=== PATIENT | male | born 1955 | race Caucasian/White ===

== ENCOUNTER → 2020-10-31 13:18 | Outpatient (BNVA) | payer BC, SELFPAY | PROVIDERS: PCP Internal Medicine; Visit Provider Urology ==

== ENCOUNTER → 2021-05-03 09:27 | Outpatient (BNVA) | payer MEDICARE, SELFPAY | PROVIDERS: PCP Internal Medicine; Visit Provider Urology | DX: R97.20 Elevated prostate specific antigen [PSA] (principal); R39.12 Poor urinary stream; N40.1 Benign prostatic hyperplasia with lower urinary tract symptoms; N13.8 Other obstructive and reflux uropathy; R35.1 Nocturia; E78.5 Hyperlipidemia, unspecified; N52.9 Male erectile dysfunction, unspecified; E11.9 Type 2 diabetes mellitus without complications; I10 Essential (primary) hypertension | CPT/HCPCS: Q3014 ==

== ENCOUNTER 2021-09-10 09:34 | Outpatient (REF) | payer MEDICARE, SELFPAY ==
[2021-09-10 11:52] LABS: Estimated Average Glucose 166 mg/dL; Hemoglobin A1c % 7.4 %
[2021-09-10 12:12] LABS: Alanine Aminotransferase 24 U/L (0-40); Albumin Level 4.7 g/dL (3.5-5.0); Alkaline Phosphatase 55 U/L (39-117); Anion Gap 13 (12-20); Aspartate Amino Transferase 21 U/L (5-37); Bilirubin Total 1.2 mg/dL (0.0-1.0); Blood Urea Nitrogen 16 mg/dL (9-16); Calcium 10.3 mg/dL (8.4-10.2); Carbon Dioxide 27 mmol/L (22-29); Chloride 106 mmol/L (96-108); Cholesterol 153 mg/dL; Estimated Glomerular Filt Rate > 60; Glucose Fasting 104 mg/dL (60-99); HDL Cholesterol 57 mg/dL; LDL Cholesterol Calculated 74 mg/dl; Potassium 4.8 mmol/L (3.3-5.1); Sodium 141 mmol/L (135-145); Triglycerides 112 mg/dL
[2021-09-10 12:16] LABS: Creatinine Urine 142.86 mg/dL; Microalbum/Creatinine Ratio Ur 13.2 ug/mg cr
== END 2021-09-10 09:35 | disposition home or self-care (01) ==
LOC: HO.HMGCLDS 09:34
PROVIDERS: PCP Internal Medicine; Visit Provider Internal Medicine
DX: E11.9 Type 2 diabetes mellitus without complications (principal); E78.5 Hyperlipidemia, unspecified; I10 Essential (primary) hypertension
CPT/HCPCS: 36415; 80053; 80061; 82043; 83036

== ENCOUNTER 2021-10-22 11:09 | Outpatient (REF) | payer MEDICARE, SELFPAY ==
[2021-10-22 14:43] LABS: Prostate Specific Antigen 3.16 ng/mL (<0.05-4.0)
== END 2021-10-22 11:10 | disposition home or self-care (01) ==
LOC: HO.HMGCLDS 11:09
PROVIDERS: PCP Internal Medicine; Visit Provider Urology
DX: Z12.5 Encounter for screening for malignant neoplasm of prostate (principal); R97.20 Elevated prostate specific antigen [PSA]
CPT/HCPCS: 36415; 84153

== ENCOUNTER → 2021-11-01 10:11 | Outpatient (BNVA) | payer MEDICARE, SELFPAY | PROVIDERS: PCP Internal Medicine; Visit Provider Urology | DX: R97.20 Elevated prostate specific antigen [PSA] (principal) | CPT/HCPCS: Q3014 ==

== ENCOUNTER 2022-01-06 10:53 | Outpatient (REF) | payer MEDICARE, SELFPAY ==
[2022-01-06 13:49] LABS: Hematocrit 41.1 % (42.0-52.0); Hemoglobin 13.7 g/dl (14.0-18.0); Mean Corpuscular HGB Conc 33.3 g/dl (31.0-36.0); Mean Corpuscular Hemoglobin 31.5 pg (27.0-33.0); Mean Corpuscular Volume 94.5 fL (80.0-98.0); Mean Platelet Volume 9.7 fL (9.4-12.4); Platelet Count 201 X10*3/uL (160-400); Red Blood Count 4.35 X10*6/uL (4.60-5.80); Red Cell Distribution Width 11.9 % (11.0-16.0); White Blood Count 5.6 X10*3/uL (4.8-10.8)
[2022-01-06 13:59] LABS: Alanine Aminotransferase 29 U/L (0-40); Albumin Level 4.4 g/dL (3.5-5.0); Alkaline Phosphatase 58 U/L (39-117); Anion Gap 15 (12-20); Aspartate Amino Transferase 24 U/L (5-37); Bilirubin Total 1.5 mg/dL (0.0-1.0); Blood Urea Nitrogen 12 mg/dL (9-16); Calcium 9.9 mg/dL (8.4-10.2); Carbon Dioxide 25 mmol/L (22-29); Chloride 105 mmol/L (96-108); Cholesterol 142 mg/dL; Estimated Glomerular Filt Rate > 60; Glucose Fasting 81 mg/dL (60-99); HDL Cholesterol 51 mg/dL; LDL Cholesterol Calculated 68 mg/dl; Potassium 4.5 mmol/L (3.3-5.1); Sodium 140 mmol/L (135-145); Total Protein 6.6 g/dL (6.5-8.0); Triglycerides 117 mg/dL
[2022-01-06 14:05] LABS: Estimated Average Glucose 183 mg/dL
== END 2022-01-06 10:54 | disposition home or self-care (01) ==
LOC: HO.HMGCLDS 10:53
PROVIDERS: PCP Internal Medicine; Visit Provider Internal Medicine
DX: E11.9 Type 2 diabetes mellitus without complications (principal); I10 Essential (primary) hypertension; E78.5 Hyperlipidemia, unspecified
CPT/HCPCS: 36415; 80053; 80061; 83036; 85027

== ENCOUNTER 2022-01-16 10:37 | Outpatient (REF) | payer MEDICARE, SELFPAY ==
[2022-01-16 14:32] LABS: Prostate Specific Antigen 3.28 ng/mL (<0.05-4.0)
== END 2022-01-16 10:38 | disposition home or self-care (01) ==
LOC: HO.HMGCLDS 10:37
PROVIDERS: PCP Internal Medicine; Visit Provider Urology
DX: Z12.5 Encounter for screening for malignant neoplasm of prostate (principal); N40.1 Benign prostatic hyperplasia with lower urinary tract symptoms; N13.8 Other obstructive and reflux uropathy
CPT/HCPCS: 36415; 84153

== ENCOUNTER → 2022-01-24 11:50 | Outpatient (BNVA) | payer MEDICARE, SELFPAY | PROVIDERS: PCP Internal Medicine; Visit Provider Urology | DX: N40.1 Benign prostatic hyperplasia with lower urinary tract symptoms (principal); N13.8 Other obstructive and reflux uropathy; R97.20 Elevated prostate specific antigen [PSA]; R39.12 Poor urinary stream | CPT/HCPCS: Q3014 ==

== ENCOUNTER 2022-05-06 11:35 | Outpatient (REF) | payer MEDICARE, SELFPAY ==
[2022-05-06 14:20] LABS: Hematocrit 41.4 % (42.0-52.0); Mean Corpuscular HGB Conc 33.8 g/dl (31.0-36.0); Mean Corpuscular Hemoglobin 31.8 pg (27.0-33.0); Mean Corpuscular Volume 94.1 fL (80.0-98.0); Mean Platelet Volume 9.5 fL (9.4-12.4); Platelet Count 204 X10*3/uL (160-400); White Blood Count 5.2 X10*3/uL (4.8-10.8)
[2022-05-06 14:30] LABS: Estimated Average Glucose 183 mg/dL
[2022-05-06 14:33] LABS: Alanine Aminotransferase 24 U/L (0-40); Albumin Level 4.4 g/dL (3.5-5.0); Alkaline Phosphatase 67 U/L (39-117); Anion Gap 17 (12-20); Aspartate Amino Transferase 23 U/L (5-37); Bilirubin Total 1.1 mg/dL (0.0-1.0); Blood Urea Nitrogen 13 mg/dL (9-16); Calcium 9.7 mg/dL (8.4-10.2); Carbon Dioxide 26 mmol/L (22-29); Chloride 106 mmol/L (96-108); Cholesterol 186 mg/dL; Estimated Glomerular Filt Rate > 60; Glucose Fasting 75 mg/dL (60-99); HDL Cholesterol 57 mg/dL; LDL Cholesterol Calculated 97 mg/dl; Potassium 4.8 mmol/L (3.3-5.1); Sodium 144 mmol/L (135-145); Total Protein 6.6 g/dL (6.5-8.0); Triglycerides 162 mg/dL
[2022-05-06 14:51] LABS: Creatinine Urine 123.27 mg/dL; Microalbum/Creatinine Ratio Ur 5.6 ug/mg cr
== END 2022-05-06 11:36 | disposition home or self-care (01) ==
LOC: HO.HMGCLDS 11:35
PROVIDERS: PCP Internal Medicine; Visit Provider Internal Medicine
DX: I10 Essential (primary) hypertension (principal); E78.5 Hyperlipidemia, unspecified; E11.9 Type 2 diabetes mellitus without complications
CPT/HCPCS: 36415; 80053; 80061; 82043; 83036; 85027

== ENCOUNTER 2022-05-27 10:52 | Outpatient (REF) | payer MEDICARE, SELFPAY ==
[2022-05-27 14:51] LABS: PSA,Total (Free>4and<10) 3.72 ng/mL (0.00-4.00)
== END 2022-05-27 10:53 | disposition home or self-care (01) ==
LOC: HO.HMGCLDS 10:52
PROVIDERS: PCP Internal Medicine; Visit Provider Urology
DX: R97.20 Elevated prostate specific antigen [PSA] (principal); Z12.5 Encounter for screening for malignant neoplasm of prostate
CPT/HCPCS: 36415; 84153

== ENCOUNTER → 2022-06-10 15:16 | Outpatient (BNVA) | payer MEDICARE, SELFPAY | PROVIDERS: PCP Internal Medicine; Visit Provider Urology | DX: R97.20 Elevated prostate specific antigen [PSA] (principal) | CPT/HCPCS: 99212 ==

== ENCOUNTER 2022-07-17 11:28 | Outpatient (REF) | payer MEDICARE, SELFPAY ==
[2022-07-17 11:44] VITALS: BMI 25.6
[2022-07-17 11:45] VITALS: BP 151/74; PULSE 84; RESP 16; TEMP 36.9; O2SAT 96
--- NOTE | 2022-07-17 12:29 | W.PM.OPN ---
Operative Note Operative Note Date of Service: 07/17/22 Narrative: Preoperative diagnosis: Elevated PSA Postoperative diagnosis: Elevated PSA Procedure: 1. transrectal ultrasound measurement of prostate 2. transrectal ultrasound-guided pudendal nerve block 3. transrectal ultrasound-guided prostate biopsy 12 core Surgeon: Dr. Iker Lane Anesthetic: Local Indications for procedure: Elevated PSA Procedure: After informed consent was verified, the patient was brought into the procedure area and lay left-hand side down on the table. Patient identity confirmed. Perioperative antibiotics confirmed. Safety pause time out performed. NOELLE performed to dilate rectal sphincter Iodine 10cc with Gel was placed per rectum Ultrasound probe was placed per rectum The prostate was measured in 3 dimensions Total volume equals 30 gm No cystic structures were noted Bilateral peripheral calcifications were noted at the surgical margin The prostate was otherwise homogeneous in nature An ultrasound-guided pudendal nerve block was performed using 10 cc of 1% lidocaine. 8 cc was placed at the base and 2 cc of the apex. A 12 core biopsy was performed with 6 cores each side. Two cores were taken at the apex, mid and base. Cores were spaced between lateral and medial. He tolerated the procedure well. Was able to ambulate to bathroom after 5 minutes. Printed instructions regarding antibiotic use and common side effects such as low-grade temperature, potential infection and bleeding were given Pathology: 12 core prostate biopsy.
[2022-07-17 12:51] VITALS: BP 157/86; PULSE 84; RESP 16; O2SAT 98
== END 2022-07-17 11:29 | disposition home or self-care (01) ==
LOC: HO.MS 11:28
PROVIDERS: PCP Internal Medicine; Visit Provider Urology
PROC: (CPT 55700; principal; 2022-07-17 12:00)
DX: C61 Malignant neoplasm of prostate (principal); R97.20 Elevated prostate specific antigen [PSA]
CPT/HCPCS: 55700; 76942; 88305; 88344

== ENCOUNTER → 2022-07-25 10:46 | Outpatient (BNVA) | payer MEDICARE, SELFPAY | PROVIDERS: PCP Internal Medicine; Visit Provider Urology | DX: C61 Malignant neoplasm of prostate (principal) | CPT/HCPCS: Q3014 ==

== ENCOUNTER → 2022-08-13 10:44 | Outpatient (REF) | payer MEDICARE, SELFPAY ==
--- NOTE | ~2022-08-13 | NM_ITS ---
EXAMINATION: NM BONE SCAN OF THE WHOLE BODY CLINICAL INFORMATION: Malignant neoplasm of the prostate. COMPARISON: None TECHNIQUE: Multiple gamma scintillation camera images of the whole body were performed 2.75 hours following the intravenous administration of 33 mCi Tc-99m MDP. FINDINGS: The head is only partially imaged here. No abnormality in the imaging submitted. The skull is not imaged from orbits superior. In the thoracic cage and upper extremities, some uptake at the costochondral junction of the 1st rib is likely degenerative and some mild uptake at the sternomanubrial joints is likely degenerative. Some uptake at the right AC joint is likely degenerative. The rib uptake is felt to be unremarkable. Partially visualized upper extremity uptake is otherwise unremarkable. In the spine, some mottled uptake and thoracic spine may well be degenerative in nature. In the lower lumbosacral spine, there is some planar uptake at L2-L3 and some uptake in the region of L5-S1 posterior right and left. This could well be degenerative in nature. Correlate with plain films or CT. Pelvis, unremarkable. In the lower extremities, some uptake in the medial compartment of the left greater than right knee is likely degenerative and some uptake in the patellofemoral regions likely degenerative. In the feet, some uptake at the level of the distal metatarsals, right greater than left foot, and uptake in the region of the proximal phalanx of the 1st digit of the right foot. Findings may be postsurgical or possibly degenerative. Consider plain films to fully evaluate. No other definite bony abnormalities are noted. The urinary bladder and faint visualization of both kidneys are noted. NM/NM bone scan whole body IMPRESSION: I would recommend imaging of the lumbar spine to evaluate for degeneration versus possible early lesions. Also consider plain films of the feet and clinical correlation would be recommended here. Otherwise areas described above are likely degenerative in nature. Consider plain films if clinically indicated
== END ==
LOC: HO.NUCMED 10:44
PROVIDERS: PCP Internal Medicine; Visit Provider Urology
DX: C61 Malignant neoplasm of prostate (principal)
CPT/HCPCS: 78306; A9503

== ENCOUNTER → 2022-08-21 13:08 | Outpatient (BNVA) | payer MEDICARE, SELFPAY | PROVIDERS: PCP Internal Medicine; Visit Provider Urology | DX: C61 Malignant neoplasm of prostate (principal); N40.1 Benign prostatic hyperplasia with lower urinary tract symptoms; N13.8 Other obstructive and reflux uropathy; Z79.899 Other long term (current) drug therapy | CPT/HCPCS: 51798; 99212 ==

== ENCOUNTER → 2022-09-04 13:58 | Outpatient (BNVA) | payer MEDICARE, SELFPAY | PROVIDERS: PCP Internal Medicine; Visit Provider Urology | DX: C61 Malignant neoplasm of prostate (principal) | CPT/HCPCS: 96402; J9217 ==

== ENCOUNTER 2022-10-07 11:34 | Outpatient (REF) | payer MEDICARE, SELFPAY ==
[2022-10-07 14:25] LABS: Alanine Aminotransferase 22 U/L (0-40); Albumin Level 4.2 g/dL (3.5-5.0); Alkaline Phosphatase 63 U/L (39-117); Anion Gap 14 (12-20); Aspartate Amino Transferase 19 U/L (5-37); Bilirubin Total 1.2 mg/dL (0.0-1.0); Blood Urea Nitrogen 14 mg/dL (9-16); Calcium 9.5 mg/dL (8.4-10.2); Carbon Dioxide 29 mmol/L (22-29); Chloride 105 mmol/L (96-108); Cholesterol 197 mg/dL; Estimated Glomerular Filt Rate > 60; Glucose Fasting 141 mg/dL (60-99); HDL Cholesterol 55 mg/dL; LDL Cholesterol Calculated 104 mg/dl; Potassium 4.5 mmol/L (3.3-5.1); Sodium 143 mmol/L (135-145); Total Protein 6.2 g/dL (6.5-8.0); Triglycerides 191 mg/dL
[2022-10-07 14:29] LABS: Estimated Average Glucose 186 mg/dL; Hemoglobin A1c % 8.1 %
== END 2022-10-07 11:35 | disposition home or self-care (01) ==
LOC: HO.HMGCLDS 11:34
PROVIDERS: PCP Internal Medicine; Visit Provider Internal Medicine
DX: I10 Essential (primary) hypertension (principal); E78.5 Hyperlipidemia, unspecified; E11.9 Type 2 diabetes mellitus without complications
CPT/HCPCS: 36415; 80053; 80061; 83036

== ENCOUNTER → 2022-11-13 15:39 | Outpatient (BNVA) | payer MEDICARE, SELFPAY | PROVIDERS: PCP Internal Medicine; Visit Provider Urology | DX: C61 Malignant neoplasm of prostate (principal) | CPT/HCPCS: 99212 ==

== ENCOUNTER 2022-11-17 08:37 | Day surgery (SDC) | payer MEDICARE, SELFPAY ==
[2022-11-13 09:44] VITALS: BMI 25.6
--- NOTE | 2022-11-14 11:06 | HO.ANESPROP2 ---
Documented by User: Ximena Stein NP 11/14/22 11:10 HPI - Anesthesia Eval Consult details Narrative: 67yo M for Space OAR, Visicoil Insertion PMFSH Active Problems Active Problems: All Active Problems (Updated 10/13/22 @ 13:33 by Alisa Pascual MD) Prostate cancer (Acute) Hyperlipidemia (Acute) HTN (hypertension) (Acute) Dysplastic nevi (Acute) Abnormal colonoscopy (Acute) DM type 2 (diabetes mellitus, type 2) (Acute) Elevated PSA (Acute) Weak urinary stream (Acute) Nocturia associated with benign prostatic hyperplasia (Acute) BPH w urinary obs/LUTS (Acute) Past Medical History Medical History Abnormal colonoscopy DM type 2 (diabetes mellitus, type 2) Dysplastic nevi HTN (hypertension) Hyperlipidemia Inguinal hernia Family History Family History Father No problems noted. Mother No problems noted. 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 Alcohol intake: current Alcohol intake frequency: does not drink Patient Tobacco Use Status: Never used Tobacco e-Cigarette/Vaping Use: Never Used Second Hand Smoke Exposure: No Use of substances other than those prescribed or required for medical reasons: No Are you DNR?: No Advance Directives: No Advance Directives Information Provided: Yes service: No Current occupational status: retired Cognitive needs: No Hearing needs: No Vision needs: Yes Meds Allergies Allergy/AdvReac Type Severity Reaction Status Date / Time penicillin G Allergy Unknown rash all Verified 11/13/22 15:43 over body Home Medications Medication Instructions Recorded Confirmed Last Taken Type lancets #100 ea 05/14/21 10/13/22 Unknown History Exam Exam Date and Time: November 14, 2022 1106 Height,Weight and Vital Signs: Height 6 ft 3 in Weight 92.986 kg Pertinent Lab Results Pertinent Lab Results: Laboratory Tests 05/06/22 10/07/22 11:48 11:44 WBC 5.2 Hgb 14.0 Hct 41.4 L Plt Count 204 Sodium 143 Potassium 4.5 Chloride 105 Carbon Dioxide 29 BUN 14 Creatinine 0.84 Assessment and Plan Assessment Anesthesia Assessment: Chart Reviewed Documented by User: Liv Lai MD 11/17/22 09:18 [facility] Past Medical History Medical History Abnormal colonoscopy DM type 2 (diabetes mellitus, type 2) Dysplastic nevi HTN (hypertension) Hyperlipidemia Inguinal hernia Family History Family History Father No problems noted. Mother No problems noted. 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 Alcohol intake: current Alcohol intake frequency: does not drink Patient Tobacco Use Status: Never used Tobacco e-Cigarette/Vaping Use: Never Used Second Hand Smoke Exposure: No Use of substances other than those prescribed or required for medical reasons: No Are you DNR?: No Advance Directives: No Advance Directives Information Provided: Yes service: No Current occupational status: retired Cognitive needs: No Hearing needs: No Vision needs: Yes Meds Allergies Allergy/AdvReac Type Severity Reaction Status Date / Time penicillin G Allergy Unknown rash all Verified 11/13/22 15:43 over body Home Medications Medication Instructions Recorded Confirmed Last Taken Type lancets #100 ea 05/14/21 10/13/22 Unknown History Exam Airway Mallampati Class: I Neck ROM: Full Heart: rr Lungs: cta Assessment and Plan Assessment Anesthesia Assessment: Anesthesia Plan Discussed and Smoking Cess. Discussed Final Anesthetic Review Family History of Problems with Anesthesia: No History of Problems with Anesthesia: Yes (Ponv) NPO: Yes ASA Class: II Final Preanesthetic Review: No Changes in Pt Med Stat, Meds/Allgs Chart Reviewed, Consent Obtained/Reviewed and Anes Risks/Benef Reviewed Patient Risk: Low Procedure Risk: Low Anesthetic Plan Anesthetic Plan: GA Disposition: Standard PACU
[2022-11-17 09:00] VITALS: BP 125/72; PULSE 77; RESP 18; TEMP 36.2; O2SAT 96; BMI 26.1
[2022-11-17 09:12] LABS: Glucose, Whole Blood 214 mg/dL (60-115)
[2022-11-17] MEDS: Scopolamine 1.5 MG PATCH.TD.3 TRANSDERMA (09:34)
--- NOTE | 2022-11-17 11:32 | W.PM.OPN ---
Operative Note Operative Note Date of Service: 11/17/22 Narrative: Preoperative diagnosis: Prostate cancer Postoperative diagnosis: Prostate cancer Procedure: 1. Transrectal ultrasound-guided perineal visicoil fiducial seed placement 2. Treansrectal ultrasound-guided perineal SpaceOAR gel placement Surgeon: Dr. Iker Lane Anesthetic: Sedation Indications for procedure: Prostate Cancer Procedure: After informed consent was verified, the patient was brought into the operating room and anesthesia was performed per protocol. The patient was placed in a modified dorsal lithotomy position. Gel was placed per rectum Ultrasound probe was placed per rectum. The prostate was visualized in sagittal and transverse dimensions. Local anesthetic was infiltrated in the perineal area using 10 cc of lidocaine Visicoil fiducial seed markers were placed in a transperineal fashion using ultrasound guidance 2 gold seed markers placed in total. 1 on the right - 1 on the left. The purpose is for triangulation. The 2nd part of the procedure was placement of SpaceOAR gel to allow consolidation for radiation delivery. The delivery needle was advanced bevel down in the midline under ultrasound guidance to the apex of the prostate. It was advanced in the plane the prostate from the rectum to the midpoint of the prostate. Location was determined using sagittal and transverse imaging. At the midpoint of the prostate 1 cc of saline was placed to confirm needle position. Second cc of saline was placed to confirm spread toward the base of the prostate. With the needle in the confirmed position 10 cc of gel mixture was injected. Good separation was seen of the rectum from the prostate space running in the midline from the base toward the apex of the prostate. Following completion of the procedure the probe was removed from the rectum. He tolerated the procedure well. He was extubated in the operating room and transferred in stable condition to the recovery area. Pathology none Drains none
[2022-11-17 11:37] VITALS: BP 127/76; PULSE 71; RESP 20; TEMP 36.2; O2SAT 96
[2022-11-17 11:42] VITALS: BP 121/80; PULSE 78; RESP 16; O2SAT 97
[2022-11-17] MEDS: oxyCODONE HCl Immed Release 5 MG TABLET PO (11:42)
[2022-11-17 11:47] VITALS: BP 116/77; PULSE 76; RESP 16; O2SAT 97
[2022-11-17 11:52] VITALS: BP 117/76; PULSE 70; RESP 16; O2SAT 97
[2022-11-17 12:07] VITALS: BP 108/78; PULSE 66; RESP 16; TEMP 36.2; O2SAT 98
== END 2022-11-17 12:39 | disposition home or self-care (01) ==
PROVIDERS: PCP Internal Medicine; Visit Provider Urology
PROC: (CPT 55874; principal; 2022-11-17 10:50)
PROC: (CPT 55874; 2022-11-17 10:50)
DX: C61 Malignant neoplasm of prostate (principal); I10 Essential (primary) hypertension; E78.5 Hyperlipidemia, unspecified; D23.9 Other benign neoplasm of skin, unspecified; E11.9 Type 2 diabetes mellitus without complications; Z79.84 Long term (current) use of oral hypoglycemic drugs; Z79.899 Other long term (current) drug therapy; Z88.0 Allergy status to penicillin
CPT/HCPCS: 55874; 55876; 82947; A4648; C1889; J1956; J3010

== ENCOUNTER 2023-02-03 10:33 | Outpatient (REF) | payer MEDICARE, SELFPAY ==
[2023-02-03 13:58] LABS: MANUAL DIFF FLAG NO
[2023-02-03 14:08] LABS: Basophils Percent Auto 0.8 % (0-2); Eosinophils Absolute Auto 0.5 X10*3/uL (0.0-0.4); Eosinophils Percent Auto 13.7 % (0-4); Imm Gran Abs Auto 0.01 X10*3/uL (0.00-0.03); Imm Gran Pct Auto 0.3 % (0.0-0.4); Lymphocytes Absolute Auto 0.4 X10*3/uL (1.2-4.9); Lymphocytes Percent Auto 11.9 % (20-40); Mean Corpuscular HGB Conc 34.2 g/dl (31.0-36.0); Mean Corpuscular Hemoglobin 32.2 pg (27.0-33.0); Mean Corpuscular Volume 94.1 fL (80.0-98.0); Mean Platelet Volume 9.5 fL (9.4-12.4); Monocytes Absolute Auto 0.3 X10*3/uL (0.1-1.2); Monocytes Percent Auto 8.1 % (2-11); Neutrophils Absolute Auto 2.4 x10*3/uL (2.0-8.3); Neutrophils Percent Auto 65.2 % (45-73); Platelet Count 199 X10*3/uL (160-400); Red Blood Count 4.04 X10*6/uL (4.60-5.80); Red Cell Distribution Width 12.3 % (11.0-16.0); White Blood Count 3.7 X10*3/uL (4.8-10.8)
[2023-02-03 14:09] LABS: Estimated Average Glucose 186 mg/dL; Hemoglobin A1c % 8.1 %
[2023-02-03 14:25] LABS: Alanine Aminotransferase 103 U/L (0-40); Alkaline Phosphatase 68 U/L (39-117); Anion Gap 16 (12-20); Aspartate Amino Transferase 54 U/L (5-37); Bilirubin Total 1.6 mg/dL (0.0-1.0); Blood Urea Nitrogen 15 mg/dL (9-16); Calcium 9.7 mg/dL (8.4-10.2); Carbon Dioxide 24 mmol/L (22-29); Chloride 107 mmol/L (96-108); Cholesterol 163 mg/dL; Estimated Glomerular Filt Rate > 60; Glucose Fasting 128 mg/dL (60-99); HDL Cholesterol 51 mg/dL; LDL Cholesterol Calculated 67 mg/dl; Potassium 4.3 mmol/L (3.3-5.1); Sodium 143 mmol/L (135-145); Total Protein 6.2 g/dL (6.5-8.0); Triglycerides 227 mg/dL
== END 2023-02-03 10:34 | disposition home or self-care (01) ==
LOC: HO.HMGCLDS 10:33
PROVIDERS: PCP Internal Medicine; Visit Provider Internal Medicine
DX: E11.9 Type 2 diabetes mellitus without complications (principal); I10 Essential (primary) hypertension; E78.5 Hyperlipidemia, unspecified
CPT/HCPCS: 36415; 80053; 80061; 83036; 85025

== ENCOUNTER 2023-03-13 11:06 | Outpatient (REF) | payer MEDICARE, SELFPAY ==
[2023-03-13 15:22] LABS: Alanine Aminotransferase 20 U/L (0-40); Albumin Level 4.3 g/dL (3.5-5.0); Alkaline Phosphatase 57 U/L (39-117); Anion Gap 17 (12-20); Aspartate Amino Transferase 21 U/L (5-37); Bilirubin Total 1.2 mg/dL (0.0-1.0); Blood Urea Nitrogen 17 mg/dL (9-16); Calcium 10.2 mg/dL (8.4-10.2); Carbon Dioxide 22 mmol/L (22-29); Chloride 107 mmol/L (96-108); Estimated Glomerular Filt Rate > 60; Glucose Random 129 mg/dL (60-115); Potassium 3.7 mmol/L (3.3-5.1); Sodium 142 mmol/L (135-145)
== END 2023-03-13 11:07 | disposition home or self-care (01) ==
LOC: HO.HMGCLDS 11:06
PROVIDERS: Absent Provider Urology; PCP Internal Medicine; Visit Provider Internal Medicine
DX: R79.89 Other specified abnormal findings of blood chemistry (principal)
CPT/HCPCS: 36415; 80053; 84520

== ENCOUNTER 2023-03-18 13:48 | Outpatient (AMB) | payer MEDICARE, SELFPAY ==
--- NOTE | 2023-03-18 14:19 | MHC.OFFVIS ---
Intake Intake Visit Reasons: GnRH/follow up(approved) Intake Note: Patient is present for follow up GnRH/follow up Urology Medications: finasteride Blood Thinner: none Surgical Technician Required: No Accompanied by: Self / Same As Patient Allergies penicillin G Allergy (Unknown, Verified 05/13/23 14:10) rash all over body HPI HPI Comments History of Present Illness Details Austen Carrero is a very pleasant male. They are a patient of Dr Pascual. He is seen for the following urologic conditions - lower urinary tract symptoms - prostate cancer Accompanied by brother GnRH administered today Three month follow-up lab work Prostate Cancer - 06/28 high risk, grade group 4, low volume disease - GnRH 08/28, 03/29 EXBRT with [facility] with hormonal manipulation for 18 months - 37 treatments completed 01/[address] Lane 06/28 PSA at diagnosis 3.7 on finasteride Urine DNA Score 40 Biopsy 06/28 Histologic type: Adenocarcinoma, acinar and intraductal types Histologic grade: ? Ad score: 4+4=8 (left mid lateral) 60%, 4+3=7 (left base lateral) 30%, 3+4=7 (left apex lateral, right apex lateral)30%, 5%, 3+3=6 (right mid medial) 5% Tumor quantitation: ? Number cores positive: 5 Total number of cores: 12 % of tissue involved: 10% of all tissue examined Periprostatic fat inv.: Not identified Seminal vesicle inv.: Not identified Perineural inv.: Not identified LVI: Not identified Prostate cancer staging - Prostate MRI - 08/28 1.4 cm PI-RADS 5 left apical lesion, no evidence of extracapsular extension - Bone Scan - degenerative changes PFSH Medical History Abnormal colonoscopy DM type 2 (diabetes mellitus, type 2) Dysplastic nevi HTN (hypertension) Hyperlipidemia Inguinal hernia Surgical History H/O colonoscopy H/O hernia repair Status post arthroscopic knee surgery Family History Father No problems noted. Mother No problems noted. 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 Alcohol intake: current Alcohol intake frequency: does not drink Patient Tobacco Use Status: Never used Tobacco e-Cigarette/Vaping Use: Never Used Second Hand Smoke Exposure: No service: No Current occupational status: retired Cognitive needs: No Hearing needs: No Vision needs: Yes Review of Systems Const Denies chills and Denies fever(s) Card Reports no additional complaints and Denies syncope Resp Denies cough GI Denies abdominal pain and Denies heartburn Reports as per HPI and Denies change in libido Neuro Denies syncope Psych Denies change in libido Endo Denies change in libido Physical Exam Const General: cooperative, healthy appearing, comfortable and no acute distress Orientation/consciousness: patient oriented x3 HEENT Face and sinus: Yes normal facial exam Mouth: moist mucous membranes Neck Neck: Yes normal visual inspection, Yes full ROM and Yes trachea midline Chest Chest palpation & inspection: normal inspection of the chest Resp Effort & Inspection: normal respiratory effort, able to speak in complete sentences and no respiratory distress GI Inspection: Yes normal to inspection Back/Spine/Pelvis Cervical Spine: normal cervical lordosis Thoracic/Lumbar Spine: thoracic and lumbar spine normal to inspection Skin General skin exam: no rashes or lesions noted Neuro General: patient oriented x3, gait normal, tone normal and moves all extremities Extrem General: Yes normal to inspection and Yes capillary refill normal Office Meds Eligard (6 month) 45 mg (6 month) subcutaneous syringe Performing Provider: Iker Lane MD [facility] Administered by: Kourtney Manzano RN on 03/18/23 14:34 Dose Route Admin Location Dispensed Lot Number Expiration Date [facility] Electronics 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 Assessment & Plan Assessment & Plan (1) Prostate cancer: Comment: 06/28 High Grade, Low Volume, RTx [place], f/u Dr. Lane Code(s): C61 - Malignant neoplasm of prostate Plan Three month follow-up labs Orders: Orders AMB Leuprolide Injection - Practice Supplied 03/18/23 C61 - Malignant neoplasm of prostate Prostate Specific Antigen 3 Months C61 - Malignant neoplasm of prostate Patient Instructions: Imaging studies, laboratory and physical exam results were discussed and reviewed in detail. No major barriers to patient understanding were identified. An opportunity to ask questions regarding the treatment plan was provided. All questions were answered. The patient expressed understanding and agreement with the above treatment plan. The patient is aware they should contact our office by phone for worsening of their current condition or the appearance of new urologic symptoms. Compliance is encouraged with any medications and followup testing that is ordered. It is a privilege to participate in the urologic care of your patient. If you have any questions or concerns regarding treatment for the above conditions, or other urologic issues, please do not hesitate to contact me. The office telephone contact is [phone]. This note is constructed using voice recognition software. While every effort has been made to ensure accuracy migratory game bird biologist errors may have been included. Yours sincerely, Dr Iker Lane MD, J[facility] - Urology Providers of Expert, Compassionate Care for the Genitourinary System Coding Level of Care Code Est Pt Level 3 (23815) Diagnoses Prostate cancer C61
== END 2023-03-18 14:38 | disposition home or self-care (01) ==
LOC: HO.HUSH 13:48
PROVIDERS: PCP Internal Medicine; Visit Provider Urology
DX: C61 Malignant neoplasm of prostate (principal)
CPT/HCPCS: 99213

== ENCOUNTER → 2023-03-18 13:48 | Outpatient (BNVA) | payer MEDICARE, SELFPAY | PROVIDERS: PCP Internal Medicine; Visit Provider Urology | DX: C61 Malignant neoplasm of prostate (principal); N40.1 Benign prostatic hyperplasia with lower urinary tract symptoms; N13.8 Other obstructive and reflux uropathy; Z79.899 Other long term (current) drug therapy | CPT/HCPCS: 96402; 99212; J9217 ==

== ENCOUNTER 2023-05-04 11:25 | Outpatient (REF) | payer MEDICARE, SELFPAY ==
[2023-05-04 12:58] LABS: MANUAL DIFF FLAG NO
[2023-05-04 13:06] LABS: Basophils Percent Auto 0.7 % (0-2); Eosinophils Absolute Auto 0.2 X10*3/uL (0.0-0.4); Eosinophils Percent Auto 4.9 % (0-4); Hematocrit 39.4 % (42.0-52.0); Hemoglobin 13.3 g/dl (14.0-18.0); Imm Gran Abs Auto 0.01 X10*3/uL (0.00-0.03); Imm Gran Pct Auto 0.2 % (0.0-0.4); Lymphocytes Absolute Auto 0.6 X10*3/uL (1.2-4.9); Lymphocytes Percent Auto 13.6 % (20-40); Mean Corpuscular HGB Conc 33.8 g/dl (31.0-36.0); Mean Corpuscular Hemoglobin 32.3 pg (27.0-33.0); Mean Corpuscular Volume 95.6 fL (80.0-98.0); Mean Platelet Volume 9.5 fL (9.4-12.4); Monocytes Absolute Auto 0.4 X10*3/uL (0.1-1.2); Monocytes Percent Auto 8.1 % (2-11); Neutrophils Absolute Auto 3.2 x10*3/uL (2.0-8.3); Neutrophils Percent Auto 72.5 % (45-73); Platelet Count 216 X10*3/uL (160-400); Red Blood Count 4.12 X10*6/uL (4.60-5.80); Red Cell Distribution Width 11.9 % (11.0-16.0); White Blood Count 4.5 X10*3/uL (4.8-10.8)
[2023-05-04 13:17] LABS: Alanine Aminotransferase 16 U/L (0-40); Albumin Level 4.4 g/dL (3.5-5.0); Alkaline Phosphatase 57 U/L (39-117); Anion Gap 14 (12-20); Aspartate Amino Transferase 21 U/L (5-37); Bilirubin Total 0.8 mg/dL (0.0-1.0); Blood Urea Nitrogen 17 mg/dL (9-16); Calcium 10.3 mg/dL (8.4-10.2); Carbon Dioxide 27 mmol/L (22-29); Chloride 107 mmol/L (96-108); Cholesterol 210 mg/dL (<200); Estimated Glomerular Filt Rate > 60; Glucose Fasting 109 mg/dL (60-99); HDL Cholesterol 67 mg/dL (>40); LDL Cholesterol Calculated 100 mg/dL (<100); Potassium 4.1 mmol/L (3.3-5.1); Sodium 144 mmol/L (135-145); Total Protein 7.1 g/dL (6.5-8.0); Triglycerides 216 mg/dL (<150)
[2023-05-04 13:21] LABS: Estimated Average Glucose 171 mg/dL; Hemoglobin A1c % 7.6 % (<6.0)
[2023-05-04 13:45] LABS: Creatinine Urine 166.98 mg/dL; Microalbum/Creatinine Ratio Ur 17.9 ug/mg cr (<30)
== END 2023-05-04 11:26 | disposition home or self-care (01) ==
LOC: HO.HMGCLDS 11:25
PROVIDERS: PCP Internal Medicine; Visit Provider Internal Medicine
DX: E11.9 Type 2 diabetes mellitus without complications (principal); E78.5 Hyperlipidemia, unspecified; I10 Essential (primary) hypertension
CPT/HCPCS: 36415; 80053; 80061; 82043; 83036; 85025

== ENCOUNTER 2023-05-13 13:53 | Outpatient (AMB) | payer MEDICARE, SELFPAY ==
--- NOTE | 2023-05-13 14:07 | MHC.PC.OV ---
Vital Signs 05/13/23 14:09 Height 6 ft 3 in Weight 199 lb BMI 24.9 BP 130/74 Blood Pressure Location Lt brachial Position Sitting Pulse 74 Pulse Source Pulse Oximeter Pulse Oximetry (%) 97 Oxygen Delivery Method Room Air Intake Visit Reasons: Annual PE Intake Note: Pt is here today for PE. Allergies penicillin G Allergy (Unknown, Verified 05/13/23 14:10) rash all over body Tobacco use date assessed: 05/13/23 Dental Screening Dental Screen Date: 05/13/23 Did you have a dental visit in the last 12 months?: Yes Did you have a dental problem in the last 6 months where you did not have access to dental care?: No Was dental information given to patient?: Patient has dentist HPI Annual PE HPI Details Pt presents for PE. PFSH Medical History Abnormal colonoscopy DM type 2 (diabetes mellitus, type 2) Dysplastic nevi HTN (hypertension) Hyperlipidemia Inguinal hernia Surgical History H/O colonoscopy H/O hernia repair Status post arthroscopic knee surgery Family History Father No problems noted. Mother No problems noted. 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 78916 - PHQ-9 Billing: Patient declined-do not bill Source: Developed by Drs. Iraj Louis, Fatmata Bravo, Geoff Ly and colleagues, with an educational jaden from [employer] Thrive Questionnaire Date Thrive assessed: 05/13/23 What is your living situation today?: I choose not to answer this question Within the past 12 months, did the food you bought not last and you didn't have the money to get more?: I choose not to answer this question Within the past 12 months, did you worry whether your food would run out before you got money to buy more?: I choose not to answer this question Do you have trouble paying for medicines?: I choose not to answer this question Do you have trouble getting transportation to medical appointments?: I choose not to answer this question Do you have trouble paying your heating and electricity bill?: I choose not to answer this question Do you have trouble taking care of your child, family member or friend?: I choose not to answer this question Do you have trouble with day-to-day activities such as bathing, preparing meals, shopping, managing finances, etc.?: I choose not to answer this question Are you currently unemployed and looking for a job?: I choose not to answer this question Are you interested in more education?: I choose not to answer this question Currently or been in a relationship where the following occur: I choose not to answer this question NORMA-7 AMB Questionnaire NORMA-7 Date NORMA - 7 assessed: 05/13/23 Source: Developed by Drs. Iraj Louis, Fatmata Bravo, Geoff Ly and colleagues, with an educational jaden from [employer] NORMA-7 Assessment Billing NORMA-7 Assessment Tool: pt declined-do not bill Review of Systems Const All systems reviewed & are unremarkable except as noted in HPI and below Reports no additional complaints Eyes Reports no additional complaints ENT Reports no additional complaints Card Reports no additional complaints Resp Reports no additional complaints GI Reports no additional complaints Reports no additional complaints Physical exam (Primary Care) Vital Signs: Last Vital Signs Pulse 74 05/13/23 14:09 BP 130/74 05/13/23 14:09 Pulse Ox 97 05/13/23 14:09 Oxygen Delivery Method Room Air 05/13/23 14:09 BMI result Body Mass Index 24.9 Tobacco/Smoking Status: Tobacco use Status Tobacco use date assessed 05/13/23 05/13/23 14:17 Patient Tobacco Use Status Never used Tobacco 05/13/23 14:08 e-Cigarette/Vaping Use Never Used 05/13/23 14:08 Thrive Assessment: Date of Thrive Assessment Date Thrive assessed 05/13/23 05/13/23 14:24 Currently or been in a relationship where the following occur: I choose not to answer this question Const General: no acute distress HENMT Head: Yes normal to inspection Ears: hearing grossly normal bilaterally Face and sinus: Yes normal facial exam Throat: Yes posterior oropharynx normal Eyes General: appearance normal, both eyes and all related structures Resp Effort & Inspection: normal respiratory effort Auscultation: clear to auscultation bilaterally Cardio Rhythm: regular rhythm Heart sounds: S1 normal heart sound present and S2 normal heart sound present GI Inspection: Yes normal to inspection Palpation (GI): Soft to palpation Percussion: Yes normal to percussion Auscultation: normal bowel sounds Assessment and Plan Assessment & Plan (1) Hyperlipidemia: Code(s): E78.5 - Hyperlipidemia, unspecified Plan: cont statin and low cholesterol diet (2) HTN (hypertension): Code(s): I10 - Essential (primary) hypertension Plan: cont lisinopril (3) Prostate cancer: Comment: 06/28 High Grade, Low Volume, RTx [facility], f/u Dr. Lane Code(s): C61 - Malignant neoplasm of prostate Plan: f/u with urology (4) DM type 2 (diabetes mellitus, type 2): Comment: 20 years, Code(s): E11.9 - Type 2 diabetes mellitus without complications Plan: A1C is down to 7.6, cont ADA diet, exercise, meds. f/u in 4 months Orders: Orders Vitamin B12 and Folate 4 Months C61 - Malignant neoplasm of prostate, E11.9 - Type 2 diabetes mellitus without complications, E78.5 - Hyperlipidemia, unspecified, I10 - Essential (primary) hypertension Comprehensive [place]. Panel Fast 4 Months E11.9 - Type 2 diabetes mellitus without complications, E78.5 - Hyperlipidemia, unspecified, I10 - Essential (primary) hypertension Hemoglobin A1c 4 Months C61 - Malignant neoplasm of prostate, E11.9 - Type 2 diabetes mellitus without complications, E78.5 - Hyperlipidemia, unspecified, I10 - Essential (primary) hypertension IRON PROFILE 4 Months C61 - Malignant neoplasm of prostate, E11.9 - Type 2 diabetes mellitus without complications, E78.5 - Hyperlipidemia, unspecified, I10 - Essential (primary) hypertension Lipid Panel 4 Months C61 - Malignant neoplasm of prostate, E11.9 - Type 2 diabetes mellitus without complications, E78.5 - Hyperlipidemia, unspecified, I10 - Essential (primary) hypertension Microalbumin, Random (w Creat) 4 Months C61 - Malignant neoplasm of prostate, E11.9 - Type 2 diabetes mellitus without complications, E78.5 - Hyperlipidemia, unspecified, I10 - Essential (primary) hypertension Complete Blood Count Auto Diff 4 Months C61 - Malignant neoplasm of prostate, E11.9 - Type 2 diabetes mellitus without complications, E78.5 - Hyperlipidemia, unspecified, I10 - Essential (primary) hypertension Coding Level of Care Code Est Pt Prev Care >65y(24813) Diagnoses Hyperlipidemia E78.5 HTN (hypertension) I10 Prostate cancer C61 DM type 2 (diabetes mellitus, type 2) E11.9
[2023-05-13 14:09] VITALS: BP 130/74; PULSE 74; O2SAT 97; BMI 24.9
== END 2023-05-13 14:40 | disposition home or self-care (01) ==
PROVIDERS: PCP Internal Medicine; Visit Provider Internal Medicine
DX: Z00.00 Encounter for general adult medical examination without abnormal findings (principal); I10 Essential (primary) hypertension; C61 Malignant neoplasm of prostate; E11.9 Type 2 diabetes mellitus without complications; E78.5 Hyperlipidemia, unspecified
CPT/HCPCS: 99397

== ENCOUNTER 2023-06-01 11:59 | Outpatient (REF) | payer MEDICARE, SELFPAY ==
[2023-06-01 13:52] LABS: Prostate Specific Antigen < 0.10 ng/mL (<0.05-4.0)
== END 2023-06-01 12:00 | disposition home or self-care (01) ==
LOC: HO.HMGCLDS 11:59
PROVIDERS: PCP Internal Medicine; Visit Provider Urology
DX: C61 Malignant neoplasm of prostate (principal); Z12.5 Encounter for screening for malignant neoplasm of prostate
CPT/HCPCS: 36415; 84153

== ENCOUNTER 2023-06-19 11:09 | Outpatient (AMB) | payer MEDICARE, SELFPAY ==
--- NOTE | 2023-06-19 11:09 | MHC.OFFVIS ---
Intake Intake Visit Reasons: 3M/PSA(set) Intake Note: Patient is present for follow up telehealth follow up Urology Medications: none Blood Thinner: none Metal Lather Required: No Accompanied by: Self / Same As Patient Allergies penicillin G Allergy (Unknown, Verified 06/19/23 11:11) rash all over body HPI HPI Comments History of Present Illness Details Austen Carrero is a very pleasant male. They are a patient of Dr Pascual. He is seen for the following urologic conditions - lower urinary tract symptoms - prostate cancer Telemedicine Evaluation 15 min Consultation [facility] Katherine Video attempted Three month follow-up - last [facility] March 202305/30 <0.1 See in 3 months for final [facility] Prostate Cancer - 06/28 high risk, grade group 4, low volume disease - [facility] 08/28, 03/29 EXBRT with [facility] with hormonal manipulation for 18 months - 37 treatments completed 01/[address] Lane 06/28 PSA at diagnosis 3.7 on finasteride Urine DNA Score 40 Biopsy 06/28 Histologic type: Adenocarcinoma, acinar and intraductal types Histologic grade: Oberlin score: 4+4=8 (left mid lateral) 60%, 4+3=7 (left base lateral) 30%, 3+4=7 (left apex lateral, right apex lateral)30%, 5%, 3+3=6 (right mid medial) 5% Number cores positive: 5 Total number of cores: 12 % of tissue involved: 10% of all tissue examined Periprostatic fat inv.: Not identified Seminal vesicle inv.: Not identified Perineural inv.: Not identified LVI: Not identified Prostate cancer staging - Prostate MRI - 08/28 1.4 cm PI-RADS 5 left apical lesion, no evidence of extracapsular extension - Bone Scan - degenerative changes [facility] Medical History Dysplastic nevi Abnormal colonoscopy DM type 2 (diabetes mellitus, type 2) Inguinal hernia Hyperlipidemia HTN (hypertension) Surgical History H/O colonoscopy H/O hernia repair Status post arthroscopic knee surgery Family History Father No problems noted. Mother No problems noted. 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 Alcohol intake: current Alcohol intake frequency: does not drink Patient Tobacco Use Status: Never used Tobacco e-Cigarette/Vaping Use: Never Used Second Hand Smoke Exposure: No service: No Current occupational status: retired Cognitive needs: No Hearing needs: No Vision needs: Yes Review of Systems Const All systems reviewed & are unremarkable except as noted in HPI and below Reports no additional complaints Resp Reports no additional complaints GI Reports no additional complaints Reports as per HPI Musc Reports no additional complaints Physical Exam Telemedicine evaluation Appropriate responses Regular breathing rate and rhythm HEENT Head: Yes normal to inspection Ears: hearing grossly normal bilaterally Eyes General: appearance normal, both eyes and all related structures Neck Neck: Yes normal visual inspection Chest Chest palpation & inspection: normal inspection of the chest Resp Effort & Inspection: normal respiratory effort and able to speak in complete sentences Assessment & Plan Assessment & Plan (1) Prostate cancer: Comment: 06/28 High Grade, Low Volume, RTx [facility], f/u Dr. Lane Code(s): C61 - Malignant neoplasm of prostate Plan Three month follow-up PSA with [facility] Orders: Orders Prostate Specific Antigen 3 Months C61 - Malignant neoplasm of prostate Patient Instructions: Imaging studies, laboratory and physical exam results were discussed and reviewed in detail. No major barriers to patient understanding were identified. An opportunity to ask questions regarding the treatment plan was provided. All questions were answered. The patient expressed understanding and agreement with the above treatment plan. The patient is aware they should contact our office by phone for worsening of their current condition or the appearance of new urologic symptoms. Compliance is encouraged with any medications and followup testing that is ordered. It is a privilege to participate in the urologic care of your patient. If you have any questions or concerns regarding treatment for the above conditions, or other urologic issues, please do not hesitate to contact me. The office telephone contact is [phone]. This note is constructed using voice recognition software. While every effort has been made to ensure accuracy android software engineer errors may have been included. Yours sincerely, Dr Iker Lane MD, [facility] - Urology Providers of Expert, Compassionate Care for the Genitourinary System Telehealth Telehealth Location of provider rendering services: practice address Location of patient: address on file Patient Identification confirmed using: Name, : Yes Telehealth method: video Patient verbally consented to treatment: Yes Patient verbally consented to billing insurance company: Yes Patient informed of any privacy concerns related to visit: Yes Coding Level of Care Code Tele Est Pt Level 3 (84534) Diagnoses Prostate cancer C61
== END 2023-06-19 12:01 | disposition home or self-care (01) ==
LOC: HO.HUSH 11:09
PROVIDERS: PCP Internal Medicine; Visit Provider Urology
DX: C61 Malignant neoplasm of prostate (principal)
CPT/HCPCS: 99213

== ENCOUNTER → 2023-06-19 11:09 | Outpatient (BNVA) | payer MEDICARE, SELFPAY | PROVIDERS: PCP Internal Medicine; Visit Provider Urology ==

== ENCOUNTER 2023-09-08 14:57 | Outpatient (REF) | payer MEDICARE, SELFPAY ==
[2023-09-08 16:47] LABS: Prostate Specific Antigen < 0.10 ng/mL (<0.05-4.0)
== END 2023-09-08 14:58 | disposition home or self-care (01) ==
LOC: HO.HMGCLDS 14:57
PROVIDERS: PCP Internal Medicine; Visit Provider Urology
DX: C61 Malignant neoplasm of prostate (principal); Z12.5 Encounter for screening for malignant neoplasm of prostate
CPT/HCPCS: 36415; 84153

== ENCOUNTER 2023-09-14 12:43 | Outpatient (REF) | payer MEDICARE, SELFPAY ==
[2023-09-14 13:54] LABS: Estimated Average Glucose 206 mg/dL; Hemoglobin A1c % 8.8 % (<6.0)
[2023-09-14 14:33] LABS: Alanine Aminotransferase 19 U/L (0-40); Albumin Level 4.3 g/dL (3.5-5.0); Alkaline Phosphatase 65 U/L (39-117); Anion Gap 14 (12-20); Aspartate Amino Transferase 18 U/L (5-37); Bilirubin Total 0.8 mg/dL (0.0-1.0); Blood Urea Nitrogen 13 mg/dL (9-16); Calcium 10.2 mg/dL (8.4-10.2); Carbon Dioxide 24 mmol/L (22-29); Chloride 107 mmol/L (96-108); Cholesterol 176 mg/dL (<200); Estimated Glomerular Filt Rate > 60; Glucose Fasting 133 mg/dL (60-99); HDL Cholesterol 58 mg/dL (>40); Iron 109 mcg/dL (45-160); LDL Cholesterol Calculated 77 mg/dL (<100); Percent Iron Saturation 39 % (15-50); Potassium 3.9 mmol/L (3.3-5.1); Sodium 141 mmol/L (135-145); Total Iron Binding Capacity 280 mcg/dL (228-428); Triglycerides 207 mg/dL (<150); Unsaturated Iron Binding 171 ug/dL
== END 2023-09-14 12:44 | disposition home or self-care (01) ==
LOC: HO.HMGCLDS 12:43
PROVIDERS: PCP Internal Medicine; Visit Provider Internal Medicine
DX: E78.5 Hyperlipidemia, unspecified (principal); I10 Essential (primary) hypertension; C61 Malignant neoplasm of prostate; E11.9 Type 2 diabetes mellitus without complications
CPT/HCPCS: 36415; 80053; 80061; 82043; 82570; 82607; 82746; 83036; 83540; 85025

== ENCOUNTER 2023-09-22 11:21 | Outpatient (AMB) | payer MEDICARE, SELFPAY ==
--- NOTE | 2023-09-22 11:23 | MHC.OFFVIS ---
Intake Intake Visit Reasons: GnRH/PSA(set) Intake Note: Patient is Present for Follow Up [facility] Medication: Finasteride Antibiotic Allergies:Penicillin Blood Thinners:None Allergies penicillin G Allergy (Unknown, Verified 06/19/23 11:11) rash all over body HPI HPI Comments History of Present Illness Details Austen Carrero is a very pleasant male. They are a patient of Dr Pascual. He is seen for the following urologic conditions - lower urinary tract symptoms - prostate cancer Telemedicine Evaluation 15 min Consultation [facility] Katherine Video attempted Three month follow-up - last [facility] March 202305/30 <0.1, 09/30 <0.1 Three-month lab work tele Prostate Cancer - 06/28 high risk, grade group 4, low volume disease - [facility] 08/28, 03/29, 09/29 EXBRT with [facility] with hormonal manipulation for 18 months - 37 treatments completed 01/[address] Lane 06/28 PSA at diagnosis 3.7 on finasteride Urine DNA Score 40 Biopsy 06/28 Histologic type: Adenocarcinoma, acinar and intraductal types Histologic grade: Ad score: 4+4=8 (left mid lateral) 60%, 4+3=7 (left base lateral) 30%, 3+4=7 (left apex lateral, right apex lateral)30%, 5%, 3+3=6 (right mid medial) 5% Number cores positive: 5 Total number of cores: 12 % of tissue involved: 10% of all tissue examined Periprostatic fat inv.: Not identified Seminal vesicle inv.: Not identified Perineural inv.: Not identified LVI: Not identified Prostate cancer staging - Prostate MRI - 08/28 1.4 cm PI-RADS 5 left apical lesion, no evidence of extracapsular extension - Bone Scan - degenerative changes PF[facility] Medical History Dysplastic nevi Abnormal colonoscopy DM type 2 (diabetes mellitus, type 2) Inguinal hernia Hyperlipidemia HTN (hypertension) Surgical History H/O colonoscopy H/O hernia repair Status post arthroscopic knee surgery Family History Father No problems noted. Mother No problems noted. 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 Alcohol intake: current Alcohol intake frequency: does not drink Patient Tobacco Use Status: Never used Tobacco e-Cigarette/Vaping Use: Never Used Second Hand Smoke Exposure: No service: No Current occupational status: retired Cognitive needs: No Hearing needs: No Vision needs: Yes Review of Systems Const Denies chills and Denies fever(s) Card Reports no additional complaints and Denies syncope Resp Denies cough GI Denies abdominal pain and Denies heartburn Reports as per HPI and Denies change in libido Neuro Denies syncope Psych Denies change in libido Endo Denies change in libido Physical Exam Const General: cooperative, healthy appearing, comfortable and no acute distress Orientation/consciousness: patient oriented x3 HEENT Face and sinus: Yes normal facial exam Mouth: moist mucous membranes Neck Neck: Yes normal visual inspection, Yes full ROM and Yes trachea midline Chest Chest palpation & inspection: normal inspection of the chest Resp Effort & Inspection: normal respiratory effort, able to speak in complete sentences and no respiratory distress GI Inspection: Yes normal to inspection Back/Spine/Pelvis Cervical Spine: normal cervical lordosis Thoracic/Lumbar Spine: thoracic and lumbar spine normal to inspection Skin General skin exam: no rashes or lesions noted Neuro General: patient oriented x3, gait normal, tone normal and moves all extremities Extrem General: Yes normal to inspection and Yes capillary refill normal Office Meds Eligard (6 month) 45 mg (6 month) subcutaneous syringe Performing Provider: Iker Lane MD [facility] [place] [facility] Administered by: Kourtney Jernigan RN on 09/22/23 11:52 Dose Route Admin Location Dispensed Lot Number Expiration Date [facility] Equipment Validation Specialist 45 mg subcut left arm 45 mg [id number] 10/08/24 90479-163-26 [email or web address]. Assessment & Plan Assessment & Plan (1) Prostate cancer: Comment: 06/28 High Grade, Low Volume, RTx [facility], f/u Dr. Lane Code(s): C61 - Malignant neoplasm of prostate Plan 3m f/u labs Orders: Orders Prostate Specific Antigen 3 Months C61 - Malignant neoplasm of prostate Testosterone, Total 3 Months C61 - Malignant neoplasm of prostate AMB Leuprolide Injection - Practice Supplied Today C61 - Malignant neoplasm of prostate Patient Instructions: Imaging studies, laboratory and physical exam results were discussed and reviewed in detail. No major barriers to patient understanding were identified. An opportunity to ask questions regarding the treatment plan was provided. All questions were answered. The patient expressed understanding and agreement with the above treatment plan. The patient is aware they should contact our office by phone for worsening of their current condition or the appearance of new urologic symptoms. Compliance is encouraged with any medications and followup testing that is ordered. It is a privilege to participate in the urologic care of your patient. If you have any questions or concerns regarding treatment for the above conditions, or other urologic issues, please do not hesitate to contact me. The office telephone contact is [phone]. This note is constructed using voice recognition software. While every effort has been made to ensure accuracy equipment validation specialist errors may have been included. Yours sincerely, Dr Iker Lane MD, [facility] - Urology Providers of Expert, Compassionate Care for the Genitourinary System Coding Level of Care Code Est Pt Level 3 (00178) Diagnoses Prostate cancer C61
== END 2023-09-22 12:07 | disposition home or self-care (01) ==
PROVIDERS: PCP Internal Medicine; Visit Provider Urology
DX: C61 Malignant neoplasm of prostate (principal)
CPT/HCPCS: 99213

== ENCOUNTER → 2023-09-22 11:21 | Outpatient (BNVA) | payer MEDICARE, SELFPAY | PROVIDERS: PCP Internal Medicine; Visit Provider Urology | DX: C61 Malignant neoplasm of prostate (principal) | CPT/HCPCS: 96402; 99212; J9217 ==

== ENCOUNTER 2023-09-25 13:54 | Outpatient (AMB) | payer MEDICARE, SELFPAY ==
[2023-09-25 13:59] VITALS: BP 124/72; PULSE 58; O2SAT 99; BMI 25.0
--- NOTE | 2023-09-25 13:59 | MHC.PC.OV ---
Vital Signs 09/25/23 13:59 Height 6 ft 3 in Weight 200 lb BMI 25.0 BP 124/72 Blood Pressure Location Lt brachial Position Sitting Pulse 58 Pulse Source Pulse Oximeter Pulse Oximetry (%) 99 Oxygen Delivery Method Room Air Intake Visit Reasons: 4 month fu Intake Note: Pt is here today for 4 months follow up visit. Allergies penicillin G Allergy (Unknown, Verified 09/25/23 14:10) rash all over body Medication List - Last Reconciled 09/25/23 by Alisa Pascual MD blood sugar diagnostic ([employer] Systemsuch Verio test strips) USE TO TEST BLOOD SUGAR ONCE A DAY empagliflozin 25 mg PO DAILY finasteride 5 mg PO DAILY 90 days glimepiride orally 2 tab in am, 1 tab in pm; lancets (Monolet Lancets) test blood sugar once a day lancets Microlet lancets check glucose once a day lisinopril 10 mg PO DAILY metformin 1,000 mg PO BID rosuvastatin 40 mg PO DAILY Tobacco use date assessed: 09/25/23 Fall risk assessment: No Falls in past year Last assessed Fall Risk: 09/25/23 Dental Screening Dental Screen Date: 09/25/23 Did you have a dental visit in the last 12 months?: Yes Did you have a dental problem in the last 6 months where you did not have access to dental care?: No Was dental information given to patient?: Patient has dentist HPI 4 month fu HPI Details Patient presents for the follow-up on hypertension hyperlipidemia type 2 diabetes. He completed treatment for prostate CA and has undetectable PSA level. patient follows up with [facility]rology [facility] Medical History Dysplastic nevi Abnormal colonoscopy DM type 2 (diabetes mellitus, type 2) Inguinal hernia Hyperlipidemia HTN (hypertension) Surgical History H/O colonoscopy H/O hernia repair Status post arthroscopic knee surgery Family History Father No problems noted. Mother No problems noted. 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 How often do you have a drink containing alcohol?: Never 3. How often do you have six or more drinks on one occasion?: Never Total Score: 0 NORMA-7 AMB Questionnaire NORMA-7 Date NORMA - 7 assessed: 05/13/23 Source: Developed by Drs. Iraj Louis, Fatmata Bravo, Geoff Ly and colleagues, with an educational jaden from [employer]. Review of Systems Const All systems reviewed & are unremarkable except as noted in HPI and below Reports no additional complaints Eyes Reports no additional complaints ENT Reports no additional complaints Card Reports no additional complaints Resp Reports no additional complaints GI Reports no additional complaints Reports no additional complaints Physical exam (Primary Care) Vital Signs: Last Vital Signs Pulse 58 09/25/23 13:59 BP 124/72 09/25/23 13:59 Pulse Ox 99 09/25/23 13:59 Oxygen Delivery Method Room Air 09/25/23 13:59 BMI result Body Mass Index 25.0 Tobacco/Smoking Status: Tobacco use Status Tobacco use date assessed 09/25/23 09/25/23 14:12 Patient Tobacco Use Status Never used Tobacco 09/25/23 14:12 e-Cigarette/Vaping Use Never Used 09/25/23 14:01 Thrive Assessment: Date of Thrive Assessment Date Thrive assessed 05/13/23 09/25/23 14:01 Const General: no acute distress HENMT Mouth: Normal oral and palatal mucosa present Neck Neck: Yes supple Resp Effort & Inspection: normal respiratory effort Auscultation: clear to auscultation bilaterally GI Palpation (GI): Soft to palpation Percussion: Yes normal to percussion Auscultation: normal bowel sounds Assessment and Plan Assessment & Plan (1) Hyperlipidemia: Code(s): E78.5 - Hyperlipidemia, unspecified Plan: Continue statin (2) HTN (hypertension): Code(s): I10 - Essential (primary) hypertension Plan: Continue current medications (3) DM type 2 (diabetes mellitus, type 2): Comment: 20 years, Code(s): E11.9 - Type 2 diabetes mellitus without complications Plan: A1c is 8.8, patient will continue Jardiance metformin and glimepiride. Patient was advised start low-dose of long acting insulin but patient declined. ADA diet increase physical activity discussed with the patient follow-up in 3 months (4) Prostate cancer: Comment: 06/28 High Grade, Low Volume, RTx [facility], f/u Dr. Lane Code(s): C61 - Malignant neoplasm of prostate Plan: f/u with urology Orders: Orders Hemoglobin A1c 3 Months C61 - Malignant neoplasm of prostate, E11.9 - Type 2 diabetes mellitus without complications, E78.5 - Hyperlipidemia, unspecified, I10 - Essential (primary) hypertension Lipid Panel 3 Months C61 - Malignant neoplasm of prostate, E11.9 - Type 2 diabetes mellitus without complications, E78.5 - Hyperlipidemia, unspecified, I10 - Essential (primary) hypertension IRON PROFILE 3 Months C61 - Malignant neoplasm of prostate, E11.9 - Type 2 diabetes mellitus without complications, E78.5 - Hyperlipidemia, unspecified, I10 - Essential (primary) hypertension Comprehensive [place]. Panel Fast 3 Months C61 - Malignant neoplasm of prostate, E11.9 - Type 2 diabetes mellitus without complications, E78.5 - Hyperlipidemia, unspecified, I10 - Essential (primary) hypertension Complete Blood Count Auto Diff 3 Months C61 - Malignant neoplasm of prostate, E11.9 - Type 2 diabetes mellitus without complications, E78.5 - Hyperlipidemia, unspecified, I10 - Essential (primary) hypertension Microalbumin, Random (w Creat) 3 Months C61 - Malignant neoplasm of prostate, E11.9 - Type 2 diabetes mellitus without complications, E78.5 - Hyperlipidemia, unspecified, I10 - Essential (primary) hypertension Coding Level of Care Code Est Pt Level 4 (55324) Diagnoses Hyperlipidemia E78.5 HTN (hypertension) I10 DM type 2 (diabetes mellitus, type 2) E11.9 Prostate cancer C61
== END 2023-09-25 15:12 | disposition home or self-care (01) ==
PROVIDERS: PCP Internal Medicine; Visit Provider Internal Medicine
DX: E78.5 Hyperlipidemia, unspecified (principal); I10 Essential (primary) hypertension; E11.9 Type 2 diabetes mellitus without complications; C61 Malignant neoplasm of prostate
CPT/HCPCS: 99214

== ENCOUNTER 2023-12-07 13:51 | Outpatient (REF) | payer MEDICARE, SELFPAY ==
[2023-12-07 16:57] LABS: Prostate Specific Antigen < 0.10 ng/mL (<0.05-4.0)
[2023-12-10 23:39] LABS: Testosterone, Total 6 ng/dL (250-1100)
== END 2023-12-07 13:52 | disposition home or self-care (01) ==
LOC: HO.HMGCLDS 13:51
PROVIDERS: PCP Internal Medicine; Visit Provider Urology
DX: C61 Malignant neoplasm of prostate (principal); Z12.5 Encounter for screening for malignant neoplasm of prostate
CPT/HCPCS: 36415; 84153; 84403

== ENCOUNTER 2023-12-14 11:23 | Outpatient (REF) | payer MEDICARE, SELFPAY ==
[2023-12-14 13:55] LABS: MANUAL DIFF FLAG NO
[2023-12-14 14:03] LABS: Basophils Percent Auto 0.4 % (0-2); Eosinophils Absolute Auto 0.1 X10*3/uL (0.0-0.4); Eosinophils Percent Auto 1.6 % (0-4); Hematocrit 38.8 % (42.0-52.0); Hemoglobin 13.3 g/dl (14.0-18.0); Imm Gran Abs Auto 0.01 X10*3/uL (0.00-0.03); Imm Gran Pct Auto 0.2 % (0.0-0.4); Lymphocytes Absolute Auto 0.8 X10*3/uL (1.2-4.9); Lymphocytes Percent Auto 14.5 % (20-40); Mean Corpuscular HGB Conc 34.3 g/dl (31.0-36.0); Mean Corpuscular Hemoglobin 32.3 pg (27.0-33.0); Mean Corpuscular Volume 94.2 fL (80.0-98.0); Mean Platelet Volume 9.5 fL (9.4-12.4); Monocytes Absolute Auto 0.5 X10*3/uL (0.1-1.2); Monocytes Percent Auto 8.8 % (2-11); Neutrophils Absolute Auto 4.2 x10*3/uL (2.0-8.3); Neutrophils Percent Auto 74.5 % (45-73); Platelet Count 222 X10*3/uL (160-400); Red Blood Count 4.12 X10*6/uL (4.60-5.80); White Blood Count 5.6 X10*3/uL (4.8-10.8)
[2023-12-14 14:04] LABS: Creatinine Urine 195.03 mg/dL; Microalbum/Creatinine Ratio Ur 26.6 ug/mg cr (<30)
[2023-12-14 14:09] LABS: Estimated Average Glucose 229 mg/dL; Hemoglobin A1c % 9.6 % (<6.0)
[2023-12-14 14:32] LABS: Alanine Aminotransferase 19 U/L (0-40); Albumin Level 4.3 g/dL (3.5-5.0); Alkaline Phosphatase 68 U/L (39-117); Anion Gap 15 (12-20); Aspartate Amino Transferase 22 U/L (5-37); Bilirubin Total 0.8 mg/dL (0.0-1.0); Blood Urea Nitrogen 18 mg/dL (9-16); Calcium 10.4 mg/dL (8.4-10.2); Carbon Dioxide 25 mmol/L (22-29); Chloride 105 mmol/L (96-108); Cholesterol 202 mg/dL (<200); Estimated Glomerular Filt Rate > 60; Glucose Fasting 87 mg/dL (60-99); HDL Cholesterol 63 mg/dL (>40); Iron 74 mcg/dL (45-160); LDL Cholesterol Calculated 109 mg/dL (<100); Percent Iron Saturation 27 % (15-50); Potassium 4.6 mmol/L (3.3-5.1); Sodium 140 mmol/L (135-145); Total Iron Binding Capacity 277 mcg/dL (228-428); Total Protein 7.2 g/dL (6.5-8.0); Triglycerides 154 mg/dL (<150); Unsaturated Iron Binding 203 ug/dL
== END 2023-12-14 11:24 | disposition home or self-care (01) ==
LOC: HO.HMGCLDS 11:23
PROVIDERS: PCP Internal Medicine; Visit Provider Internal Medicine
DX: E78.5 Hyperlipidemia, unspecified (principal); I10 Essential (primary) hypertension; E11.9 Type 2 diabetes mellitus without complications; C61 Malignant neoplasm of prostate
CPT/HCPCS: 36415; 80053; 80061; 82043; 82570; 83036; 83540; 85025

== ENCOUNTER 2023-12-23 13:53 | Outpatient (AMB) | payer MEDICARE, SELFPAY ==
--- NOTE | 2023-12-23 14:07 | A.OFFPC_ITS ---
Vital Signs 12/23/23 14:09 Height 6 ft 3 in Weight 200 lb BMI 25.0 BP 120/66 Blood Pressure Location Lt brachial Position Sitting Pulse 84 Pulse Source Pulse Oximeter Pulse Oximetry (%) 97 Oxygen Delivery Method Room Air Intake Visit Reasons: 4 month follow up Intake Note: Pt is here today for 4 months follow up visit. Allergies penicillin G Allergy (Unknown, Verified 12/23/23 14:10) rash all over body Medication List - Last Reconciled 12/23/23 by Alisa Pascual MD blood sugar diagnostic ([employer] Systemsuch Verio test strips) USE TO TEST BLOOD SUGAR ONCE A DAY empagliflozin 25 mg PO DAILY finasteride 5 mg PO DAILY 90 days glimepiride orally 2 tab in am, 1 tab in pm; lancets (Monolet Lancets) test blood sugar once a day lancets Microlet lancets check glucose once a day lisinopril 10 mg PO DAILY metformin 1,000 mg PO BID rosuvastatin 40 mg PO DAILY Tobacco use date assessed: 09/25/23 Dental Screening Dental Screen Date: 09/25/23 HPI 4 month follow up HPI Details Pt presents for f/u DM 2, HTN, hyperlipid. Pt reports fasting glucose 120-200. Patient denies polyuria polydipsia PFSH Medical History Dysplastic nevi Abnormal colonoscopy DM type 2 (diabetes mellitus, type 2) Inguinal hernia Hyperlipidemia HTN (hypertension) Surgical History H/O colonoscopy H/O hernia repair Status post arthroscopic knee surgery Family History Father No problems noted. Mother No problems noted. 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 Iraj Louis, Fatmata Bravo, Geoff Ly and colleagues, with an educational jaden from [employer]. Review of Systems Const All systems reviewed & are unremarkable except as noted in HPI and below Eyes Reports no additional complaints Card Reports no additional complaints Resp Reports no additional complaints GI Reports no additional complaints Reports no additional complaints Physical exam (Primary Care) Vital Signs: Last Vital Signs Pulse 84 12/23/23 14:09 BP 120/66 12/23/23 14:09 Pulse Ox 97 12/23/23 14:09 Oxygen Delivery Method Room Air 12/23/23 14:09 BMI result Body Mass Index 25.0 Tobacco/Smoking Status: Tobacco use Status Tobacco use date assessed 09/25/23 12/23/23 14:08 Patient Tobacco Use Status Never used Tobacco 12/23/23 14:08 e-Cigarette/Vaping Use Never Used 12/23/23 14:08 Thrive Assessment: Date of Thrive Assessment Date Thrive assessed 05/13/23 12/23/23 14:08 Const General: no acute distress Eyes General: appearance normal, both eyes and all related structures Resp Effort & Inspection: normal respiratory effort Auscultation: clear to auscultation bilaterally Cardio Rhythm: regular rhythm Heart sounds: S1 normal heart sound present and S2 normal heart sound present GI Inspection: Yes normal to inspection Palpation (GI): Soft to palpation Percussion: Yes normal to percussion Auscultation: normal bowel sounds Assessment and Plan Assessment & Plan (1) Hyperlipidemia: Code(s): E78.5 - Hyperlipidemia, unspecified Plan: Medication compliance discussed with the patient. He was advised to restart rosuvastatin (2) HTN (hypertension): Code(s): I10 - Essential (primary) hypertension Plan: Continue lisinopril (3) DM type 2 (diabetes mellitus, type 2): Comment: 20 years, Code(s): E11.9 - Type 2 diabetes mellitus without complications Plan: A1c is 9.6. ADA diet regular physical activity discussed with the patient treatment options including starting a long-acting insulin discussed with the patient but he declined. Patient will call if he change his mind. Coding Level of Care Code Est Pt Level 4 (63156) Diagnoses Hyperlipidemia E78.5 HTN (hypertension) I10 DM type 2 (diabetes mellitus, type 2) E11.9
[2023-12-23 14:09] VITALS: BP 120/66; PULSE 84; O2SAT 97; BMI 25.0
== END 2023-12-23 15:10 | disposition home or self-care (01) ==
PROVIDERS: PCP Internal Medicine; Visit Provider Internal Medicine
DX: E78.5 Hyperlipidemia, unspecified (principal); I10 Essential (primary) hypertension; E11.9 Type 2 diabetes mellitus without complications
CPT/HCPCS: 99214

== ENCOUNTER 2023-12-25 11:06 | Outpatient (AMB) | payer MEDICARE, SELFPAY ==
--- NOTE | 2023-12-25 11:06 | A.OFFVIS_ITS ---
Intake Visit Reasons: Labs(set)Confirmed Allergies penicillin G Allergy (Unknown, Verified 12/23/23 14:10) rash all over body Medication List - Last Reconciled 12/25/[address] MD blood sugar diagnostic (OneTouch Verio test strips) USE TO TEST BLOOD SUGAR ONCE A DAY empagliflozin 25 mg PO DAILY finasteride 5 mg PO DAILY 90 days glimepiride orally 2 tab in am, 1 tab in pm; lancets (Monolet Lancets) test blood sugar once a day lancets Microlet lancets check glucose once a day lisinopril 10 mg PO DAILY metformin 1,000 mg PO BID rosuvastatin 40 mg PO DAILY HPI Comments Details: Austen Carrero is a very pleasant male. They are a patient of Dr Pascual. He is seen for the following urologic conditions - lower urinary tract symptoms - prostate cancer Telemedicine Evaluation 15 min Consultation Shared [employer] Katherine Video Minimal side effects from hormones Stop finasteride 3m f/u office PSA 05/30 <0.1, 09/30 <0.1, 12/29 <0.1 T 6 Prostate Cancer - 06/28 high risk, grade group 4, low volume disease - GnRH 08/28, 03/29, 09/29 EXBRT 01/27 prostate and pelvic nodes EXBRT with [facility] with hormonal manipulation for 18 months - 37 treatme nts completed 01/[address] Lane 06/28 PSA at diagnosis 3.7 on finasteride Urine DNA Score 40 Biopsy 06/28 Histologic type: Adenocarcinoma, acinar and intraductal types Histologic grade: Ad score: 4+4=8 (left mid lateral) 60%, 4+3=7 (left base lateral) 30%, 3+4=7 (left apex lateral, right apex lateral)30%, 5%, 3+3=6 (right mid medial) 5% Number cores positive: 5 Total number of cores: 12 % of tissue involved: 10% of all tissue examined Periprostatic fat inv.: Not identified Seminal vesicle inv.: Not identified Perineural inv.: Not identified LVI: Not identified Prostate cancer staging - Prostate MRI - 08/28 1.4 cm PI-RADS 5 left apical lesion, no evidence of extracapsular extension - Bone Scan - degenerative changes PFSH Medical History Dysplastic nevi Abnormal colonoscopy DM type 2 (diabetes mellitus, type 2) Inguinal hernia Hyperlipidemia HTN (hypertension) Surgical History H/O colonoscopy H/O hernia repair Status post arthroscopic knee surgery Family History Father No problems noted. Mother No problems noted. 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 Alcohol intake: current Alcohol intake frequency: does not drink Patient Tobacco Use Status: Never used Tobacco e-Cigarette/Vaping Use: Never Used Second Hand Smoke Exposure: No service: No Current occupational status: retired Cognitive needs: No Hearing needs: No Vision needs: Yes Review of Systems Const All systems reviewed & are unremarkable except as noted in HPI and below Reports no additional complaints Resp Reports no additional complaints GI Reports no additional complaints Reports as per HPI Musc Reports no additional complaints Physical Exam Telemedicine evaluation Appropriate responses Regular breathing rate and rhythm HEENT Head: Yes normal to inspection Ears: hearing grossly normal bilaterally Eyes General: appearance normal, both eyes and all related structures Neck Neck: Yes normal visual inspection Chest Chest palpation & inspection: normal inspection of the chest Resp Effort & Inspection: normal respiratory effort and able to speak in complete sentences Telehealth Telehealth Location of provider rendering services: practice address Location of patient: address on file Patient Identification confirmed using: Name, : Yes Telehealth method: video Patient verbally consented to treatment: Yes Patient verbally consented to billing insurance company: Yes Patient informed of any privacy concerns related to visit: Yes Minutes spent on Phone/Video with Pt.: 15 Assessment & Plan Assessment & Plan (1) Prostate cancer: Comment: 06/28 High Grade, Low Volume, RTx Lala, f/u Dr. Lane Code(s): C61 - Malignant neoplasm of prostate Category: Medical Plan Continue Q three-month follow-up for 24 months Orders: Orders Prostate Specific Antigen 3 Months C61 - Malignant neoplasm of prostate Testosterone, Total 3 Months C61 - Malignant neoplasm of prostate Patient Instructions: Imaging studies, laboratory and physical exam results were discussed and reviewed in detail. No major barriers to patient understanding were identified. An opportunity to ask questions regarding the treatment plan was provided. All questions were answered. The patient expressed understanding and agreement with the above treatment plan. The patient is aware they should contact our office by phone for worsening of their current condition or the appearance of new urologic symptoms. Compliance is encouraged with any medications and followup testing that is ordered. It is a privilege to participate in the urologic care of your patient. If you h ave any questions or concerns regarding treatment for the above conditions, or other urologic issues, please do not hesitate to contact me. The office telephone contact is [phone]. This note is constructed using voice recognition software. While every effort has been made to ensure accuracy account underwriter errors may have been included. Yours sincerely, Dr Iker Lane MD, JODY [facility] - Urology Providers of Expert, Compassionate Care for the Genitourinary System Coding Level of Care Code Tele Est Pt Level 3 (11929) Diagnoses Prostate cancer C61
== END 2023-12-25 11:19 | disposition home or self-care (01) ==
LOC: HO.HUSH 11:06
PROVIDERS: PCP Internal Medicine; Visit Provider Urology
DX: C61 Malignant neoplasm of prostate (principal)
CPT/HCPCS: 99213

== ENCOUNTER → 2023-12-25 11:06 | Outpatient (BNVA) | payer MEDICARE, SELFPAY | PROVIDERS: PCP Internal Medicine; Visit Provider Urology ==

== ENCOUNTER 2024-03-07 14:22 | Outpatient (REF) | payer MEDICARE, SELFPAY ==
[2024-03-07 16:30] LABS: Blood Urea Nitrogen 15 mg/dL (9-16)
[2024-03-07 17:01] LABS: Prostate Specific Antigen < 0.10 ng/mL (<0.05-4.0)
[2024-03-12 15:54] LABS: Testosterone, Total 2 ng/dL (250-1100)
== END 2024-03-07 14:23 | disposition home or self-care (01) ==
LOC: HO.HMGCLDS 14:22
PROVIDERS: PCP Internal Medicine; Visit Provider Urology
DX: C61 Malignant neoplasm of prostate (principal); Z12.5 Encounter for screening for malignant neoplasm of prostate
CPT/HCPCS: 36415; 84153; 84403; 84520

== ENCOUNTER 2024-03-24 11:03 | Outpatient (AMB) | payer MEDICARE, SELFPAY ==
--- NOTE | 2024-03-24 11:25 | A.OFFVIS_ITS ---
Intake Visit Reasons: 3m/PSA/Testo(set) Intake Note: Patient is Present for A 3M/PSA/TESTO Urology Medication: Finasteride Antibiotic Allergies:Penicillin Blood Thinners:None Sander Hand Required: No Allergies penicillin G Allergy (Unknown, Verified 03/24/24 11:27) rash all over body Medication List - Last Reconciled 03/24/[address] MD blood sugar diagnostic (OneTouch Verio test strips) USE TO TEST BLOOD SUGAR ONCE A DAY empagliflozin 25 mg PO DAILY finasteride 5 mg PO DAILY 90 days glimepiride orally 2 tab in am, 1 tab in pm; lancets (Monolet Lancets) test blood sugar once a day lancets Microlet lancets check glucose once a day lisinopril 10 mg PO DAILY metformin 1,000 mg PO BID rosuvastatin 40 mg PO DAILY HPI Comments Details: Austen Carrero is a very pleasant male. They are a patient of Dr Pascual. He is seen for the following urologic conditions - lower urinary tract symptoms - prostate cancer Three month office visit Minimal symptoms Lab stable Off finasteride 4 month follow-up PSA 05/30 <0.1, 09/30 <0.1, 12/29 <0.1 T 6, 03/30 <0.1 T2 Prostate Cancer - 06/28 high risk, grade group 4, low volume disease - GnRH 08/28, 03/29, 09/29 EXBRT 01/27 prostate and pelvic nodes EXBRT with [facility] with hormonal manipulation for 18 months - 37 tr eatments completed 01/[address] Lane 06/28 PSA at diagnosis 3.7 on finasteride Urine DNA Score 40 Biopsy 06/28 Histologic type: Adenocarcinoma, acinar and intraductal types Histologic grade: Ad score: 4+4=8 (left mid lateral) 60%, 4+3=7 (left base lateral) 30%, 3+4=7 (left apex lateral, right apex lateral)30%, 5%, 3+3=6 (right mid medial) 5% Number cores positive: 5 Total number of cores: 12 % of tissue involved: 10% of all tissue examined Periprostatic fat inv.: Not identified Seminal vesicle inv.: Not identified Perineural inv.: Not identified LVI: Not identified Prostate cancer staging - Prostate MRI - 08/28 1.4 cm PI-RADS 5 left apical lesion, no evidence of extracapsular extension - Bone Scan - degenerative changes PFSH Medical History Dysplastic nevi Abnormal colonoscopy DM type 2 (diabetes mellitus, type 2) Inguinal hernia Hyperlipidemia HTN (hypertension) Surgical History H/O colonoscopy H/O hernia repair Status post arthroscopic knee surgery Family History Father No problems noted. Mother No problems noted. 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 Alcohol intake: current Alcohol intake frequency: does not drink Patient Tobacco Use Status: Never used Tobacco e-Cigarette/Vaping Use: Never Used Second Hand Smoke Exposure: No service: No Current occupational status: retired Cognitive needs: No Hearing needs: No Vision needs: Yes Review of Systems Const Denies chills and Denies fever(s) Card Reports no additional complaints and Denies syncope Resp Denies cough GI Denies abdominal pain and Denies heartburn Reports as per HPI and Denies change in libido Neuro Denies syncope Psych Denies change in libido Endo Denies change in libido Physical Exam Const General: cooperative, healthy appearing, comfortable and no acute distress Orientation/consciousness: patient oriented x3 HEENT Face and sinus: Yes normal facial exam Mouth: moist mucous membranes Neck Neck: Yes normal visual inspection, Yes full ROM and Yes trachea midline Chest Chest palpation & inspection: normal inspection of the chest Resp Effort & Inspection: normal respiratory effort, able to speak in complete sentences and no respiratory distress GI Inspection: Yes normal to inspection Back/Spine/Pelvis Cervical Spine: normal cervical lordosis Thoracic/Lumbar Spine: thoracic and lumbar spine normal to inspection Skin General skin exam: no rashes or lesions noted Neuro General: patient oriented x3, gait normal, tone normal and moves all extremities Extrem General: Yes normal to inspection and Yes capillary refill normal Results AMB Urinalysis, Automated UA Leukoctes 0 Brayden/uL Last Edit by DANIELA Richardson on 03/24/24 11:38 UA Nitrite Negative Last Edit by DANIELA Richardson on 03/24/24 11:38 UA Urobilinogen 0.2 mg/dL Last Edit by DANIELA Richardson on 03/24/24 11:3 8 UA Protein 0 mg/dL Last Edit by DANIELA Richardson on 03/24/24 11:38 UA pH 5.5 Last Edit by Jose Elias Arreaga CCM on 03/24/24 11:38 UA Blood 0 Evan/uL Last Edit by DANIELA Richardson on 03/24/24 11:38 UA Specific [place] 1.010 Last Edit by Jose Elias Arreaga [facility] on 03/24/24 11: 38 UA Ketone Negative Last Edit by DANIELA Richardson on 03/24/24 11:38 UA Bilirubin 0 mg/dL Last Edit by DANIELA Richardson on 03/24/24 11:38 UA Glucose 1000 mg/dL Last Edit by Jose Elias Arreaga [facility] on 03/24/24 11:38 Results Reviewed Results Reviewed: Laboratory Last Values Urine pH (Auto) 5.5 03/24/24 11:37 Specific [place] (Auto) 1.010 03/24/24 11:37 Urine Protein (Auto) 0 mg/dL 03/24/24 11:37 Glucose (UA)(Auto) 1000 mg/dL 03/24/24 11:37 Urine Ketones (Auto) Negative 03/24/24 11:37 Urine Blood (Auto) 0 Evan/uL 03/24/24 11:37 Urine Nitrite (Auto) Negative 03/24/24 11:37 Urine Bilirubin (Auto) 0 mg/dL 03/24/24 11:37 Urine Urobilinogen (Auto) 0.2 mg/dL 03/24/24 11:37 Leukocyte Esterase (Auto) 0 Brayden/uL 03/24/24 11:37 Assessment & Plan Assessment & Plan (1) Prostate cancer: Comment: 06/28 High Grade, Low Volume, RTx Lala, f/u Dr. Lane Code(s): C61 - Malignant neoplasm of prostate Category: Medical Plan Four month follow-up tele Orders: Orders AMB Urinalysis Automated Today Z13.9 - Encounter for screening, unspecified Testosterone, Total 4 Months C61 - Malignant neoplasm of prostate Prostate Specific Antigen 4 Months C61 - Malignant neoplasm of prostate Medications: Discontinued finasteride Discontinued Reason: Patient Completed Course 5 mg PO DAILY 90 days 90 tabs 2RF R97.20 - Elevated prostate specific antigen [PSA] Patient Instructions: Imaging studies, laboratory and physical exam results were discussed and reviewed in detail. No major barriers to patient understanding were identified. An opportunity to ask questions regarding the treatment plan was provided. All questions were answered. The patient expressed understanding and agreement with the above treatment plan. The patient is aware they should contact our office by phone for worsening of their current condition or the appearance of new urologic symptoms. Compliance is encouraged with any medications and followup testing that is ordered. It is a privilege to participate in the urologic care of your patient. If you have any questions or concerns regarding treatment for the above conditions, or other urologic issues, please do not hesitate to contact me. The office telephone contact is [phone]. This note is constructed using voice recognition software. While every effort has been made to ensure accuracy early childhood associate teacher errors may have been included. Yours sincerely, Dr Iker Lane MD, JODY [facility] - Urology Providers of Expert, Compassionate Care for the Genitourinary System Coding Level of Care Code Est Pt Level 3 (75305) Diagnoses Prostate cancer C61
== END 2024-03-24 12:19 | disposition home or self-care (01) ==
PROVIDERS: PCP Internal Medicine; Visit Provider Urology
DX: C61 Malignant neoplasm of prostate (principal); Z13.9 Encounter for screening, unspecified
CPT/HCPCS: 99213

== ENCOUNTER → 2024-03-24 11:03 | Outpatient (BNVA) | payer MEDICARE, SELFPAY | PROVIDERS: PCP Internal Medicine; Visit Provider Urology | DX: C61 Malignant neoplasm of prostate (principal) | CPT/HCPCS: 81003; 99212 ==

== ENCOUNTER 2024-04-15 11:43 | Outpatient (REF) | payer MEDICARE, SELFPAY ==
[2024-04-15 13:10] LABS: MANUAL DIFF FLAG NO
[2024-04-15 13:16] LABS: Basophils Percent Auto 0.6 % (0-2); Eosinophils Absolute Auto 0.1 X10*3/uL (0.0-0.4); Eosinophils Percent Auto 2.8 % (0-4); Hematocrit 36.2 % (42.0-52.0); Hemoglobin 12.3 g/dl (14.0-18.0); Lymphocytes Absolute Auto 0.7 X10*3/uL (1.2-4.9); Lymphocytes Percent Auto 21.7 % (20-40); Mean Corpuscular Hemoglobin 32.5 pg (27.0-33.0); Mean Corpuscular Volume 95.5 fL (80.0-98.0); Mean Platelet Volume 9.6 fL (9.4-12.4); Monocytes Absolute Auto 0.3 X10*3/uL (0.1-1.2); Monocytes Percent Auto 7.8 % (2-11); Neutrophils Absolute Auto 2.2 x10*3/uL (2.0-8.3); Neutrophils Percent Auto 67.1 % (45-73); Platelet Count 221 X10*3/uL (160-400); Red Blood Count 3.79 X10*6/uL (4.60-5.80); Red Cell Distribution Width 12.4 % (11.0-16.0); White Blood Count 3.2 X10*3/uL (4.8-10.8)
[2024-04-15 13:29] LABS: Alanine Aminotransferase 18 U/L (0-40); Albumin Level 4.6 g/dL (3.5-5.0); Alkaline Phosphatase 54 U/L (39-117); Anion Gap 14 (12-20); Aspartate Amino Transferase 18 U/L (5-37); Bilirubin Total 0.7 mg/dL (0.0-1.0); Blood Urea Nitrogen 15 mg/dL (9-16); Calcium 10.5 mg/dL (8.4-10.2); Carbon Dioxide 25 mmol/L (22-29); Chloride 108 mmol/L (96-108); Cholesterol 164 mg/dL (<200); Estimated Glomerular Filt Rate > 60; Glucose Fasting 93 mg/dL (60-99); HDL Cholesterol 65 mg/dL (>40); LDL Cholesterol Calculated 71 mg/dL (<100); Potassium 4.5 mmol/L (3.3-5.1); Sodium 142 mmol/L (135-145); Triglycerides 143 mg/dL (<150)
[2024-04-15 13:49] LABS: Creatinine Urine 143.61 mg/dL; Microalbum/Creatinine Ratio Ur 50.1 ug/mg cr (<30)
[2024-04-15 13:56] LABS: Estimated Average Glucose 189 mg/dL; Hemoglobin A1c % 8.2 % (<6.0)
== END 2024-04-15 11:44 | disposition home or self-care (01) ==
LOC: HO.HMGCLDS 11:43
PROVIDERS: PCP Internal Medicine; Visit Provider Internal Medicine
DX: I10 Essential (primary) hypertension (principal); E78.5 Hyperlipidemia, unspecified; E11.9 Type 2 diabetes mellitus without complications
CPT/HCPCS: 36415; 80053; 80061; 82043; 82570; 83036; 85025

== ENCOUNTER 2024-04-20 12:29 | Outpatient (AMB) | payer MEDICARE, SELFPAY ==
[2024-04-20 12:30] VITALS: BP 124/74; PULSE 77; O2SAT 95; BMI 24.2
--- NOTE | 2024-04-20 12:30 | MHC.PC.OV ---
Vital Signs 04/20/24 12:30 Height 6 ft 3 in Weight 194 lb BMI 24.2 BP 124/74 Blood Pressure Location Lt brachial Position Sitting Pulse 77 Pulse Source Pulse Oximeter Pulse Oximetry (%) 95 Oxygen Delivery Method Room Air Intake Visit Reasons: 4 month follow up Intake Note: Pt is here today for 4 months follow up visit. Allergies penicillin G Allergy (Unknown, Verified 04/20/24 12:33) rash all over body Medication List - Last Reconciled 04/20/24 by Alisa Pascual MD blood sugar diagnostic ([facility] Ver[facility] test strips) USE TO TEST BLOOD SUGAR ONCE A DAY empagliflozin 25 mg PO DAILY glimepiride orally 2 tab in am, 1 tab in pm; lancets (Monolet Lancets) test blood sugar once a day lancets Microlet lancets check glucose once a day lisinopril 10 mg PO DAILY metformin 1,000 mg PO BID rosuvastatin 40 mg PO DAILY Tobacco use date assessed: 04/20/24 Fall risk assessment: No Falls in past year Last assessed Fall Risk: 04/20/24 Dental Screening Dental Screen Date: 04/20/24 Did you have a dental visit in the last 12 months?: Yes Did you have a dental problem in the last 6 months where you did not have access to dental care?: No Was dental information given to patient?: Patient has dentist HPI 4 month follow up HPI Details Pt presents for f/u DM 2, HTN, hyperlipid, stable on meds. Patient changed drinking regular Coca Cola to sugar free one and noticed improvement in his fasting glucose readings from over 200s to 80s to 120. [facility] Medical History Dysplastic nevi Abnormal colonoscopy DM type 2 (diabetes mellitus, type 2) Inguinal hernia Hyperlipidemia HTN (hypertension) Surgical History H/O colonoscopy H/O hernia repair Status post arthroscopic knee surgery Family History Father No problems noted. Mother No problems noted. 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 29140 - PHQ-9 Billing: Patient declined-do not bill Source: Developed by Drs. Iraj Louis, Geoff Tilley and colleagues, with an educational jaden from [employer]. Thrive Questionnaire Date Thrive assessed: 05/13/23 AUDIT C Alcohol Use Questionnaire (AUDIT-C) 1. How often do you have a drink containing alcohol?: Never 3. How often do you have six or more drinks on one occasion?: Never Total Score: 0 NORMA-7 AMB Questionnaire NORMA-7 Date NORMA - 7 assessed: 04/20/24 Source: Developed by Drs. Iraj Louis, Geoff Tilley and colleagues, with an educational jaden from [employer]. NORMA-7 Assessment Billing NORMA-7 Assessment Tool: pt declined-do not bill Review of Systems Const All systems reviewed & are unremarkable except as noted in HPI and below Reports no additional complaints Eyes Reports no additional complaints ENT Reports no additional complaints Card Reports no additional complaints Resp Reports no additional complaints GI Reports no additional complaints Reports no additional complaints Skin/Breast Reports system reviewed and no additional complaints, except as documented Physical exam (Primary Care) Vital Signs: Last Vital Signs Pulse 77 04/20/24 12:30 BP 124/74 04/20/24 12:30 Pulse Ox 95 04/20/24 12:30 Oxygen Delivery Method Room Air 04/20/24 12:30 BMI result Body Mass Index 24.2 Tobacco/Smoking Status: Tobacco use Status Tobacco use date assessed 04/20/24 04/20/24 12:38 Patient Tobacco Use Status Never used Tobacco 04/20/24 12:38 e-Cigarette/Vaping Use Never Used 04/20/24 12:32 Thrive Assessment: Date of Thrive Assessment Date Thrive assessed 05/13/23 04/20/24 12:32 Const General: no acute distress HENMT Throat: Yes posterior oropharynx normal Resp Effort & Inspection: normal respiratory effort Auscultation: clear to auscultation bilaterally Cardio Rhythm: regular rhythm Heart sounds: S1 normal heart sound present and S2 normal heart sound present GI Inspection: Yes normal to inspection Palpation (GI): Soft to palpation Assessment and Plan Assessment & Plan (1) HTN (hypertension): Code(s): I10 - Essential (primary) hypertension Plan: Continue Lisinopril (2) Hyperlipidemia: Code(s): E78.5 - Hyperlipidemia, unspecified Plan: Continue statin (3) DM type 2 (diabetes mellitus, type 2): Comment: 20 years, Code(s): E11.9 - Type 2 diabetes mellitus without complications Plan: A1c is down to 8.2, continue ADA diet increase physical activity, continue same medications. Patient was advised to decrease glimepiride dose if fasting glucose is less than 70. Follow-up in 4 months with a fasting labs before Orders: Orders Comprehensive [place]. Panel Fast 4 Months E11.9 - Type 2 diabetes mellitus without complications, E78.5 - Hyperlipidemia, unspecified, I10 - Essential (primary) hypertension Hemoglobin A1c 4 Months E11.9 - Type 2 diabetes mellitus without complications, E78.5 - Hyperlipidemia, unspecified, I10 - Essential (primary) hypertension Microalbumin, Random (w Creat) 4 Months E11.9 - Type 2 diabetes mellitus without complications, E78.5 - Hyperlipidemia, unspecified, I10 - Essential (primary) hypertension Lipid Panel 4 Months E11.9 - Type 2 diabetes mellitus without complications, E78.5 - Hyperlipidemia, unspecified, I10 - Essential (primary) hypertension Coding Level of Care Code Est Pt Level 4 (70773) Diagnoses HTN (hypertension) I10 Hyperlipidemia E78.5 DM type 2 (diabetes mellitus, type 2) E11.9
== END 2024-04-20 13:00 | disposition home or self-care (01) ==
PROVIDERS: PCP Internal Medicine; Visit Provider Internal Medicine
DX: I10 Essential (primary) hypertension (principal); E78.5 Hyperlipidemia, unspecified; E11.9 Type 2 diabetes mellitus without complications
CPT/HCPCS: 99214

== ENCOUNTER 2024-07-11 12:52 | Outpatient (REF) | payer MEDICARE, SELFPAY ==
[2024-07-11 16:53] LABS: Prostate Specific Antigen 0.21 ng/mL (<0.05-4.0)
[2024-07-15 15:19] LABS: Testosterone, Total 90 ng/dL (250-1100)
== END 2024-07-11 12:53 | disposition home or self-care (01) ==
LOC: HO.HMGCLDS 12:52
PROVIDERS: PCP Internal Medicine; Visit Provider Urology
DX: C61 Malignant neoplasm of prostate (principal); Z12.5 Encounter for screening for malignant neoplasm of prostate
CPT/HCPCS: 36415; 84153; 84403

== ENCOUNTER 2024-07-26 10:47 | Outpatient (AMB) | payer MEDICARE, SELFPAY ==
--- NOTE | 2024-07-26 10:49 | A.OFFVIS_ITS ---
Intake Visit Reasons: 4m/PSA/Testo(set) Intake Note: Patient is present for Telephone PSA/Testosterone follow up Urology Med: None Antibiotic Allergy: Penicillin Blood Thinner: None Labs: 07/11/2024 - PSA: 0.21 - Testosterone- 90(L) 04/15/2024- -Hemoglobin A1C: 8.2(H) Patient reports he had recent surgery on Gallbladder at [facility] Mid june Python Programmer Required: No Accompanied by: Self / Same As Patient Allergies penicillin G Allergy (Unknown, Verified 07/26/24 10:49) rash all over body HPI Comments Details: Austen Carrero is a very pleasant male. They are a patient of Dr Pascual. He is seen for the following urologic conditions - lower urinary tract symptoms - prostate cancer Telemedicine Evaluation 15 min Consultation Cortilia Katherine Video 4 month follow-up PSA 05/30 <0.1, 09/30 <0.1, 12/29 <0.1 T 6, 03/30 <0.1 T2, 07/31 0.2 T 90 Prostate Cancer - 06/28 high risk, grade group 4, low volume disease - GnRH 08/28, 03/29, 09/29 EXBRT 01/27 prostate and pelvic nodes EXBRT with [facility] with hormonal manipulation for 18 months - 37 treatments completed 01/[address] 06/28 PSA at diagnosis 3.7 on finasteride Urine DNA Score 40 Biopsy 06/28 Histologic type: Adenocarcinoma, acinar and intraductal types Histologic grade: Ad score: 4+4=8 (left mid lateral) 60%, 4+3=7 (left base lateral) 30%, 3+4=7 (left apex lateral, right apex lateral)30%, 5%, 3+3=6 (right mid medial) 5% Number cores positive: 5 Total number of cores: 12 % of tissue involved: 10% of all tissue examined Periprostatic fat inv.: Not identified Seminal vesicle inv.: Not identified Perineural inv.: Not identified LVI: Not identified Prostate cancer staging - Prostate MRI - 08/28 1.4 cm PI-RADS 5 left apical lesion, no evidence of extracapsular extension - Bone Scan - degenerative changes PFSH Medical History Dysplastic nevi Abnormal colonoscopy DM type 2 (diabetes mellitus, type 2) Inguinal hernia Hyperlipidemia HTN (hypertension) Surgical History (Updated 07/26/24 @ 10:51 by JOHNATHAN Freitas) History of surgery H/O colonoscopy H/O hernia repair Status post arthroscopic knee surgery Family History Father No problems noted. Mother No problems noted. 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 Alcohol intake: current Alcohol intake frequency: does not drink Patient Tobacco Use Status: Never used Tobacco e-Cigarette/Vaping Use: Never Used Second Hand Smoke Exposure: No service: No Current occupational status: retired Cognitive needs: No Hearing needs: No Vision needs: Yes Review of Systems Const All systems reviewed & are unremarkable except as noted in HPI and below Reports no additional complaints Resp Reports no additional complaints GI Reports no additional complaints Reports as per HPI Musc Reports no additional complaints Physical Exam Telemedicine evaluation Appropriate responses Regular breathing rate and rhythm HEENT Head: Yes normal to inspection Ears: hearing grossly normal bilaterally Eyes General: appearance normal, both eyes and all related structures Neck Neck: Yes normal visual inspection Chest Chest palpation & inspection: normal inspection of the chest Resp Effort & Inspection: normal respiratory effort and able to speak in complete sentences Telehealth Telehealth Location of provider rendering services: practice address Location of patient: address on file Patient Identification confirmed using: Name, : Yes Telehealth method: video Patient verbally consented to treatment: Yes Patient verbally consented to billing insurance company: Yes Patient informed of any privacy concerns related to visit: Yes Minutes spent on Phone/Video with Pt.: 15 Assessment & Plan Assessment & Plan (1) BPH w urinary obs/LUTS: Code(s): N40.1 - Benign prostatic hyperplasia with lower urinary tract symptoms; N13.8 - Other obstructive and reflux uropathy Category: Medical (2) Prostate cancer: Comment: 06/28 High Grade, Low Volume, RTx Paol[place], f/u Dr. Lane Code(s): C61 - Malignant neoplasm of prostate Category: Medical Plan Four month follow-up labs office Orders: Orders Prostate Specific Antigen 4 Months C61 - Malignant neoplasm of prostate Testosterone, Total 4 Months C61 - Malignant neoplasm of prostate Patient Instructions: Imaging studies, laboratory and physical exam results were discussed and reviewed in detail. No major barriers to patient understanding were identified. An opportunity to ask questions regarding the treatment plan was provided. All questions were answered. The patient expressed understanding and agreement with the above treatment plan. The patient is aware they should contact our office by phone for worsening of their current condition or the appearance of new urologic symptoms. Compliance is encouraged with any medications and followup testing that is ordered. It is a privilege to participate in the urologic care of your patient. If you have any questions or concerns regarding treatment for the above conditions, or other urologic issues, please do not hesitate to contact me. The office telephone contact is [phone]. This note is constructed using voice recognition software. While every effort has been made to ensure accuracy natural resources specialist errors may have been included. Yours sincerely, Dr Iker Lane MD, JODY [facility] - Urology Providers of Expert, Compassionate Care for the Genitourinary System Coding Level of Care Code Tele Est Pt Level 3 (90614) Diagnoses BPH w urinary obs/LUTS N40.1; N13.8 Prostate cancer C61
== END 2024-07-26 11:23 | disposition home or self-care (01) ==
LOC: HO.HUSH 10:47
PROVIDERS: PCP Internal Medicine; Visit Provider Urology
DX: N40.1 Benign prostatic hyperplasia with lower urinary tract symptoms (principal); N13.8 Other obstructive and reflux uropathy; C61 Malignant neoplasm of prostate
CPT/HCPCS: 99213

== ENCOUNTER → 2024-07-26 10:47 | Outpatient (BNVA) | payer MEDICARE, SELFPAY | PROVIDERS: PCP Internal Medicine; Visit Provider Urology ==

== ENCOUNTER 2024-08-08 11:45 | Outpatient (REF) | payer MEDICARE, SELFPAY ==
[2024-08-08 14:05] LABS: Estimated Average Glucose 189 mg/dL; Hemoglobin A1C 204.0796 umol/L; Hemoglobin A1c % 8.2 % (<6.0); Total Hemoglobin (HGBA1C) 3062.1128 umol/L
[2024-08-08 14:16] LABS: Alanine Aminotransferase 25 U/L (0-40); Albumin Level 4.2 g/dL (3.5-5.0); Alkaline Phosphatase 70 U/L (39-117); Anion Gap 16 (12-20); Aspartate Amino Transferase 36 U/L (5-37); Bilirubin Total 0.8 mg/dL (0.0-1.0); Blood Urea Nitrogen 13 mg/dL (9-16); Calcium 10.1 mg/dL (8.4-10.2); Carbon Dioxide 24 mmol/L (22-29); Chloride 107 mmol/L (96-108); Cholesterol 157 mg/dL (<200); Estimated Glomerular Filt Rate > 60; Glucose Fasting 92 mg/dL (60-99); HDL Cholesterol 60 mg/dL (>40); LDL Cholesterol Calculated 66 mg/dL (<100); Potassium 3.8 mmol/L (3.3-5.1); Sodium 143 mmol/L (135-145); Total Protein 6.7 g/dL (6.5-8.0); Triglycerides 158 mg/dL (<150)
[2024-08-08 17:50] LABS: Creatinine Urine 151.65 mg/dL; Microalbum/Creatinine Ratio Ur 9.8 ug/mg cr (<30)
== END 2024-08-08 11:46 | disposition home or self-care (01) ==
LOC: HO.HMGCLDS 11:45
PROVIDERS: PCP Internal Medicine; Visit Provider Internal Medicine
DX: E11.9 Type 2 diabetes mellitus without complications (principal); E78.5 Hyperlipidemia, unspecified; I10 Essential (primary) hypertension
CPT/HCPCS: 36415; 80053; 80061; 82043; 82570; 83036

== ENCOUNTER 2024-08-19 14:17 | Outpatient (AMB) | payer MEDICARE, SELFPAY ==
--- NOTE | 2024-08-19 14:18 | MHC.PC.OV ---
Vital Signs 08/19/24 14:19 Height 6 ft 3 in Weight 187 lb BMI 23.4 BP 118/68 Blood Pressure Location Rt brachial Position Sitting Pulse 79 Pulse Source Pulse Oximeter Pulse Oximetry (%) 99 Oxygen Delivery Method Room Air Intake Visit Reasons: Annual PE Intake Note: Pt is here today for PE. Allergies penicillin G Allergy (Unknown, Verified 08/19/24 14:27) rash all over body Medication List - Last Reconciled 08/19/24 by Alisa Pascual MD blood sugar diagnostic (BlisMediauch Verio test strips) USE TO TEST BLOOD SUGAR ONCE A DAY empagliflozin 25 mg PO DAILY glimepiride 4 mg PO BID lancets (Monolet Lancets) test blood sugar once a day lancets Microlet lancets check glucose once a day lisinopril 10 mg PO DAILY metformin 1,000 mg PO BID rosuvastatin 40 mg PO DAILY Tobacco use date assessed: 08/19/24 Fall risk assessment: 1 Fall in past year Last assessed Fall Risk: 08/19/24 Dental Screening Dental Screen Date: 04/20/24 HPI Annual PE HPI Details Pt presents for PE. PFSH Medical History Dysplastic nevi Abnormal colonoscopy DM type 2 (diabetes mellitus, type 2) Inguinal hernia Hyperlipidemia HTN (hypertension) Surgical History History of surgery H/O colonoscopy H/O hernia repair Status post arthroscopic knee surgery Family History Father No problems noted. Mother No problems noted. 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 1. Little interest or pleasure in doing things: not at all 2. Feeling down, depressed, or hopeless: not at all 3. Trouble falling or staying asleep, or sleeping too much: not at all 4. Feeling tired or having little energy: not at all 5. Poor appetite or overeating: not at all 6. Feeling bad about yourself - or that you are a failure or have let yourself or your family down: not at all 7. Trouble concentrating on things, such as reading the newspaper or watching television: not at all 8. Moving or speaking so slowly that other people could have noticed. Or the opposite - being so fidgety or restless that you have been moving around a lot more than usual: not at all 9. Thoughts that you would be better off or of hurting yourself in some way: not at all Total score: 0 Depression Screening Interpretation: Negative Depression Screening Done: Yes 05400 - PHQ-9 Billing: Yes Source: Developed by Drs. Iraj Louis, Fatmata Bravo, Geoff Ly and colleagues, with an educational jaden from [employer]). Thrive Questionnaire Date Thrive assessed: 08/19/24 I am a: Patient What is your living situation today?: I have a steady place to live Within the past 12 months, did the food you bought not last and you didn't have the money to get more?: I choose not to answer this question Within the past 12 months, did you worry whether your food would run out before you got money to buy more?: I choose not to answer this question Do you have trouble paying for medicines?: Yes Do you have trouble getting transportation to medical appointments?: No Do you have trouble paying your heating and electricity bill?: No Do you have trouble taking care of your child, family member or friend?: No Do you have trouble with day-to-day activities such as bathing, preparing meals, shopping, managing finances, etc.?: No Are you currently unemployed and looking for a job?: No Are you interested in more education?: No Please select the resources that you would like help with: Job search/training Currently or been in a relationship where the following occur: I choose not to answer THRIVE Score: 0 AUDIT C Alcohol Use Questionnaire (AUDIT-C) 1. How often do you have a drink containing alcohol?: Never Total Score: 0 NORMA-7 AMB Questionnaire NORMA-7 Date NORMA - 7 assessed: 04/20/24 Feeling nervous, anxious, or on edge: 0 = Not at all Not being able to stop or control worryin = Not at all Worrying too much about different things: 0 = Not at all Trouble relaxin = Not at all Being so restless that it is hard to sit still: 0 = Not at all Becoming easily annoyed or irritable: 0 = Not at all Feeling afraid as if something awful might happen: 0 = Not at all Total NORMA-7 score (0-4 normal; 5-9 mild; 10-14 moderate; 15-21 severe): 0 Source: Developed by Drs. Iraj Louis, Fatmata rBavo, Geoff Ly and colleagues, with an educational jaden from [employer]). Review of Systems Const All systems reviewed & are unremarkable except as noted in HPI and below Reports no additional complaints Eyes Reports no additional complaints ENT Reports no additional complaints Card Reports no additional complaints Resp Reports no additional complaints GI Reports no additional complaints Reports no additional complaints Physical exam (Primary Care) Vital Signs: Last Vital Signs Pulse 79 08/19/24 14:19 BP 118/68 08/19/24 14:19 Pulse Ox 99 08/19/24 14:19 Oxygen Delivery Method Room Air 08/19/24 14:19 BMI result Body Mass Index 23.4 Tobacco/Smoking Status: Tobacco use Status Tobacco use date assessed 08/19/24 08/19/24 14:32 Patient Tobacco Use Status Never used Tobacco 08/19/24 14:19 e-Cigarette/Vaping Use Never Used 08/19/24 14:19 PHQ-9: PHQ-9 Score PHQ-9: Total score 0 08/19/24 14:32 Depression Screening Interpretation: Negative Thrive Assessment: Date of Thrive Assessment Date Thrive assessed 08/19/24 08/19/24 14:32 Currently or been in a relationship where the following occur: I choose not to answer Const General: no acute distress HENMT Head: Yes normal to inspection Ears: hearing grossly normal bilaterally Face and sinus: Yes normal facial exam Mouth: Normal oral and palatal mucosa present Throat: Yes posterior oropharynx normal Eyes General: appearance normal, both eyes and all related structures Neck Neck: Yes no lymphadenopathy and Yes supple Chest Chest palpation & inspection: normal inspection of the chest Resp Effort & Inspection: normal respiratory effort Auscultation: clear to auscultation bilaterally Cardio Rhythm: regular rhythm Heart sounds: S1 normal heart sound present and S2 normal heart sound present GI Inspection: Yes normal to inspection Palpation (GI): Soft to palpation Percussion: Yes normal to percussion Auscultation: normal bowel sounds Coding Level of Care Code Est Pt Prev Care >65y(03270) Diagnoses S/P cholecystectomy Z90.49 Hyperlipidemia E78.5 HTN (hypertension) I10 DM type 2 (diabetes mellitus, type 2) E11.9 Additional Codes PHQ-9 - 80942 - PHQ-9 Billing: Yes ([id number]) Assessment & Plan Assessment & Plan (1) S/P cholecystectomy: Comment: 06/[address] [facility] Code(s): Z90.49 - Acquired absence of other specified parts of digestive tract Category: Surgical Plan: recovered (2) Hyperlipidemia: Code(s): E78.5 - Hyperlipidemia, unspecified Category: Medical Plan: Continue statin (3) HTN (hypertension): Code(s): I10 - Essential (primary) hypertension Category: Medical Plan: Continue Lisinopril (4) DM type 2 (diabetes mellitus, type 2): Comment: 20 years, Code(s): E11.9 - Type 2 diabetes mellitus without complications Category: Medical Plan: A1c is 8.2, ADA diet regular physical activity discussed with the patient. Option of starting long-acting insulin discussed with the patient. He is not interested. He will continue monitoring his blood glucose follow ADA diet follow-up in 3 months with a fasting labs before Orders: Orders Hemoglobin A1c 3 Months E11.9 - Type 2 diabetes mellitus without complications, E78.5 - Hyperlipidemia, unspecified, I10 - Essential (primary) hypertension Complete Blood Count Auto Diff 3 Months E11.9 - Type 2 diabetes mellitus without complications, E78.5 - Hyperlipidemia, unspecified, I10 - Essential (primary) hypertension Comprehensive Norphlet. Panel Fast 3 Months E11.9 - Type 2 diabetes mellitus without complications, E78.5 - Hyperlipidemia, unspecified, I10 - Essential (primary) hypertension Microalbumin, Random (w Creat) 3 Months E11.9 - Type 2 diabetes mellitus without complications, E78.5 - Hyperlipidemia, unspecified, I10 - Essential (primary) hypertension Lipid Panel 3 Months E11.9 - Type 2 diabetes mellitus without complications, E78.5 - Hyperlipidemia, unspecified, I10 - Essential (primary) hypertension Medications: Refilled rosuvastatin 40 mg PO DAILY 90 tabs 3RF
[2024-08-19 14:19] VITALS: BP 118/68; PULSE 79; O2SAT 99; BMI 23.4
== END 2024-08-19 15:32 | disposition home or self-care (01) ==
PROVIDERS: PCP Internal Medicine; Visit Provider Internal Medicine
DX: Z00.00 Encounter for general adult medical examination without abnormal findings (principal); E11.69 Type 2 diabetes mellitus with other specified complication; Z90.49 Acquired absence of other specified parts of digestive tract; E78.5 Hyperlipidemia, unspecified; I10 Essential (primary) hypertension

== ENCOUNTER → 2024-08-19 14:17 | Outpatient (BNVA) | payer MEDICARE, SELFPAY | PROVIDERS: PCP Internal Medicine; Visit Provider Internal Medicine | DX: Z00.00 Encounter for general adult medical examination without abnormal findings (principal); I10 Essential (primary) hypertension; E11.9 Type 2 diabetes mellitus without complications; E78.5 Hyperlipidemia, unspecified; Z90.49 Acquired absence of other specified parts of digestive tract | CPT/HCPCS: 96127; 99397 ==

== ENCOUNTER 2024-11-09 12:55 | Outpatient (REF) | payer MEDICARE, SELFPAY ==
--- OUTSIDE RECORDS SUMMARY | 2024-11-09 15:14 | XMS_ITS ---
Author Organization [facility] Address [address] [facility] [place] [address] Care Team Providers Care Gasateria Attendant Name Role Phone Alisa Pascual MD Primary Care Provider UnavailTito Head Unavailable [phone] Allergies Allergen (clinical drug ingredient) Drug/Non Drug Allergy documented on EMR Reaction Allergy Type Onset Date Status Penicillin redness Drug Allergy Active REASON FOR VISIT At Risk Footcare, Painful Nail(s) aggrevated by shoes and causing difficulty standing/walking. Medications Medication SIG (Take, Route, Frequency, Duration) Notes Start Date End Date Status Extra Depth Orthopedic Shoes (1 Pair) with Customized Heat Molded Multidensity Innersoles (3 Pair) as directed Dx: NIDDM (E11.9), Hammertoe Foot Deformity (M20.41,M20.42), Preulcerative Skin Lesion(s) (L85.1) 05/26/2023 Active Januvia 100 MG 2 tablets Orally Onc e a day for 30 day(s) Not-Taking Rosuvastatin Calcium 40 MG Orally Active Vicodin 5-300 MG 1-2 tablet as needed Orally every 6 hrs for 5 days 03/15/2013 Not-Taking metFORMIN HCl 1000 MG 1 tablet with meal s Orally Twice a day Active Finasteride 5 MG 1 tablet Orally Once a day for 30 day(s) Active Lisinopril 10 MG 1 tablet Orally Once a day for 30 day(s) Active Glimepiride 2 MG 1 tablet with breakf ast or the first main meal of the day Orally Once a day for 30 day(s) Active Jardiance 25 MG Orally Once a day Active Social History Tobacco Use: Social History Observation Description Date Details (start date - stop date) Never Smoker NA - NA Tobacco Use/Smoking Question Answer Notes Are you a: nonsmoker Alcohol Screen Question Answer Notes Did you have a drink containing alcohol in the p ast year? No Points 0 Interpretation Negative Tobacco use other than smoking: Question Answer Notes Are you an other tobacco user? No Vital Signs Height 6 ft 3 in in 05/31/2024 Weight 192 lbs 05/31/2024 BMI 24 kg/m2 05/31/2024 Blood pressure systolic 120 mm Hg 05/31/20 Blood pressure diastolic 80 mm Hg 024 Procedures Procedure Date Ordered Date Performed Result Body Sit e 63749-RUMMDJY NAIL, 6 OR MORE 05/31/2024 N/A Encounters Encounter Location Date Provider Diagnosis [facility] [address] [place] [address] 05/31/2024 Tito Gray Pain of toe of right foot M79.674 ; Onychomycosis B35.1 ; Pain of toe of left foot M79.675 and Type 2 diabetes mellitus without complication E11.9 Assessments Encounter Date Diagnosis (ICD Code) Assessment Notes Treatment Notes Treatment Clinical Notes Section Notes 05/31/2024 Pain of toe of right foot (ICD-10 - M79.674) 05/31/2024 Onychomycosis (ICD-10 - B35.1) 05/31/2024 Pain of toe of left foot (ICD-10 - M79.675) 05/31/2024 Type 2 diabetes mellitus without complication (ICD-10 - E11.9) 05/31/2024 Other Plan Of Treatment Pending Test Test Name Order Date 00033-VMWYMHY NAIL, 6 OR MORE 05/31/2024 Next Appt Details Follow Up: prn, Reason: Provider Name:Tito Gray , 01/24/2025 03:00:00 PM, [address] [place], [address], Procedure Notes * Category Sub-Category Detail Notes Debride Nail 6-10 Nail debridement Performance o f this nail treatment by a nonprofessional would put this patients foot and overall health at risk. Therefore, nail debridement was performed extensively to reduce/remove overall nail length, girth, thickness, subungual debris, and necrotic tissue, by manual and/or electrical means through the use of a nail nipper and/or dremel-type contour grinder, to a more viable healthy nail plate or bed tissue 6-10. Silver nitrate used for any petechial bleeding as necessary. Definitive antifungal treatment options have been reviewed and discussed with the patient. The patient chooses, no pharmaceutical tx - [address] Progress Notes * Austen CARRERO JrDOB:[birth year] (68 yo M)Acc No.[id number]:05/31/2024 Progress Note Patient:?Austen Carrero Provider:?Tito Gray DPM :1955???Age:68 Y???Sex:Male Leonardo e:05/31/2024 Address:[address] [place] [address], [facility] [address], [facility] Pcp:Alisa Pascual MD Subjective: * Chief Complaints: * ???At Risk FootcarePainful N ail(s) aggrevated by shoes and causing difficulty standing/walking. * HPI: ???At Risk footcare:?Pt States Last PCP Visit:?Date?04/20/2024 * ROS:?General/Constitutional:?Nausea?denies.?Vomiting?denies.?Hunger Thirst?denies.?Loss appetite?denies.?Chills?denies.?Fatigue?denies.?Fever?denies.?Night Sweats?denies.?Unexplained weight loss?denies.?Ophthalmologic:?Blurred vision?denies.?Red eye?denies.?HEENTM:?Dentures?denies.?Dizziness?denies.?Glasses/contacts?denies.?Retinopathy?de nies.?Blurred/double vision?denies.?TMJ?denies.?Discharge/drainage?denies.?Implants?denies.?Hard of hearing denies.?Difficulty chewing/swallowing/speaking?denies.?Nose bleeds?denies.?Sore mouth?denies.?Swollen glands?denies.?Respiratory:?On Oxygen?denies.?Pneumonia/pleurisy?denies.?Bronchitis?denies.?Emphysema?denies.?C oughing?denies.?Cough blood?denies.?Shortness of breath?denies.?Wheezing?denies.?Cardiovascular:?Pacemaker?denies.?MVP?denies.?WPW?denies.?CHF?denies.?Heart attack?denies.?Septal defect?denies.?Rapid beat?denies.?Chest pain ?denies.?Atrial Fib.?denies.?Murmur/Palpitations?denies.?Gastrointestinal:?Hemorrhoids?denies.?Stomach/Abdominal pain?denies.?Dark blood stool?denies.?Irritable bowel ?denies.?Constipation?denies.?Diarrhea?denies.?Vomiting?denies.?Hematology:?Swelling?denies.?Bruising?denies.?Bleeding problem?denies.?Genitourinary:?Blood urine?denies.?Frequent/Painfu/urination/bladder control?denies.?Kidney stones?denies.?Infection (UTI)?denies.?Nephropathy?denies.?Musculoskeletal:?Hammertoes?admits.?Bunions?denies.?Scoliosis/kyphosis?denies.?Muscle cramps / walking?denies.?Generalized aches and pains?denies.?Weakness?denies.?Integ.:?Samano?denies.?Scars?denies.?Corns/calluses?admits.?Ingrown nails?admits.?Painful nails?admits.?Rashes?denies.?Neurologic:?Difficulty sleeping?denies.?Bipolar?denies.?Brain disorder?denies.?Balance trouble?denies.?Confusion?denies.?Fainting/blackouts?denies.?Headache?denies.?Tr emors?denies.? * Medical History:? * Surgical History:?arthroscop ic right knee surgery 2005arthroscopic left knee surgery 2007hernia repair 04/06/2014hernia repair 08/17/2014hernia repair 10/21/2016hernia 10/05/18colonoscopy 02/05/21prostate cancer biopsy 07/17/22Insertion of radiatiion 11/17/22 * Hospitalization/Major Diagno stic Procedure:?MRI/Bone scan 08/04/22X-rays 08/13/22 * Family History:?Mother: dece ased.?Father: , diagnosed with Other malignant neoplasm of unspecified site.?Siblings: , cancer throat.? * Social History:?Tobacco Use:?Tobacco Use/Smoking?Are you a:?nonsmoker ?Tobacco use other than smoking?Are you an other tobacco user??No ???Drugs/Alcohol:?Drugs?Have you used drugs other than those for medical reasons in the past 12 months??No ?Alcohol Screen?Did you have a drink containing alcohol in the past year??No ?Points?0 ?Interpretation?Negative ???Miscellaneous:?Caffeine: yes, Soda. ?no Children, none. ?Exercise: yes, walking, swimming. ?Marital status: single. 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 * Medications:?TakingFinasteri de 5 MG Tablet 1 tablet Orally Once a dayGlimepiride 2 MG Tablet 1 tablet with breakfast or the first main meal of the day Orally Once a dayJardiance 25 MG Tablet Orally Once a dayLisinopril 10 MG Tablet 1 tablet Orally Once a daymetFORMIN HCl 1000 MG Tablet 1 tablet with meals Orally Twice a dayRosuvastatin Calcium 40 MG Tablet Orally Extra Depth Orthopedic Shoes (1 Pair) with Customized Heat Molded Multidensity Innersoles (3 Pair) as directed Dx: NIDDM (E11.9), Hammertoe Foot Deformity (M20.41,M20.42), Preulcerative Skin Lesion(s) (L85.1)Taking Finasteride 5 MG Tablet 1 tablet Orally Once a dayTaking Glimepiride 2 MG Tablet 1 tablet with breakfast or the first main meal of the day Orally Once a dayTaking Jardiance 25 MG Tablet Orally Once a dayTaking Lisinopril 10 MG Tablet 1 tablet Orally Once a dayTaking metFORMIN HCl 1000 MG Tablet 1 tablet with meals Orally Twice a dayTaking Rosuvastatin Calcium 40 MG Tablet Orally Taking Extra Depth Orthopedic Shoes (1 Pair) with Customized Heat Molded Multidensity Innersoles (3 Pair) as directed Dx: NIDDM (E11.9), Hammertoe Foot Deformity (M20.41,M20.42), Preulcerative Skin Lesion(s) (L85.1)Not-Taking/PRNJanuvia 100 MG Tablet 2 tablets Orally Once a dayVicodin 5-300 MG Tablet 1-2 tablet as needed Orally every 6 hrsNot-Taking/PRN Januvia 100 MG Tablet 2 tablets Orally Once a dayNot- Taking/PRN Vicodin 5-300 MG Tablet 1-2 tablet as needed Orally every 6 hrs * Allergies:?Penicillin: ang bosch[Allergies Verified] Objective: * Vitals:?Ht:6 ft 3 in, Wt:192 , BMI:24, Shoe size:12, BP:120/80 mm Hg, BS:206, Ht- cm: 190.5 cm, Wt-k.09 kg. * ???Past Orders: ???Lab:HEMOGLOBIN A1C (GLYCO HEMOGLOBIN) (Order Date - 04/18/2024) (Collection Date - 04/18/2024) ? Value Reference Range ?TOTAL HEMOGLOBIN (HGBA1C) 9.6 * Examination: ???Nails: ?NAILS are:?Elongated, overgrown, dystrophic, lytic, greater than 3mm thick, discolored and friable with crumbly malodorous subungual debris, with pain on palpation , 1-5 B/L.? Assessment: * Assessment: 1.?Pain of toe of right foot - M79.674?2.?Pain of toe of left foot - M79.675?3.?Onychomycosis - B35.1 (Primary)?4.?Type 2 diabetes mellitus without complication - E11.9? Plan: * Treatment: * Procedures:?Debride Nail 6-10:?Nail debridement?Performance of this nail treatment by a nonprofessional would put this patients foot and overall health at risk. Therefore, nail debridement was performed extensively to reduce/remove overall nail length, girth, thickness, subungual debris, and necrotic tissue, by manual and/or electrical means through the use of a nail nipper and/or dremel-type contour grinder, to a more viable healthy nail plate or bed tissue 6-10. Silver nitrate used for any petechial bleeding as necessary. Definitive antifungal treatment options have been reviewed and discussed with the patient. The patient chooses, no pharmaceutical tx - 66505.? * Procedure Codes:?28848 DEBRI DE NAIL, 6 OR MORE * Follow Up:?prn * Images: * Sign off status: Completed true * Provider:?Tito Gray DPM Date:?2023 Generated for Nataly jones/Dionicio/Chris on:?11/09/2024 03:13 PM EST History and Physical Notes * HPI (History of Present Illness) Category Sub-Category Detail Notes Category Not es At Risk footcare Pt States Last PCP Visit: Date: Examination Category Sub-Category Detail Notes Category Not es Nails NAILS are: Elongated, overg rown, dystrophic, lytic, greater than 3mm thick, discolored and friable with crumbly malodorous subungual debris, with pain on palpation , 1-5 B/L
--- OUTSIDE RECORDS SUMMARY | 2024-11-09 15:14 | XMS_ITS ---
Author Organization [facility] Address [address] [facility] [place] [address] Care Team Providers Care Bar Staff Name Role Phone Alisa Pascual MD Primary Care Provider Tito Resendiz Unavailable [phone] Allergies Allergen (clinical drug ingredient) Drug/Non Drug Allergy documented on EMR Reaction Allergy Type Onset Date Status Penicillin redness Drug Allergy Active REASON FOR VISIT At Risk Footcare, Painful Nail(s) aggrevated by shoes and causing difficulty standing/walking., ToeIrritation, Ingrown Nail Medications Medication SIG (Take, Route, Frequency, Duration) Notes Start Date End Date Status Lisinopril 10 MG 1 tablet Orally Once a day for 30 day(s) Active Glimepiride 4 MG 1 tablet with breakf ast or the first main meal of the day Orally Once a day for 30 days Active Jardiance 25 MG Orally Once a day Active Vicodin 5-300 MG 1-2 tablet as needed Orally every 6 hrs for 5 days 03/15/2013 Not-Taking Finasteride 5 MG 1 tablet Orally Once a day for 30 day(s) Active metFORMIN HCl 1000 MG 1 tablet with meal s Orally Twice a day Active Rosuvastatin Calcium 40 MG Orally Active Januvia 100 MG 2 tablets Orally Onc e a day for 30 day(s) Not-Taking Social History Tobacco Use: Social History Observation Description Date Details (start date - stop date) Never Smoker NA - NA Tobacco use other than smoking: Question Answer Notes Are you an other tobacco user? No Tobacco Control (Standard) Question Answer Notes Tobacco use: Nonsmoker Additional Findings: Tobacco non-user Current no nsmoker AUDIT-C (Standard) Question Answer Notes Did you have a drink containing alcohol in the p ast year? No Points 0 Interpretation Negative Vital Signs Height 6 ft 3 in in 10/04/2024 Weight 192 lbs 10/04/2024 BMI 24 kg/m2 10/04/2024 Blood pressure systolic 120 mm Hg 10/04/19 25 Blood pressure diastolic 81 mm Hg 025 Procedures Procedure Date Ordered Date Performed Result Body Sit e 36645-GREWWFA NAIL, 6 OR MORE 10/04/2024 N/A 19773-Ildustoh Plate 10/04/2024 N/A Encounters Encounter Location Date Provider Diagnosis [facility] [place] [address] [place] [address] 10/04/2024 Tito Michelier Pain of toe of right foot M79.674 ; Onychomycosis B35.1 ; Pain of toe of left foot M79.675 ; Type 2 diabetes mellitus without complication E11.9 ; Other hammer toe(s) (acquired), right foot M20.41 ; Other hammer toe(s) (acquired), left foot M20.42 and Ingrown nail L60.0 Assessments Encounter Date Diagnosis (ICD Code) Assessment Notes Treatment Notes Treatment Clinical Notes Section Notes 10/04/2024 Pain of toe of right foot (ICD-10 - M79.674) 10/04/2024 Onychomycosis (ICD-10 - B35.1) 10/04/2024 Pain of toe of left foot (ICD-10 - M79.675) 10/04/2024 Type 2 diabetes mellitus without complication (ICD-10 - E11.9) 10/04/2024 Other hammer toe(s) (acquired), right foot (ICD-10 - M20.41) Patient Educated with: DIABETIC FOOT CARE INSTRUCTIONS.p df (DIABETIC FOOT CARE INSTRUCTIONS.p df) 10/04/2024 Other hammer toe(s) (acquired), left foot (ICD-10 - M20.42) 10/04/2024 Ingrown nail (ICD-10 - L60.0) 10/04/2024 Other Plan Of Treatment Treatment Notes Assessment Notes Other hammer toe(s) (acquired), right fo ot Patient Educated with: DIABETIC FOOT CARE INSTRUCTIONS.pdf (DIABETIC FOOT CARE INSTRUCTIONS.pdf) Pending Test Test Name Order Date 49846-DCLBXVR NAIL, 6 OR MORE 10/04/2024 60925-Inmqpuej Plate 10/04/2024 Next Appt Details Follow Up: prn, Reason: Provider Name:Tito Gray , 01/24/2025 03:00:00 PM, [address] [place] [address], [phone], Procedure Notes * Category Sub-Category Detail Notes Nail Avulsion Procedure A fine sterile e levator was placed between the eponychium, nail fold, and nail plate to separate the structures. A sterile nail splitter, and/or sterile 316 blade, was then used to longitudinally section the nail along its entire length through the eponychium to the area under the nail fold. The offending portion of nail was from the nail bed with a rolling action and then removed with a hemostat. No underlying bone was identified. There was minimal bleeding as hemostasis was achieved through the temporary use of either a digital tourniquet or the aforementioned local with epinephrine. A bacitracin sterile dressing was applied. Local wound aftercare instructions were discussed and dispensed. The patient was informed of both conservative and future surgical procedures to prevent recurrence. Tylenol or Motrin was recommended for pain or discomfort (80061), DIABETES: Pt was advised as to the risk of delayed or nonhealing due to diabetes. Pt is to call the office with any questions, concerns, or complications Anesthesia was accomplished TOP ICALLY with Lidocaine Hydrochloride Jelly 2 percent Location Lateral nail border, TA Debride Nail 6-10 Nail debridement Due to the cl inical pathology outlined in the exam findings, performance of this nail treatment is medically necessary as its management by an unskilled/untrained nonprofessional would put this patients foot and overall health at risk. Therefore, debridement to affected nail(s), as described in exam ( TA, T1, T2, T3, T4, T5, T6, T7, T8, T9 ), was performed exclusively by the physician of record to reduce/remove overall nail length, girth, thickness, subungual debris, and necrotic tissue, by manual and/or electrical means through the use of a nail nipper and/or dremel-type chili pepper grinder, to a more viable healthy nail plate or bed tissue 6-10 nails in total. Silver nitrate was used for any petechial bleeding as necessary. Definitive antifungal treatment options, both pharmaceutical and surgical, have been reviewed and discussed with the patient. The patient solely prefers the use of intermittent/as needed professional debridement services for their nail condition and understands the need for additional periodic treatments to maintain effectiveness in symptomatic relief - 68265 Progress Notes * Austen CARRERO JrDOB:[birth year] (68 yo M)Acc No.[id number]:10/04/2024 Progress Note Patient:?Austen CARRERO Jr Provider:?Tito Gray DPM :1955???Age:68 Y???Sex:Male Leonardo e:10/04/2024 Address:[address] [place] [address], [facility] [address], [facility] Pcp:Alisa Pascual MD Subjective: * Chief Complaints: * ???At Risk FootcarePainful N ail(s) aggrevated by shoes and causing difficulty standing/walking.Toe IrritationIngrown Nail * HPI: ???At Risk footcare:?Pt States Last PCP Visit:?Date?08/19/2024 ???Toe pain:?Location:?B/L feet.?Duration:?several years.?Aggravated by:?shoes, any pressure.?Treatments:?change in shoes.? * ROS:?General/Constitutional:?Nausea?denies.?Vomiting?denies.?Hunger Thirst?denies.?Loss appetite?denies.?Chills?denies.?Fatigue?denies.?Fever?denies.?Night Sweats?denies.?Unexplained weight loss?denies.?Ophthalmologic:?Blurred vision?denies.?Red eye?denies.?HEENTM:?Dentures?denies.?Dizziness?denies.?Glasses/contacts?denies.?Retinopathy?den ies.?Blurred/double vision?denies.?TMJ?denies.?Discharge/drainage?denies.?Implants?denies.?Hard of hearing denies.?Difficulty chewing/swallowing/speaking?denies.?Nose bleeds?denies.?Sore mouth?denies.?Swollen glands?denies.?Respiratory:?On O xygen?denies.?Pneumonia/pleurisy?denies.?Bronchitis?denies.?Emphysema?denies.?Co ughing?denies.?Cough blood?denies.?Shortness of breath?denies.?Wheezing?denies.?Cardiovascular:?Pacemaker?denies.?MVP?denies.?WPW?denies.?CHF?denies.?Heart attack?denies.?Septal defect?denies.?Rapid beat?denies.?Chest pain ?denies.?Atrial Fib.?denies.?Murmur/Palpitations?denies.?Gastrointestinal:?Hemorrhoids?denies.?Stomach/Abdominal pain?denies.?Dark blood stool?denies.?Irritable bowel ?denies.?Constipation?denies.?Diarrhea?denies.?Vomiting?denies.?Hematology:?Swelling?denies.?Bruising?denies.?Bleeding problem?denies.?Genitourinary:?Blood urine?denies.?Frequent/Painfu/urination/bladder control?denies.?Kidney stones?denies.?Infection (UTI)?denies.?Nephropathy?denies.?Musculoskeletal:?Hammertoes?admits.?Bunions?denies.?Scoliosis/kyphosis?denies.?Muscle cramps / walking?denies.?Generalized aches and pains?denies.?Weakness?denies.?Integ.:?Samaon?denies.?Scars?denies.?Corns/calluses?admits.?Ingrown nails?admits.?Painful nails?admits.?Rashes?denies.?Neurologic:?Difficulty sleeping?denies.?Bipolar?denies.?Brain disorder?denies.?Balance t rouble?denies.?Confusion?denies.?Fainting/blackouts?denies.?Headache?denies.?Vidal mors?denies.? * Medical History:? * Surgical History:?arthroscop ic right knee surgery 2005arthroscopic left knee surgery 2007hernia repair 04/06/2014hernia repair 08/17/2014hernia repair 10/21/2016hernia 10/05/18colonoscopy 02/05/21prostate cancer biopsy 07/17/22Insertion of radiatiion 11/17/22 * Hospitalization/Major Diagno stic Procedure:?MRI/Bone scan 08/04/22X-rays 08/13/22 * Family History:?Mother: dece ased.?Father: , diagnosed with Other malignant neoplasm of unspecified site.?Siblings: , cancer throat.? * Social History:?Tobacco Use:?Tobacco use other than smoking?Are you an other tobacco user??No ?Tobacco Control (Standard)?Tobacco use:?Nonsmoker ?Additional Findings: Tobacco non-user?Current nonsmoker ???Drugs/Alcohol:?Drugs?Have you used drugs other than those for medical reasons in the past 12 months??No ???Miscellaneous:?Caffeine: yes, Soda. ?Children: no, none. ?Exercise: yes, walking, swimming. ?Marital status: single. 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 ???Drug/Alcohol:?AUDIT-C (Standard)?Did you have a drink containing alcohol in the past year??No ?Points?0 ?Interpretation?Negative * Medications:?TakingFinasteri de 5 MG Tablet 1 tablet Orally Once a day Glimepiride 4 MG Tablet 1 tablet with breakfast or the first main meal of the day Orally Once a day Jardiance 25 MG Tablet Orally Once a day Lisinopril 10 MG Tablet 1 tablet Orally Once a day metFORMIN HCl 1000 MG Tablet 1 tablet with meals Orally Twice a day Rosuvastatin Calcium 40 MG Tablet Orally Taking Finasteride 5 MG Tablet 1 tablet Orally Once a day Taking Glimepiride 4 MG Tablet 1 tablet with breakfast or the first main meal of the day Orally Once a day Taking Jardiance 25 MG Tablet Orally Once a day Taking Lisinopril 10 MG Tablet 1 tablet Orally Once a day Taking metFORMIN HCl 1000 MG Tablet 1 tablet with meals Orally Twice a day Taking Rosuvastatin Calcium 40 MG Tablet Orally Not-Taking/PRNJanuvia 100 MG Tablet 2 tablets Orally Once a day Vicodin 5-300 MG Tablet 1-2 tablet as needed Orally every 6 hrs Medication List reviewed and reconciled with the patientNot-Taking/PRN Januvia 100 MG Tablet 2 tablets Orally Once a day Not-Taking/PRN Vicodin 5-300 MG Tablet 1-2 tablet as needed Orally every 6 hrs Medication List reviewed and reconciled with the patient * Allergies:?Penicillin: ang bosch[Allergies Verified] Objective: * Vitals:?Ht:6 ft 3 in, Wt:192 , BMI:24, Shoe size:12, BP:120/81mm Hg, BS:206, Ht- cm: 190.5 cm, Wt-k.09 kg. * ???Past Orders: ???Lab:HEMOGLOBIN A1C (GLYCO HEMOGLOBIN) (Order Date - 08/19/2024) (Collection Date & Time - 10/04/2024 04:07 PM) ? Value Reference Range ?HEMOGLOBIN A1C % (HH) 8.2 * Examination: ???Ophthalmology Referral: ?DIABETES EYE EXAM?Procedure Performed:?Yes ?Date of Exam Performed?12/09/2023 ?Diabetic Retinopathy Screening:?Yes ?Findings of Diabetic Eye Exam:?no retinopathy?Nails: ?NAILS are:?Elongated, overgrown, dystrophic, lytic, greater than 3mm thick, discolored and friable with crumbly malodorous subungual debris, with pain on palpation, TA, T1, T2, T3, T4, T5, T6, T7, T8, T9.?Ingrown Nail: ?INSPECTION:?Reveals nail incurvation, pain on palpation, groove hypertrophy, Lateral nail border, TA, There is evidence of surrounding periungual tissue erythema.?Dermatologic: ?SKIN FINDINGS:?Skin exam reveals Keratotic lesion(s) located at , Medial, IPJ, TA, Medial, IPJ, T5 , Plantar, Heel(s) , B/L.?Orthopedic: ?MUSCLE STRENGTH:?5/5 all groups in a symmetrical fashion , B/L.?FOOT MORPHOLOGY:? Pes Cavus structure, No Charcot collapse/destruction noted at MTJ.?DIGITAL DEFORMITIES:?Digital contracture, PIPJ, 2-5 B/L, incompl-reducible to push-up test, no over, nor underlapping.?FOOTWEAR:?worn, OT were inspected and noted to be severely worn.?Vascular: ?DP PULSES (B):?2/4, B/L.?PT PULSES (B):?2/4, B/L.?CAPILLARY FILL TIME:?3 secs. per digit, B/L.?TROPHIC CONDITION-TEXTURE/ELASTICITY/TURGOR/HAIR GROWTH (B):?normal, B/L.?TEMPERTURE GRADIENT (C):?normal, warm to cool, proximal to distal, B/L, B/L.?PIGMENTATION:?normal, B/L.?EDEMA (C):?absent, B/L.?Neurological: ?SENSORY:?Neurological exam reveals intact sensorium, pain sensation normal, vibration sensation intact, pinprick sensation is normal in the lower extremities, 5.07 monofilament test performed at plantar aspects of 5 varied sites per foot shows sensation, normal, B/L, Pt denies, anesthesia, burning, paresthesia, tingling, B/L.?General Examination: ?GENERAL APPEARANCE:?Reveals a pleasant, alert, well nourished, well- developed, well hydrated individual, who demonstrates proper attention to hygiene/body habitus, and is in no acute distress, Pt serves as own historian for office visit today.?ORIENTED:?person, place, and time.?FOOT EXAM:?Lower Extremity Neurological Exam performed:?Yes ?Visual exam of foot performed:?Yes ?Date?10/04/2024 ?Footwear Evaluation?Footwear Evaluation performed:?Yes??? Assessment: * Assessment: 1.?Pain of toe of right foot - M79.674???2.?Pain of toe of left foot - M79.675???3.?Onychomycosis - B35.1 (Primary)???4.?Type 2 diabetes mellitus without complication - E11.9???5.?Other hammer toe(s) (acquired), right foot - M20.41???Specify :Chronic problem, Stable (1=3,2=4)???6.?Other hammer toe(s) (acquired), left foot - M20.42???Specify :Chronic problem, Stable (1=3,2=4)???7.?Ingrown nail - L60.0???Specify :Lateral nail border,?TA??? Plan: * Treatment: 2.?Other hammer toe(s) (acqu ired), right foot? Notes: Patient Educated with: DIABETIC FOOT CARE INSTRUCTIONS.pdf (DIABETIC FOOT CARE INSTRUCTIONS.pdf)?? 3.?Ingrown nail?Procedure: 61127-Hzahqqvl Plate * Procedures:?Debride Nail 6-10:?Nail debridement?Due to the clinical pathology outlined in the exam findings, performance of this nail treatment is medically necessary as its management by an unskilled/untrained nonprofessional would put this patients foot and overall health at risk. Therefore, debridement to affected nail(s), as described in exam (?TA, T1, T2, T3, T4, T5, T6, T7, T8, T9?), was performed exclusively by the physician of record to reduce/remove overall nail length, girth, thickness, subungual debris, and necrotic tissue, by manual and/or electrical means through the use of a nail nipper and/or dremel-type chili pepper grinder, to a more viable healthy nail plate or bed tissue 6- 10 nails in total. Silver nitrate was used for any petechial bleeding as necessary. Definitive antifungal treatment options, both pharmaceutical and surgical, have been reviewed and discussed with the patient. The patient solely prefers the use of intermittent/as needed professional debridement services for their nail condition and understands the need for additional periodic treatments to maintain effectiveness in symptomatic relief - 39681.?Nail Avulsion:?Location?Lateral nail border,?TA.?Anesthesia?was accomplished TOPICALLY with Lidocaine Hydrochloride Jelly 2 percent.?Procedure?A fine sterile elevator was placed between the eponychium, nail fold, and nail plate to separate the structures. A sterile nail splitter, and/or sterile 316 blade, was then used to longitudinally section the nail along its entire length through the eponychium to the area under the nail fold. The offending portion of nail was from the nail bed with a rolling action and then removed with a hemostat. No underlying bone was identified. There was minimal bleeding as hemostasis was achieved through the temporary use of either a digital tourniquet or the aforementioned local with epinephrine. A bacitracin sterile dressing was applied. Local wound aftercare instructions were discussed and dispensed. The patient was informed of both conservative and future surgical procedures to prevent recurrence. Tylenol or Motrin was recommended for pain or discomfort (24687), DIABETES: Pt was advised as to the risk of delayed or nonhealing due to diabetes. Pt is to call the office with any questions, concerns, or complications.? * Procedure Codes:?47887 DEBRI DE NAIL, 6 OR MORE, Modifiers: XS 80175 Avulsion Plate, Modifiers: XS , TA * Preventive Medicine:? ??Counseling:?Discussion:?-13: Office or other outpatient visit for the evaluation and management of an established patient, which required a medically appropriate history and/or examination and LOW level of DECISION MAKING for: 1 STABLE ACUTE UNCOMPLICATED PROBLEM, 2 OR MORE MINOR PROBLEMS, OR 1 STABLE CHRONIC PROBLEM, THAT POSE(S) A LOW RISK FOR MORBIDITY/MORTALITY. The visit on the day of the encounter encompassed interpreting the data and educating the patient as to the nature of their condition, treatment options available according to their individual PMH, meds, allergies, and overall health/living conditions, as well as any potential risks or complications that may occur from a failure to adhere to, and participate in, the recommended course of therapy. The discussion included a complete verbal, and/or written explanation of the examination results, any x-rays taken, the proposed diagnosis, and outline of the treatment plan. A schedule for future care needs was also explained. The patient verbalized an understanding of the instructions at this time and agreed to be an active participant in their treatment. If the patient should think of any questions or concerns after the visit, I have encouraged the patient to call the office.?Digital Surgery:?Digital surgery was discussed with the patient, We elected to try conservative treatment at the present time, due to the patients medical history and increased asssociated post-operative risks.?Digital Treatment:?HT- I explained to the patient the possible etiologies of Hammertoes, including genetics/foot type/shoegear/activity level/exercise routine and the risks/benefits of all the different treatment options for their pain including: No treatment at all, Rest, Ice, New/supportive/wider/deeper Shoegear, Digital Padding/Strapping/Taping/Bracing/Gel protective sleeves, Foot/Ankle AFO Bracing, Stretching exercises, Deep Tissue Massage, Arch support/shoe inserts with splay metatarsal padding, and Custom orthoses. I insisted that any digital devices be removed daily and not worn overnight for safety. The patient is to carefully examine the toes daily for any skin irritation while using any splinting or padding device. The advantages and disadvantages of each option were discussed and the patients questions re: shoegear, padding, custom vs prefabricated inserts, activity level, and consistency in home treatment regimens for optimal success were answered to their verbally confirmed satisfaction.?Shoe Gear Counseling:?SHOE Rx - The patient was counseled in great detail on their muscoloskeletal foot and toe deformities which coincided with the dermatological presentations visualized on exam. We discussed how their deformities put the integrity of their feet at risk for potential pedal complications which makes the accomidative diabetic shoes and cutomizable inserts medically necessary. We discussed the different shoe and insert treatment types and options, as well as the important advantages for adhering to regularly wearing these accomidative devices daily. The patient was made aware of the fact that a failure to abide by these recommedations may be deleterious to their foot health as they are able to prevent many pedal complications such as skin irritation, skin ulceration, infection, and even loss of toe/foot/leg/or life. Time was also spent with the patient dispensing and discussing proper diabetic footcare techniques including daily skin moisturization, daily foot inspection for any interruption in skin integrity including open lesions, or sign of infection such as redness/malodor/drainage/swelling. Also discussed and recommended were procedures regarding daily shoe inspection for the presence of internal foreign bodies as well as any visualized irregular shoe or insert wear. Patient questions re: shoes, inserts, and self foot inspections were answered to their satisfaction as the patient verbally confirmed a full understanding of the above information, Patient DEFERS recommended Extra Depth Orthopedic pressure-accommodative shoes against medical advice.? ??Screening/Special Tests:?Fall Risk?Screening:?No falls in the past year ?FALLS: Screening for Future Fall Risk?Have you had any falls with injury in the past year??No * Follow Up:?prn * Images: * Sign off status: Completed true * Provider:Bernie Gray DPM Date:?2024 Generated for Nataly jones/Dionicio/Chris on:?11/09/2024 03:14 PM EST History and Physical Notes * HPI (History of Present Illness) Category Sub-Category Detail Notes Category Not es Toe pain Location: B/L feet Duration: several years Aggravated by: shoes, any pressure Treatments: change in shoes At Risk footcare Pt States Last PCP Visit: Date: Examination Category Sub-Category Detail Notes Category Not es Ingrown Nail INSPECTION: Reveals nail inc urvation, pain on palpation, groove hypertrophy, Lateral nail border, TA, There is evidence of surrounding periungual tissue erythema Neurological SENSORY: Neurological exa m reveals intact sensorium, pain sensation normal, vibration sensation intact, pinprick sensation is normal in the lower extremities, 5.07 monofilament test performed at plantar aspects of 5 varied sites per foot shows sensation, normal, B/L, Pt denies, anesthesia, burning, paresthesia, tingling, B/L Dermatologic SKIN FINDINGS: Skin exam reveal s Keratotic lesion(s) located at , Medial, IPJ, TA, Medial, IPJ, T5 , Plantar, Heel(s) , B/L Orthopedic FOOT MORPHOLOGY: Pes Cavus struc ture, No Charcot collapse/destruction noted at MTJ FOOTWEAR: worn, OT were inspec kelly and noted to be severely worn DIGITAL DEFORMITIES: Digital contracture , PIPJ, 2-5 B/L, incompl-reducible to push-up test, no over, nor underlapping MUSCLE STRENGTH: 5/5 all groups in a symmetrical fashion , B/L General Examination GENERAL APPEARANCE: Reveals a pleasant, alert, well nourished, well-developed, well hydrated individual, who demonstrates proper attention to hygiene/body habitus, and is in no acute distress, Pt serves as own historian for office visit today FOOT EXAM: Lower Extremity Neurological Exa m performed:: Yes Visual exam of foot performed:: Yes Date: 10/04/2024 ORIENTED: person, place, and t jean Footwear Evaluation Footwear Evaluation performe d:: Yes Ophthalmology Referral DIABETES EYE EXAM Procedure Perform ed:: Yes ?Date of Exam Performed: 12/09/2023 Diabetic Retinopathy Screening:: Yes Findings of Diabetic Eye Exam:: no retin opathy Vascular DP PULSES (B): 2/4, B/L PT PULSES (B): 2/4, B/L CAPILLARY FILL TIME: 3 secs. per digit, B/L TEMPERTURE GRADIENT (C): normal, warm to cool, proximal to distal, B/L, B/L TROPHIC CONDITION-TEXTURE/ELASTICITY/TURGOR/HAIR GROWTH (B): normal, B/L EDEMA (C): absent, B/L PIGMENTATION: normal, B/L Nails NAILS are: Elongated, overg rown, dystrophic, lytic, greater than 3mm thick, discolored and friable with crumbly malodorous subungual debris, with pain on palpation, TA, T1, T2, T3, T4, T5, T6, T7, T8, T9
--- OUTSIDE RECORDS SUMMARY | 2024-11-09 15:14 | XMS_ITS | Patient Health Record ---
[facility] Organization [facility] Address [address] [place] [address] Care Team Providers Care Tire Cord Weaver Name Role Phone Alisa Pascual MD Primary Care Provider Tito Resendiz Unavailable [phone] Allergies Allergen (clinical drug ingredient) Drug/Non Drug Allergy documented on EMR Reaction Allergy Type Onset Date Status Penicillin redness Drug Allergy Active Results Component Value Reference Range Notes HEMOGLOBIN A1C (GLYCOHEMOGLO BIN) Reviewed date:03/01/2024 03:21:39 PM Interpretation: Performing Lab: Notes/Report: HEMOGLOBIN A1C % (HH) 9.0 HEMOGLOBIN A1C (GLYCOHEMOGLO BIN) Reviewed date:05/31/2024 03:22:01 PM Interpretation: Performing Lab: Notes/Report: TOTAL HEMOGLOBIN (HGBA1C) 9.6 HEMOGLOBIN A1C (GLYCOHEMOGLO BIN) Reviewed date:10/04/2024 03:11:30 PM Interpretation: Performing Lab: Notes/Report: HEMOGLOBIN A1C % (HH) 9.6 HEMOGLOBIN A1C (GLYCOHEMOGLO BIN) Reviewed date:10/04/2024 04:09:32 PM Interpretation: Performing Lab: Notes/Report: HEMOGLOBIN A1C % (HH) 8.2 Reason For Referral No Information Medications Medication SIG (Take, Route, Frequency, Duration) Notes Start Date End Date Status Lisinopril 10 MG 1 tablet Orally Once a day for 30 day(s) Active metFORMIN HCl 1000 MG 1 tablet with meal s Orally Twice a day Active Glimepiride 4 MG 1 tablet with breakf ast or the first main meal of the day Orally Once a day for 30 days Active Jardiance 25 MG Orally Once a day Active Rosuvastatin Calcium 40 MG Orally Active Januvia 100 MG 2 tablets Orally Onc e a day for 30 day(s) Not-Taking Vicodin 5-300 MG 1-2 tablet as needed Orally every 6 hrs for 5 days 03/15/2013 Not-Taking Finasteride 5 MG 1 tablet Orally Once a day for 30 day(s) Active Immunizations Vaccine Route Administration Date Status Comme nts COVID-19 Pfizer BioNTech Vaccine Unknown 05/15/2022 Administered 1st 11/02/2020 4th 01/06/2022 2nd 11/23/2020 3rd 06/05/2021 Influenza Unknown 05/29/2017 Refused Influenza Unknown 07/24/2020 Refused Social History Tobacco Use: Social History Observation [...] ast year? No Points 0 Interpretation Negative Problems Problem Type SNOMED Code ICD Code Onset Dates Problem Status W/U Status Risk Notes Problem Acquired hammer toe of right foot (031673304558152 5) Other hammer toe(s) (acquired), right foot (M20.41) Active confirmed Problem Acquired hammer toe of left foot (855227258266178 3) Other hammer toe(s) (acquired), left foot (M20.42) Active confirmed Problem Type 2 diabetes mellitus without complication (132303931) Type 2 diabetes mellitus without complication (E11.9) Active confirmed Vital Signs Blood pressure diastolic 81 mm Hg 10/04/2024 Height 6 ft 3 in in 10/04/2024 Blood pressure systolic 120 mm Hg 10/04/2024 Weight 192 lbs 10/04/2024 BMI 24 kg/m2 10/04/2024 Procedures Procedure Date Ordered Date Performed Result Body Sit e 13073-KOLOQMR NAIL, 6 OR MORE 11/24/2023 N/A 47479-Pjrogqjl Plate 11/24/2023 N/A 52946-XWCJIHG NAIL, 6 OR MORE 03/01/2024 N/A 58709-Mhldsoet Plate 03/01/2024 N/A 04378-DKMFGGW NAIL, 6 OR MORE 05/31/2024 N/A 75876-LDIAVKX NAIL, 6 OR MORE 10/04/2024 N/A 91305-Rqxgcgom Plate 10/04/2024 N/A Encounters Encounter Location Date Provider Diagnosis [address] [address] 11/24/2023 Tito Isaac Pain of toe of right foot M79.674 ; Onychomycosis B35.1 ; Pain of toe of left foot M79.675 ; Type 2 diabetes mellitus without complication E11.9 and Ingrown nail L60.[address] [address] 03/01/2024 Tito Isaac Pain of toe of right foot M79.674 ; Onychomycosis B35.1 ; Pain of toe of left foot M79.675 ; Type 2 diabetes mellitus without complication E11.9 and Ingrown nail L60.[address] [address] 05/31/2024 Tito Isaac Pain of toe of right foot M79.674 ; Onychomycosis B35.1 ; Pain of toe of left foot M79.675 and Type 2 diabetes mellitus without complication E11.[address] [address] 10/04/2024 Tito Isaac Pain of toe of right foot M79.674 ; Onychomycosis B35.1 ; Pain of toe of left foot M79.675 ; Type 2 diabetes mellitus without complication E11.9 ; Other hammer toe(s) (acquired), right foot M20.41 ; Other hammer toe(s) (acquired), left foot M20.42 and Ingrown nail L60.0 Assessments Encounter Date Diagnosis (ICD Code) Assessment Notes Treatment Notes Treatment Clinical Notes Section Notes 11/24/2023 Pain of toe of right foot (ICD-10 - M79.674) 03/01/2024 Pain of toe of right foot (ICD-10 - M79.674) 05/31/2024 Pain of toe of right foot (ICD-10 - M79.674) 10/04/2024 Pain of toe of right foot (ICD-10 - M79.674) 10/04/2024 Pain of toe of left foot (ICD-10 - M79.675) 10/04/2024 Onychomycosis (ICD-10 - B35.1) 03/01/2024 Onychomycosis (ICD-10 - B35.1) 05/31/2024 Pain of toe of left foot (ICD-10 - M79.675) 05/31/2024 Onychomycosis (ICD-10 - B35.1) 11/24/2023 Onychomycosis (ICD-10 - B35.1) 11/24/2023 Pain of toe of left foot (ICD-10 - M79.675) 03/01/2024 Pain of toe of left foot (ICD-10 - M79.675) 11/24/2023 Type 2 diabetes mellitus without complication (ICD-10 - E11.9) 03/01/2024 Type 2 diabetes mellitus without complication (ICD-10 - E11.9) 10/04/2024 Type 2 diabetes mellitus without complication (ICD-10 - E11.9) 05/31/2024 Type 2 diabetes mellitus without complication (ICD-10 - E11.9) 10/04/2024 Other hammer toe(s) (acquired), right foot (ICD-10 - M20.41) Patient Educated with: DIABETIC FOOT CARE INSTRUCTIONS.p df (DIABETIC FOOT CARE INSTRUCTIONS.p df) 11/24/2023 Ingrown nail (ICD-10 - L60.0) 03/01/2024 Ingrown nail (ICD-10 - L60.0) 10/04/2024 Other hammer toe(s) (acquired), left foot (ICD-10 - M20.42) 10/04/2024 Ingrown nail (ICD-10 - L60.0) 11/24/2023 Other 03/01/2024 Other 05/31/2024 Other 10/04/2024 Other Plan Of Treatment Pending Test Test Name Order Date 89193-YZJWGAK NAIL, 6 OR MORE 05/02/2011 97722-DHXCEMF NAIL, 6 OR MORE 07/22/2011 85008-QJTJSTE NAIL, 6 OR MORE 10/07/2011 66125-YJSBWPT NAIL, 6 OR MORE 01/09/2012 86856-WCPGNVH NAIL, 6 OR MORE 05/25/2012 31836-DVQWWRD NAIL, 6 OR MORE 08/17/2012 98671-QCQIQCV NAIL, 6 OR MORE 11/05/2012 25594-KRLHNZJ NAIL, 6 OR MORE 02/15/2013 84938-HRFXZMB NAIL, 6 OR MORE 09/27/2013 01850-SBXOEML NAIL, 6 OR MORE 01/10/2014 47127-HTDWIYE NAIL, 6 OR MORE 04/11/2014 82004-AVIIOLC NAIL, 6 OR MORE 07/04/2014 77318-BFIXQKQ NAIL, 6 OR MORE 11/03/2014 48434-YYPCPNQ NAIL, 6 OR MORE 06/21/2013 21276-BXIXALE NAIL, 6 OR MORE 05/29/2017 44590-EUISVSA NAIL, 6 OR MORE 09/18/2017 08014-DPJZBPI NAIL, 6 OR MORE 03/12/2018 06437-HQOFQWQ NAIL, 6 OR MORE 06/15/2018 48626-QQEDXTM NAIL, 6 OR MORE 09/28/2018 14059-IKFHAQR NAIL, 6 OR MORE 01/04/2019 71736-JYSKJQU NAIL, 6 OR MORE 04/05/2019 14698-GROSOLD NAIL, 6 OR MORE 12/18/2017 73616-OEMASBT NAIL, 6 OR MORE 07/12/2019 39200-PGEZAXE NAIL, 6 OR MORE 10/18/2019 14541-ATSOSBS NAIL, 6 OR MORE 01/17/2020 61774-AIVDWSE NAIL, 6 OR MORE 04/24/2020 95029-RWZYZVT NAIL, 6 OR MORE 07/24/2020 19901-LGCEAAM NAIL, 6 OR MORE 12/04/2020 23061-VTPNFIO NAIL, 6 OR MORE 03/05/2021 79829-DFVIFJZ NAIL, 6 OR MORE 06/04/2021 86106-FJTYNPD NAIL, 6 OR MORE 09/10/2021 41255-IKEWRSB NAIL, 6 OR MORE 12/17/2021 59681-ZKXLUOL NAIL, 6 OR MORE 03/25/2022 89059-HQWTKCB NAIL, 6 OR MORE 06/24/2022 71657-VELTCJC NAIL, 6 OR MORE 09/23/2022 51040-DIKDZFD NAIL, 6 OR MORE 02/17/2023 36622-KCCAWRO NAIL, OR MORE 05/26/2023 23991-LKFGVNV NAIL, OR MORE 08/25/2023 90031-RRHUSHK NAIL, OR MORE 11/24/2023 28682-CWIFZXV NAIL, OR MORE 03/01/2024 10695-PYLPCAT NAIL, OR MORE 05/31/2024 47881-WPSJADA NAIL, OR MORE 10/04/2024 67523-Brgfioqd Plate 10/04/2024 64817-Mgwbvreu Plate 03/01/2024 78858-Tuqcfjrt Plate 11/24/2023 01925-Dkskppaq Plate 08/25/2023 00109-Onsgkaie Plate 05/26/2023 86452-Wfuovqrk Plate 02/17/2023 40860-Jhlwmvyv Plate 09/23/2022 92486-Pptfqkcm Plate 06/24/2022 37086-Hzicqith Plate 03/25/2022 84369-Nyqhdbmb Plate 12/17/2021 38845-Etppgsjn Plate 09/10/2021 56649-Cavmsrlg Plate 06/04/2021 98158-Qnexitoy Plate 03/05/2021 00169-Gebvmjcd Plate 12/04/2020 69118-Jalgqpxx Plate 07/24/2020 89026-Tdiihxkq Plate 04/24/2020 01988-Ixvyevxu Plate 03/12/2018 04087-Vkslwxtr Plate 04/05/2019 42412-Fhvlurpg Plate 12/18/2017 28360-Yhcinwma Plate 09/18/2017 22879-Dybnkacs Plate 05/29/2017 42777-Thqcmvnp Plate 11/03/2014 53549-Pkgkezzo Plate 07/04/2014 38710-Yzgepndc Plate 04/11/2014 00409-Gvooluys Plate 01/10/2014 66165-Infvydrc Plate 09/27/2013 56032-Psypfszt Plate 02/15/2013 73760-Ylkucias Plate 11/05/2012 97699-Icdealdw Plate 07/22/2011 25030-Jmjyqxxg Plate 08/17/2012 69733-Klbwaaci Plate 05/25/2012 74602-Anljfikq Plate 01/09/2012 97321-Skbhptqf Plate 10/07/2011 82640-Skvwrxpf Plate 05/02/2011 47861-Jhxnpeua Plate Each Additional 94005-Nrkulhrm Plate Each Additional 95952-Udgdausn Plate Each Additional 12/2011 45427-Gzwwsvqd Plate Each Additional 98891-Rbtsffil Plate Each Additional 07/2012 68701-Rcyhjucs Plate Each Additional 27894-Oiofrvaq Plate Each Additional 09/2012 35430-Znjchzha Plate Each Additional 07/2013 75374-Qgdaufuu Plate Each Additional 97688-Gvwqdedf Plate Each Additional 02/2014 04375-Chcyzxzw Plate Each Additional 01/2014 63587-Xwpperdf Plate Each Additional 65092-Vxuzcpvh Plate Each Additional 18999-JJX 03/15/2013 22440- Debride <25 sq cm 03/15/2013 07415- Debride <25 sq cm 09/27/2013 93174- Debride <25 sq cm 11/03/2014 47271- Debride <25 sq cm 07/04/2014 83743- Debride <25 sq cm 04/11/2014 79435- Debride <25 sq cm 01/10/2014 03807- Debride <25 sq cm 04/15/2013 80151- Debride <25 sq cm 06/21/2013 02563-APNUQWV SKIN/TISSUE 03/29/2013 75280-YZUX SKIN LESIONS, 2 TO 4 08/17/20 12 55310-MVTG SKIN LESIONS, 2 TO 4 05/25/20 12 13642-ZCOB SKIN LESIONS, 2 TO 4 01/09/20 12 69586-PTAB SKIN LESIONS, 2 TO 4 10/07/19 12 22780-UKAP SKIN LESIONS, 2 TO 4 05/02/20 11 70864-BSYL SKIN LESIONS, 2 TO 4 07/22/20 11 08943-Dxfn. Subungual Hematoma 0 20737-Ahiw. Subungual Hematoma 1 78158-Xoyx. Subungual Hematoma 2 40489- Removal of Foreign Body, Subcut 0 10/07/2011 09962- Removal of Foreign Body, Subcut 0 11/14/2011 06923- Removal of Foreign Body, Subcut 0 01/09/2012 Next Appt Details Provider Name:Tito Gray , 01/24/2025 03:00:00 PM, [address] [facility], [place], [address], Insurance Providers Payer Name Payer Address Payer Phone Subscriber Number Group Number Insured Name Patient Relationship to Insured Coverage Start Date Coverage End Date [facility] 65 Medicare Preferred [address] [place] [address] [id number] Austen Carrero Self - patient is the insured Medical (General) History Medical History History ICD Code hypertension hyperlipidemia measles chicken pox Multiple Inguinal hernias type II diabetes Prostate cancer Surgical History Surgery Date(Month/Year) arthroscopic right knee surgery 2004 arthroscopic left knee surgery 2007 hernia repair 04/06/2014 hernia repair 08/17/2014 hernia repair 10/21/2016 hernia 10/05/18 colonoscopy 02/05/21 prostate cancer biopsy 07/17/22 Insertion of radiatiion 11/17/22 Hospitalization History Reason Date(Month/Year) X-rays 08/13/22 MRI/Bone scan 08/04/22
--- OUTSIDE RECORDS SUMMARY | 2024-11-09 15:14 | XMS_ITS | Encounter Summary ---
Author Organization [facility] Address [address] [place] [address] Care Team Providers Care Websphere Process Server Developer Name Role Phone Adolfo Davila MD Primary Care Provider [phone] Encounter Details Date Type Department Care Team (Latest Contact Info) Description 10/10/2024 11:00 AM EST Clinical Support General Surgery - [address] [place] [address] Visit for suture removal (Primary Dx) Social History Tobacco Use Types Packs/Day Years Used Date Smoking Tobacco: Never Smokeless Tobacco: Never Alcohol Use Standard Drinks/Week Comments No 0 (1 standard drink = 0.6 oz pur e alcohol) Sex and Gender Information Value Date Recorded Sex Assigned at Not on file Legal Sex Male 3:50 PM EST Gender Identity Not on file Sexual Orientation Not on file documented as of this encounter Progress Notes * Mar Vega MA - 10/10/2024 11:00 AM ESTAssociated Order(s): Suture Removal Post-Procedure Diagnose(s): Visit for suture removal Suture Removal Date/Time: 10/10/2024 11:16 AM Performed by: Mar Vega MA Authorized by: Charlie Fernandez MD Consent: Consent obtained: Verbal Alternatives discussed: No treatment [place] protocol: Patient identity confirmed: Verbally with patient Location: Location: Trunk Trunk location: Back Procedure details: Wound appearance: No signs of infection, good wound healing and clean Number of sutures removed: 7 Post-procedure details: Procedure completion: Tolerated documented in this encounter Plan of Treatment Not on file documented as of this encounter Procedures Procedure Name Priority Date/Time Associated Diagnosis Comments SUTURE REMOVAL Routine 10/10/2024 11:16 AM EST Visit for suture removal documented in this encounter Results * SUTURE REMOVAL (10/10/2024 11:16 AM EST) Narrative Mar Vega MA - 10/10/2024 11:16 AM EST Mar Vega MA ? 10/10/2024 11:17 AM Suture Removal Date/Time: 10/10/2024 11:16 AM Performed by: Mar Vgea MA Authorized by: Charlie Fernandez MD ?? Consent: ??Consent obtained: ??Verbal ??Alternatives discussed: ??No treatment [place] protocol: ??Patient identity confirmed: ??Verbally with patient Location: ??Location: ??Trunk ??Trunk location: ??Back Procedure details: ??Wound appearance: ??No signs of infection, good wound healing and clean ??Number of sutures removed: ??7 Post-procedure details: ??Procedure completion: ??Tolerated us Charlie Fernandez MD IN CLINIC/BEDSIDE ORDERABLES Fi nal Result documented in this encounter Visit Diagnoses Diagnosis Visit for suture removal- Primary documented in this encounter Care Teams Websphere Process Server Developer Relationship Specialty Start Date End Date Adolfo Davila MD [address] [place] [address] PCP - General Internal Medicine 06/09/19 documented as of this encounter
--- OUTSIDE RECORDS SUMMARY | 2024-11-09 15:14 | XMS_ITS | Clinical Summary ---
Author Organization [address] [facility] Address [address] [place] [address] Phone Care Team Providers Care Electric Shovel Operator Name Role Phone Adolfo Davila MD Primary Care Provider [phone] Allergies Active Allergy Reactions Criticality Noted Date Comments Penicillins 08/23/2018 Medications empagliflozin (Jardiance) 25 mg tablet Take?by mouth. Active GLIMEPIRIDE ORAL Take?by mouth. Active LISINOPRIL ORAL Take?by mouth. Active metformin HCl (METFORMIN ORAL) Take?by mouth. Active rosuvastatin (CRESTOR) 20 mg tablet Take 20 mg by mouth daily. Active Active Problems Problem Noted Date Diagnosed Date Diabetes mellitus type 2, uncomplicated 07/29/20 24 Hernia of abdominal wall 07/29/2024 Overview (07/29/2024): hernia Hypertension 07/29/2024 Inguinal hernia, recurrent 07/29/2024 Overview (07/29/2024): Right Right inguinal pain 07/29/2024 Contusion of left thigh 06/09/2019 Postoperative seroma of subc utaneous tissue after non-dermatologic procedure 03/09/2019 CAD (coronary artery disease) 02/22/2019 Diverticulosis 02/22/2019 Hyperlipidemia 02/22/2019 Osteoarthritis 02/22/2019 Overview (07/29/2024): 07/24 CT: Lumbar Spine with bulging disc L5-S1 Encounters Date Type Department Care Team Description 10/10/2024 11:00 AM EST Clinical Support [address] [phone] Visit for suture removal (Primary Dx) 09/23/2024 10:00 AM EST Procedure visit [address] [phone] Charlie Fernandez MD BCC (basal cell carcinoma), back (Primary Dx) 09/19/2024 1:00 PM EST Office Visit [address] [phone] Charlie Fernandez MD Basal cell carcinoma (BCC) of back (Primary Dx) from Last 3 Months Surgical History Surgery Date Site/Laterality Comments HERNIA REPAIR PROCEDURE: NE REPAIR FIRST ABDOMINAL WALL HERNIA KNEE ARTHROSCOPY Bilateral PROCEDURE: NE ARTHROSCOPY AID TX SPINE&/FX KNEE W/O FIXJ; COMMENT: meniscus repair HERNIA REPAIR 10/21/2016 Bilateral PROCEDURE: LAPAROSCOPY, INGUINAL HERNIA REPAIR; COMMENT: recurrent HERNIA REPAIR 04/06/2014 Right PROCEDURE: HISTORICAL HERNIA REPAIR/ING; COMMENT: [address] Hernia Patch HERNIA REPAIR 08/17/2014 Left PROCEDURE: HISTORICAL HERNIA REPAIR/ING HERNIA REPAIR 2018 Right PROCEDURE: HISTORICAL HERNIA REPAIR/ING; COMMENT: Open - ultra pro mesh device Medical History Medical History Date Comments Hypertension DX:Hypertension Hernia of abdominal wall DX:Mimi ia of abdominal wall; COMMENT: hernia Inguinal hernia, recurrent DX:In guinal hernia, recurrent; COMMENT: Right Right inguinal pain DX:Right ing uinal pain Hyperlipidemia 02/22/2019 DX:Hyperlipidemi a CAD (coronary artery disease) 02/22/2019 DX :CAD (coronary artery disease) Diverticulosis 02/22/2019 DX:Diverticulosi s Osteoarthritis 02/22/2019 DX:Osteoarthriti s; COMMENT: 07/24 CT: Lumbar Spine with bulging disc L5-S1 Diabetes mellitus type 2, uncomplicated (CMS/HCC) DX:Diabetes mellitus type 2, uncomplicated (HCC) Family History Medical History Relation Name Comments Other: cancer of throat Brother age 51 Other: cancer Father on oxygen Dementia Mother Relation Name Status Comments Brother Father Mother Social History Tobacco Use Types Packs/Day Years Used Date Smoking Tobacco: Never Smokeless Tobacco: Never Alcohol Use Standard Drinks/Week Comments No 0 (1 standard drink = 0.6 oz pur e alcohol) Sex and Gender Information Value Date Recorded Sex Assigned at Not on file Legal Sex Male 3:50 PM EST Gender Identity Not on file Sexual Orientation Not on file Obstetrics History Last Filed Vital Signs Vital Sign Reading Time Taken Comments Blood Pressure 135/65 09/23/2024 9:47 AM EST Pulse 78 09/23/2024 9:47 AM EST Temperature - - Respiratory Rate - - Oxygen Saturation - - Inhaled Oxygen Concentration - - Weight 89.2 kg (196 lb 9.6 oz) 09/23/2024 9:47 A M EST Height 190.5 cm (6' 3 ) 09/23/2024 9:47 AM EST Body Mass Index 24.57 09/23/2024 9:47 AM EST Plan of Treatment Health Maintenance Due Date Last Done Comments Diabetes: Annual GFR (Glomerular Filtration Rate) 1953 Diabetes: Annual Foot Exam 1963 Diabetes: Annual Retina Eye Exam 1963 DTaP,Tdap,and Td Vaccines (1 - Tdap) 1972 Pneumococcal Vaccine: 50+ Years (1 of 2 - PCV) 1972 Cholesterol Screening (Lipid Panel) 08/06/2022 Colorectal Cancer Screening: Colonoscopy 08/06/2022 Depression Screening 08/06/2022 Falls Risk Assessment 08/06/2022 Hepatitis C Screening 08/06/2022 Social Influencers of Health Screening 08/06/2022 Diabetes: Annual Urine Albumin-Creatinine Ratio (uACR) 08/21/2022 Diabetes: Blood Sugar Control Test (HGBA1C) 08/21/2022 Hypertension/CHF/CAD Annual BMP Blood Test 08/21/2022 Influenza Vaccine (#1) 2024 Zoster Vaccines Completed 03/18/2022, 01/21/2022 RSV Immunization Patients 60+ Years Old Completed 05/27/2023 COVID-19 Vaccine Completed 05/18/2024, , 05/15/2022, Additional history exists HIB Vaccines Aged Out No longer eligi ble based on patient's age to complete this topic HPV Vaccines Aged Out No longer eligi ble based on patient's age to complete this topic Hepatitis A Vaccines Aged Out No long er eligible based on patient's age to complete this topic Hepatitis B Vaccines Aged Out No long er eligible based on patient's age to complete this topic IPV Vaccines Aged Out No longer eligi ble based on patient's age to complete this topic MMR Vaccines Aged Out No longer eligi ble based on patient's age to complete this topic Meningococcal ACWY Vaccine Aged Out N o longer eligible based on patient's age to complete this topic Meningococcal B Vacine Aged Out No lo nger eligible based on patient's age to complete this topic RSV Immunization Patients Under 20 months Aged Out No longer eligible based on patient's age to complete this topic Varicella Vaccines Aged Out No longer eligible based on patient's age to complete this topic Procedures Procedure Name Priority Date/Time Associated Diagnosis Comments SUTURE REMOVAL Routine 10/10/2024 11:16 AM EST Visit for suture removal TISSUE EXAM Routine 09/26/2024 9:55 AM EST TISSUE EXAM Routine 09/23/2024 10:40 AM EST BCC (basal cell carcinoma), back from Last 3 Months Results * SUTURE REMOVAL (10/10/2024 11:16 AM EST) Narrative Mar Vega MA - 10/10/2024 11:16 AM EST Mar Vega MA ? 10/10/2024 11:17 AM Suture Removal Date/Time: 10/10/2024 11:16 AM Performed by: Mar Vega MA Authorized by: Charlie Fernandez MD ?? Consent: ??Consent obtained: ??Verbal ??Alternatives discussed: ??No treatment [place] protocol: ??Patient identity confirmed: ??Verbally with patient Location: ??Location: ??Trunk ??Trunk location: ??Back Procedure details: ??Wound appearance: ??No signs of infection, good wound healing and clean ??Number of sutures removed: ??7 Post-procedure details: ??Procedure completion: ??Tolerated us Charlie Fernandez MD IN CLINIC/BEDSIDE ORDERABLES Fi nal Result * Tissue exam (09/26/2024 9:55 AM EST) Only the most recent of2 resultswithin the time period is included. Tissue us Historical Provider LAB PATHOLOGY ORDERABLES Final Result from Last 3 Months Insurance [facility] Care Teams Electric Shovel Operator Relationship Specialty Start Date End Date Adolfo Davila MD [address] [facility] [address] [place] [address] PCP - General Internal Medicine 06/09/19
--- OUTSIDE RECORDS SUMMARY | 2024-11-09 15:14 | XMS_ITS ---
Author Organization [facility] Address [address] [place] [address] Care Team Providers Care Director Of Preclinical Research Name Role Phone Alisa Pascual MD Primary Care Provider Unavaila Tito Abdullahi Unavailable [phone] Woodard Encounters Encounter Location Date Provider Diagnosis [address] [address] 09/02/2024 Tito Gray Plan Of Treatment Next Appt Details Provider Name:Tito Gray , 01/24/2025 03:00:00 PM, [address] [place], [address], Progress Notes * Austen CARRERO JrDOB:[birth year] (69 yo M)Acc No.[id number]:09/02/2024 Progress Note Patient:?Austen CARRERO Jr Provider:?Tito Gray DPM :1955???Age:68 Y???Sex:Male Leonardo e:09/02/2024 Address:[address] [place] [address], [address], [place] Pcp:Alisa Pascual MD Subjective: * Chief Complaints: * ???1. Dr Woodard. * Medical History:? Objective: * Vitals:? Assessment: Plan: * Treatment: * Images: * The named appointment provid er may or may not be the originator of this progress note, and it is not deemed complete until electronically signed by the appointment provider. Sign off status: Pending * Provider:Bernie Gray DPM Date:?2023 Generated for Nataly jones/Dionicio/Chris on:?11/09/2024 03:14 PM EST
[2024-11-09 16:57] LABS: Prostate Specific Antigen 1.73 ng/mL (<0.05-4.0)
[2024-11-16 17:38] LABS: Testosterone, Total 274 ng/dL (250-1100)
== END 2024-11-09 12:56 | disposition home or self-care (01) ==
LOC: HO.HMGCLDS 12:55
PROVIDERS: PCP Internal Medicine; Visit Provider Urology
DX: C61 Malignant neoplasm of prostate (principal); Z12.5 Encounter for screening for malignant neoplasm of prostate
CPT/HCPCS: 36415; 84153; 84403

== ENCOUNTER 2024-11-16 11:51 | Outpatient (REF) | payer MEDICARE, SELFPAY ==
[2024-11-16 13:50] LABS: MANUAL DIFF FLAG NO
[2024-11-16 13:54] LABS: Hematocrit 38.9 % (42.0-52.0); Hemoglobin 12.8 g/dl (14.0-18.0); Imm Gran Pct Auto 0.3 % (0.0-0.4); Mean Corpuscular HGB Conc 32.9 g/dl (31.0-36.0); Mean Corpuscular Hemoglobin 30.8 pg (27.0-33.0); Mean Corpuscular Volume 93.7 fL (80.0-98.0); Mean Platelet Volume 9.6 fL (9.4-12.4); Neutrophils Percent Auto 61.6 % (45-73); Platelet Count 205 X10*3/uL (160-400); Red Blood Count 4.15 X10*6/uL (4.60-5.80); Red Cell Distribution Width 12.4 % (11.0-16.0)
[2024-11-16 13:55] LABS: Basophils Percent Auto 0.5 % (0-2); Eosinophils Absolute Auto 0.1 X10*3/uL (0.0-0.4); Eosinophils Percent Auto 1.5 % (0-4); Imm Gran Abs Auto 0.01 X10*3/uL (0.00-0.03); Lymphocytes Absolute Auto 1.1 X10*3/uL (1.2-4.9); Lymphocytes Percent Auto 28.3 % (20-40); Monocytes Absolute Auto 0.3 X10*3/uL (0.1-1.2); Monocytes Percent Auto 7.8 % (2-11); Neutrophils Absolute Auto 2.4 x10*3/uL (2.0-8.3)
--- OUTSIDE RECORDS SUMMARY | 2024-11-16 13:56 | XMS_ITS ---
Author Organization [facility] Address [address] [facility] [place] [address] Care Team Providers Care Time Clock Mechanic Name Role Phone Alisa Pascual MD Primary Care Provider iTto Resendiz Unavailable [phone] Allergies Allergen (clinical drug ingredient) Drug/Non Drug [...] Ordered Date Performed Result Body Sit e 09161-YQCHYIA NAIL, 6 OR MORE 10/04/2024 N/A 05988-Ievelgmx Plate 10/04/2024 N/A Encounters Encounter Location Date Provider Diagnosis [facility] [address] [place] [address] 10/04/2024 Tito Michelier Pain of toe of [...] INSTRUCTIONS.pdf) Pending Test Test Name Order Date 70757-FEGVHWQ NAIL, 6 OR MORE 10/04/2024 03609-Vuwauniw Plate 10/04/2024 Next Appt Details Follow Up: prn, Reason: Provider Name:Tito Gray , 01/24/2025 03:00:00 PM, [address] [place] [address], [address], Procedure Notes * Category Sub-Category Detail Notes [...] Motrin was recommended for pain or discomfort (78814), DIABETES: Pt was advised as to the [...] use of a nail nipper and/or dremel-type coffee grinder, to a more viable healthy nail [...] to maintain effectiveness in symptomatic relief - 81572 Progress Notes * Austen CARRERO JrDOB:[birth year] (68 yo M)Acc No.[id number]:10/04/2024 Progress Note Patient:?Austen CARRERO Jr Provider:?Tito Gray DPM :1955???Age:68 Y???Sex:Male Leonardo e:10/04/2024 Address:[address] [place] [address], [facility] [address], [facility] Pcp:Alisa Pascual MD Subjective: * Chief Complaints: [...] aches and pains?denies.?Weakness?denies.?Integ.:?Samano?denies.?Scars?denies.?Corns/calluses?admits.?Ingrown nails?admits.?Painful nails?admits.?Rashes?denies.?Neurologic:?Difficulty sleeping?denies.?Bipolar?denies.?Brain disorder?denies.?Balance t rouble?denies.?Confusion?denies.?Fainting/blackouts?denies.?Headache?denies.?Vidal mors?denies.? [...] swimming. ?Marital status: single. 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 ???Drug/Alcohol:?AUDIT-C (Standard)?Did you have a [...] INSTRUCTIONS.pdf (DIABETIC FOOT CARE INSTRUCTIONS.pdf)?? 3.?Ingrown nail?Procedure: 74423-Gcaecpxa Plate * Procedures:?Debride Nail 6-10:?Nail debridement?Due to [...] use of a nail nipper and/or dremel-type coffee grinder, to a more viable healthy nail [...] to maintain effectiveness in symptomatic relief - 35220.?Nail Avulsion:?Location?Lateral nail border,?TA.?Anesthesia?was accomplished TOPICALLY with Lidocaine [...] Motrin was recommended for pain or discomfort (73987), DIABETES: Pt was advised as to the risk of delayed or nonhealing due to diabetes. Pt is to call the office with any questions, concerns, or complications.? * Procedure Codes:?19937 DEBRI DE NAIL, 6 OR MORE, Modifiers: XS 66225 Avulsion Plate, Modifiers: XS , TA * [...] Gray DPM Date:?2024 Generated for Nataly jones/Dionicio/Chris on:?11/16/2024 01:56 PM EDT History and Physical Notes * HPI (History of Present Illness) Category Sub-Category Detail Notes Category Not es Toe pain Location: B/L feet Duration: several years Aggravated by: shoes, any pressure Treatments: change in shoes At Risk footcare Pt States Last PCP Visit: Date: 4 Examination Category Sub-Category Detail Notes Category Not [...]
--- OUTSIDE RECORDS SUMMARY | 2024-11-16 13:56 | XMS_ITS | Clinical Summary ---
Author Organization [facility] Address [address] [place] [address] Phone Care Team Providers Care Assistant To The Ceo Name Role Phone Adolfo Davila MD Primary Care Provider [phone] Allergies Active Allergy Reactions Criticality Noted Date [...] Description 10/10/2024 11:00 AM EST Clinical Support [address] [phone] Visit for suture removal (Primary Dx) 09/23/2024 10:00 AM EST Procedure visit [address] [phone] Charlie Fernandez MD BCC (basal cell carcinoma), back (Primary Dx) 09/19/2024 1:00 PM EST Office Visit [address] [phone] Charlie Fernandez MD Basal cell carcinoma (BCC) of back (Primary Dx) from Last 3 Months Surgical History Surgery Date Site/Laterality Comments HERNIA REPAIR PROCEDURE: MD REPAIR FIRST ABDOMINAL WALL HERNIA KNEE ARTHROSCOPY Bilateral PROCEDURE: MD ARTHROSCOPY AID TX SPINE&/FX KNEE W/O FIXJ; [...] ??Consent obtained: ??Verbal ??Alternatives discussed: ??No treatment [place] protocol: ??Patient identity confirmed: ??Verbally with patient [...] Final Result from Last 3 Months Insurance [facility] Care Teams Assistant To The Ceo Relationship Specialty Start Date End Date Adolfo Davila MD [address] [facility] [address] [place] [address] PCP - General Internal Medicine 06/09/19
--- OUTSIDE RECORDS SUMMARY | 2024-11-16 13:56 | XMS_ITS | Patient Health Record ---
[facility] Address [address] [facility] [place] [address] Care Team Providers Care Specimen Accessioner Name Role Phone Alisa Pascual MD Primary Care Provider Tito Resendiz Unavailable [phone] Allergies Allergen (clinical drug ingredient) Drug/Non Drug [...] Problem Acquired hammer toe of right foot (952687958528846 5) Other hammer toe(s) (acquired), right foot (M20.41) Active confirmed Problem Acquired hammer toe of left foot (809079874652372 3) Other hammer toe(s) (acquired), left foot (M20.42) Active confirmed Problem Type 2 diabetes mellitus without complication (376796846) Type 2 diabetes mellitus without complication (E11.9) Active confirmed Vital Signs Blood pressure diastolic 81 mm Hg 10/04/2024 Height 6 ft 3 in in 10/04/2024 Blood pressure systolic 120 mm Hg 10/04/2024 Weight 192 lbs 10/04/2024 BMI 24 kg/m2 10/04/2024 Procedures Procedure Date Ordered Date Performed Result Body Sit e 52123-SUOOAMK NAIL, 6 OR MORE 11/24/2023 N/A 04148-Qjafkiqr Plate 11/24/2023 N/A 48304-EPPQTBF NAIL, 6 OR MORE 03/01/2024 N/A 28512-Htmehdzt Plate 03/01/2024 N/A 53633-NDCUXHR NAIL, 6 OR MORE 05/31/2024 N/A 80217-ZWRRSLC NAIL, 6 OR MORE 10/04/2024 N/A 47418-Zykmhrbw Plate 10/04/2024 N/A Encounters Encounter Location Date Provider Diagnosis [address] [address] 11/24/2023 Tito Isaac Pain of toe of right foot M79.674 ; Onychomycosis B35.1 ; Pain of toe of left foot M79.675 ; Type 2 diabetes mellitus without complication E11.9 and Ingrown nail L60.[address] [address] 03/01/2024 Tito Isaac Pain of toe of right foot M79.674 ; Onychomycosis B35.1 ; Pain of toe of left foot M79.675 ; Type 2 diabetes mellitus without complication E11.9 and Ingrown nail L60.[address] [address] 05/31/2024 Tito Isaac Pain of toe of right foot M79.674 ; Onychomycosis B35.1 ; Pain of toe of left foot M79.675 and Type 2 diabetes mellitus without complication E11.[address] [address] 10/04/2024 Tito Isaac Pain of toe of [...] Treatment Pending Test Test Name Order Date 39672-GMWADPK NAIL, 6 OR MORE 05/02/2011 34456-ASNNWUW NAIL, 6 OR MORE 07/22/2011 91880-ELVMEBD NAIL, 6 OR MORE 10/07/2011 58601-KSTLYYU NAIL, 6 OR MORE 01/09/2012 18169-CGEWLBX NAIL, 6 OR MORE 05/25/2012 50595-VDCMLUJ NAIL, 6 OR MORE 08/17/2012 78198-ODUDSBF NAIL, 6 OR MORE 11/05/2012 22648-LXRDPCM NAIL, 6 OR MORE 02/15/2013 04662-CTWHBFB NAIL, 6 OR MORE 09/27/2013 47408-SAHWITC NAIL, 6 OR MORE 01/10/2014 48976-YYETFMX NAIL, 6 OR MORE 04/11/2014 31448-XNIACHP NAIL, 6 OR MORE 07/04/2014 48420-ATHAOCJ NAIL, 6 OR MORE 11/03/2014 11210-OEREFWA NAIL, 6 OR MORE 06/21/2013 30625-DVIHKXF NAIL, 6 OR MORE 05/29/2017 38441-JOXCRSI NAIL, 6 OR MORE 09/18/2017 89130-NBJYJUF NAIL, 6 OR MORE 03/12/2018 01401-HGHEDYF NAIL, 6 OR MORE 06/15/2018 35872-PQQZRAB NAIL, 6 OR MORE 09/28/2018 79304-GUHWLYM NAIL, 6 OR MORE 01/04/2019 75924-TVASNDK NAIL, 6 OR MORE 04/05/2019 96580-AITRQWN NAIL, 6 OR MORE 12/18/2017 39687-TOGCMSB NAIL, 6 OR MORE 07/12/2019 61842-CQFZOVG NAIL, 6 OR MORE 10/18/2019 17253-RPPZGUS NAIL, 6 OR MORE 01/17/2020 45065-MEVWBDM NAIL, 6 OR MORE 04/24/2020 84992-WHNRKLI NAIL, 6 OR MORE 07/24/2020 66529-ERDTPNK NAIL, 6 OR MORE 12/04/2020 05828-VQIBLNJ NAIL, 6 OR MORE 03/05/2021 32695-WZIJJIO NAIL, 6 OR MORE 06/04/2021 88571-JWGLHHH NAIL, 6 OR MORE 09/10/2021 52989-OAKDEYC NAIL, 6 OR MORE 12/17/2021 72756-XLNWIOS NAIL, 6 OR MORE 03/25/2022 71145-NXKGXKO NAIL, 6 OR MORE 06/24/2022 72792-GKWPPNU NAIL, 6 OR MORE 09/23/2022 17939-KBSVANH NAIL, 6 OR MORE 02/17/2023 72338-CNMJWIV NAIL, OR MORE 05/26/2023 34565-ORLPLCC NAIL, OR MORE 08/25/2023 11202-XWXPDGK NAIL, OR MORE 11/24/2023 17129-CFRJQWD NAIL, OR MORE 03/01/2024 11833-ACATMKU NAIL, OR MORE 05/31/2024 37284-GXFAMEY NAIL, OR MORE 10/04/2024 39619-Xtmmqpqt Plate 10/04/2024 78611-Lxwyfaiw Plate 03/01/2024 30482-Kqxivjvs Plate 11/24/2023 11325-Ozigxbll Plate 08/25/2023 10292-Iaxefbzs Plate 05/26/2023 49491-Hqvcntdi Plate 02/17/2023 03376-Opesjsto Plate 09/23/2022 22869-Obcyylsq Plate 06/24/2022 33489-Qiqsqcvl Plate 03/25/2022 91536-Noiovqco Plate 12/17/2021 41975-Uuotszbw Plate 09/10/2021 70490-Ymmvrnwz Plate 06/04/2021 27675-Xgipjekf Plate 03/05/2021 01290-Txzdixbp Plate 12/04/2020 24352-Hcdgmdoi Plate 07/24/2020 15002-Afuyvbww Plate 04/24/2020 32687-Dbtvcjrb Plate 03/12/2018 07122-Irohfirc Plate 04/05/2019 46059-Ajbibvgn Plate 12/18/2017 06953-Zvxzvtgz Plate 09/18/2017 51256-Knimprkj Plate 05/29/2017 70876-Gyghzmlu Plate 11/03/2014 61796-Ymfsgtju Plate 07/04/2014 82801-Jddazodk Plate 04/11/2014 66230-Zmuxbccr Plate 01/10/2014 66148-Kytapgit Plate 09/27/2013 69448-Hdkdsiey Plate 02/15/2013 93970-Pfelvwgl Plate 11/05/2012 81506-Vidhvfzo Plate 07/22/2011 80968-Ggfklbbl Plate 08/17/2012 60282-Litbqwwl Plate 05/25/2012 84215-Kpkvjgwu Plate 01/09/2012 98183-Rqlwrfvq Plate 10/07/2011 69159-Miumtvyi Plate 05/02/2011 86987-Nsciuodw Plate Each Additional 09070-Ujioistc Plate Each Additional 01870-Movwjbpz Plate Each Additional 12/2011 78175-Xzjlbwlx Plate Each Additional 07678-Ojcghviz Plate Each Additional 07/2012 37494-Ejuvgqyh Plate Each Additional 81180-Eoegafoq Plate Each Additional 09/2012 46050-Lpfivtph Plate Each Additional 07/2013 42427-Puxbplpn Plate Each Additional 67451-Ygirylyw Plate Each Additional 02/2014 70346-Axdmbcrn Plate Each Additional 01/2014 79234-Yrlhdosd Plate Each Additional 47232-Bqlwgusw Plate Each Additional 81641-KQS 03/15/2013 74809- Debride <25 sq cm 03/15/2013 92978- Debride <25 sq cm 09/27/2013 06091- Debride <25 sq cm 11/03/2014 04464- Debride <25 sq cm 07/04/2014 79545- Debride <25 sq cm 04/11/2014 19386- Debride <25 sq cm 01/10/2014 76561- Debride <25 sq cm 04/15/2013 91618- Debride <25 sq cm 06/21/2013 13042-VXDIBFH SKIN/TISSUE 03/29/2013 50677-YGSF SKIN LESIONS, 2 TO 4 08/17/20 12 07060-BRCF SKIN LESIONS, 2 TO 4 05/25/20 12 76945-YRRU SKIN LESIONS, 2 TO 4 01/09/20 12 01230-ODSG SKIN LESIONS, 2 TO 4 10/07/19 12 92503-SART SKIN LESIONS, 2 TO 4 05/02/20 11 99497-YSKF SKIN LESIONS, 2 TO 4 07/22/20 11 13011-Zceu. Subungual Hematoma 0 41462-Efua. Subungual Hematoma 1 62793-Fyka. Subungual Hematoma 2 88098- Removal of Foreign Body, Subcut 0 10/07/2011 41750- Removal of Foreign Body, Subcut 0 11/14/2011 76762- Removal of Foreign Body, Subcut 0 01/09/2012 Next Appt Details Provider Name:Tito Gray , 01/24/2025 03:00:00 PM, [address] [facility], [place], [address], Insurance Providers Payer Name Payer Address Payer Phone Subscriber Number Group Number Insured Name Patient Relationship to Insured Coverage Start Date Coverage End Date [facility] 65 Medicare Preferred [address] [place] [address] [phone] [id number] Austen Carrero Self - patient is the [...]
--- OUTSIDE RECORDS SUMMARY | 2024-11-16 13:56 | XMS_ITS ---
Author Organization [facility] Address [address] [facility] [place] [address] Care Team Providers Care Window Shade Cloth Sewer Name Role Phone Alisa Pascual MD Primary Care Provider UnavailTito Head Unavailable [phone] Allergies Allergen (clinical drug ingredient) Drug/Non Drug [...] Ordered Date Performed Result Body Sit e 28165-SANNZIL NAIL, 6 OR MORE 05/31/2024 N/A Encounters Encounter Location Date Provider Diagnosis [facility] [address] [place] [address] 05/31/2024 Tito Gray Pain of toe of [...] Treatment Pending Test Test Name Order Date 74648-OCRORJC NAIL, 6 OR MORE 05/31/2024 Next Appt Details Follow Up: prn, Reason: Provider Name:Tito Gray , 01/24/2025 03:00:00 PM, [address] [place], [address], Procedure Notes * Category Sub-Category Detail Notes Debride Nail 6-10 Nail debridement Performance o f this nail treatment by a nonprofessional would put this patients foot and overall health at risk. Therefore, nail debridement was performed extensively to reduce/remove overall nail length, girth, thickness, subungual debris, and necrotic tissue, by manual and/or electrical means through the use of a nail nipper and/or dremel-type watch crystal edge grinder, to a more viable healthy nail plate or bed tissue 6-10. Silver nitrate used for any petechial bleeding as necessary. Definitive antifungal treatment options have been reviewed and discussed with the patient. The patient chooses, no pharmaceutical tx - 45094 Progress Notes * Austen CARRERO JrDOB:[birth year] (68 yo M)Acc No.[id number]:05/31/2024 Progress Note Patient:?Austen Carrero Provider:?Tito Gray DPM :1955???Age:68 Y???Sex:Male Leonardo e:05/31/2024 Address:[address] [place] [address], [facility] [address], [facility] Pcp:Alisa Pascual MD Subjective: * Chief [...] swimming. ?Marital status: single. 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 * Medications:?TakingFinasteri de 5 MG [...] use of a nail nipper and/or dremel-type watch crystal edge grinder, to a more viable healthy nail plate or bed tissue 6-10. Silver nitrate used for any petechial bleeding as necessary. Definitive antifungal treatment options have been reviewed and discussed with the patient. The patient chooses, no pharmaceutical tx - 11584.? * Procedure Codes:?08911 DEBRI DE NAIL, 6 OR MORE * Follow Up:?prn * Images: * Sign off status: Completed true * Provider:?Tito Gray DPM Date:?2023 Generated for Nataly jones/Dionicio/Chrsi on:?11/16/2024 01:55 PM EDT History and Physical Notes * [...]
--- OUTSIDE RECORDS SUMMARY | 2024-11-16 13:56 | XMS_ITS ---
Author Organization [facility] Address [address] [place] [address] Care Team Providers Care Chief Of Anesthesiology Name Role Phone Alisa Pascual MD Primary Care Provider Unavaila Tito Abdullahi Unavailable [phone] Woodard Encounters Encounter Location Date Provider Diagnosis [facility] [address] [place] [address] 09/02/2024 Tito Gray Plan Of Treatment Next Appt Details Provider Name:Tito Gray , 01/24/2025 03:00:00 PM, [address] [place], [address], Progress Notes * Austen CARRERO JrDOB:[birth year] (69 yo M)Acc No.[id number]:09/02/2024 Progress Note Patient:?Austen CARRERO Jr Provider:?Tito Gray DPM :1955???Age:68 Y???Sex:Male Leonardo e:09/02/2024 Address:[address] [place] [address], [address], [place] Pcp:Alisa Pascual MD Subjective: * Chief Complaints: [...] Gray DPM Date:?2023 Generated for Nataly jones/Dionicio/Chris on:?11/16/2024 01:56 PM EDT
[2024-11-16 14:03] LABS: Estimated Average Glucose 232 mg/dL; Hemoglobin A1c % 9.7 % (<6.0); Total Hemoglobin (HGBA1C) 3383.5585 umol/L
[2024-11-16 14:20] LABS: Alanine Aminotransferase 26 U/L (0-40); Albumin Level 4.2 g/dL (3.5-5.0); Alkaline Phosphatase 65 U/L (39-117); Anion Gap 12 (12-20); Aspartate Amino Transferase 29 U/L (5-37); Blood Urea Nitrogen 13 mg/dL (9-16); Calcium 10.2 mg/dL (8.4-10.2); Carbon Dioxide 26 mmol/L (22-29); Chloride 109 mmol/L (96-108); Cholesterol 157 mg/dL (<200); Estimated Glomerular Filt Rate > 60; Glucose Fasting 120 mg/dL (60-99); HDL Cholesterol 56 mg/dL (>40); LDL Cholesterol Calculated 71 mg/dL (<100); Potassium 4.4 mmol/L (3.3-5.1); Sodium 143 mmol/L (135-145); Total Protein 7.1 g/dL (6.5-8.0); Triglycerides 153 mg/dL (<150)
[2024-11-16 14:50] LABS: Creatinine Urine 368.87 mg/dL
== END 2024-11-16 11:52 | disposition home or self-care (01) ==
LOC: HO.HMGCLDS 11:51
PROVIDERS: PCP Internal Medicine; Visit Provider Internal Medicine
DX: E78.5 Hyperlipidemia, unspecified (principal); I10 Essential (primary) hypertension; E11.9 Type 2 diabetes mellitus without complications
CPT/HCPCS: 36415; 80053; 80061; 82043; 82570; 83036; 85025

== ENCOUNTER 2024-11-21 12:51 | Outpatient (AMB) | payer MEDICARE, SELFPAY ==
[2024-11-21 12:55] VITALS: BP 110/68; PULSE 86; RESP 18; TEMP 36.6; O2SAT 98; BMI 24.5
--- NOTE | 2024-11-21 12:55 | MHC.PC.OV ---
Vital Signs 11/21/24 12:55 Height 6 ft 3 in Weight 196 lb BMI 24.5 BP 110/68 Blood Pressure Location Rt brachial Position Sitting Respiration 18 Pulse 86 Pulse Source Pulse Oximeter Temp 97.9 F Temp Source Oral Pulse Oximetry (%) 98 Oxygen Delivery Method Room Air Intake Visit Reasons: 3 months f/up Intake Note: Pt is here today for 3 months follow up visit. Allergies penicillin G Allergy (Unknown, Verified 11/21/24 12:56) rash all over body Medication List - Last Reconciled 11/21/24 by Alisa Pascual MD blood sugar diagnostic (OneTouch Verio test strips) USE TO TEST BLOOD SUGAR ONCE A DAY lancets (Monolet Lancets) test blood sugar once a day lancets Microlet lancets check glucose once a day lisinopril 10 mg PO DAILY metformin 1,000 mg PO BID rosuvastatin 40 mg PO DAILY Tresiba FlexTouch U-100 (insulin degludec) 15 units (0.15 mL) subcut BEDTIME NS Tobacco use date assessed: 11/21/24 Fall risk assessment: 1 Fall in past year Last assessed Fall Risk: 11/21/24 Dental Screening Dental Screen Date: 11/21/24 Did you have a dental visit in the last 12 months?: Yes Did you have a dental problem in the last 6 months where you did not have access to dental care?: No Was dental information given to patient?: Patient has dentist HPI 3 months f/up HPI Details Patient presents for the follow-up of type 2 diabetes. His insurance does not cover Jardiance. patient has been taking metformin and glimepiride and reports fasting blood glucose between 160-200. He has been following ADA diet. Hypertension hyperlipidemia are controlled on current medications. [facility]LY [facility], [facility] Medical History Dysplastic nevi Abnormal colonoscopy DM type 2 (diabetes mellitus, type 2) Inguinal hernia Hyperlipidemia HTN (hypertension) Surgical History History of surgery H/O colonoscopy H/O hernia repair Status post arthroscopic knee surgery Family History Father No problems noted. Mother No problems noted. 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 1. Little interest or pleasure in doing things: not at all 2. Feeling down, depressed, or hopeless: not at all 3. Trouble falling or staying asleep, or sleeping too much: not at all 4. Feeling tired or having little energy: not at all 5. Poor appetite or overeating: not at all 6. Feeling bad about yourself - or that you are a failure or have let yourself or your family down: not at all 7. Trouble concentrating on things, such as reading the newspaper or watching television: not at all 8. Moving or speaking so slowly that other people could have noticed. Or the opposite - being so fidgety or restless that you have been moving around a lot more than usual: not at all 9. Thoughts that you would be better off or of hurting yourself in some way: not at all Total score: 0 Depression Screening Interpretation: Negative Depression Screening Done: Yes 74970 - PHQ-9 Billing: Yes Source: Developed by Drs. Iraj Louis, Fatmata Bravo, Geoff Ly and colleagues, with an educational jaden from [employer]. Thrive Questionnaire Date Thrive assessed: 11/21/24 I am a: Patient What is your living situation today?: I have a steady place to live Within the past 12 months, did the food you bought not last and you didn't have the money to get more?: Sometimes True Within the past 12 months, did you worry whether your food would run out before you got money to buy more?: Sometimes True Do you have trouble paying for medicines?: Yes Do you have trouble getting transportation to medical appointments?: No Do you have trouble paying your heating and electricity bill?: No Do you have trouble taking care of your child, family member or friend?: No Do you have trouble with day-to-day activities such as bathing, preparing meals, shopping, managing finances, etc.?: No Are you currently unemployed and looking for a job?: Yes Are you interested in more education?: No Please select the resources that you would like help with: Paying for medicine Currently or been in a relationship where the following occur: No concerns reported THRIVE Score: 2 AUDIT C Alcohol Use Questionnaire (AUDIT-C) 1. How often do you have a drink containing alcohol?: Never 3. How often do you have six or more drinks on one occasion?: Never Total Score: 0 NORMA-7 AMB Questionnaire NORMA-7 Date NORMA - 7 assessed: 11/21/24 Feeling nervous, anxious, or on edge: 0 = Not at all Not being able to stop or control worryin = Not at all Worrying too much about different things: 0 = Not at all Trouble relaxin = Not at all Being so restless that it is hard to sit still: 0 = Not at all Becoming easily annoyed or irritable: 0 = Not at all Feeling afraid as if something awful might happen: 0 = Not at all Total NORMA-7 score (0-4 normal; 5-9 mild; 10-14 moderate; 15-21 severe): 0 Source: Developed by Drs. Iraj Louis, Fatmata Bravo, Geoff Ly and colleagues, with an educational jaden from [employer]. NORMA-7 Assessment Billing NORMA-7 Assessment Tool: NORMA-7 Assessment 42617 Review of Systems Const All systems reviewed & are unremarkable except as noted in HPI and below ENT Reports no additional complaints Card Reports no additional complaints Resp Reports no additional complaints GI Reports no additional complaints Reports no additional complaints Physical exam (Primary Care) Vital Signs: Last Vital Signs Temp 97.9 F 11/21/24 12:55 Pulse 86 11/21/24 12:55 Resp 18 11/21/24 12:55 BP 110/68 11/21/24 12:55 Pulse Ox 98 11/21/24 12:55 Oxygen Delivery Method Room Air 11/21/24 12:55 BMI result Body Mass Index 24.5 Tobacco/Smoking Status: Tobacco use Status Tobacco use date assessed 11/21/24 11/21/24 12:58 Patient Tobacco Use Status Never used Tobacco 11/21/24 12:58 e-Cigarette/Vaping Use Never Used 11/21/24 12:58 PHQ-9: PHQ-9 Score PHQ-9: Total score 0 11/21/24 13:43 Depression Screening Interpretation: Negative Thrive Assessment: Date of Thrive Assessment Date Thrive assessed 11/21/24 11/21/24 12:58 Currently or been in a relationship where the following occur: No concerns reported Const General: no acute distress HENMT Face and sinus: Yes normal facial exam Eyes General: appearance normal, both eyes and all related structures Neck Neck: Yes supple Resp Effort & Inspection: normal respiratory effort Auscultation: clear to auscultation bilaterally Cardio Rhythm: regular rhythm Heart sounds: S1 normal heart sound present and S2 normal heart sound present GI Palpation (GI): Soft to palpation Percussion: Yes normal to percussion Coding Level of Care Code Est Pt Level 4 (03478) Diagnoses Prostate cancer C61 DM type 2 (diabetes mellitus, type 2) E11.9 HTN (hypertension) I10 Additional Codes NORMA-7 Assessment Billing - NORMA-7 Assessment Tool: NORMA-7 Assessment 33887 ([id number]) PHQ-9 - 33617 - PHQ-9 Billing: Yes ([id number]) Assessment & Plan Assessment & Plan (1) Prostate cancer: Comment: 06/28 High Grade, Low Volume, RTx Lala, f/u Dr. Lane Code(s): C61 - Malignant neoplasm of prostate Category: Medical Plan: Follow-up with urology (2) DM type 2 (diabetes mellitus, type 2): Comment: 20 years, Code(s): E11.9 - Type 2 diabetes mellitus without complications Category: Medical Plan: A1c is 9.7, ADA diet regular physical activity discussed with the patient. Tresiba 15 units daily will be started and patient will monitor his blood glucose at least 3 times a day. He was advised to eat a snack before bed to avoid hypoglycemia. He was advised to stop taking glimepiride and continue metformin. Patient will follow-up in 3 weeks with the record of his blood glucose (3) HTN (hypertension): Code(s): I10 - Essential (primary) hypertension Category: Medical Plan: Continue current medications Medications: New Tresiba FlexTouch U-100 (insulin degludec) 15 units (0.15 mL) subcut BEDTIME 15 mL 1RF NS pen needle, diabetic (Comfort Touch Pen Needle) As directed 100 ea 1RF Discontinued empagliflozin Discontinued Reason: Doctor's Order 25 mg PO DAILY 90 tabs 3RF glimepiride Discontinued Reason: Doctor's Order 4 mg PO BID 180 tabs 1RF
--- OUTSIDE RECORDS SUMMARY | 2024-11-21 14:58 | XMS_ITS | Patient Health Record ---
[facility] Organization [facility] Address [address] [place] [address] Care Team Providers Care Groundsman Name Role Phone Alisa Pascual MD Primary Care Provider Tito Resendiz Unavailable [phone] Allergies Allergen (clinical drug ingredient) Drug/Non Drug [...] Problem Acquired hammer toe of right foot (326145242019454 5) Other hammer toe(s) (acquired), right foot (M20.41) Active confirmed Problem Acquired hammer toe of left foot (987343208016363 3) Other hammer toe(s) (acquired), left foot (M20.42) Active confirmed Problem Type 2 diabetes mellitus without complication (381177281) Type 2 diabetes mellitus without complication (E11.9) Active confirmed Vital Signs Blood pressure diastolic 81 mm Hg 10/04/2024 Height 6 ft 3 in in 10/04/2024 Blood pressure systolic 120 mm Hg 10/04/2024 Weight 192 lbs 10/04/2024 BMI 24 kg/m2 10/04/2024 Procedures Procedure Date Ordered Date Performed Result Body Sit e 09100-TESKLOA NAIL, 6 OR MORE 11/24/2023 N/A 87778-Jqsarjpi Plate 11/24/2023 N/A 95879-ILFMLQX NAIL, 6 OR MORE 03/01/2024 N/A 45735-Phdfuhww Plate 03/01/2024 N/A 86422-WKAIVYE NAIL, 6 OR MORE 05/31/2024 N/A 74261-VMVDFKY NAIL, 6 OR MORE 10/04/2024 N/A 73524-Ujhpayor Plate 10/04/2024 N/A Encounters Encounter Location Date Provider Diagnosis [address] [address] 11/24/2023 Tito Isaac Pain of toe of right foot M79.674 ; Onychomycosis B35.1 ; Pain of toe of left foot M79.675 ; Type 2 diabetes mellitus without complication E11.9 and Ingrown nail L60.[address] [address] 03/01/2024 Tito Isaac Pain of toe of right foot M79.674 ; Onychomycosis B35.1 ; Pain of toe of left foot M79.675 ; Type 2 diabetes mellitus without complication E11.9 and Ingrown nail L60.[address] [address] 05/31/2024 Tito Isaac Pain of toe of right foot M79.674 ; Onychomycosis B35.1 ; Pain of toe of left foot M79.675 and Type 2 diabetes mellitus without complication E11.[address] [address] 10/04/2024 Tito Isaac Pain of toe of [...] Treatment Pending Test Test Name Order Date 24037-XRRRFPL NAIL, 6 OR MORE 05/02/2011 72667-OJMHLTV NAIL, 6 OR MORE 07/22/2011 21457-QELQAFW NAIL, 6 OR MORE 10/07/2011 33100-MFSMKVE NAIL, 6 OR MORE 01/09/2012 26058-UVENVLS NAIL, 6 OR MORE 05/25/2012 31430-WPFXINY NAIL, 6 OR MORE 08/17/2012 70850-HPCWIUM NAIL, 6 OR MORE 11/05/2012 93895-LOLCZBC NAIL, 6 OR MORE 02/15/2013 02906-JTZCDZZ NAIL, 6 OR MORE 09/27/2013 00536-HKPUIOZ NAIL, 6 OR MORE 01/10/2014 36130-YDFBNXV NAIL, 6 OR MORE 04/11/2014 80279-VZYCOLX NAIL, 6 OR MORE 07/04/2014 12787-YBBYIAB NAIL, 6 OR MORE 11/03/2014 41205-DUENTHB NAIL, 6 OR MORE 06/21/2013 76899-ZSXTYEL NAIL, 6 OR MORE 05/29/2017 07329-XDATRRA NAIL, 6 OR MORE 09/18/2017 35231-GBUIQDG NAIL, 6 OR MORE 03/12/2018 74675-HBXIOVJ NAIL, 6 OR MORE 06/15/2018 90935-NRYQOAQ NAIL, 6 OR MORE 09/28/2018 37878-UHVWFWK NAIL, 6 OR MORE 01/04/2019 34922-ZGYSUGU NAIL, 6 OR MORE 04/05/2019 13317-YQUFKKT NAIL, 6 OR MORE 12/18/2017 45707-HPKBOGB NAIL, 6 OR MORE 07/12/2019 22716-UVDCCTK NAIL, 6 OR MORE 10/18/2019 61371-RCAEYBP NAIL, 6 OR MORE 01/17/2020 88805-TSPNQJM NAIL, 6 OR MORE 04/24/2020 93972-PALKAUY NAIL, 6 OR MORE 07/24/2020 46536-APLXWMX NAIL, 6 OR MORE 12/04/2020 94723-UINHZVV NAIL, 6 OR MORE 03/05/2021 67753-EQMLQOR NAIL, 6 OR MORE 06/04/2021 76936-GEYMQPZ NAIL, 6 OR MORE 09/10/2021 80956-ELXEOWH NAIL, 6 OR MORE 12/17/2021 36696-LHCYZXV NAIL, 6 OR MORE 03/25/2022 19442-AJBMWBR NAIL, 6 OR MORE 06/24/2022 95543-LNFPDLW NAIL, 6 OR MORE 09/23/2022 55368-JHVMTZI NAIL, 6 OR MORE 02/17/2023 62371-JXIGADH NAIL, OR MORE 05/26/2023 46175-ETOCSVT NAIL, OR MORE 08/25/2023 33639-OZSRYKP NAIL, OR MORE 11/24/2023 38720-RNCJKVW NAIL, OR MORE 03/01/2024 29622-IINVRUO NAIL, OR MORE 05/31/2024 75047-TWKEBDZ NAIL, OR MORE 10/04/2024 75452-Hpurpncj Plate 10/04/2024 03839-Lzqkiddv Plate 03/01/2024 97570-Iibimtbj Plate 11/24/2023 37043-Hnbydcxs Plate 08/25/2023 82260-Aghacczr Plate 05/26/2023 06486-Kqhfdhrv Plate 02/17/2023 37042-Jqczjpoo Plate 09/23/2022 80009-Jxpgpvga Plate 06/24/2022 86535-Fkmwkthd Plate 03/25/2022 71824-Bnoesxqo Plate 12/17/2021 12150-Ivwgelxe Plate 09/10/2021 76873-Qhiurjrr Plate 06/04/2021 46598-Kaftnmli Plate 03/05/2021 70821-Btzhlzxu Plate 12/04/2020 55919-Qdwajhns Plate 07/24/2020 25584-Cvhtxvzw Plate 04/24/2020 08659-Fvekrlin Plate 03/12/2018 10751-Kxlusvej Plate 04/05/2019 17492-Xtxqhnrw Plate 12/18/2017 86835-Xgvosued Plate 09/18/2017 40740-Gqxxxjoj Plate 05/29/2017 38711-Hkbukyoi Plate 11/03/2014 79705-Kywvaygf Plate 07/04/2014 21960-Ynoqfjfe Plate 04/11/2014 54428-Rsrumxid Plate 01/10/2014 68475-Znxjlrhn Plate 09/27/2013 87668-Xaiewvvp Plate 02/15/2013 60386-Zlfgbxbt Plate 11/05/2012 55424-Fxqtbzhk Plate 07/22/2011 45926-Fauiwegt Plate 08/17/2012 77064-Nclhyfhi Plate 05/25/2012 54736-Bijzmymt Plate 01/09/2012 63794-Ydyipmsp Plate 10/07/2011 82706-Wmtabjgw Plate 05/02/2011 16876-Wrbgcjhc Plate Each Additional 46406-Qapvxwfg Plate Each Additional 68543-Lxrlizdo Plate Each Additional 12/2011 62596-Tbzfqqzk Plate Each Additional 80641-Visegtdl Plate Each Additional 07/2012 02373-Wkazfrat Plate Each Additional 57770-Rsnpmdcl Plate Each Additional 09/2012 81415-Vousuwhu Plate Each Additional 07/2013 46053-Hdfczhrn Plate Each Additional 92410-Semhfepj Plate Each Additional 02/2014 95566-Ggpfladn Plate Each Additional 01/2014 73459-Zpaijeky Plate Each Additional 48349-Qbrsdvsj Plate Each Additional 27295-ADP 03/15/2013 93511- Debride <25 sq cm 03/15/2013 58528- Debride <25 sq cm 09/27/2013 84680- Debride <25 sq cm 11/03/2014 21725- Debride <25 sq cm 07/04/2014 10450- Debride <25 sq cm 04/11/2014 70134- Debride <25 sq cm 01/10/2014 78881- Debride <25 sq cm 04/15/2013 74014- Debride <25 sq cm 06/21/2013 64819-MVJEYJI SKIN/TISSUE 03/29/2013 91768-SSPR SKIN LESIONS, 2 TO 4 08/17/20 12 51756-FQSJ SKIN LESIONS, 2 TO 4 05/25/20 12 51581-XRSI SKIN LESIONS, 2 TO 4 01/09/20 12 57452-IWMQ SKIN LESIONS, 2 TO 4 10/07/19 12 95809-EJDP SKIN LESIONS, 2 TO 4 05/02/20 11 91661-CGQU SKIN LESIONS, 2 TO 4 07/22/20 11 36828-Xiul. Subungual Hematoma 0 14514-Wklz. Subungual Hematoma 1 64056-Gyst. Subungual Hematoma 2 11111- Removal of Foreign Body, Subcut 0 10/07/2011 06192- Removal of Foreign Body, Subcut 0 11/14/2011 86958- Removal of Foreign Body, Subcut 0 01/09/2012 Next Appt Details Provider Name:Tito Gray , 01/24/2025 03:00:00 PM, [address] [facility], [place], [address], Insurance Providers Payer Name Payer Address Payer Phone Subscriber Number Group Number Insured Name Patient Relationship to Insured Coverage Start Date Coverage End Date [facility] 65 Medicare Preferred [address] [place] [address] [id number] Austen Carrero Self - patient is the [...]
--- OUTSIDE RECORDS SUMMARY | 2024-11-21 14:59 | XMS_ITS ---
Author Organization [facility] Address [address] [facility] [place] [address] Care Team Providers Care Hatchery Manager Name Role Phone Alisa Pascual MD Primary Care Provider Tito Resendiz Unavailable [phone] Allergies Allergen (clinical drug ingredient) Drug/Non Drug [...] Ordered Date Performed Result Body Sit e 57322-VZQUFGU NAIL, 6 OR MORE 10/04/2024 N/A 72964-Uytsqiow Plate 10/04/2024 N/A Encounters Encounter Location Date Provider Diagnosis [facility] [place] [address] [place] [address] 10/04/2024 Tito Michelier Pain of toe of [...] INSTRUCTIONS.pdf) Pending Test Test Name Order Date 31010-JRLKTZD NAIL, 6 OR MORE 10/04/2024 33318-Slfgskpq Plate 10/04/2024 Next Appt Details Follow Up: prn, Reason: Provider Name:Tito Gray , 01/24/2025 03:00:00 PM, [address] [place] [address], [address], Procedure Notes * Category Sub-Category Detail Notes [...] Motrin was recommended for pain or discomfort (58570), DIABETES: Pt was advised as to the [...] use of a nail nipper and/or dremel-type grinder carbon plant, to a more viable healthy nail plate [...] to maintain effectiveness in symptomatic relief - 23922 Progress Notes * Austen CARRERO JrDOB:[birth year] (68 yo M)Acc No.[id number]:10/04/2024 Progress Note Patient:?Austen CARRERO Jr Provider:?Tito Gray DPM :1955???Age:68 Y???Sex:Male Leonardo e:10/04/2024 Address:[address] [place] [address], [facility] [address], [facility] Pcp:Alisa Pascual MD Subjective: * Chief [...] swimming. ?Marital status: single. 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 ???Drug/Alcohol:?AUDIT-C (Standard)?Did you have a [...] INSTRUCTIONS.pdf (DIABETIC FOOT CARE INSTRUCTIONS.pdf)?? 3.?Ingrown nail?Procedure: 41994-Cbvrhysn Plate * Procedures:?Debride Nail 6-10:?Nail debridement?Due to [...] use of a nail nipper and/or dremel-type grinder carbon plant, to a more viable healthy nail plate [...] to maintain effectiveness in symptomatic relief - 96162.?Nail Avulsion:?Location?Lateral nail border,?TA.?Anesthesia?was accomplished TOPICALLY with Lidocaine [...] Motrin was recommended for pain or discomfort (90516), DIABETES: Pt was advised as to the risk of delayed or nonhealing due to diabetes. Pt is to call the office with any questions, concerns, or complications.? * Procedure Codes:?32083 DEBRI DE NAIL, 6 OR MORE, Modifiers: XS 98920 Avulsion Plate, Modifiers: XS , TA * [...] Gray DPM Date:?2024 Generated for Nataly jones/Dionicio/Chris on:?11/21/2024 02:59 PM EDT History and Physical Notes * [...]
--- OUTSIDE RECORDS SUMMARY | 2024-11-21 14:59 | XMS_ITS ---
Author Organization [facility] Address [address] [place] [address] Care Team Providers Care Parlor Chaperone Name Role Phone Alisa Pascual MD Primary Care Provider Unavaila Tito Abdullahi Unavailable [phone] Woodard Encounters Encounter Location Date Provider Diagnosis [address] [address] 09/02/2024 Tito Gray Plan Of Treatment Next Appt Details Provider Name:Tito Gray , 01/24/2025 03:00:00 PM, [address] [place], [address], Progress Notes * Austen CARRERO JrDOB:[birth year] (69 yo M)Acc No.[id number]:09/02/2024 Progress Note Patient:?Austen CARRERO Jr Provider:?Tito Gray DPM :1955???Age:68 Y???Sex:Male Leonardo e:09/02/2024 Address:[address] [place] [address], [address], [place] Pcp:Alisa Pascual MD Subjective: * Chief Complaints: [...] Gray DPM Date:?2023 Generated for Nataly jones/Dionicio/Chris on:?11/21/2024 02:58 PM EDT
--- OUTSIDE RECORDS SUMMARY | 2024-11-21 14:59 | XMS_ITS | Clinical Summary ---
Author Organization [address] [facility] Address [address] [place] [address] Phone Care Team Providers Care Mine Motor Engineer Name Role Phone Adolfo Davila MD Primary Care Provider [phone] Allergies Active Allergy Reactions Criticality Noted Date [...] Description 10/10/2024 11:00 AM EST Clinical Support [address] [phone] Visit for suture removal (Primary Dx) 09/23/2024 10:00 AM EST Procedure visit [address] [phone] Charlie Fernandez MD BCC (basal cell carcinoma), back (Primary Dx) 09/19/2024 1:00 PM EST Office Visit [address] [phone] Charlie Fernandez MD Basal cell carcinoma (BCC) of back (Primary Dx) from Last 3 Months Surgical History Surgery Date Site/Laterality Comments HERNIA REPAIR PROCEDURE: CO REPAIR FIRST ABDOMINAL WALL HERNIA KNEE ARTHROSCOPY Bilateral PROCEDURE: CO ARTHROSCOPY AID TX SPINE&/FX KNEE W/O FIXJ; [...] SUTURE REMOVAL (10/10/2024 11:16 AM EST) Narrative Mra Vega MA - 10/10/2024 11:16 AM EST Mar Vega [place] ? 10/10/2024 11:17 AM Suture Removal Date/Time: 10/10/2024 11:16 AM Performed by: Mar Vega MA Authorized by: Charlie Fernandez MD ?? Consent: ??Consent obtained: ??Verbal ??Alternatives discussed: ??No treatment [place] protocol: ??Patient identity confirmed: ??Verbally with patient [...] Final Result from Last 3 Months Insurance [facility] Care Teams Mine Motor Engineer Relationship Specialty Start Date End Date Adolfo Davila MD [address] [facility] [address] [place] [address] PCP - General Internal Medicine 06/09/19
--- OUTSIDE RECORDS SUMMARY | 2024-11-21 14:59 | XMS_ITS ---
Author Organization [facility] Address [address] [facility] [place] [address] Care Team Providers Care Bookkeeper Assistant Name Role Phone Alisa Pascual MD Primary Care Provider UnavailTito Head Unavailable [phone] Allergies Allergen (clinical drug ingredient) Drug/Non Drug [...] Ordered Date Performed Result Body Sit e 52257-LXFUYIQ NAIL, 6 OR MORE 05/31/2024 N/A Encounters Encounter Location Date Provider Diagnosis [facility] [place] [address] [place] [address] 05/31/2024 Tito Gray Pain of toe of [...] Treatment Pending Test Test Name Order Date 01196-SPBCOID NAIL, 6 OR MORE 05/31/2024 Next Appt Details Follow Up: prn, Reason: Provider Name:Tito Gray , 01/24/2025 03:00:00 PM, [address] [place], [address], Procedure Notes * Category Sub-Category Detail Notes Debride Nail 6-10 Nail debridement Performance o f this nail treatment by a nonprofessional would put this patients foot and overall health at risk. Therefore, nail debridement was performed extensively to reduce/remove overall nail length, girth, thickness, subungual debris, and necrotic tissue, by manual and/or electrical means through the use of a nail nipper and/or dremel-type head wood grinder, to a more viable healthy nail plate or bed tissue 6-10. Silver nitrate used for any petechial bleeding as necessary. Definitive antifungal treatment options have been reviewed and discussed with the patient. The patient chooses, no pharmaceutical tx - 94197 Progress Notes * Austen CARRERO JrDOB:[birth year] (68 yo M)Acc No.[id number]:05/31/2024 Progress Note Patient:?Austen Carrero Provider:?Tito Gray DPM :1955???Age:68 Y???Sex:Male Leonardo e:05/31/2024 Address:[address] [place] [address], [facility] [address], [facility] Pcp:Alisa Pascual MD Subjective: * Chief Complaints: [...] swimming. ?Marital status: single. 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 * Medications:?TakingFinasteri de 5 MG [...] use of a nail nipper and/or dremel-type head wood grinder, to a more viable healthy nail plate or bed tissue 6-10. Silver nitrate used for any petechial bleeding as necessary. Definitive antifungal treatment options have been reviewed and discussed with the patient. The patient chooses, no pharmaceutical tx - 26049.? * Procedure Codes:?95998 DEBRI DE NAIL, 6 OR MORE * Follow Up:?prn * Images: * Sign off status: Completed true * Provider:?Tito Gray DPM Date:?2023 Generated for Nataly jones/Dionicio/Chris on:?11/21/2024 02:58 PM EDT History and Physical Notes * [...]
== END 2024-11-21 13:48 | disposition home or self-care (01) ==
LOC: HO.HMCC 12:51
PROVIDERS: PCP Internal Medicine; Visit Provider Internal Medicine
DX: C61 Malignant neoplasm of prostate (principal); E11.9 Type 2 diabetes mellitus without complications; I10 Essential (primary) hypertension

== ENCOUNTER → 2024-11-21 12:51 | Outpatient (BNVA) | payer MEDICARE, SELFPAY | PROVIDERS: PCP Internal Medicine; Visit Provider Internal Medicine | DX: C61 Malignant neoplasm of prostate (principal); E11.9 Type 2 diabetes mellitus without complications; I10 Essential (primary) hypertension | CPT/HCPCS: 96127; 99212 ==

== ENCOUNTER 2024-11-24 11:27 | Outpatient (AMB) | payer MEDICARE, SELFPAY ==
--- NOTE | 2024-11-24 11:34 | MHC.OFFVIS ---
Intake Visit Reasons: 4m/labs(testo pending) Intake Note: Pt presents to the office today for a 4 month follow up/labs/PVR. PVR:21mL Allergies penicillin G Allergy (Unknown, Verified 11/24/24 11:35) rash all over body HPI Comments Details: Austen Carrero is a very pleasant male. They are a patient of Dr Pascual. He is seen for the following urologic conditions - lower urinary tract symptoms - prostate cancer 4 month follow-up PSA PSA has risen 4 month follow-up repeat PSA with PET-CT scan 05/30 <0.1, 09/30 <0.1, 12/29 <0.1 T 6, 03/30 <0.1 T2, 07/31 0.2 T 90, 11/29 1.7 T 274 Prostate Cancer - 06/28 high risk, grade group 4, low volume disease - GnRH 08/28, 03/29, 09/29 EXBRT 01/27 prostate and pelvic nodes EXBRT with [facility] with hormonal manipulation for 18 months - 37 treatments completed 01/[address] 06/28 PSA at diagnosis 3.7 on finasteride Urine DNA Score 40 Biopsy 06/28 Histologic type: Adenocarcinoma, acinar and intraductal types Histologic grade: Ad score: 4+4=8 (left mid lateral) 60%, 4+3=7 (left base lateral) 30%, 3+4=7 (left apex lateral, right apex lateral)30%, 5%, 3+3=6 (right mid medial) 5% Number cores positive: 5 Total number of cores: 12 % of tissue involved: 10% of all tissue examined Periprostatic fat inv.: Not identified Seminal vesicle inv.: Not identified Perineural inv.: Not identified LVI: Not identified Prostate cancer staging - Prostate MRI - 08/28 1.4 cm PI-RADS 5 left apical lesion, no evidence of extracapsular extension - Bone Scan - degenerative changes PFSH Medical History Dysplastic nevi Abnormal colonoscopy DM type 2 (diabetes mellitus, type 2) Inguinal hernia Hyperlipidemia HTN (hypertension) Surgical History History of surgery H/O colonoscopy H/O hernia repair Status post arthroscopic knee surgery Family History Father No problems noted. Mother No problems noted. 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 Alcohol intake: current Alcohol intake frequency: does not drink Patient Tobacco Use Status: Never used Tobacco e-Cigarette/Vaping Use: Never Used Second Hand Smoke Exposure: No service: No Current occupational status: retired Cognitive needs: No Hearing needs: No Vision needs: Yes Review of Systems Const Denies chills and Denies fever(s) Card Reports no additional complaints and Denies syncope Resp Denies cough GI Denies abdominal pain and Denies heartburn Reports as per HPI and Denies change in libido Neuro Denies syncope Psych Denies change in libido Endo Denies change in libido Physical Exam Const General: cooperative, healthy appearing, comfortable and no acute distress Orientation/consciousness: patient oriented x3 HEENT Face and sinus: Yes normal facial exam Mouth: moist mucous membranes Neck Neck: Yes normal visual inspection, Yes full ROM and Yes trachea midline Chest Chest palpation & inspection: normal inspection of the chest Resp Effort & Inspection: normal respiratory effort, able to speak in complete sentences and no respiratory distress GI Inspection: Yes normal to inspection Back/Spine/Pelvis Cervical Spine: normal cervical lordosis Thoracic/Lumbar Spine: thoracic and lumbar spine normal to inspection Skin General skin exam: no rashes or lesions noted Neuro General: patient oriented x3, gait normal, tone normal and moves all extremities Extrem General: Yes normal to inspection and Yes capillary refill normal Office Procedures Post Void Residual Post Residual Void Post Void Residual (PVR): 21 15119-Mnov Void Residual by ultrasound Assessment & Plan Assessment & Plan (1) Prostate cancer: Comment: 06/28 High Grade, Low Volume, RTx Lala, f/u Dr. Lane Code(s): C61 - Malignant neoplasm of prostate Category: Medical Plan Four month follow-up labs and PET-CT for rising PSA Orders: Orders Testosterone, Total 4 Months C61 - Malignant neoplasm of prostate AMB Post Void Residual by ultrasound Today N13.8 - Other obstructive and reflux uropathy, N40.1 - Benign prostatic hyperplasia with lower urinary tract symptoms Prostate Specific Antigen 4 Months C61 - Malignant neoplasm of prostate PET CT fusion skull to thigh 4 Months C61 - Malignant neoplasm of prostate Patient Instructions: This note is constructed using voice recognition software. While every effort has been made to ensure accuracy belt maker errors may have been included. Imaging studies, laboratory and physical exam results were discussed and reviewed in detail. No major barriers to patient understanding were identified. An opportunity to ask questions regarding the treatment plan was provided. All questions were answered. The patient expressed understanding and agreement with the above treatment plan. The patient is aware they should contact our office by phone for worsening of their current condition or the appearance of new urologic symptoms. Compliance is encouraged with any medications and followup testing that is ordered. It is a privilege to participate in the urologic care of your patient. If you have any questions or concerns regarding treatment for the above conditions, or other urologic issues, please do not hesitate to contact me. The office telephone contact is [phone]. Sincerely, Dr Iker Lane MD, [facility] - Urology Compassionate Specialist Care for the Genitourinary System Coding Level of Care Code Est Pt Level 4 (80601) Complex EM visit Add On G2211 Diagnoses Prostate cancer C61 CPT Codes Post Residual Void - PVR CPT Code: 35453-Qvpc Void Residual by ultrasound ([id number])
--- OUTSIDE RECORDS SUMMARY | 2024-11-24 13:45 | XMS_ITS ---
Author Organization [facility] Address [address] [place] [address] Care Team Providers Care Information Systems Architect Name Role Phone Alisa Pascual MD Primary Care Provider Unavaila Tito Abdullahi Unavailable [phone] Woodard Encounters Encounter Location Date Provider Diagnosis [address] [address] 09/02/2024 Tito Gray Plan Of Treatment Next Appt Details Provider Name:Tito Gray , 01/24/2025 03:00:00 PM, [address] [place], [address], Progress Notes * Austen CARRERO JrDOB:[birth year] (69 yo M)Acc No.[id number]:09/02/2024 Progress Note Patient:?Austen CARRERO Jr Provider:?Tito Gray DPM :1955???Age:68 Y???Sex:Male Leonardo e:09/02/2024 Address:[address] [place] [address], [address], [place] Pcp:Alisa Pascual MD Subjective: * Chief Complaints: [...] Gray DPM Date:?2023 Generated for Nataly jones/Dionicio/Chris on:?11/24/2024 01:45 PM EDT
--- OUTSIDE RECORDS SUMMARY | 2024-11-24 13:45 | XMS_ITS ---
Author Organization [facility] Address [address] [facility] [place] [address] Care Team Providers Care Testing Lead Name Role Phone Alisa Pascual MD Primary Care Provider Tito Resendiz Unavailable [phone] Allergies Allergen (clinical drug ingredient) Drug/Non Drug [...] Ordered Date Performed Result Body Sit e 44723-GBYWFOB NAIL, 6 OR MORE 10/04/2024 N/A 48991-Xnbsaovg Plate 10/04/2024 N/A Encounters Encounter Location Date Provider Diagnosis [facility] [place] [address] [place] [address] 10/04/2024 Tito Michelier Pain of toe of [...] INSTRUCTIONS.pdf) Pending Test Test Name Order Date 88181-NVXTNCD NAIL, 6 OR MORE 10/04/2024 98797-Jqlzabno Plate 10/04/2024 Next Appt Details Follow Up: prn, Reason: Provider Name:Tito Gray , 01/24/2025 03:00:00 PM, [address] [place] [address], [address], Procedure Notes * Category Sub-Category Detail Notes [...] Motrin was recommended for pain or discomfort (95282), DIABETES: Pt was advised as to the [...] use of a nail nipper and/or dremel-type track grinder operator, to a more viable healthy nail plate [...] to maintain effectiveness in symptomatic relief - 86708 Progress Notes * Austen CARRERO JrDOB:[birth year] (68 yo M)Acc No.[id number]:10/04/2024 Progress Note Patient:?Austen CARRERO Jr Provider:?Tito Gray DPM :1955???Age:68 Y???Sex:Male Leonardo e:10/04/2024 Address:[address] [place] [address], [facility] [address], [facility] Pcp:Alisa Pascual MD Subjective: * Chief [...] swimming. ?Marital status: single. 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 ???Drug/Alcohol:?AUDIT-C (Standard)?Did you have a [...] INSTRUCTIONS.pdf (DIABETIC FOOT CARE INSTRUCTIONS.pdf)?? 3.?Ingrown nail?Procedure: 44952-Ndyexicg Plate * Procedures:?Debride Nail 6-10:?Nail debridement?Due to [...] use of a nail nipper and/or dremel-type track grinder operator, to a more viable healthy nail plate [...] to maintain effectiveness in symptomatic relief - 93075.?Nail Avulsion:?Location?Lateral nail border,?TA.?Anesthesia?was accomplished TOPICALLY with Lidocaine [...] Motrin was recommended for pain or discomfort (56009), DIABETES: Pt was advised as to the risk of delayed or nonhealing due to diabetes. Pt is to call the office with any questions, concerns, or complications.? * Procedure Codes:?45716 DEBRI DE NAIL, 6 OR MORE, Modifiers: XS 98177 Avulsion Plate, Modifiers: XS , TA * [...] Gray DPM Date:?2024 Generated for Nataly jones/Dionicio/Chris on:?11/24/2024 01:45 PM EDT History and Physical Notes * [...]
--- OUTSIDE RECORDS SUMMARY | 2024-11-24 13:45 | XMS_ITS | Patient Health Record ---
Author Organization [facility] Address [address] [facility] [place] [address] Care Team Providers Care Phone Triage Specialist Name Role Phone Alisa Pascual MD Primary Care Provider Tito Resendiz Unavailable [phone] Allergies Allergen (clinical drug ingredient) Drug/Non Drug [...] Vaccine Route Administration Date Status Comme nts Influenza Unknown 05/29/2017 Refused Influenza Unknown 07/24/2020 Refused COVID-19 Pfizer BioNTech Vaccine Unknown 05/15/2022 Administered 1st 11/02/2020 4th 01/06/2022 2nd 11/23/2020 3rd 06/05/2021 Social History Tobacco Use: Social History Observation [...] Problem Acquired hammer toe of right foot (778143838577570 5) Other hammer toe(s) (acquired), right foot (M20.41) Active confirmed Problem Acquired hammer toe of left foot (823198761594770 3) Other hammer toe(s) (acquired), left foot (M20.42) Active confirmed Problem Type 2 diabetes mellitus without complication (013457536) Type 2 diabetes mellitus without complication (E11.9) Active confirmed Vital Signs Blood pressure diastolic 81 mm Hg 10/04/2024 Height 6 ft 3 in in 10/04/2024 Blood pressure systolic 120 mm Hg 10/04/2024 Weight 192 lbs 10/04/2024 BMI 24 kg/m2 10/04/2024 Procedures Procedure Date Ordered Date Performed Result Body Sit e 41493-DPURAUI NAIL, 6 OR MORE 03/01/2024 N/A 69656-Aohdowee Plate 03/01/2024 N/A 23894-JOGGPJS NAIL, 6 OR MORE 05/31/2024 N/A 98114-HTSCBRD NAIL, 6 OR MORE 10/04/2024 N/A 92881-Tmlssglr Plate 10/04/2024 N/A Encounters Encounter Location Date Provider [facility] [address] 03/01/2024 Tito Isaac Pain of toe of right foot M79.674 ; Onychomycosis B35.1 ; Pain of toe of left foot M79.675 ; Type 2 diabetes mellitus without complication E11.9 and Ingrown nail L60.[address] [address] 05/31/2024 Tito Isaac Pain of toe of right foot M79.674 ; Onychomycosis B35.1 ; Pain of toe of left foot M79.675 and Type 2 diabetes mellitus without complication E11.[address] [address] 10/04/2024 Tito Isaac Pain of toe of [...] Treatment Notes Treatment Clinical Notes Section Notes 03/01/2024 Pain of toe of right foot (ICD-10 - M79.674) 05/31/2024 Pain of toe of right foot (ICD-10 - M79.674) 10/04/2024 Pain of toe of right foot (ICD-10 - M79.674) 10/04/2024 Onychomycosis (ICD-10 - B35.1) 03/01/2024 Pain of toe of left foot (ICD-10 - M79.675) 10/04/2024 Pain of toe of left foot (ICD-10 - M79.675) 03/01/2024 Onychomycosis (ICD-10 - B35.1) 05/31/2024 Pain of toe of left foot (ICD-10 - M79.675) 05/31/2024 Onychomycosis (ICD-10 - B35.1) 03/01/2024 Type 2 diabetes mellitus without complication (ICD-10 - E11.9) 05/31/2024 Type 2 diabetes mellitus without complication (ICD-10 - E11.9) 10/04/2024 Type 2 diabetes mellitus without complication (ICD-10 - E11.9) 10/04/2024 Other hammer toe(s) (acquired), right foot (ICD-10 - M20.41) Patient Educated with: DIABETIC FOOT CARE INSTRUCTIONS.p df (DIABETIC FOOT CARE INSTRUCTIONS.p df) 03/01/2024 Ingrown nail (ICD-10 - L60.0) 10/04/2024 Other hammer toe(s) (acquired), left foot (ICD-10 - M20.42) 10/04/2024 Ingrown nail (ICD-10 - L60.0) 03/01/2024 Other 05/31/2024 Other 10/04/2024 Other Plan Of Treatment Pending Test Test Name Order Date 19804-GOUATYB NAIL, 6 OR MORE 05/02/2011 13495-CQPAAHX NAIL, 6 OR MORE 07/22/2011 65862-TEGOPJF NAIL, 6 OR MORE 10/07/2011 13318-QRWHCXG NAIL, 6 OR MORE 01/09/2012 69763-CVVKOOT NAIL, 6 OR MORE 05/25/2012 82984-VSZMEFP NAIL, 6 OR MORE 11/05/2012 69446-GTIZBSK NAIL, 6 OR MORE 02/15/2013 86722-KBGLURZ NAIL, 6 OR MORE 04/11/2014 20639-HPOPMLK NAIL, 6 OR MORE 07/04/2014 05940-YOPEXNO NAIL, 6 OR MORE 11/03/2014 76512-QZILBHZ NAIL, 6 OR MORE 06/21/2013 17968-JVAPATQ NAIL, 6 OR MORE 12/18/2017 22625-BHXGCJL NAIL, 6 OR MORE 09/28/2018 92362-TRJLXSE NAIL, 6 OR MORE 01/04/2019 28333-FOCNKJB NAIL, 6 OR MORE 04/05/2019 58866-UGQWYVD NAIL, 6 OR MORE 09/18/2017 30693-FEMQLAD NAIL, 6 OR MORE 07/12/2019 69085-BXCDESC NAIL, 6 OR MORE 10/18/2019 04136-FLBAOGB NAIL, 6 OR MORE 01/17/2020 91739-LHBDGUY NAIL, 6 OR MORE 04/24/2020 05576-ZHAEHDV NAIL, 6 OR MORE 07/24/2020 61447-BHCPPNH NAIL, 6 OR MORE 12/04/2020 20516-RHDTIHY NAIL, 6 OR MORE 03/05/2021 72801-VCDAWFN NAIL, 6 OR MORE 06/04/2021 65736-RYDGHME NAIL, 6 OR MORE 09/10/2021 66589-WAVQARS NAIL, 6 OR MORE 12/17/2021 98030-XRYAULM NAIL, 6 OR MORE 03/25/2022 58321-XRDDIVT NAIL, 6 OR MORE 06/24/2022 29396-LVQBXTM NAIL, 6 OR MORE 09/23/2022 84120-TGCNMYP NAIL, 6 OR MORE 02/17/2023 60728-HINGCKL NAIL, 6 OR MORE 05/26/2023 65586-PDKYUEV NAIL, 6 OR MORE 08/25/2023 08557-VRPUTWA NAIL, 6 OR MORE 11/24/2023 12978-ZRMMNNP NAIL, 6 OR MORE 05/31/2024 68906-YXBDJAJ NAIL, 6 OR MORE 10/04/2024 25401-RQHESKX NAIL, 6 OR MORE 03/01/2024 27081-HIWOALO NAIL, 6 OR MORE 03/12/2018 66348-UPRMBMS NAIL, 6 OR MORE 05/29/2017 98435-TSKIOHV NAIL, 6 OR MORE 01/10/2014 68218-DVNGUEV NAIL, 6 OR MORE 09/27/2013 60061-UGZRSXQ NAIL, 6 OR MORE 08/17/2012 10724-NPRCGYE NAIL, 6 OR MORE 06/15/2018 65825-Vciuklgt Plate 08/17/2012 15167-Fajyrogm Plate 09/27/2013 33653-Sdrjrsfs Plate 01/10/2014 20808-Ntobdksr Plate 05/29/2017 49993-Wzkvnzei Plate 03/01/2024 71783-Yzntvpmu Plate 10/04/2024 59034-Xeogpget Plate 03/12/2018 79802-Lnnprjjq Plate 11/24/2023 57228-Okausrqu Plate 08/25/2023 09755-Hwyztequ Plate 05/26/2023 05928-Yfvprmfb Plate 02/17/2023 68996-Nliquvkg Plate 09/23/2022 70739-Ykymaiey Plate 06/24/2022 05610-Vbygdlty Plate 03/25/2022 23656-Cixbghxl Plate 12/17/2021 10394-Bcujpbnd Plate 09/10/2021 55637-Lwhpgbib Plate 06/04/2021 25395-Glppoqul Plate 03/05/2021 27232-Usdgddxi Plate 12/04/2020 94812-Sibmssaf Plate 07/24/2020 69605-Ivjqyktv Plate 04/24/2020 02438-Ncqwofds Plate 12/18/2017 36964-Snayxkfc Plate 04/05/2019 66768-Obmieezj Plate 09/18/2017 47044-Qxjofpkv Plate 11/03/2014 75323-Xfunwjga Plate 07/04/2014 64357-Sfssgtjn Plate 04/11/2014 64959-Czihmqgr Plate 02/15/2013 27414-Satjsudm Plate 11/05/2012 61656-Sppeflpc Plate 07/22/2011 84217-Ojjqlfwy Plate 05/25/2012 29604-Thjpsqnv Plate 01/09/2012 45215-Nruigwvv Plate 10/07/2011 31425-Anljlequ Plate 05/02/2011 94246-Piikepoe Plate Each Additional 37792-Ldrttuop Plate Each Additional 59526-Vmhkturu Plate Each Additional 12/2011 19916-Nexyyreh Plate Each Additional 40636-Zmcstgwv Plate Each Additional 73523-Euufjumw Plate Each Additional 09/2012 61470-Zzljvdyt Plate Each Additional 07/2013 05262-Lzxewbxx Plate Each Additional 01/2014 02067-Dijlcyrl Plate Each Additional 55979-Kmtsstlj Plate Each Additional 77695-Uxqfcgbn Plate Each Additional 02/2014 36846-Skpdhvlu Plate Each Additional 35129-Haocpvwt Plate Each Additional 07/2012 31132-SRY 03/15/2013 32711- Debride <25 sq cm 03/15/2013 67251- Debride <25 sq cm 09/27/2013 76204- Debride <25 sq cm 01/10/2014 15776- Debride <25 sq cm 11/03/2014 62475- Debride <25 sq cm 04/15/2013 41511- Debride <25 sq cm 06/21/2013 69292- Debride <25 sq cm 07/04/2014 22682- Debride <25 sq cm 04/11/2014 01171-CMGSQEV SKIN/TISSUE 03/29/2013 82248-VQRL SKIN LESIONS, 2 TO 4 05/25/20 12 48456-KZEE SKIN LESIONS, 2 TO 4 01/09/20 12 99560-BPTU SKIN LESIONS, 2 TO 4 10/07/19 12 12539-ESOZ SKIN LESIONS, 2 TO 4 05/02/20 11 13440-NTKJ SKIN LESIONS, 2 TO 4 07/22/20 11 60057-RXOL SKIN LESIONS, 2 TO 4 08/17/20 12 85429-Aene. Subungual Hematoma 2 25032-Bodh. Subungual Hematoma 0 47187-Kqns. Subungual Hematoma 1 37482- Removal of Foreign Body, Subcut 0 10/07/2011 00416- Removal of Foreign Body, Subcut 0 11/14/2011 46867- Removal of Foreign Body, Subcut 0 01/09/2012 Next Appt Details Provider Name:Tito Gray , 01/24/2025 03:00:00 PM, [address] [facility], [place], [address], Insurance Providers Payer Name Payer Address Payer Phone Subscriber Number Group Number Insured Name Patient Relationship to Insured Coverage Start Date Coverage End Date [facility] 65 Medicare Preferred [address] [place] [address] [id number] Austen Carrero Self - patient is the [...]
--- OUTSIDE RECORDS SUMMARY | 2024-11-24 13:45 | XMS_ITS ---
Author Organization [facility] Address [address] [facility] [place] [address] Care Team Providers Care Stone Driller Name Role Phone Alisa Pascual MD Primary Care Provider UnavailTito Head Unavailable [phone] Allergies Allergen (clinical drug ingredient) Drug/Non Drug [...] Ordered Date Performed Result Body Sit e 87770-HYCHYRJ NAIL, 6 OR MORE 05/31/2024 N/A Encounters Encounter Location Date Provider Diagnosis [facility] [place] [address] [place] [address] 05/31/2024 Tito Gray Pain of toe of [...] Treatment Pending Test Test Name Order Date 03036-UAJHNIP NAIL, 6 OR MORE 05/31/2024 Next Appt Details Follow Up: prn, Reason: Provider Name:Tito Gray , 01/24/2025 03:00:00 PM, [address] [place], [address], Procedure Notes * Category Sub-Category Detail Notes Debride Nail 6-10 Nail debridement Performance o f this nail treatment by a nonprofessional would put this patients foot and overall health at risk. Therefore, nail debridement was performed extensively to reduce/remove overall nail length, girth, thickness, subungual debris, and necrotic tissue, by manual and/or electrical means through the use of a nail nipper and/or dremel-type sugar grinder, to a more viable healthy nail plate or bed tissue 6-10. Silver nitrate used for any petechial bleeding as necessary. Definitive antifungal treatment options have been reviewed and discussed with the patient. The patient chooses, no pharmaceutical tx - 26055 Progress Notes * Austen CARRERO JrDOB:[birth year] (68 yo M)Acc No.[id number]:05/31/2024 Progress Note Patient:?Austen Carrero Provider:?Tito Gray DPM :1955???Age:68 Y???Sex:Male Leonardo e:05/31/2024 Address:[address] [place] [address], [facility] [address], [facility] Pcp:Alisa Pascual MD Subjective: * Chief [...] swimming. ?Marital status: single. 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 * Medications:?TakingFinasteri de 5 MG [...] use of a nail nipper and/or dremel-type sugar grinder, to a more viable healthy nail plate or bed tissue 6-10. Silver nitrate used for any petechial bleeding as necessary. Definitive antifungal treatment options have been reviewed and discussed with the patient. The patient chooses, no pharmaceutical tx - 39643.? * Procedure Codes:?64846 DEBRI DE NAIL, 6 OR MORE * Follow Up:?prn * Images: * Sign off status: Completed true * Provider:?Tito Gray DPM Date:?2023 Generated for Nataly jones/Dionicio/Chris on:?11/24/2024 01:44 PM EDT History and Physical Notes * [...]
--- OUTSIDE RECORDS SUMMARY | 2024-11-24 13:45 | XMS_ITS | Clinical Summary ---
Author Organization [address] [facility] Address [address] [place] [address] Phone Care Team Providers Care Machine Maintenance Mechanic Name Role Phone Adolfo Davila MD Primary Care Provider [phone] Allergies Active Allergy Reactions Criticality Noted Date [...] Description 10/10/2024 11:00 AM EST Clinical Support [address] [phone] Visit for suture removal (Primary Dx) 09/23/2024 10:00 AM EST Procedure visit [address] [phone] Charlie Fernandez MD BCC (basal cell carcinoma), back (Primary Dx) 09/19/2024 1:00 PM EST Office Visit [address] [phone] Charlie Fernandez MD Basal cell carcinoma (BCC) of back (Primary Dx) from Last 3 Months Surgical History Surgery Date Site/Laterality Comments HERNIA REPAIR PROCEDURE: [place] REPAIR FIRST ABDOMINAL WALL HERNIA KNEE ARTHROSCOPY Bilateral PROCEDURE: [place] ARTHROSCOPY AID [place] SPINE&/FX KNEE W/O FIXJ; [...] disc L5-S1 Diabetes mellitus type 2, uncomplicated DX:Diabetes mellitus type 2, uncomplicated (HCC) Family [...] ??Consent obtained: ??Verbal ??Alternatives discussed: ??No treatment [place] protocol: ??Patient identity confirmed: ??Verbally with patient [...] period is included. Tissue us Historical Provider MD LAB PATHOLOGY ORDERABLES Final Result from Last 3 Months Insurance [facility] Care Teams Machine Maintenance Mechanic Relationship Specialty Start Date End Date Adolfo Davila MD [address] [facility] [address] [place] [address] PCP - General Internal Medicine 06/09/19
== END 2024-11-24 11:49 | disposition home or self-care (01) ==
LOC: HO.HUSH 11:28
PROVIDERS: PCP Internal Medicine; Visit Provider Urology
DX: C61 Malignant neoplasm of prostate (principal)
CPT/HCPCS: 99214; G2211

== ENCOUNTER → 2024-11-24 11:27 | Outpatient (BNVA) | payer MEDICARE, SELFPAY | PROVIDERS: PCP Internal Medicine; Visit Provider Urology | DX: C61 Malignant neoplasm of prostate (principal); N40.1 Benign prostatic hyperplasia with lower urinary tract symptoms; N13.8 Other obstructive and reflux uropathy | CPT/HCPCS: 51798; 99212 ==

== ENCOUNTER 2024-12-09 12:39 | Outpatient (AMB) | payer MEDICARE, SELFPAY ==
[2024-12-09 12:54] VITALS: BP 122/62; PULSE 75; TEMP 36.5; O2SAT 96; BMI 25.1
--- NOTE | 2024-12-09 12:54 | A.OFFPC_ITS ---
Vital Signs 12/09/24 12:54 Height 6 ft 3 in Weight 201 lb BMI 25.1 BP 122/62 Blood Pressure Location Lt brachial Position Sitting Pulse 75 Pulse Source Pulse Oximeter Temp 97.7 F Temp Source Oral Pulse Oximetry (%) 96 Oxygen Delivery Method Room Air Intake Visit Reasons: 3 weeks f/u Allergies penicillin G Allergy (Unknown, Verified 11/24/24 11:35) rash all over body Medication List - Last Reconciled 12/09/24 by Alisa Pascual MD blood sugar diagnostic (OneTouch Verio test strips) USE TO TEST BLOOD SUGAR ONCE A DAY lancets (Monolet Lancets) test blood sugar once a day lancets Microlet lancets check glucose once a day lisinopril 10 mg PO DAILY metformin 1,000 mg PO BID pen needle, diabetic (Advocate Pen Needle) Use to inject insulin once a day rosuvastatin 40 mg PO DAILY Tresiba FlexTouch U-100 (insulin degludec) 15 units (0.15 mL) subcut BEDTIME NS Tobacco use date assessed: 11/21/24 Dental Screening Dental Screen Date: 11/21/24 HPI 3 weeks f/u HPI Details Patient presents for the follow-up of type 2 diabetes. He has started taking 15 units of Tresiba and reports fasting blood glucose readings between 150-180. He has been eating 2 meals a day but denies hypoglycemia episodes. Patient is established with urologist for prostate CA. Hypertension is controll ed on lisinopril [facility] Medical History Dysplastic nevi Abnormal colonoscopy DM type 2 (diabetes mellitus, type 2) Inguinal hernia Hyperlipidemia HTN (hypertension) Surgical History History of surgery H/O colonoscopy H/O hernia repair Status post arthroscopic knee surgery Family History Father No problems noted. Mother No problems noted. 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 Alcohol intake: current Alcohol intake frequency: does not drink Patient Tobacco Use Status: Never used Tobacco e-Cigarette/Vaping Use: Never Used Second Hand Smoke Exposure: No service: No Current occupational status: retired Cognitive needs: No Hearing needs: No Vision needs: Yes Questionnaire Thrive Questionnaire Date Thrive assessed: 11/21/24 I am a: Patient What is your living situation today?: I have a steady place to live Within the past 12 months, did the food you bought not last and you didn't have the money to get more?: Sometimes True Within the past 12 months, did you worry whether your food would run out before you got money to buy more?: Sometimes True Do you have trouble paying for medicines?: Yes Do you have trouble getting transportation to medical appointments?: No Do you have trouble paying your heating and electricity bill?: No Do you have trouble taking care of your child, family member or friend?: No Do you have trouble with day-to-day activities such as bathing, preparing meals, shopping, managing finances, etc.?: No Are you currently unemployed and looking for a job?: Yes Are you interested in more education?: No Please select the resources that you would like help with: Paying for medicine Currently or been in a relationship where the following occur: No concerns r eported THRIVE Score: 2 NORMA-7 AMB Questionnaire NORMA-7 Date NORMA - 7 assessed: 11/21/24 Source: Developed by Drs. Iraj Louis, Fatmata Bravo, Geoff Ly and colleagues, with an educational jaden from [employer]. Review of Systems Const All systems reviewed & are unremarkable except as noted in HPI and below ENT Reports no additional complaints Card Reports no additional complaints Resp Reports no additional complaints GI Reports no additional complaints Reports no additional complaints Physical exam (Primary Care) Vital Signs: Last Vital Signs Temp 97.7 F 12/09/24 12:54 Pulse 75 12/09/24 12:54 BP 122/62 12/09/24 12:54 Pulse Ox 96 12/09/24 12:54 Oxygen Delivery Method Room Air 12/09/24 12:54 BMI result Body Mass Index 25.1 Tobacco/Smoking Status: Tobacco use Status Tobacco use date assessed 11/21/24 12/09/24 12:56 Patient Tobacco Use Status Never used Tobacco 12/09/24 12:56 e-Cigarette/Vaping Use Never Used 12/09/24 12:56 Thrive Assessment: Date of Thrive Assessment Date Thrive assessed 11/21/24 12/09/24 12:56 Currently or been in a relationship where the following occur: No concerns reported Const General: no acute distress HENMT Head: Yes normal to inspection Ears: hearing grossly normal bilaterally Resp Effort & Inspection: normal respiratory effort Auscultation: clear to auscultation bilaterally Cardio Rhythm: regular rhythm Heart sounds: S1 normal heart sound present and S2 normal heart sound present Coding Level of Care Code Est Pt Level 4 (88415) Diagnoses DM type 2 (diabetes mellitus, type 2) E11.9 Hyperlipidemia E78.5 HTN (hypertension) I10 Assessment & Plan Assessment & Plan (1) DM type 2 (diabetes mellitus, type 2): Comment: 20 years, Code(s): E11.9 - Type 2 diabetes mellitus without complications Category: Medical Plan: Increase Tresiba to 20 units a day continue metformin, ADA diet regular physical activity discussed with the patient. He was advised to eat at least 3 meals a day and monitor his blood glucose regularly (2) Hyperlipidemia: Code(s): E78.5 - Hyperlipidemia, unspecified Category: Medical Plan: Continue statin (3) HTN (hypertension): Code(s): I10 - Essential (primary) hypertension Category: Medical Plan: Continue Lisinopril Orders: Orders Comprehensive [place]. Panel Fast 2 Months E11.9 - Type 2 diabetes mellitus without complications, E78.5 - Hyperlipidemia, unspecified, I10 - Essential (primary) hypertension Complete Blood Count Auto Diff 2 Months E11.9 - Type 2 diabetes mellitus without complications, E78.5 - Hyperlipidemia, unspecified, I10 - Essential (primary) hypertension Hemoglobin A1c 2 Months E11.9 - Type 2 diabetes mellitus without complications, E78.5 - Hyperlipidemia, unspecified, I10 - Essential (primary) hypertension Lipid Panel 2 Months E11.9 - Type 2 diabetes mellitus without complications, E78.5 - Hyperlipidemia, unspecified, I10 - Essential (primary) hypertension Medications: Changed From Tresiba FlexTouch U-100 (insulin degludec) 15 units (0.15 mL) subcut BEDTIME 15 mL 1RF NS To Tresiba FlexTouch U-100 (insulin degludec) 20 units (0.2 mL) subcut BEDTIME 15 mL 2RF NS
--- OUTSIDE RECORDS SUMMARY | 2024-12-09 14:32 | XMS_ITS ---
Author Organization [facility] Address [address] [place] [address] Care Team Providers Care Director Reactor Projects Name Role Phone Alisa Pascual MD Primary Care Provider Unavaila Tito Abdullahi Unavailable [phone] Woodard Encounters Encounter Location Date Provider Diagnosis [address] [address] 09/02/2024 Tito Gray Plan Of Treatment Next Appt Details Provider Name:Tito Gray , 01/24/2025 03:00:00 PM, [address] [place], [address], Progress Notes * Austen CARRERO JrDOB:[birth year] (69 yo M)Acc No.[id number]:09/02/2024 Progress Note Patient:?Austen CARRERO Jr Provider:?Tito Gray DPM :1955???Age:68 Y???Sex:Male Leonardo e:09/02/2024 Address:[address] [place] [address], [address], [place] Pcp:Alisa Pascual MD Subjective: * Chief Complaints: [...] Gray DPM Date:?2023 Generated for Nataly jones/Dionicio/Chris on:?12/09/2024 02:32 PM EDT
--- OUTSIDE RECORDS SUMMARY | 2024-12-09 14:32 | XMS_ITS | Clinical Summary ---
Author Organization [facility] Address [address] [place] [address] Phone Care Team Providers Care Vice President Residential Solar Sales Name Role Phone Adolfo Davila MD Primary Care Provider [phone] Allergies Active Allergy Reactions Criticality Noted Date [...] Description 10/10/2024 11:00 AM EST Clinical Support [address] [phone] Visit for suture removal (Primary Dx) 09/23/2024 10:00 AM EST Procedure visit [address] [phone] Charlie Fernandez MD BCC (basal cell carcinoma), back (Primary Dx) 09/19/2024 1:00 PM EST Office Visit [address] [phone] Charlie Fernandez MD Basal cell carcinoma (BCC) [...] Zoster Vaccines Completed 03/18/2022, 01/21/2022 RSV Immunization Adult Patients Completed 05/27/2023 COVID-19 Vaccine Completed 05/18/2024, , [...] ??Consent obtained: ??Verbal ??Alternatives discussed: ??No treatment [place] protocol: ??Patient identity confirmed: ??Verbally with patient [...] Final Result from Last 3 Months Insurance [facility] Care Teams Vice President Residential Solar Sales Relationship Specialty Start Date End Date Adolfo Davila MD [address] [address] PCP - General Internal Medicine 06/09/19
--- OUTSIDE RECORDS SUMMARY | 2024-12-09 14:32 | XMS_ITS ---
Author Organization [facility] Address [address] [facility] [place] [address] Care Team Providers Care Robotic Machine Tender Production Name Role Phone Alisa Pascual MD Primary Care Provider UnavailTito Head Unavailable [phone] Allergies Allergen (clinical drug ingredient) Drug/Non Drug [...] Ordered Date Performed Result Body Sit e 22698-JZPEUQF NAIL, 6 OR MORE 05/31/2024 N/A Encounters Encounter Location Date Provider Diagnosis [facility] [place] [address] [place] [address] 05/31/2024 Tito Gray Pain of toe of [...] Treatment Pending Test Test Name Order Date 37947-OXHPPWK NAIL, 6 OR MORE 05/31/2024 Next Appt Details Follow Up: prn, Reason: Provider Name:Tito Gray , 01/24/2025 03:00:00 PM, [address] [place], [address], Procedure Notes * Category Sub-Category Detail Notes Debride Nail 6-10 Nail debridement Performance o f this nail treatment by a nonprofessional would put this patients foot and overall health at risk. Therefore, nail debridement was performed extensively to reduce/remove overall nail length, girth, thickness, subungual debris, and necrotic tissue, by manual and/or electrical means through the use of a nail nipper and/or dremel-type roll grinder, to a more viable healthy nail plate or bed tissue 6-10. Silver nitrate used for any petechial bleeding as necessary. Definitive antifungal treatment options have been reviewed and discussed with the patient. The patient chooses, no pharmaceutical tx - 70788 Progress Notes * Austen CARRERO JrDOB:[birth year] (68 yo M)Acc No.[id number]:05/31/2024 Progress Note Patient:?Austen Carrero Provider:?Tito Gray DPM :1955???Age:68 Y???Sex:Male Leonardo e:05/31/2024 Address:[address] [place] [address], [facility] [address], [facility] [place] Pcp:Alisa Pascual MD Subjective: * Chief Complaints: [...] swimming. ?Marital status: single. 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 * Medications:?TakingFinasteri de 5 MG [...] use of a nail nipper and/or dremel-type roll grinder, to a more viable healthy nail plate or bed tissue 6-10. Silver nitrate used for any petechial bleeding as necessary. Definitive antifungal treatment options have been reviewed and discussed with the patient. The patient chooses, no pharmaceutical tx - 70330.? * Procedure Codes:?55935 DEBRI DE NAIL, 6 OR MORE * Follow Up:?prn * Images: * Sign off status: Completed true * Provider:?Tito Gray DPM Date:?2023 Generated for Nataly jones/Dionicio/Chris on:?12/09/2024 02:32 PM EDT History and Physical Notes * [...]
--- OUTSIDE RECORDS SUMMARY | 2024-12-09 14:32 | XMS_ITS | Patient Health Record ---
Author Organization [facility] Address [address] [facility] [place] [address] Care Team Providers Care Radio Time Buyer Name Role Phone Alisa Pascual MD Primary Care Provider Tito Resendiz Unavailable [phone] Allergies Allergen (clinical drug ingredient) Drug/Non Drug [...] Problem Acquired hammer toe of right foot (880983036136257 5) Other hammer toe(s) (acquired), right foot (M20.41) Active confirmed Problem Acquired hammer toe of left foot (552125954873439 3) Other hammer toe(s) (acquired), left foot (M20.42) Active confirmed Problem Type 2 diabetes mellitus without complication (537428918) Type 2 diabetes mellitus without complication (E11.9) Active confirmed Vital Signs Blood pressure diastolic 81 mm Hg 10/04/2024 Height 6 ft 3 in in 10/04/2024 Blood pressure systolic 120 mm Hg 10/04/2024 Weight 192 lbs 10/04/2024 BMI 24 kg/m2 10/04/2024 Procedures Procedure Date Ordered Date Performed Result Body Sit e 49105-FIRDDBH NAIL, 6 OR MORE 03/01/2024 N/A 87475-Dgekifma Plate 03/01/2024 N/A 32442-ALKGDRK NAIL, 6 OR MORE 05/31/2024 N/A 17273-YGMCUOC NAIL, 6 OR MORE 10/04/2024 N/A 98223-Dteaixzc Plate 10/04/2024 N/A Encounters Encounter Location Date Provider Diagnosis [facility] [address] 03/01/2024 Tito Isaac Pain of toe of right foot M79.674 ; Onychomycosis B35.1 ; Pain of toe of left foot M79.675 ; Type 2 diabetes mellitus without complication E11.9 and Ingrown nail L60.[address] [address] 05/31/2024 Tito Isaac Pain of toe of right foot M79.674 ; Onychomycosis B35.1 ; Pain of toe of left foot M79.675 and Type 2 diabetes mellitus without complication E11.[address] [address] 10/04/2024 Tito Isaac Pain of toe of [...] M79.675) 05/31/2024 Onychomycosis (ICD-10 - B35.1) 03/01/2024 Pain of toe of left foot (ICD-10 - M79.675) 03/01/2024 Type 2 diabetes mellitus without complication [...] Treatment Pending Test Test Name Order Date 28536-YALMYKN NAIL, 6 OR MORE 05/02/2011 87533-PTRXZGD NAIL, 6 OR MORE 07/22/2011 31421-CICVJME NAIL, 6 OR MORE 10/07/2011 99554-YHNUCJF NAIL, 6 OR MORE 01/09/2012 07503-GWNKPGE NAIL, 6 OR MORE 05/25/2012 15298-FNIKKEK NAIL, 6 OR MORE 08/17/2012 17095-KVHAAAV NAIL, 6 OR MORE 11/05/2012 23465-TNCKSMJ NAIL, 6 OR MORE 02/15/2013 15815-AVXBOAE NAIL, 6 OR MORE 09/27/2013 82721-GCGSJBL NAIL, 6 OR MORE 01/10/2014 06674-RHAQHXC NAIL, 6 OR MORE 04/11/2014 10500-PTLNADO NAIL, 6 OR MORE 07/04/2014 43734-KLKRNFX NAIL, 6 OR MORE 11/03/2014 17181-TVICJUZ NAIL, 6 OR MORE 06/21/2013 97547-QDUUWOM NAIL, 6 OR MORE 05/29/2017 63711-QUOPXSL NAIL, 6 OR MORE 09/18/2017 39134-UUOQLJZ NAIL, 6 OR MORE 03/12/2018 19413-CNXHNDL NAIL, 6 OR MORE 06/15/2018 17872-JCJJBER NAIL, 6 OR MORE 09/28/2018 67684-FPTQDMX NAIL, 6 OR MORE 01/04/2019 80983-HZFOUPU NAIL, 6 OR MORE 04/05/2019 62584-AJBGUHT NAIL, 6 OR MORE 12/18/2017 35293-BAVBYKI NAIL, 6 OR MORE 07/12/2019 40562-LPSJZTF NAIL, 6 OR MORE 10/18/2019 50944-UWVSTYP NAIL, 6 OR MORE 01/17/2020 52579-PVNCKHY NAIL, 6 OR MORE 04/24/2020 99849-NBTIPAZ NAIL, 6 OR MORE 07/24/2020 74140-ACDCXMQ NAIL, 6 OR MORE 12/04/2020 08599-PTZBGGQ NAIL, 6 OR MORE 03/05/2021 73552-QJITDLS NAIL, 6 OR MORE 06/04/2021 50558-OQZUZDN NAIL, 6 OR MORE 09/10/2021 84237-BZRKXDT NAIL, 6 OR MORE 12/17/2021 68750-TYWDBNG NAIL, 6 OR MORE 03/25/2022 11558-LPXXUDT NAIL, 6 OR MORE 06/24/2022 99014-KPIRXJS NAIL, 6 OR MORE 09/23/2022 36654-LUULVIX NAIL, 6 OR MORE 02/17/2023 28761-JILTEMC NAIL, 6 OR MORE 05/26/2023 76605-ZIBAKSP NAIL, 6 OR MORE 08/25/2023 36942-MICRBTP NAIL, 6 OR MORE 11/24/2023 43303-SXLHYBM NAIL, 6 OR MORE 03/01/2024 68332-PBZKXWV NAIL, 6 OR MORE 05/31/2024 06491-HMWUPIS NAIL, 6 OR MORE 10/04/2024 44003-Vusyamgh Plate 10/04/2024 87445-Klitinnv Plate 03/01/2024 06797-Ravktfrj Plate 11/24/2023 45054-Xwvefzoy Plate 08/25/2023 17027-Eturferv Plate 05/26/2023 28071-Odfuhumi Plate 02/17/2023 42411-Lkhirehq Plate 09/23/2022 85038-Alkouqhh Plate 06/24/2022 90486-Gwhygqgf Plate 03/25/2022 61430-Wmzsyhqf Plate 12/17/2021 88213-Xehswjup Plate 09/10/2021 15202-Ehbupczn Plate 06/04/2021 81714-Wfypdkog Plate 03/05/2021 30892-Dxilfvva Plate 12/04/2020 85628-Skiiozcz Plate 07/24/2020 36607-Ismuveiv Plate 04/24/2020 05242-Ujbemrzh Plate 03/12/2018 53365-Pjhewqda Plate 04/05/2019 08383-Uxqqsocn Plate 12/18/2017 03883-Ljeloxqj Plate 09/18/2017 29351-Srpecdil Plate 05/29/2017 02251-Syusvdof Plate 11/03/2014 63297-Vgwvgkhm Plate 07/04/2014 78794-Nowajnrj Plate 04/11/2014 79504-Ioetpnuu Plate 01/10/2014 73348-Tthcyqqi Plate 09/27/2013 65842-Yrrtucyl Plate 02/15/2013 35327-Bmttuiiy Plate 11/05/2012 07565-Ydpmkmks Plate 07/22/2011 08490-Yiqsfmpf Plate 08/17/2012 72850-Eduubtoq Plate 05/25/2012 30483-Fsaffkwd Plate 01/09/2012 36249-Ozltawkt Plate 10/07/2011 27939-Cobitdqj Plate 05/02/2011 08418-Qzsaordt Plate Each Additional 19363-Pfnvklad Plate Each Additional 46246-Gofvalld Plate Each Additional 12/2011 75135-Bjxczeuw Plate Each Additional 00067-Ybuvpeek Plate Each Additional 07/2012 20417-Bswdbnjv Plate Each Additional 62136-Sjsaywwv Plate Each Additional 09/2012 90879-Kmepijbz Plate Each Additional 07/2013 84018-Cmyejewa Plate Each Additional 94319-Hnavwfxw Plate Each Additional 02/2014 62592-Rthvlcer Plate Each Additional 01/2014 68281-Zpkubfyx Plate Each Additional 94731-Rispskco Plate Each Additional 81467-PWQ 03/15/2013 79472- Debride <25 sq cm 03/15/2013 91683- Debride <25 sq cm 09/27/2013 65555- Debride <25 sq cm 11/03/2014 59256- Debride <25 sq cm 07/04/2014 47231- Debride <25 sq cm 04/11/2014 15490- Debride <25 sq cm 01/10/2014 73846- Debride <25 sq cm 04/15/2013 30552- Debride <25 sq cm 06/21/2013 07002-ONSOOEQ SKIN/TISSUE 03/29/2013 01024-XSEC SKIN LESIONS, 2 TO 4 08/17/20 12 08684-TKXS SKIN LESIONS, 2 TO 4 05/25/20 12 79954-SQJR SKIN LESIONS, 2 TO 4 01/09/20 12 13352-BUMX SKIN LESIONS, 2 TO 4 10/07/19 12 48557-TDFK SKIN LESIONS, 2 TO 4 05/02/20 11 84088-HYMI SKIN LESIONS, 2 TO 4 07/22/20 11 77911-Zruu. Subungual Hematoma 0 67074-Tdxo. Subungual Hematoma 1 98707-Oehn. Subungual Hematoma 2 48824- Removal of Foreign Body, Subcut 0 10/07/2011 13415- Removal of Foreign Body, Subcut 0 11/14/2011 21812- Removal of Foreign Body, Subcut 0 01/09/2012 Next Appt Details Provider Name:Tito Gray , 01/24/2025 03:00:00 PM, [address] [facility], [place], [address], Insurance Providers Payer Name Payer Address Payer Phone Subscriber Number Group Number Insured Name Patient Relationship to Insured Coverage Start Date Coverage End Date [facility] 65 Medicare Preferred [address] [place] [address] [id number] Austen Carrero Self - patient is the [...]
--- OUTSIDE RECORDS SUMMARY | 2024-12-09 14:33 | XMS_ITS ---
Author Organization [facility] Address [address] [facility] [place] [address] Care Team Providers Care Bean Roaster Name Role Phone Alisa Pascual MD Primary Care Provider Tito Resendiz Unavailable [phone] Allergies Allergen (clinical drug ingredient) Drug/Non Drug [...] Ordered Date Performed Result Body Sit e 85435-ZEUKAAJ NAIL, 6 OR MORE 10/04/2024 N/A 64649-Clrsczum Plate 10/04/2024 N/A Encounters Encounter Location Date Provider Diagnosis [facility] [address] [place] [address] 10/04/2024 Tito Michelier Pain of toe of [...] INSTRUCTIONS.pdf) Pending Test Test Name Order Date 54350-KYEEVNW NAIL, 6 OR MORE 10/04/2024 13381-Jrwoeycm Plate 10/04/2024 Next Appt Details Follow Up: prn, Reason: Provider Name:Tito Gray , 01/24/2025 03:00:00 PM, [address] [place] [address], [address], Procedure Notes * Category Sub-Category Detail Notes [...] Motrin was recommended for pain or discomfort (95948), DIABETES: Pt was advised as to the [...] use of a nail nipper and/or dremel-type thread grinder, to a more viable healthy nail [...] to maintain effectiveness in symptomatic relief - 32495 Progress Notes * Austen CARRERO JrDOB:[birth year] (68 yo M)Acc No.[id number]:10/04/2024 Progress Note Patient:?Austen CARRERO Jr Provider:?Tito Gray DPM :1955???Age:68 Y???Sex:Male Leonardo e:10/04/2024 Address:[address] [place] [address], [facility] [address], [facility] Pcp:Alisa Pascual MD Subjective: * Chief [...] swimming. ?Marital status: single. 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 ???Drug/Alcohol:?AUDIT-C (Standard)?Did you have a [...] INSTRUCTIONS.pdf (DIABETIC FOOT CARE INSTRUCTIONS.pdf)?? 3.?Ingrown nail?Procedure: 76243-Adpyccai Plate * Procedures:?Debride Nail 6-10:?Nail debridement?Due to [...] use of a nail nipper and/or dremel-type thread grinder, to a more viable healthy nail [...] to maintain effectiveness in symptomatic relief - 46816.?Nail Avulsion:?Location?Lateral nail border,?TA.?Anesthesia?was accomplished TOPICALLY with Lidocaine [...] Motrin was recommended for pain or discomfort (31216), DIABETES: Pt was advised as to the risk of delayed or nonhealing due to diabetes. Pt is to call the office with any questions, concerns, or complications.? * Procedure Codes:?62635 DEBRI DE NAIL, 6 OR MORE, Modifiers: XS 04163 Avulsion Plate, Modifiers: XS , TA * [...] Gray DPM Date:?2024 Generated for Nataly jones/Dionicio/Chris on:?12/09/2024 02:32 PM [...] ture, No Charcot collapse/destruction noted at [facility] FOOTWEAR EVALUATION: worn, OT were inspe cted and noted to be severely worn DIGITAL [...]
== END 2024-12-09 13:40 | disposition home or self-care (01) ==
LOC: HO.HMCC 12:40
PROVIDERS: PCP Internal Medicine; Visit Provider Internal Medicine
DX: E11.9 Type 2 diabetes mellitus without complications (principal); E78.5 Hyperlipidemia, unspecified; I10 Essential (primary) hypertension

== ENCOUNTER → 2024-12-09 12:39 | Outpatient (BNVA) | payer MEDICARE, SELFPAY | PROVIDERS: PCP Internal Medicine; Visit Provider Internal Medicine | DX: E11.9 Type 2 diabetes mellitus without complications (principal); C61 Malignant neoplasm of prostate; I10 Essential (primary) hypertension; E78.5 Hyperlipidemia, unspecified; Z79.899 Other long term (current) drug therapy | CPT/HCPCS: 99212 ==

== ENCOUNTER 2025-02-01 11:58 | Outpatient (REF) | payer MEDICARE, SELFPAY ==
--- OUTSIDE RECORDS SUMMARY | 2025-02-01 12:45 | XMS_ITS | Patient Health Record ---
Author Organization [facility] Address [address] [place] [address] Care Team Providers Care High Rigger Name Role Phone Alisa Pascual MD Primary Care Provider Tito Resendiz Unavailable [phone] Allergies Allergen (clinical drug ingredient) Drug/Non Drug Allergy documented on EMR Reaction Allergy Type Onset Date Status Penicillin redness Drug Allergy Active Results Component Value Reference Range Notes HEMOGLOBIN A1C (GLYCOHEMOGLO BIN) Reviewed date:05/31/2024 03:22:01 PM Interpretation: Performing Lab: Notes/Report: TOTAL HEMOGLOBIN (HGBA1C) 9.6 HEMOGLOBIN A1C (GLYCOHEMOGLO BIN) Reviewed date:10/04/2024 03:11:30 PM Interpretation: Performing Lab: Notes/Report: HEMOGLOBIN A1C % (HH) 9.6 HEMOGLOBIN A1C (GLYCOHEMOGLO BIN) Reviewed date:10/04/2024 04:09:32 PM Interpretation: Performing Lab: Notes/Report: HEMOGLOBIN A1C % (HH) 8.2 HEMOGLOBIN A1C (GLYCOHEMOGLO BIN) Reviewed date:01/06/2025 01:01:32 PM Interpretation: Performing Lab: Notes/Report: HEMOGLOBIN A1C % (HH) 9.7 HEMOGLOBIN A1C (GLYCOHEMOGLO BIN) Reviewed date:03/01/2024 03:21:39 PM Interpretation: Performing Lab: Notes/Report: HEMOGLOBIN A1C % (HH) 9.0 Reason For Referral No Information Medications Medication SIG (Take, Route, Frequency, Duration) Notes Start Date End Date Status Januvia 100 MG 2 tablets Orally Onc e a day for 30 day(s) Not-Taking Rosuvastatin Calcium 40 MG Orally Active metFORMIN HCl 1000 MG 1 tablet with meal s Orally Twice a day Active Lisinopril 10 MG 1 tablet Orally Once a day for 30 day(s) Active Jardiance 25 MG Orally Once a day Active Glimepiride 4 MG 1 tablet with breakf ast or the first main meal of the day Orally Once a day for 30 days Active Finasteride 5 MG 1 tablet Orally Once a day for 30 day(s) Active Tresiba 100 UNIT/ML as directed Subcutaneous Active Doxycycline Monohydrate 100 MG 1 capsule Orally Twice a day for 10 days 01/27/2025 Active Vicodin 5-300 MG 1-2 tablet as needed Orally every 6 hrs for 5 days 03/15/2013 Not-Taking Immunizations Vaccine Route Administration Date Status Comme [...] Problem Acquired hammer toe of right foot (4761508349001 105) Other hammer toe(s) (acquired), right foot (M20.41) Active confirmed Problem Acquired hammer toe of left foot ([id number] 103) Other hammer toe(s) (acquired), left foot (M20.42) Active confirmed Problem Type 2 diabetes mellitus without complication (121118204) Type 2 diabetes mellitus without complication (E11.9) Active confirmed Problem Skin ulcer of toe of right foot with fat layer exposed (L97.512) Active confirmed Response to treatment, Nonapplicable Vital Signs Blood pressure diastolic 65 mm Hg 01/27/2025 Height 6 ft 3 in in 01/27/2025 Blood pressure systolic 128 mm Hg 01/27/2025 Weight 192 lbs 01/27/2025 BMI 24 kg/m2 01/27/2025 Procedures Procedure Date Ordered Date Performed Result Body Sit e 06096-RROQBDR NAIL, 6 OR MORE 03/01/2024 N/A 25178-Fzpbnizx Plate 03/01/2024 N/A 61636-PDABAXG NAIL, 6 OR MORE 05/31/2024 N/A 44213-VBFBZVD NAIL, 6 OR MORE 10/04/2024 N/A 58129-Wepvrbzp Plate 10/04/2024 N/A 44375-CLSRYGS NAIL, 6 OR MORE 01/06/2025 N/A 31776-Flhjgtqg Plate 01/06/2025 N/A 82068-DARGRZC SKIN/TISSUE 01/27/2025 N/A Encounters Encounter Location Date Provider Diagnosis [address] [address] 03/01/2024 Tito Isaac Pain of toe of right foot M79.674 ; Onychomycosis B35.1 ; Pain of toe of left foot M79.675 ; Type 2 diabetes mellitus without complication E11.9 and Ingrown nail L60.[address] [address] 05/31/2024 Tito Isaac Pain of toe of right foot M79.674 ; Onychomycosis B35.1 ; Pain of toe of left foot M79.675 and Type 2 diabetes mellitus without complication E11.[address] [address] 10/04/2024 Tito Isaac Pain of toe of right foot M79.674 ; Onychomycosis B35.1 ; Pain of toe of left foot M79.675 ; Type 2 diabetes mellitus without complication E11.9 ; Other hammer toe(s) (acquired), right foot M20.41 ; Other hammer toe(s) (acquired), left foot M20.42 and Ingrown nail L60.[address] [address] 01/06/2025 Tito Isaac Pain of toe of right foot M79.674 ; Pain of toe of left foot M79.675 ; Onychomycosis B35.1 ; Type 2 diabetes mellitus without complication E11.9 and Ingrown nail L60.0 [facility] [address] [place] [address] 01/27/2025 Tito Gray Pain in right toe(s) M79.674 ; Contusion of lesser toe of right foot without damage to nail, initial encounter S90.121A ; Cellulitis of toe of right foot L03.031 ; Skin ulcer of toe of right foot with fat layer exposed L97.512 and Type 2 diabetes mellitus without complication E11.9 Assessments Encounter Date Diagnosis (ICD Code) Assessment Notes Treatment Notes Treatment Clinical Notes Section Notes 03/01/2024 Pain of toe of right foot (ICD-10 - M79.674) 05/31/2024 Pain of toe of right foot (ICD-10 - M79.674) 10/04/2024 Pain of toe of right foot (ICD-10 - M79.674) 01/06/2025 Pain of toe of right foot (ICD-10 - M79.674) 01/27/2025 Pain in right toe(s) (ICD-10 - M79.674) 01/27/2025 Contusion of lesser toe of right foot without damage to nail, initial encounter (ICD-10 - S90.121A) 01/06/2025 Onychomycosis (ICD-10 - B35.1) 01/27/2025 Cellulitis of toe of right foot (ICD-10 - L03.031) 10/04/2024 Onychomycosis (ICD-10 - B35.1) 10/04/2024 Pain of toe of left foot (ICD-10 - M79.675) 01/06/2025 Pain of toe of left foot (ICD-10 [...] diabetes mellitus without complication (ICD-10 - E11.9) 01/27/2025 Skin ulcer of toe of right foot with fat layer exposed (ICD-10 - L97.512) Response to treatment, Nonapplicable Patient Educated with: WOUND CARE INSTRUCTIONS. pdf (WOUND CARE INSTRUCTIONS. pdf) 01/06/2025 Type 2 diabetes mellitus without complication (ICD-10 - E11.9) 01/27/2025 Type 2 diabetes mellitus without complication (ICD-10 - E11.9) 10/04/2024 Other hammer toe(s) (acquired), right foot (ICD-10 - M20.41) Patient Educated with: DIABETIC FOOT CARE INSTRUCTIONS. pdf (DIABETIC FOOT CARE INSTRUCTIONS. pdf) 03/01/2024 Ingrown nail (ICD-10 - L60.0) 10/04/2024 Other hammer toe(s) (acquired), left foot (ICD-10 - M20.42) 10/04/2024 Ingrown nail (ICD-10 - L60.0) 01/06/2025 Ingrown nail (ICD-10 - L60.0) 03/01/2024 Other 05/31/2024 Other 10/04/2024 Other 01/27/2025 Other Plan Of Treatment Pending Test Test Name Order Date X ray : Foot, right 3V 01/27/2025 10010-KZEWZMW NAIL, 6 OR MORE 01/06/2025 58887-KLBRTGV NAIL, 6 OR MORE 01/17/2020 24055-AUGOIGM NAIL, 6 OR MORE 04/24/2020 92737-SEMWDST NAIL, 6 OR MORE 07/24/2020 61239-VJSXKZC NAIL, 6 OR MORE 12/04/2020 24691-NROZRHM NAIL, 6 OR MORE 03/05/2021 40258-TYELOPA NAIL, 6 OR MORE 06/04/2021 18573-JFEMAVP NAIL, 6 OR MORE 09/10/2021 32781-YOSQLFJ NAIL, 6 OR MORE 12/17/2021 12437-ARBANAC NAIL, 6 OR MORE 03/25/2022 55595-HENJYGK NAIL, 6 OR MORE 06/24/2022 63600-BCURPMC NAIL, 6 OR MORE 09/23/2022 06016-DLLOCKW NAIL, 6 OR MORE 02/17/2023 85073-FPSGRZX NAIL, 6 OR MORE 05/26/2023 81715-LTMQVKH NAIL, 6 OR MORE 08/25/2023 77801-EACETOZ NAIL, 6 OR MORE 11/24/2023 45626-KPJQJYO NAIL, 6 OR MORE 03/01/2024 76232-SPOFREM NAIL, 6 OR MORE 05/31/2024 85035-UFRSBOJ NAIL, 6 OR MORE 10/04/2024 36446-VDHEXMH NAIL, 6 OR MORE 05/02/2011 71382-KGDCXHD NAIL, 6 OR MORE 07/22/2011 34950-JESSBUL NAIL, 6 OR MORE 10/07/2011 20377-DBZGBWK NAIL, 6 OR MORE 01/09/2012 16974-NSPPUMJ NAIL, 6 OR MORE 05/25/2012 21737-SSYPQMP NAIL, 6 OR MORE 08/17/2012 95296-CFVQODK NAIL, 6 OR MORE 11/05/2012 73015-BNACBAM NAIL, 6 OR MORE 02/15/2013 64802-IJYMWTZ NAIL, 6 OR MORE 09/27/2013 75947-CZDFRLT NAIL, 6 OR MORE 01/10/2014 51048-IKFIVNT NAIL, 6 OR MORE 04/11/2014 44200-KINJUHB NAIL, 6 OR MORE 07/04/2014 42573-QSBMRKU NAIL, 6 OR MORE 11/03/2014 25947-RKUITVT NAIL, 6 OR MORE 06/21/2013 73469-NPBXQRJ NAIL, 6 OR MORE 05/29/2017 58173-XQZMPAO NAIL, 6 OR MORE 09/18/2017 97147-KVTOCPM NAIL, 6 OR MORE 03/12/2018 81010-MCHCIAC NAIL, 6 OR MORE 06/15/2018 27588-VRGKLQY NAIL, 6 OR MORE 09/28/2018 13999-BCOJGXM NAIL, 6 OR MORE 01/04/2019 21995-ULTWQLM NAIL, 6 OR MORE 04/05/2019 15555-QIXMZFK NAIL, 6 OR MORE 12/18/2017 56892-DXTECOC NAIL, 6 OR MORE 07/12/2019 14590-HENECNN NAIL, 6 OR MORE 10/18/2019 37269-Odmnpivb Plate 03/12/2018 28311-Jrmfqdbj Plate 04/05/2019 26702-Sxaniuvf Plate 12/18/2017 88034-Vbkklemt Plate 09/18/2017 72661-Cevdhiel Plate 05/29/2017 19945-Kthtftbh Plate 11/03/2014 69135-Xcaglypn Plate 07/04/2014 08635-Krgjhfyi Plate 04/11/2014 82387-Mfuwznna Plate 01/10/2014 53538-Yeflmqqf Plate 09/27/2013 06641-Atnxcsec Plate 02/15/2013 69698-Mvjddkmq Plate 11/05/2012 47626-Ajgfzcsd Plate 07/22/2011 42807-Ngvpciky Plate 08/17/2012 73695-Orlitigl Plate 05/25/2012 47106-Oujkxrrf Plate 01/09/2012 13301-Wtlvppaa Plate 10/07/2011 66811-Mbggfulj Plate 05/02/2011 24498-Nqtwudng Plate 10/04/2024 51376-Kpcauiev Plate 03/01/2024 24300-Jawehkmf Plate 11/24/2023 47849-Miztcdtz Plate 08/25/2023 36880-Mdjwxfdc Plate 05/26/2023 38496-Vczviyxx Plate 02/17/2023 00240-Blnqjejj Plate 09/23/2022 82578-Lqnrdbhb Plate 06/24/2022 35707-Bwivbyiq Plate 03/25/2022 16114-Kkefogep Plate 12/17/2021 50731-Pfwuubio Plate 09/10/2021 00872-Vkheqwgc Plate 06/04/2021 10698-Cvpsgwmv Plate 03/05/2021 08479-Wcfqvrck Plate 12/04/2020 72120-Bpwzagqd Plate 07/24/2020 51452-Uqxrekyx Plate 04/24/2020 43683-Vublaojr Plate 01/06/2025 37348-Xowaofne Plate Each Additional 67773-Cwlzkwml Plate Each Additional 80344-Pmbirffq Plate Each Additional 12/2011 15008-Ehacsasy Plate Each Additional 09537-Ktoqypgs Plate Each Additional 07/2012 87580-Rbklutwr Plate Each Additional 89697-Espimssl Plate Each Additional 09/2012 71474-Pzmpmkwj Plate Each Additional 07/2013 16853-Hjcxdubp Plate Each Additional 45087-Tjmivxmd Plate Each Additional 02/2014 38270-Duufdkbk Plate Each Additional 01/2014 17776-Uyqhslpp Plate Each Additional 75577-Gxxeugpx Plate Each Additional 32290-SHT 03/15/2013 72793- Debride <25 sq cm 03/15/2013 14350- Debride <25 sq cm 09/27/2013 03747- Debride <25 sq cm 11/03/2014 41252- Debride <25 sq cm 07/04/2014 87363- Debride <25 sq cm 04/11/2014 39331- Debride <25 sq cm 01/10/2014 65753- Debride <25 sq cm 04/15/2013 97542- Debride <25 sq cm 06/21/2013 18829-KMSRZYY SKIN/TISSUE 03/29/2013 29015-ENTNWUH SKIN/TISSUE 01/27/2025 26530-BABN SKIN LESIONS, 2 TO 4 08/17/20 12 17078-ODFX SKIN LESIONS, 2 TO 4 05/25/20 12 25954-HGDX SKIN LESIONS, 2 TO 4 01/09/20 12 95695-CEUX SKIN LESIONS, 2 TO 4 10/07/19 12 31151-JRZP SKIN LESIONS, 2 TO 4 05/02/20 11 16413-VZBJ SKIN LESIONS, 2 TO 4 07/22/20 11 34895-Qsxz. Subungual Hematoma 0 11612-Aoux. Subungual Hematoma 1 43337-Alpm. Subungual Hematoma 2 27314- Removal of Foreign Body, Subcut 0 10/07/2011 11436- Removal of Foreign Body, Subcut 0 11/14/2011 77970- Removal of Foreign Body, Subcut 0 01/09/2012 Next Appt Details Provider Name:Tito Gonzalez Isaac , 02/10/2025 11:15:00 AM, [address] [place] [address], [phone], Provider Name:Tito V Isaac , 04/11/2025 02:45:00 PM, [address] [place] [address], [phone], Insurance Providers Payer Name Payer Address Payer Phone Subscriber Number Group Number Insured Name Patient Relationship to Insured Coverage Start Date Coverage End Date [facility] 65 Medicare Preferred [address] [place] [address] [phone] [id number] Austen Carrero Self - patient is the [...]
[2025-02-01 13:29] LABS: MANUAL DIFF FLAG NO
[2025-02-01 13:32] LABS: Basophils Percent Auto 0.4 % (0-2); Eosinophils Percent Auto 0.4 % (0-4); Hematocrit 37.4 % (42.0-52.0); Hemoglobin 12.7 g/dl (14.0-18.0); Imm Gran Abs Auto 0.01 X10*3/uL (0.00-0.03); Imm Gran Pct Auto 0.2 % (0.0-0.4); Lymphocytes Absolute Auto 0.9 X10*3/uL (1.2-4.9); Mean Corpuscular Hemoglobin 31.5 pg (27.0-33.0); Mean Corpuscular Volume 92.8 fL (80.0-98.0); Mean Platelet Volume 9.2 fL (9.4-12.4); Monocytes Absolute Auto 0.4 X10*3/uL (0.1-1.2); Monocytes Percent Auto 6.5 % (2-11); Neutrophils Absolute Auto 4.1 x10*3/uL (2.0-8.3); Neutrophils Percent Auto 75.5 % (45-73); Platelet Count 263 X10*3/uL (160-400); Red Blood Count 4.03 X10*6/uL (4.60-5.80); Red Cell Distribution Width 12.3 % (11.0-16.0); White Blood Count 5.4 X10*3/uL (4.8-10.8)
[2025-02-01 13:42] LABS: Estimated Average Glucose 183 mg/dL; Hemoglobin A1C 216.1237 umol/L; Total Hemoglobin (HGBA1C) 3370.0555 umol/L
[2025-02-01 13:55] LABS: Alanine Aminotransferase 20 U/L (0-40); Albumin Level 4.5 g/dL (3.5-5.0); Alkaline Phosphatase 60 U/L (39-117); Anion Gap 12 (12-20); Aspartate Amino Transferase 24 U/L (5-37); Blood Urea Nitrogen 12 mg/dL (9-16); Carbon Dioxide 29 mmol/L (22-29); Chloride 106 mmol/L (96-108); Cholesterol 174 mg/dL (<200); Estimated Glomerular Filt Rate > 60; Glucose Fasting 77 mg/dL (60-99); HDL Cholesterol 53 mg/dL (>40); LDL Cholesterol Calculated 100 mg/dL (<100); Potassium 4.7 mmol/L (3.3-5.1); Sodium 142 mmol/L (135-145); Total Protein 6.8 g/dL (6.5-8.0); Triglycerides 107 mg/dL (<150)
== END 2025-02-01 11:59 | disposition home or self-care (01) ==
LOC: HO.HMGCLDS 11:58
PROVIDERS: PCP Internal Medicine; Visit Provider Internal Medicine
DX: E11.9 Type 2 diabetes mellitus without complications (principal); E78.5 Hyperlipidemia, unspecified; I10 Essential (primary) hypertension
CPT/HCPCS: 36415; 80053; 80061; 83036; 85025

== ENCOUNTER 2025-02-09 13:47 | Outpatient (AMB) | payer MEDICARE, SELFPAY ==
[2025-02-09 13:51] VITALS: BP 118/66; PULSE 86; RESP 18; TEMP 36.7; O2SAT 97; BMI 26.6
--- NOTE | 2025-02-09 13:51 | A.OFFPC_ITS ---
Vital Signs 02/09/25 13:51 Height 6 ft 3 in Weight 213 lb BMI 26.6 BP 118/66 Blood Pressure Location Rt brachial Position Sitting Respiration 18 Pulse 86 Pulse Source Pulse Oximeter Temp 98.1 F Temp Source Oral Pulse Oximetry (%) 97 Oxygen Delivery Method Room Air Intake Visit Reasons: Pre op Intake Note: Pt is here today for pre op visit. Pt is having cataract surgery on 03/07/25. Allergies penicillin G Allergy (Unknown, Verified 02/09/25 13:51) rash all over body Tobacco use date assessed: 02/09/25 Fall risk assessment: No Falls in past year Last assessed Fall Risk: 02/09/25 Dental Screening Dental Screen Date: 11/21/24 HPI 2m f/u HPI Details Pt presents for preop for catara Pre op HPI Details Pt presents for preop for cataract surgery. PFSH Medical History Dysplastic nevi Abnormal colonoscopy DM type 2 (diabetes mellitus, type 2) Inguinal hernia Hyperlipidemia HTN (hypertension) Surgical History History of surgery H/O colonoscopy H/O hernia repair Status post arthroscopic knee surgery Family History Father No problems noted. Mother No problems noted. 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 Alcohol intake: current Alcohol intake frequency: does not drink Patient Tobacco Use Status: Never used Tobacco e-Cigarette/Vaping Use: Never Used Second Hand Smoke Exposure: No service: No Current occupational status: retired Cognitive needs: No Hearing needs: No Vision needs: Yes Questionnaire Thrive Questionnaire Date Thrive assessed: 11/21/24 I am a: Patient What is your living situation today?: I have a steady place to live Within the past 12 months, did the food you bought not last and you didn't have the money to get more?: Sometimes True Within the past 12 months, did you worry whether your food would run out before you got money to buy more?: Sometimes True Do you have trouble paying for medicines?: Yes Do you have trouble getting transportation to medical appointments?: No Do you have trouble paying your heating and electricity bill?: No Do you have trouble taking care of your child, family member or friend?: No Do you have trouble with day-to-day activities such as bathing, preparing meals, shopping, managing finances, etc.?: No Are you currently unemployed and looking for a job?: Yes Are you interested in more education?: No Please select the resources that you would like help with: Paying for medicine Currently or been in a relationship where the following occur: No concerns reported THRIVE Score: 2 NORMA-7 AMB Questionnaire NORMA-7 Date NORMA - 7 assessed: 11/21/24 Source: Developed by Drs. Iarj Louis, Fatmata Bravo, Geoff Ly and colleagues, with an educational jaden from [employer]. Review of Systems Const All systems reviewed & are unremarkable except as noted in HPI and below Eyes Reports no additional complaints ENT Reports no additional complaints Card Reports no additional complaints Resp Reports no additional complaints GI Reports no additional complaints Reports no additional complaints Physical exam (Primary Care) Vital Signs: Last Vital Signs Temp 98.1 F 02/09/25 13:51 Pulse 86 02/09/25 13:51 Resp 18 02/09/25 13:51 BP 118/66 02/09/25 13:51 Pulse Ox 97 02/09/25 13:51 Oxygen Delivery Method Room Air 02/09/25 13:51 BMI result Body Mass Index 26.6 Tobacco/Smoking Status: Tobacco use Status Tobacco use date assessed 02/09/25 02/09/25 14:02 Patient Tobacco Use Status Never used Tobacco 02/09/25 14:02 e-Cigarette/Vaping Use Never Used 02/09/25 13:51 Thrive Assessment: Date of Thrive Assessment Date Thrive assessed 11/21/24 02/09/25 13:51 Currently or been in a relationship where the following occur: No concerns reported Const General: no acute distress HENMT Head: Yes normal to inspection Ears: hearing grossly normal bilaterally Face and sinus: Yes normal facial exam Mouth: Normal oral and palatal mucosa present Throat: Yes posterior oropharynx normal Eyes General: appearance normal, both eyes and all related structures Neck Neck: Yes no lymphadenopathy and Yes supple Resp Effort & Inspection: normal respiratory effort Auscultation: clear to auscultation bilaterally Cardio Rhythm: regular rhythm Heart sounds: S1 normal heart sound present and S2 normal heart sound present GI Inspection: Yes normal to inspection Palpation (GI): Soft to palpation Percussion: Yes normal to percussion Auscultation: normal bowel sounds Coding Level of Care Code Est Pt Level 4 (92954) Diagnoses Cataract H26.9 Prostate cancer C61 DM type 2 (diabetes mellitus, type 2) E11.9 HTN (hypertension) I10 Assessment & Plan Assessment & Plan (1) Cataract: Code(s): H26.9 - Unspecified cataract Category: Medical Plan: EKG NSR, nl EKG, Pt is cleared for cataract surgery (2) Prostate cancer: Comment: 06/28 High Grade, Low Volume, RTx [facility], f/u Dr. Lane Code(s): C61 - Malignant neoplasm of prostate Category: Medical Plan: f/u with urology (3) DM type 2 (diabetes mellitus, type 2): Comment: 20 years, Code(s): E11.9 - Type 2 diabetes mellitus without complications Category: Medical Plan: A1C is 8.0, ADA diet, increase exercise, cont meds. Pt will check glucose 2 hr after the main meal, f/u 3 months (4) HTN (hypertension): Code(s): I10 - Essential (primary) hypertension Category: Medical Plan: cont Lisinopril Orders: Orders AMB EKG-In Office Today E11.9 - Type 2 diabetes mellitus without complications, E78.5 - Hyperlipidemia, unspecified, I10 - Essential (primary) hypertension Complete Blood Count Auto Diff 3 Months E11.9 - Type 2 diabetes mellitus without complications Microalbumin, Random (w Creat) 3 Months E11.9 - Type 2 diabetes mellitus without complications Hemoglobin A1c 3 Months E11.9 - Type 2 diabetes mellitus without complications Comprehensive Bennett. Panel Fast 3 Months E11.9 - Type 2 diabetes mellitus with out complications Lipid Panel 3 Months E11.9 - Type 2 diabetes mellitus without complications
--- OUTSIDE RECORDS SUMMARY | 2025-02-09 16:22 | XMS_ITS | Patient Health Record ---
Author Organization [facility] Address [address] [place] [address] Care Team Providers Care Comfort Station Attendant Name Role Phone Alisa Pascual MD Primary Care Provider Tito Resendiz Unavailable [phone] Allergies Allergen (clinical drug ingredient) Drug/Non Drug [...] Lab: Notes/Report: HEMOGLOBIN A1C % (HH) 9.7 Reason For Referral No Information Medications Medication [...] Problem Acquired hammer toe of right foot (2380863702749 105) Other hammer toe(s) (acquired), right foot (M20.41) Active confirmed Problem Acquired hammer toe of left foot (4996766162543 103) Other hammer toe(s) (acquired), left foot (M20.42) Active confirmed Problem Type 2 diabetes mellitus without complication (784611398) Type 2 diabetes mellitus without complication (E11.9) [...] Ordered Date Performed Result Body Sit e 33979-BRHSAOA NAIL, 6 OR MORE 03/01/2024 N/A 55414-Wsccckjp Plate 03/01/2024 N/A 37524-YRDUKSV NAIL, 6 OR MORE 05/31/2024 N/A 92221-CBPXHLK NAIL, 6 OR MORE 10/04/2024 N/A 37598-Gbpiynrf Plate 10/04/2024 N/A 20592-SLLTWUW NAIL, 6 OR MORE 01/06/2025 N/A 84670-Whgusqtu Plate 01/06/2025 N/A 16601-WTTJMMR SKIN/TISSUE 01/27/2025 N/A Encounters Encounter Location Date Provider Diagnosis [address] [address] 03/01/2024 Tito Isaac Pain of toe of right foot M79.674 ; Onychomycosis B35.1 ; Pain of toe of left foot M79.675 ; Type 2 diabetes mellitus without complication E11.9 and Ingrown nail L60.[address] [address] 05/31/2024 Tito Isaac Pain of toe of right foot M79.674 ; Onychomycosis B35.1 ; Pain of toe of left foot M79.675 and Type 2 diabetes mellitus without complication E11.[address] [address] 10/04/2024 Tito Isaac Pain of toe of right foot M79.674 ; Onychomycosis B35.1 ; Pain of toe of left foot M79.675 ; Type 2 diabetes mellitus without complication E11.9 ; Other hammer toe(s) (acquired), right foot M20.41 ; Other hammer toe(s) (acquired), left foot M20.42 and Ingrown nail L60.[address] [address] 01/06/2025 Tito Isaac Pain of toe of right foot M79.674 ; Pain of toe of left foot M79.675 ; Onychomycosis B35.1 ; Type 2 diabetes mellitus without complication E11.9 and Ingrown nail L60.[address] [facility] [address] 01/27/2025 Tito Isaac Pain in right toe(s) M79.674 ; Contusion of lesser toe of right foot without damage to nail, initial encounter S90.121A ; Cellulitis of toe of right foot L03.031 ; Skin ulcer of toe of right foot with fat layer exposed L97.512 and Type 2 diabetes mellitus without complication E11.[address] [facility] [address] 02/07/2025 Tito Gray Assessments Encounter Date Diagnosis (ICD Code) Assessment [...] X ray : Foot, right 3V 01/27/2025 17445-LXUMUUB NAIL, 6 OR MORE 01/06/2025 73759-AIOKCRO NAIL, 6 OR MORE 01/17/2020 39906-IGCBXCI NAIL, 6 OR MORE 04/24/2020 16231-WPRUCES NAIL, 6 OR MORE 07/24/2020 49798-KOYVSPF NAIL, 6 OR MORE 12/04/2020 67430-HFMEPNZ NAIL, 6 OR MORE 03/05/2021 54422-KGAAFAR NAIL, 6 OR MORE 06/04/2021 43357-WYWYNXM NAIL, 6 OR MORE 09/10/2021 37938-PUNTKAT NAIL, 6 OR MORE 12/17/2021 28531-IAWMDJU NAIL, 6 OR MORE 03/25/2022 10393-HVFOREG NAIL, 6 OR MORE 06/24/2022 82641-VBDTPWV NAIL, 6 OR MORE 09/23/2022 42496-HEHAKQY NAIL, 6 OR MORE 02/17/2023 09499-YRBDXMZ NAIL, 6 OR MORE 05/26/2023 28190-YHAZEJS NAIL, 6 OR MORE 08/25/2023 12791-TAOHZJP NAIL, 6 OR MORE 11/24/2023 36030-GIKPTCT NAIL, 6 OR MORE 03/01/2024 76252-TWMGNTN NAIL, 6 OR MORE 05/31/2024 94571-EECQEKH NAIL, 6 OR MORE 10/04/2024 60116-NVULJWL NAIL, 6 OR MORE 05/02/2011 81260-RNWIGWN NAIL, 6 OR MORE 07/22/2011 69249-VDSLKCL NAIL, 6 OR MORE 10/07/2011 75366-AYWEZJF NAIL, 6 OR MORE 01/09/2012 16145-HQPSUSB NAIL, 6 OR MORE 05/25/2012 24990-RGJJFTS NAIL, 6 OR MORE 08/17/2012 94029-XLICSVU NAIL, 6 OR MORE 11/05/2012 80941-PUNUGEU NAIL, 6 OR MORE 02/15/2013 64638-EUNKGKV NAIL, 6 OR MORE 09/27/2013 04087-HAYJBOY NAIL, 6 OR MORE 01/10/2014 48993-JKLZJOZ NAIL, 6 OR MORE 04/11/2014 16118-CLAHOSV NAIL, 6 OR MORE 07/04/2014 52038-TSFPHWB NAIL, 6 OR MORE 11/03/2014 70748-XAKLTMX NAIL, 6 OR MORE 06/21/2013 02194-QVLXADS NAIL, 6 OR MORE 05/29/2017 12047-FDFGDVI NAIL, 6 OR MORE 09/18/2017 20271-SNZTYHV NAIL, 6 OR MORE 03/12/2018 87021-IYRMUQU NAIL, 6 OR MORE 06/15/2018 78213-PWXZRYQ NAIL, 6 OR MORE 09/28/2018 22451-JTSDUIS NAIL, 6 OR MORE 01/04/2019 00510-OZFQRXX NAIL, 6 OR MORE 04/05/2019 05771-XFMRCAH NAIL, 6 OR MORE 12/18/2017 61471-UONTNYH NAIL, OR MORE 07/12/2019 82744-MEIQQPU NAIL, OR MORE 10/18/2019 82689-Fqdxqxtz Plate 03/12/2018 68711-Kykkhdtl Plate 04/05/2019 11857-Wjxvsjze Plate 12/18/2017 71757-Okzvfczs Plate 09/18/2017 68388-Hhdrwwqk Plate 05/29/2017 50630-Zciijtmn Plate 11/03/2014 39090-Dfwhlhxq Plate 07/04/2014 35629-Opgeflxm Plate 04/11/2014 79612-Zcwuspal Plate 01/10/2014 62282-Gitgmncu Plate 09/27/2013 12041-Anpwtpfg Plate 02/15/2013 54801-Dpnmiimj Plate 11/05/2012 11759-Rvgdbcvz Plate 07/22/2011 12980-Dlfasmah Plate 08/17/2012 29063-Epkfedhd Plate 05/25/2012 49518-Ezlijjfg Plate 01/09/2012 72297-Wwlteqgd Plate 10/07/2011 04973-Nykawhnl Plate 05/02/2011 48391-Ihkvblvd Plate 10/04/2024 27837-Fviacmpv Plate 03/01/2024 25856-Bijybyzd Plate 11/24/2023 87306-Cosjvnye Plate 08/25/2023 86288-Yiegfyfn Plate 05/26/2023 84069-Uystchsh Plate 02/17/2023 30300-Adjaejvc Plate 09/23/2022 85720-Surssdur Plate 06/24/2022 64005-Fojoobuq Plate 03/25/2022 80139-Qyekfxzz Plate 12/17/2021 10087-Xgezxkxm Plate 09/10/2021 41530-Drztaucw Plate 06/04/2021 37207-Ozafbudq Plate 03/05/2021 49925-Iuibqivx Plate 12/04/2020 00466-Dwjacblp Plate 07/24/2020 46260-Oazuxrwi Plate 04/24/2020 08964-Baksyddm Plate 01/06/2025 49320-Ghhhiaks Plate Each Additional 78592-Ruvjeqdo Plate Each Additional 93848-Acvgimtb Plate Each Additional 12/2011 24014-Xsbijecn Plate Each Additional 22471-Gpsytkas Plate Each Additional 07/2012 43231-Ecemnfqc Plate Each Additional 58863-Yfhwafry Plate Each Additional 09/2012 10610-Dclpdqqj Plate Each Additional 07/2013 82652-Sjfyfntj Plate Each Additional 91703-Fhrfaoua Plate Each Additional 02/2014 75228-Ndrjuxjc Plate Each Additional 01/2014 83236-Hzkulaqi Plate Each Additional 87582-Yadsdavt Plate Each Additional 25232-IYF 03/15/2013 71446- Debride <25 sq cm 03/15/2013 74763- Debride <25 sq cm 09/27/2013 57444- Debride <25 sq cm 11/03/2014 57625- Debride <25 sq cm 07/04/2014 39521- Debride <25 sq cm 04/11/2014 12287- Debride <25 sq cm 01/10/2014 78895- Debride <25 sq cm 04/15/2013 44810- Debride <25 sq cm 06/21/2013 59521-YZEISCO SKIN/TISSUE 03/29/2013 62323-WQSXXOK SKIN/TISSUE 01/27/2025 29151-XBZZ SKIN LESIONS, 2 TO 4 08/17/20 12 66492-DMCC SKIN LESIONS, 2 TO 4 05/25/20 12 52003-NOIP SKIN LESIONS, 2 TO 4 01/09/20 12 87492-MSCW SKIN LESIONS, 2 TO 4 10/07/19 12 46170-KSKR SKIN LESIONS, 2 TO 4 05/02/20 11 99255-OVKJ SKIN LESIONS, 2 TO 4 07/22/20 11 63992-Tuqh. Subungual Hematoma 0 60280-Qsey. Subungual Hematoma 1 80327-Pmyo. Subungual Hematoma 2 69299- Removal of Foreign Body, Subcut 0 10/07/2011 95763- Removal of Foreign Body, Subcut 0 11/14/2011 50628- Removal of Foreign Body, Subcut 0 01/09/2012 Next Appt Details Provider Name:Tito Gray , 02/10/2025 11:15:00 AM, [address] [place] [address], [place], [address], Provider Name:Tito Fofanaunier , 04/11/2025 02:45:00 PM, [address] [place], [address], Insurance Providers Payer Name Payer Address Payer Phone Subscriber Number Group Number Insured Name Patient Relationship to Insured Coverage Start Date Coverage End Date [facility] 65 Medicare Preferred [address] [place] [address] [phone] [id number] Austen Carrero Self - patient is the [...]
== END 2025-02-09 15:01 | disposition home or self-care (01) ==
PROVIDERS: PCP Internal Medicine; Visit Provider Internal Medicine
DX: H26.9 Unspecified cataract (principal); C61 Malignant neoplasm of prostate; E11.9 Type 2 diabetes mellitus without complications; I10 Essential (primary) hypertension

== ENCOUNTER → 2025-02-09 13:47 | Outpatient (BNVA) | payer MEDICARE, SELFPAY | PROVIDERS: PCP Internal Medicine; Visit Provider Internal Medicine | DX: E11.9 Type 2 diabetes mellitus without complications (principal); E78.5 Hyperlipidemia, unspecified; I10 Essential (primary) hypertension; H26.9 Unspecified cataract; C61 Malignant neoplasm of prostate | CPT/HCPCS: 99212 ==

== ENCOUNTER 2025-03-27 12:37 | Outpatient (REF) | payer MEDICARE, SELFPAY ==
--- OUTSIDE RECORDS SUMMARY | 2025-03-27 13:19 | XMS_ITS | Patient Health Record ---
Author Organization [facility] Address [address] [facility] [place] [address] Care Team Providers Care Hardening Machine Operator Helper Name Role Phone Alisa Pascual MD Primary Care Provider Tito Resendiz Unavailable [phone] Allergies Allergen (clinical drug ingredient) Drug/Non Drug [...] (HH) 9.7 HEMOGLOBIN A1C (GLYCOHEMOGLO BIN) Reviewed date:02/27/2025 10:38:29 AM Interpretation: Performing Lab: Notes/Report: HEMOGLOBIN A1C % (HH) 8.0 HEMOGLOBIN A1C (GLYCOHEMOGLO BIN) Reviewed date:02/10/2025 11:24:46 AM Interpretation: Performing Lab: Notes/Report: HEMOGLOBIN A1C % (HH) 8.0 Reason For Referral No Information Medications Medication SIG (Take, Route, Frequency, Duration) Notes Start Date End Date Status Lisinopril 10 MG 1 tablet Orally Once a day; Duration: 30 day(s) Active Glimepiride 4 MG 1 tablet with breakf ast or the first main meal of the day Orally Once a day; Duration: 30 days Active Jardiance 25 MG Orally Once a day Not-Taking Bactrim DS 800-160 MG 1 tablet Orally ev vicki 12 hrs; Duration: 10 day(s) Active Tresiba 100 UNIT/ML as directed Subcutaneous Active Finasteride 5 MG 1 tablet Orally Once a day; Duration: 30 day(s) Not-Crescencio ing Januvia 100 MG 2 tablets Orally Onc e a day; Duration: 30 day(s) Not-Crescencio ing Vicodin 5-300 MG 1-2 tablet as needed Orally every 6 hrs; Duration: 5 days 03/15/2013 Not-Taking Doxycycline Monohydrate 100 MG 1 capsule Orally Twice a day; Duration: 10 days 01/27/2025 Not-Takin g metFORMIN HCl 1000 MG 1 tablet with meal s Orally Twice a day Active Rosuvastatin Calcium 40 MG Orally Active Immunizations Vaccine Route Administration Date Status Comme nts Influenza Unknown 05/29/2017 Refused Influenza Unknown 07/24/2020 Refused Influenza Unknown 06/07/2024 Administered COVID-19 Pfizer BioNTech Vaccine Unknown 05/15/2022 Administered [...] Problem Acquired hammer toe of right foot (84645342035 ) Other hammer toe(s) (acquired), right foot (M20.41) Active confirmed Problem Acquired hammer toe of left foot (93293711066 ) Other hammer toe(s) (acquired), left foot (M20.42) Active confirmed Problem Type 2 diabetes mellitus without complication (E11.9) Active confirmed Problem Ulcer of toe of right foot (disorder) (70705232252 700507) Skin ulcer of toe of right foot, limited to breakdown of skin (L97.511) Active confirmed Response to treatment, Improving Vital Signs Blood pressure diastolic 68 mm Hg 02/27/2025 Height 6ft 3in in 02/27/2025 Blood pressure systolic 129 mm Hg 02/27/2025 Weight 213 lbs 02/27/2025 BMI 26.62 kg/m2 02/27/2025 Procedures Procedure Date Ordered Date Performed Result Body Sit e 43059-KXFNOTM NAIL, 6 OR MORE 05/31/2024 N/A 67093-CGSIXAS NAIL, OR MORE 10/04/2024 N/A 25403-Mrlzmswc Plate 10/04/2024 N/A 89025-HPELOJS NAIL, 6 OR MORE 01/06/2025 N/A 13875-Bhnqhlup Plate 01/06/2025 N/A 77094-HHZUYDN SKIN/TISSUE 01/27/2025 N/A 87778- Debride <25 sq cm 02/10/2025 N/A 55565- Debride <25 sq cm 02/27/2025 N/A Encounters Encounter Location Date Provider Diagnosis [address] [address] 05/31/2024 Tito Isaac Pain of toe of right foot M79.674 ; Onychomycosis B35.1 ; Pain of toe of left foot M79.675 and Type 2 [facility] mellitus [facility] complication [facility] [address] 10/04/2024 Tito Isaac Pain of toe of right foot M79.674 ; Onychomycosis B35.1 ; Pain of toe of left foot M79.675 ; Type 2 diabetes mellitus without complication E11.9 ; Other hammer toe(s) (acquired), right foot M20.41 ; Other hammer toe(s) (acquired), left foot M20.42 and Ingrown nail L60.[address] [address] 01/06/2025 Tito Isaac Pain of toe of right foot M79.674 ; Pain of toe of left foot M79.675 ; Onychomycosis B35.1 ; Type 2 diabetes mellitus without complication E11.9 and Ingrown nail L60.[address] [address] 01/27/2025 Tito Isaac Pain in right toe(s) M79.674 ; Contusion of lesser toe of right foot without damage to nail, initial encounter S90.121A ; Cellulitis of toe of right foot L03.031 ; Skin ulcer of toe of right foot with fat layer exposed L97.512 and Type 2 diabetes mellitus without complication E11.[address] [address] 02/10/2025 Tito Isaac Pain in right toe(s) M79.674 ; Cellulitis of toe of right foot L03.031 ; Type 2 diabetes mellitus without complication E11.9 ; Skin ulcer of toe of right foot, limited to breakdown of skin L97.511 and Contusion of lesser toe of right foot without damage to nail, subsequent encounter S90.121D [facility] [address] [address] 02/27/2025 Tito Isaac Pain in right toe(s) M79.674 ; Cellulitis of toe of right foot L03.031 ; Type 2 diabetes mellitus without complication E11.9 ; Skin ulcer of toe of right foot, limited to breakdown of skin L97.511 and Contusion of lesser toe of right foot without damage to nail, subsequent encounter S90.121D [address] [address] 02/07/2025 Tito Isaac Assessments Encounter Date Diagnosis (ICD Code) Assessment [...] to nail, initial encounter (ICD-10 - S90.121A) 02/10/2025 Pain in right toe(s) (ICD-10 - M79.674) 02/10/2025 Cellulitis of toe of right foot (ICD-10 - L03.031) Response to treatment - Unresolved 02/27/2025 Pain in right toe(s) (ICD-10 - M79.674) 02/27/2025 Cellulitis of toe of right foot (ICD-10 - L03.031) Response to treatment - Improvement 02/27/2025 Type 2 diabetes mellitus without complication (ICD-10 - E11.9) 02/10/2025 Type 2 diabetes mellitus without complication (ICD-10 - E11.9) 01/06/2025 Onychomycosis (ICD-10 - B35.1) 01/27/2025 Cellulitis of toe of right foot (ICD-10 - L03.031) 10/04/2024 Onychomycosis (ICD-10 - B35.1) 10/04/2024 Pain of toe of left foot (ICD-10 - M79.675) 01/06/2025 Pain of toe of left foot (ICD-10 - M79.675) 05/31/2024 Pain of toe of left foot (ICD-10 - M79.675) 05/31/2024 Onychomycosis (ICD-10 - B35.1) 10/04/2024 Type 2 diabetes mellitus without complication (ICD-10 - E11.9) 05/31/2024 Type 2 diabetes mellitus without complication (ICD-10 - E11.9) 01/27/2025 Skin ulcer of toe of right foot with fat layer exposed (ICD-10 - L97.512) Response to treatment, Nonapplicable Patient Educated with: WOUND CARE INSTRUCTIONS. pdf (WOUND CARE INSTRUCTIONS. pdf) 01/06/2025 Type 2 diabetes mellitus without complication (ICD-10 - E11.9) 02/10/2025 Skin ulcer of toe of right foot, limited to breakdown of skin (ICD-10 - L97.511) Response to treatment, Improving Patient Educated with: WOUND CARE INSTRUCTIONS. pdf (WOUND CARE INSTRUCTIONS. pdf) 02/27/2025 Skin ulcer of toe of right foot, limited to breakdown of skin (ICD-10 - L97.511) Response to treatment, Improving Patient Educated with: WOUND CARE INSTRUCTIONS. pdf (WOUND CARE INSTRUCTIONS. pdf) 02/27/2025 Contusion of lesser toe of right foot without damage to nail, subsequent encounter (ICD-10 - S90.121D) 02/10/2025 Contusion of lesser toe of right foot without damage to nail, subsequent encounter (ICD-10 - S90.121D) 01/27/2025 Type 2 diabetes mellitus without complication (ICD-10 - E11.9) 10/04/2024 Other hammer toe(s) (acquired), right foot (ICD-10 - M20.41) Patient Educated with: DIABETIC FOOT CARE INSTRUCTIONS. pdf (DIABETIC FOOT CARE INSTRUCTIONS. pdf) 10/04/2024 Other hammer toe(s) (acquired), left foot (ICD-10 - M20.42) 10/04/2024 Ingrown nail (ICD-10 - L60.0) 01/06/2025 Ingrown nail (ICD-10 - L60.0) 05/31/2024 Other 10/04/2024 Other 01/27/2025 Other 02/10/2025 Other 02/27/2025 Other Plan Of Treatment Pending Test Test Name Order Date X ray : Foot, right 3V 01/27/2025 X ray : Foot, right 3V 02/10/2025 67155-HZIVTKP NAIL, 6 OR MORE 01/06/2025 00267-YWJAZOJ NAIL, 6 OR MORE 01/17/2020 72534-OMQVUZF NAIL, 6 OR MORE 04/24/2020 73679-KZGYGWB NAIL, 6 OR MORE 07/24/2020 96714-HPJBDYP NAIL, 6 OR MORE 12/04/2020 23498-FDELVTE NAIL, 6 OR MORE 03/05/2021 02891-UYEORBV NAIL, 6 OR MORE 06/04/2021 02421-PWUTUHB NAIL, 6 OR MORE 09/10/2021 57165-WISCJMC NAIL, 6 OR MORE 12/17/2021 41749-OSFWSOY NAIL, 6 OR MORE 03/25/2022 44219-ESZUCHU NAIL, 6 OR MORE 06/24/2022 36528-OXKWLHH NAIL, 6 OR MORE 09/23/2022 97254-BNJVQXX NAIL, 6 OR MORE 02/17/2023 21969-QVOHGDF NAIL, 6 OR MORE 05/26/2023 50841-WUSZMUK NAIL, 6 OR MORE 08/25/2023 59214-IVSXAUH NAIL, 6 OR MORE 11/24/2023 36719-HWKVAIY NAIL, 6 OR MORE 03/01/2024 08462-TDVZLRG NAIL, 6 OR MORE 05/31/2024 79215-MVPYMQJ NAIL, 6 OR MORE 10/04/2024 55133-GJUJCXK NAIL, 6 OR MORE 05/02/2011 50642-KSMABVD NAIL, 6 OR MORE 07/22/2011 38103-WEYEVJN NAIL, 6 OR MORE 10/07/2011 14963-SOZWWOZ NAIL, 6 OR MORE 01/09/2012 08045-ZJGCMZX NAIL, 6 OR MORE 05/25/2012 10625-LMHOENW NAIL, 6 OR MORE 08/17/2012 07356-PKMUGVT NAIL, 6 OR MORE 11/05/2012 94371-BEQUNQU NAIL, 6 OR MORE 02/15/2013 20317-SDAGIBY NAIL, 6 OR MORE 09/27/2013 58235-AGGIBSW NAIL, 6 OR MORE 01/10/2014 03546-SXDSXKV NAIL, 6 OR MORE 04/11/2014 01714-VBDISWY NAIL, 6 OR MORE 07/04/2014 69614-ROTNBWZ NAIL, 6 OR MORE 11/03/2014 33169-BCUNVPQ NAIL, 6 OR MORE 06/21/2013 94224-UVWUVHS NAIL, 6 OR MORE 05/29/2017 20717-YPJNMMY NAIL, 6 OR MORE 09/18/2017 73841-FUCNAIF NAIL, 6 OR MORE 03/12/2018 42215-SIZNUJB NAIL, 6 OR MORE 06/15/2018 58557-DVHHPMO NAIL, 6 OR MORE 09/28/2018 38894-UXWORGP NAIL, 6 OR MORE 01/04/2019 71318-FFCNMWC NAIL, 6 OR MORE 04/05/2019 09242-FWLYBKV NAIL, 6 OR MORE 12/18/2017 54489-SXYXJXW NAIL, 6 OR MORE 07/12/2019 70377-OWKQWSV NAIL, 6 OR MORE 10/18/2019 08081-Dinukoek Plate 03/12/2018 50851-Ggxxldpt Plate 04/05/2019 93389-Jtpnklec Plate 12/18/2017 16525-Stnvhlay Plate 09/18/2017 54357-Subptipy Plate 05/29/2017 09064-Bnlwzpmd Plate 11/03/2014 93721-Gzzgoyny Plate 07/04/2014 24104-Sutltxub Plate 04/11/2014 79582-Cvqxgdcr Plate 01/10/2014 39912-Hypxhecu Plate 09/27/2013 67431-Thmbyrfk Plate 02/15/2013 88323-Hbvgncqo Plate 11/05/2012 58117-Zmugeemc Plate 07/22/2011 70390-Gxemufas Plate 08/17/2012 94445-Vuxfnvkl Plate 05/25/2012 66598-Erthgukq Plate 01/09/2012 87299-Muwzdlmk Plate 10/07/2011 36854-Xqujoxsg Plate 05/02/2011 12460-Lcdjhjzx Plate 10/04/2024 29971-Pywvdqqz Plate 03/01/2024 11321-Xwylohfs Plate 11/24/2023 98296-Aywqowdg Plate 08/25/2023 98132-Uovcmlwx Plate 05/26/2023 13725-Roajftsk Plate 02/17/2023 90887-Hbcfhclt Plate 09/23/2022 36655-Ltzfaqdb Plate 06/24/2022 10070-Pddabfue Plate 03/25/2022 99952-Nvvbusnx Plate 12/17/2021 62933-Sgxrmftr Plate 09/10/2021 60022-Izqeatim Plate 06/04/2021 17518-Ussvlovh Plate 03/05/2021 03886-Okudaczx Plate 12/04/2020 72295-Gfdpwjxs Plate 07/24/2020 62927-Ftxzuigh Plate 04/24/2020 17182-Aotgeybe Plate 01/06/2025 64706-Nlkgtqek Plate Each Additional 98439-Fqdndbvt Plate Each Additional 56076-Tqlpteen Plate Each Additional 12/2011 53027-Ozudgozn Plate Each Additional 58602-Yjwyorhb Plate Each Additional 07/2012 91321-Qhotkwjs Plate Each Additional 79962-Ntjkmcke Plate Each Additional 09/2012 33175-Gxwbxeut Plate Each Additional 07/2013 37699-Rztsnnhd Plate Each Additional 46549-Kfplaroj Plate Each Additional 02/2014 03895-Ryitvzhp Plate Each Additional 01/2014 86005-Nhegtdbr Plate Each Additional 05271-Kmredrhe Plate Each Additional 87085-KXJ 03/15/2013 05469- Debride <25 sq cm 03/15/2013 25391- Debride <25 sq cm 09/27/2013 60806- Debride <25 sq cm 11/03/2014 48666- Debride <25 sq cm 07/04/2014 29873- Debride <25 sq cm 04/11/2014 74582- Debride <25 sq cm 01/10/2014 68497- Debride <25 sq cm 04/15/2013 46668- Debride <25 sq cm 06/21/2013 77123- Debride <25 sq cm 02/10/2025 93927- Debride <25 sq cm 02/27/2025 30559-DHZAGEJ SKIN/TISSUE 01/27/2025 79243-GVYINVF SKIN/TISSUE 03/29/2013 11881-CYKV SKIN LESIONS, 2 TO 4 08/17/20 12 46241-POVT SKIN LESIONS, 2 TO 4 05/25/20 12 28044-JSDR SKIN LESIONS, 2 TO 4 01/09/20 12 26186-TZOT SKIN LESIONS, 2 TO 4 10/07/19 12 59022-SZJR SKIN LESIONS, 2 TO 4 05/02/20 11 09860-TTZJ SKIN LESIONS, 2 TO 4 07/22/20 11 63142-Nuth. Subungual Hematoma 0 77549-Vknk. Subungual Hematoma 1 48064-Hplt. Subungual Hematoma 2 13566- Removal of Foreign Body, Subcut 0 10/07/2011 67700- Removal of Foreign Body, Subcut 0 11/14/2011 68934- Removal of Foreign Body, Subcut 0 01/09/2012 Next Appt Details Provider Name:Tito Gray , 04/11/2025 02:45:00 PM, [address] [place] [address], [place], [address], Insurance Providers Payer Name Payer Address Payer Phone Subscriber Number Group Number Insured Name Patient Relationship to Insured Coverage Start Date Coverage End Date [facility] 65 Medicare Preferred [address] [place] [address] [phone] [id number] Austen Carrero Self - patient is the [...] cancer biopsy 07/17/22 Insertion of radiatiion 11/17/22 P.E.T. scan 02/08/25 Hospitalization History Reason Date(Month/Year) X-rays 08/13/22 MRI/Bone scan 08/04/22
--- OUTSIDE RECORDS SUMMARY | 2025-03-27 13:19 | XMS_ITS | Clinical Summary ---
Author Organization 175 [facility] Address [address] [place] [address] Phone Care Team Providers Care Architecture Consultant Name Role Phone Adolfo Davila MD Primary Care Provider [phone] Allergies Active Allergy Reactions Criticality Noted Date Comments Penicillins 08/23/2018 Medications empagliflozin (Jardiance) 25 mg tablet Take by mouth. Active GLIMEPIRIDE ORAL Take by mouth. Active LISINOPRIL ORAL Take by mouth. Active metformin HCl (METFORMIN ORAL) Take by mouth. Active rosuvastatin (CRESTOR) 20 mg tablet Take 20 mg by mouth daily. Active Active Problems Problem Noted Date Diagnosed Date Diabetes mellitus type 2, un complicated (CMS/[facility] V24, [facility] V28) 07/29/2024 Hernia of abdominal wall 07/29/2024 Overview (07/29/2024): [...] Encounters Date Type Department Care Team Description 02/08/2025 12:35 PM EDT - 02/08/2025 11:59 PM EDT Hospital Encounter [facility] PET Scan [address] [place] [address] Prostate cancer ([facility] V24, [facility] [place] Discharge Disposition: Home or Self Care from Last 3 Months Surgical History Surgery Date Site/Laterality Comments HERNIA REPAIR PROCEDURE: RI REPAIR FIRST ABDOMINAL WALL HERNIA KNEE ARTHROSCOPY Bilateral PROCEDURE: RI ARTHROSCOPY AID TX SPINE&/FX KNEE W/O FIXJ; [...] disc L5-S1 Diabetes mellitus type 2, uncomplicated ([facility] V24, [facility] V28) DX:Diabetes mellitus type 2, uncomplicated ([facility]) Family History Medical History Relation Name Comments [...] Panel) 08/06/2022 Colorectal Cancer Screening: Colonoscopy 08/06/2022 Falls Risk Assessment 08/06/2022 Hepatitis C Screening 08/06/2022 Social Influencers of Health Screening 08/06/2022 Diabetes: Annual Urine Albumin-Creatinine Ratio (uACR) 08/21/2022 Diabetes: Blood Sugar Control Test (HGBA1C) 08/21/2022 Hypertension/CHF/CAD Annual BMP Blood Test 08/21/2022 Depression Screening 09/07/2024 COVID-19 Vaccine (8 - Pfizer risk 2023- season) 2024 05/18/2024, 05/27/2023, 05/15/2022, Additional history exists Influenza Vaccine (#1) 2025 06/07/2024 Zoster Vaccines Completed 03/18/2022, 01/21/2022 RSV Immunization Adult Patients Completed 05/27/2023 HIB Vaccines Aged Out No longer eligi [...] age to complete this topic Meningococcal B Vaccine Aged Out No l onger eligible based on patient's age to complete this topic RSV Immunization Patients Under 20 months Aged Out No longer eligible based on patient's age to complete this topic Varicella Vaccines Aged Out No longer eligible based on patient's age to complete this topic Procedures Procedure Name Priority Date/Time Associated Diagnosis Comments PET CT SKULL TO MID THIGH SUBSEQUENT Routine 02/08/2025 3:00 PM EDT Prostate cancer ([facility] V24, [facility] V28) from Last 3 Months Results * PET CT Skull to Mid Thigh Subsequent (02/08/2025 3:00 PM EDT) Anatomical Region Laterality Modality Body Radiographic Misty ging 02/14/2025 10:2 6 AM EDT Impressions 02/14/2025 11:31 AM EDT 1. No definite PSMA findings to suggest metastatic disease 2. Multiple bilateral scattered pulmonary nodules not demonstrating significant activity. Correlation with prior chest CT is suggested. If prior chest CT is not available or has been performed, consider follow-up with chest CT 3. Brachytherapy seeds within the prostate gland not demonstrating significant activity compared to mediastinal blood pool 4. Nonspecific abdominal and pelvic lymph nodes not demonstrating significant activity compared to mediastinal blood pool -------- FINAL REPORT -------- Dictated By: Maria M Stallings Dictated Date: 02/14/2025 10:26 ET Assigned Physician: Maria M Stallings Reviewed and Electronically Signed By: Maria M Stallings Signed Date: 02/14/2025 11:31 ET Workstation ID: [id number] Transcribed By: Self Edit Transcribed Date: 02/14/2025 10:26 ET Narrative 02/14/2025 11:31 AM EDT HISTORY: History of prostate carcinoma status post radiation therapy with rising prostate-specific antigen values. PRIOR IMAGING STUDIES: Correlation is made with prior CT of the abdomen and pelvis dated 06/2024 RADIOPHARMACEUTICAL: 9.3 mCi F-18 piflufolastat IV INJECTION SITE: Right antecubital INJECTION TIME TO SCAN TIME: 66 min PROCEDURE: Routine body PET-CT imaging performed from the head to the thighs and reconstructed in axial, coronal, sagittal planes at the computer workstation with fused data from both the PET imaging study and attenuation correction CT study. Please note, CT imaging utilized strictly for attenuation correction and anatomic localization: CT not designed to produce and cannot replace owbrr-hv-qsf-art true diagnostic CT examination with specific protocols. Standardized uptake values (SUV) normalized to patient body weight and indicate the highest active concentration (SUV max) in a given disease site. DLP: 661 mGy-cm IMAGING FINDINGS: Reference Values SUV Max: Parotid: 10.8 Blood Pool: 2 Liver: 8 Expected pattern of physiological activity noted. HEAD AND NECK: No abnormal activity. THORAX: Multiple bilateral scattered pulmonary nodules, the largest measuring 7 mm in the left upper lobe and right upper lobe without significant activity. For example: 5 mm nodule in the lingula SUV max 0.5, 7 mm nodule in the left lung apex SUV max 0.5 and 7 mm nodule in the right upper lobe SUV max 0.4. No significant metabolic activity within thoracic lymph nodes. For example, nonenlarged AP window lymph node SUV max 1.6 and subcarinal SUV max 1.3; not significantly increased from blood pool. Bihilar activity SUV max 2.1; not significantly increased from mediastinal blood pool. ABDOMEN/PELVIS: Brachytherapy seeds within the prostate gland not demonstrating significant activity SUV max 2.1. Nonenlarged retroperitoneal lymph nodes measuring up to SUV Max 0.9. 10 mm left common iliac lymph node SUV max 0.8. 7 mm right external iliac lymph node SUV max 1.4. Nonenlarged bilateral inguinal lymph nodes measuring up to SUV Max 1.3 on the right and 0.9 on the left. Nonspecific bowel uptake. Asymmetric right inguinal stranding SUV Max 2.3 with focal low-attenuation collection SUV Max 0.7; similar in appearance dating back to 2017 likely representing postsurgical appearance. MUSCULOSKELETAL: No abnormal activity. Procedure Note Maria M Stallings MD - 02/14/2025 HISTORY: History of prostate carcinoma status post radiation therapy withrising prostate-specific antigen values. PRIOR IMAGING STUDIES: Correlation is made with prior CT of the abdomenand pelvis dated 06/2024 RADIOPHARMACEUTICAL: 9.3 mCi F-18 piflufolastat IV INJECTION SITE: Right antecubital INJECTION TIME TO SCAN TIME: 66 min PROCEDURE: Routine body PET-CT imaging performed from the head to the thighs andreconstructed in axial, coronal, sagittal planes at the computerworkstation with fused data from both the PET imaging study andattenuation correction CT study. Please note, CT imaging utilized strictlyfor attenuation correction and anatomic localization: CT not designed toproduce and cannot replace lndqu-di-cgy-art true diagnostic CT examinationwith specific protocols. Standardized uptake values (SUV) normalized topatient body weight and indicate the highest active concentration (SUVmax) in a given disease site. DLP: 661 mGy-cm IMAGING FINDINGS: Reference Values SUV Max: Parotid: 10.8 Blood Pool: 2 Liver: 8 Expected pattern of physiological activity noted. HEAD AND NECK: No abnormal activity. THORAX: Multiple bilateral scattered pulmonary nodules, the largestmeasuring 7 mm in the left upper lobe and right upper lobe withoutsignificant activity. For example: 5 mm nodule in the lingula SUV max0.5, 7 mm nodule in the left lung apex SUV max 0.5 and 7 mm nodule in theright upper lobe SUV max 0.4. No significant metabolic activity within thoracic lymph nodes. Forexample, nonenlarged AP window lymph node SUV max 1.6 and subcarinal SUVmax 1.3; not significantly increased from blood pool. Bihilar activitySUV max 2.1; not significantly increased from mediastinal blood pool. ABDOMEN/PELVIS: Brachytherapy seeds within the prostate gland notdemonstrating significant activity SUV max 2.1. Nonenlarged retroperitoneal lymph nodes measuring up to SUV Max 0.9. 10mm left common iliac lymph node SUV max 0.8. 7 mm right external iliaclymph node SUV max 1.4. Nonenlarged bilateral inguinal lymph nodesmeasuring up to SUV Max 1.3 on the right and 0.9 on the left. Nonspecific bowel uptake. Asymmetric right inguinal stranding SUV Max 2.3with focal low-attenuation collection SUV Max 0.7; similar in appearancedating back to 2017 likely representing postsurgical appearance. MUSCULOSKELETAL: No abnormal activity. IMPRESSION: 1. No definite PSMA findings to suggest metastatic disease 2. Multiple bilateral scattered pulmonary nodules not demonstratingsignificant activity. Correlation with prior chest CT is suggested. Ifprior chest CT is not available or has been performed, consider follow-upwith chest CT 3. Brachytherapy seeds within the prostate gland not demonstratingsignificant activity compared to mediastinal blood pool 4. Nonspecific abdominal and pelvic lymph nodes not demonstratingsignificant activity compared to mediastinal blood pool -------- FINAL REPORT -------- Dictated By: Maria M Stallings Dictated Date: 02/14/2025 10:26 ET Assigned Physician: Maria M Stallings Reviewed and Electronically Signed By: Maria M Stallings Signed Date: 02/14/2025 11:31 ET Workstation ID: [id number] Transcribed By: Self Edit Transcribed Date: 02/14/2025 10:[address] MD IMG NM PROCEDURES Final Resul t from Last 3 Months Insurance [address], [place] [address] [facility] Care Teams Architecture Consultant Relationship Specialty Start Date End Date Adolfo Davila MD [address] [address] PCP - General Internal Medicine 06/09/19
[2025-03-27 17:04] LABS: Prostate Specific Antigen 2.65 ng/mL (<0.05-4.0)
== END 2025-03-27 12:38 | disposition home or self-care (01) ==
LOC: HO.HMGCLDS 12:37
PROVIDERS: PCP Internal Medicine; Visit Provider Urology
DX: C61 Malignant neoplasm of prostate (principal); Z12.5 Encounter for screening for malignant neoplasm of prostate
CPT/HCPCS: 36415; 84153; 84403

== ENCOUNTER 2025-04-11 11:03 | Outpatient (AMB) | payer MEDICARE, SELFPAY ==
--- NOTE | 2025-04-11 11:02 | MHC.OFFVIS ---
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 They are a patient of Dr Pascual. He is seen for the following urologic conditions - lower urinary tract symptoms - prostate cancer PSA failure Discuss PSMA imaging - no definitive recurrence, low activity and prostate May have recovery of normal prostate tissue Start finasteride Did note lung nodule on imaging and will obtain dedicated CT scan in 4 months 05/30 <0.1, 09/30 <0.1, 12/29 <0.1 T 6, 03/30 <0.1 T2, 07/31 0.2 T 90, 11/29 1.7 T 274, 03/31 2.6 Prostate Cancer - 06/28 high risk, grade group 4, low volume disease - GnRH 08/28, 03/29, 09/29 EXBRT 01/27 prostate and pelvic nodes EXBRT with [facility] with hormonal manipulation for 18 months - 37 treatments completed 01/[address] Lane 06/28 PSA at diagnosis 3.7 on finasteride Urine DNA Score 40 Biopsy 06/28 Histologic type: Adenocarcinoma, acinar and intraductal types Histologic grade: [place] score: 4+4=8 (left mid lateral) 60%, 4+3=7 (left base lateral) 30%, 3+4=7 (left apex lateral, right apex lateral)30%, 5%, 3+3=6 (right mid medial) 5% Number cores positive: 5 Total number of cores: 12 % of tissue involved: 10% of all tissue examined Periprostatic fat inv.: Not identified Seminal vesicle inv.: Not identified Perineural inv.: Not identified LVI: Not identified Prostate cancer staging - Prostate MRI - 08/28 1.4 cm PI-RADS 5 left apical lesion, no evidence of extracapsular extension - Bone Scan - degenerative changes PFSH Medical History (Updated 04/11/25 @ 11:[address] MD) Prostate cancer Dysplastic nevi Abnormal colonoscopy DM type 2 (diabetes mellitus, type 2) Inguinal hernia Hyperlipidemia HTN (hypertension) Surgical History History of surgery H/O colonoscopy H/O hernia repair Status post arthroscopic knee surgery Family History Father No problems noted. Mother No problems noted. 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 Alcohol intake: current Alcohol intake frequency: does not drink Patient Tobacco Use Status: Never used Tobacco e-Cigarette/Vaping Use: Never Used Second Hand Smoke Exposure: No service: No Current occupational status: retired Cognitive needs: No Hearing needs: No Vision needs: Yes Review of Systems Const Denies chills and Denies fever(s) Card Reports no additional complaints and Denies syncope Resp Denies cough GI Denies abdominal pain and Denies heartburn Reports as per HPI and Denies change in libido Neuro Denies syncope Psych Denies change in libido Endo Denies change in libido Physical Exam Const General: cooperative, healthy appearing, comfortable and no acute distress Orientation/consciousness: patient oriented x3 HEENT Face and sinus: Yes normal facial exam Mouth: moist mucous membranes Neck Neck: Yes normal visual inspection, Yes full ROM and Yes trachea midline Chest Chest palpation & inspection: normal inspection of the chest Resp Effort & Inspection: normal respiratory effort, able to speak in complete sentences and no respiratory distress GI Inspection: Yes normal to inspection Back/Spine/Pelvis Cervical Spine: normal cervical lordosis Thoracic/Lumbar Spine: thoracic and lumbar spine normal to inspection Skin General skin exam: no rashes or lesions noted Neuro General: patient oriented x3, gait normal, tone normal and moves all extremities Extrem General: Yes normal to inspection and Yes capillary refill normal Assessment & Plan Assessment & Plan (1) Prostate cancer: Comment: 06/28 High Grade, Low Volume, RTx Lala, f/u Dr. Lane Code(s): C61 - Malignant neoplasm of prostate Category: Medical (2) Lung nodule seen on imaging study: Code(s): R91.1 - Solitary pulmonary nodule Category: Medical Plan Surveillance 4 month Orders: Orders Prostate Specific Antigen 4 Months C61 - Malignant neoplasm of prostate CT chest wo IV con 4 Months C64.9 - Malignant neoplasm of unspecified kidney, except renal pelvis, R91.1 - Solitary pulmonary nodule Medications: New finasteride 5 mg PO DAILY 90 tabs 1RF 90 days C61 - Malignant neoplasm of prostate, R91.1 - Solitary pulmonary nodule Patient Instructions: This note is constructed using voice recognition software. While every effort has been made to ensure accuracy chief librarian circulation department errors may have been included. Imaging studies, laboratory and physical exam results were discussed and reviewed in detail. No major barriers to patient understanding were identified. An opportunity to ask questions regarding the treatment plan was provided. All questions were answered. The patient expressed understanding and agreement with the above treatment plan. The patient is aware they should contact our office by phone for worsening of their current condition or the appearance of new urologic symptoms. Compliance is encouraged with any medications and followup testing that is ordered. It is a privilege to participate in the urologic care of your patient. If you have any questions or concerns regarding treatment for the above conditions, or other urologic issues, please do not hesitate to contact me. The office telephone contact is [phone]. Sincerely, Dr Iker Lane MD, [facility] [employer] [facility] - Urology Compassionate Specialist Care for the Genitourinary System Coding Level of Care Code Est Pt Level 4 (73141) Diagnoses Prostate cancer C61 Lung nodule seen on imaging study R91.1
--- OUTSIDE RECORDS SUMMARY | 2025-04-11 11:51 | XMS_ITS | Clinical Summary ---
Author Organization 175 [facility] Address [address] [place] [address] Phone Care Team Providers Care Encoding Clerk Name Role Phone Adolfo Davila MD Primary Care Provider [phone] Allergies Active Allergy Reactions Criticality Noted Date [...] Date Diabetes mellitus type 2, un complicated (CMS/[facility] V24, [facility] V28) 07/29/2024 Hernia of abdominal wall 07/29/2024 [...] - 02/08/2025 11:59 PM EDT Hospital Encounter [facility] PET Scan [address] [place] [address] Prostate cancer ([facility] V24, [facility] V28) Discharge Disposition: Home or Self Care from Last 3 Months Surgical History Surgery Date Site/Laterality Comments HERNIA REPAIR PROCEDURE: [place] REPAIR FIRST ABDOMINAL WALL HERNIA KNEE ARTHROSCOPY Bilateral PROCEDURE: TN ARTHROSCOPY AID TX SPINE&/FX KNEE W/O FIXJ; [...] disc L5-S1 Diabetes mellitus type 2, uncomplicated ([facility] V24, [facility] V28) DX:Diabetes mellitus type 2, uncomplicated ([facility]) Family History Medical History Relation Name Comments [...] Routine 02/08/2025 3:00 PM EDT Prostate cancer ([facility] V24, [facility] V28) from Last 3 Months Results * [...] Signed Date: 02/14/2025 11:31 ET Workstation ID: [id number] Transcribed By: Self Edit Transcribed Date: 02/14/2025 [...] not designed to produce and cannot replace jwtmm-ax-snm-art true diagnostic CT examination with specific protocols. [...] CT not designed toproduce and cannot replace micka-kp-elq-art true diagnostic CT examinationwith specific protocols. Standardized [...] Signed Date: 02/14/2025 11:31 ET Workstation ID: [id number] Transcribed By: Self Edit Transcribed Date: 02/14/2025 10:[address] MD IMG NM PROCEDURES Final Resul t from Last 3 Months Insurance [address], [place] [address] [facility] Care Teams Encoding Clerk Relationship Specialty Start Date End Date Adolfo Davila MD [address] [address] PCP - General Internal Medicine 06/09/19
--- OUTSIDE RECORDS SUMMARY | 2025-04-11 11:51 | XMS_ITS | Patient Health Record ---
Author Organization [facility] Address [address] [place] [address] Care Team Providers Care Sliver Machine Operator Name Role Phone Alisa Pascual MD Primary Care Provider Tito Resendiz Unavailable [phone] Allergies Allergen (clinical drug ingredient) Drug/Non Drug [...] Problem Acquired hammer toe of right foot (98293700923423 05) Other hammer toe(s) (acquired), right foot (M20.41) Active confirmed Problem Acquired hammer toe of left foot (57628818890977 03) Other hammer toe(s) (acquired), left foot (M20.42) Active confirmed Problem Type II diabetes mellitus without complication (166679955) Type 2 diabetes mellitus without complication (E11.9) Active confirmed Problem Ulcer of toe of right foot (disorder) (88613545007710 101) Skin ulcer of toe of right foot, limited to breakdown of skin (L97.511) Active confirmed Response to treatment, Improving Vital Signs Blood pressure diastolic 68 mm Hg 02/27/2025 Height 6ft 3in in 02/27/2025 Blood pressure systolic 129 mm Hg 02/27/2025 Weight 213 lbs 02/27/2025 BMI 26.62 kg/m2 02/27/2025 Procedures Procedure Date Ordered Date Performed Result Body Sit e 69483-VPVLFFR NAIL, OR MORE 05/31/2024 N/A 61224-HXJWOAL NAIL, OR MORE 10/04/2024 N/A 33757-Ytuupszi Plate 10/04/2024 N/A 46900-KHLEHXQ NAIL, 6 OR MORE 01/06/2025 N/A 70653-Movjldvc Plate 01/06/2025 N/A 12456-EIFLUCX SKIN/TISSUE 01/27/2025 N/A 69641- Debride <25 sq cm 02/10/2025 N/A 27296- Debride <25 sq cm 02/27/2025 N/A Encounters Encounter Location Date Provider Diagnosis [address] [address] 05/31/2024 Tito Isaac Pain of toe of right foot M79.674 ; Onychomycosis B35.1 ; Pain of toe of left foot M79.675 and Type 2 diabetes mellitus without complication E11.[address] [address] 10/04/2024 Tito Isaac Pain of toe of right foot M79.674 ; Onychomycosis B35.1 ; Pain of toe of left foot M79.675 ; Type 2 diabetes mellitus without complication E11.9 ; Other hammer toe(s) (acquired), right foot M20.41 ; Other hammer toe(s) (acquired), left foot M20.42 and Ingrown nail L60.0 [address] [place] [address] 01/06/2025 Tito Isaac Pain of toe of right foot M79.674 ; Pain of toe of left foot M79.675 ; Onychomycosis B35.1 ; Type 2 diabetes mellitus without complication E11.9 and Ingrown nail L60.[address] [address] 01/27/2025 Tito Isaac Pain in right toe(s) M79.674 ; Contusion of lesser toe of right foot without damage to nail, initial encounter S90.121A ; Cellulitis of toe of right foot L03.031 ; Skin ulcer of toe of right foot with fat layer exposed L97.512 and Type 2 diabetes mellitus without complication E11.[address] [address] 02/10/2025 Tito Isaac Pain in right toe(s) M79.674 ; Cellulitis of toe of right foot L03.031 ; Type 2 diabetes mellitus without complication E11.9 ; Skin ulcer of toe of right foot, limited to breakdown of skin L97.511 and Contusion of lesser toe of right foot without damage to nail, subsequent encounter S90.121D [address] [address] 02/27/2025 Tito Isaac Pain in right toe(s) M79.674 ; Cellulitis of toe of right foot L03.031 ; Type 2 diabetes mellitus without complication E11.9 ; Skin ulcer of toe of right foot, limited to breakdown of skin L97.511 and Contusion of lesser toe of right foot without damage to nail, subsequent encounter S90.121D [address] [address] 02/07/2025 Tito Isaac Assessments Encounter Date Diagnosis [...] X ray : Foot, right 3V 02/10/2025 51817-DACODAO NAIL, 6 OR MORE 01/06/2025 99389-ZATBZMJ NAIL, 6 OR MORE 01/17/2020 24410-JIMBHQO NAIL, 6 OR MORE 04/24/2020 65223-MKXNNAD NAIL, 6 OR MORE 07/24/2020 25004-TONRJPS NAIL, 6 OR MORE 12/04/2020 32176-TEZGGXT NAIL, 6 OR MORE 03/05/2021 30612-YAIWCSF NAIL, 6 OR MORE 06/04/2021 85553-VWKOTSA NAIL, 6 OR MORE 09/10/2021 09053-IDBEKDF NAIL, 6 OR MORE 12/17/2021 02992-MHQBYOK NAIL, 6 OR MORE 03/25/2022 62319-DUZIKDT NAIL, 6 OR MORE 06/24/2022 04981-XMEKYYW NAIL, 6 OR MORE 09/23/2022 84528-LRAZZOS NAIL, 6 OR MORE 02/17/2023 01367-DUOCQGE NAIL, 6 OR MORE 05/26/2023 54054-QJWOPSK NAIL, 6 OR MORE 08/25/2023 38777-UCYUJGN NAIL, 6 OR MORE 11/24/2023 18087-EHLIVQE NAIL, 6 OR MORE 03/01/2024 44188-KEIPVRE NAIL, 6 OR MORE 05/31/2024 10611-KYGOPMB NAIL, 6 OR MORE 10/04/2024 16663-UGGJRKZ NAIL, 6 OR MORE 05/02/2011 38851-NLYKIMV NAIL, 6 OR MORE 07/22/2011 94083-KGRTCMI NAIL, 6 OR MORE 10/07/2011 43519-HZXCUVA NAIL, 6 OR MORE 01/09/2012 78249-HUHJAIP NAIL, 6 OR MORE 05/25/2012 43953-NMGQNYQ NAIL, 6 OR MORE 08/17/2012 74813-TUHKHUZ NAIL, 6 OR MORE 11/05/2012 60004-RPRQKUG NAIL, 6 OR MORE 02/15/2013 35813-KLVQOBS NAIL, 6 OR MORE 09/27/2013 05555-KHTCOBS NAIL, 6 OR MORE 01/10/2014 12661-SEIEQZW NAIL, 6 OR MORE 04/11/2014 58568-OEWSRCW NAIL, 6 OR MORE 07/04/2014 16376-CLTLMME NAIL, 6 OR MORE 11/03/2014 38409-OQRNHTQ NAIL, 6 OR MORE 06/21/2013 18012-RDVSFOQ NAIL, 6 OR MORE 05/29/2017 40270-YGJASAA NAIL, 6 OR MORE 09/18/2017 53713-XZCRLKW NAIL, 6 OR MORE 03/12/2018 06675-BRSTZMD NAIL, 6 OR MORE 06/15/2018 54120-BSNWQRT NAIL, 6 OR MORE 09/28/2018 18994-JCWVDDL NAIL, 6 OR MORE 01/04/2019 05779-EBWXXCC NAIL, 6 OR MORE 04/05/2019 35282-QHINFGT NAIL, 6 OR MORE 12/18/2017 30720-QPDXHQQ NAIL, 6 OR MORE 07/12/2019 88718-RDNZTUO NAIL, 6 OR MORE 10/18/2019 10346-Xuaekcax Plate 03/12/2018 00955-Odjncmaa Plate 04/05/2019 63516-Odikfajq Plate 12/18/2017 73720-Yebrzdvr Plate 09/18/2017 64405-Jsjiwgkr Plate 05/29/2017 36562-Uptlrhei Plate 11/03/2014 77033-Exozmugm Plate 07/04/2014 36555-Ftcqjsor Plate 04/11/2014 65222-Kpvurhbo Plate 01/10/2014 34732-Oovndzue Plate 09/27/2013 09728-Ieqxarnm Plate 02/15/2013 82849-Sfcdeodx Plate 11/05/2012 27837-Fzgqzvge Plate 07/22/2011 23832-Ekhnknep Plate 08/17/2012 73856-Zokaelms Plate 05/25/2012 28201-Flzeznab Plate 01/09/2012 40473-Zdexskgu Plate 10/07/2011 15017-Svudjdqw Plate 05/02/2011 15712-Mydufxsg Plate 10/04/2024 30363-Juoecydx Plate 03/01/2024 78833-Kbocwdjk Plate 11/24/2023 30113-Dazjuvsc Plate 08/25/2023 13226-Ueyplqrr Plate 05/26/2023 99214-Abbvkafm Plate 02/17/2023 77224-Shelyjco Plate 09/23/2022 29247-Bbvdilqo Plate 06/24/2022 24974-Trltzadd Plate 03/25/2022 74664-Cplkqjhi Plate 12/17/2021 98465-Gengshdo Plate 09/10/2021 74723-Vcishfod Plate 06/04/2021 33308-Yrmthmef Plate 03/05/2021 24111-Eyshgjjn Plate 12/04/2020 75591-Cshadpst Plate 07/24/2020 24640-Wrptvjjo Plate 04/24/2020 63831-Mnxwstxx Plate 01/06/2025 60721-Uqqjmcqd Plate Each Additional 17578-Vapxrzjq Plate Each Additional 45614-Hjhrsvcf Plate Each Additional 12/2011 60747-Oostqcsv Plate Each Additional 04353-Eaihxqbp Plate Each Additional 07/2012 51490-Snxkbipy Plate Each Additional 20229-Yvtnwiln Plate Each Additional 09/2012 42607-Twjkbdqk Plate Each Additional 07/2013 51036-Dhzwhvjz Plate Each Additional 03918-Ziqyvjtw Plate Each Additional 02/2014 29031-Ivjydrnk Plate Each Additional 01/2014 88150-Ikwrqwty Plate Each Additional 93176-Czjinabo Plate Each Additional 11279-DGM 03/15/2013 20542- Debride <25 sq cm 03/15/2013 96914- Debride <25 sq cm 09/27/2013 58972- Debride <25 sq cm 11/03/2014 57637- Debride <25 sq cm 07/04/2014 76399- Debride <25 sq cm 04/11/2014 05826- Debride <25 sq cm 01/10/2014 49873- Debride <25 sq cm 04/15/2013 34590- Debride <25 sq cm 06/21/2013 25142- Debride <25 sq cm 02/10/2025 15841- Debride <25 sq cm 02/27/2025 46897-CCYPMEC SKIN/TISSUE 01/27/2025 26744-KUCQLBP SKIN/TISSUE 03/29/2013 15470-SNWD SKIN LESIONS, 2 TO 4 08/17/20 12 72483-EIPJ SKIN LESIONS, 2 TO 4 05/25/20 12 64193-ERUQ SKIN LESIONS, 2 TO 4 01/09/20 12 39833-ABEV SKIN LESIONS, 2 TO 4 10/07/19 12 34019-ZBNF SKIN LESIONS, 2 TO 4 05/02/20 11 71415-NDYS SKIN LESIONS, 2 TO 4 07/22/20 11 94147-Ylfe. Subungual Hematoma 0 26415-Mlsh. Subungual Hematoma 1 21920-Bxwx. Subungual Hematoma 2 61571- Removal of Foreign Body, Subcut 0 10/07/2011 37958- Removal of Foreign Body, Subcut 0 11/14/2011 33273- Removal of Foreign Body, Subcut 0 01/09/2012 Next Appt Details Provider Name:Tito Gray , 04/11/2025 02:45:00 PM, [address] [place], [address], Insurance Providers Payer Name Payer Address Payer Phone Subscriber Number Group Number Insured Name Patient Relationship to Insured Coverage Start Date Coverage End Date [facility] 63 Medicare Preferred [address] [place] [address] [id number] Austen Carrero Self - patient is the [...]
== END 2025-04-11 11:34 | disposition home or self-care (01) ==
LOC: HO.HUSH 11:03
PROVIDERS: PCP Internal Medicine; Visit Provider Urology
DX: C61 Malignant neoplasm of prostate (principal); N40.1 Benign prostatic hyperplasia with lower urinary tract symptoms; R35.1 Nocturia; R91.1 Solitary pulmonary nodule
CPT/HCPCS: 99214

== ENCOUNTER → 2025-04-11 11:03 | Outpatient (BNVA) | payer MEDICARE, SELFPAY | PROVIDERS: PCP Internal Medicine; Visit Provider Urology | DX: C61 Malignant neoplasm of prostate (principal); R91.1 Solitary pulmonary nodule | CPT/HCPCS: 81003; 99212 ==

== ENCOUNTER 2025-05-11 11:15 | Outpatient (REF) | payer MEDICARE, SELFPAY ==
--- OUTSIDE RECORDS SUMMARY | 2025-01-24 11:00 | XMS_ITS ---
Author Organization [facility] Address [address] [place] [address] Care Team Providers Care Manager Medicare Name Role Phone Samara LUCERO, Alisa Primary Care Provider Tito Resendiz Unavailable [phone] REASON FOR VISIT r/s for apt on 01/06/25 Encounters Encounter Location Date Provider Diagnosis [address] [address] 01/24/2025 Tito Gray Plan Of Treatment Next Appt Details Provider Name:Tito Gray , 07/28/2025 01:45:00 PM, [address] [place] [address], [address], Progress Notes * Austen CARRERO JrDOB:[birth year] (69 yo M)Acc No.[id number]:01/24/2025 Progress Note Patient: Zena Austen DANIELS Jr Provider: Chepe Gray DPM :1955 A ge:69 Y S ex:Male Date:01/24/2025 Address:[address] [place] [address], [address], [id number] Pcp:Alisa Pascual MD Subjective: * Chief Complaints: [...] 01/24/2025 Generated for Nataly jones/Dionicio/Chris on: 0 05/11/2025 12:54 PM EDT
--- OUTSIDE RECORDS SUMMARY | 2025-05-11 12:55 | XMS_ITS | Clinical Summary ---
Author Organization [address] [facility] Address [address] [place] [address] Phone Care Team Providers Care Recruiting Associate Name Role Phone Adolfo Davila MD Primary Care Provider [phone] Allergies Active Allergy Reactions Criticality Noted Date [...] Date Diabetes mellitus type 2, un complicated (CMS/[facility] V24, [facility] V28) 07/29/2024 Hernia of abdominal wall [...] - 02/08/2025 11:59 PM EDT Hospital Encounter [facility] PET Scan [address] [place] [address] Prostate cancer ([facility] V24, [facility] V28) Discharge Disposition: Home or Self Care [...] disc L5-S1 Diabetes mellitus type 2, uncomplicated ([facility] V24, [facility] V28) DX:Diabetes mellitus type 2, uncomplicated ([facility]) Family History Medical History Relation Name [...] 09/23/2024 9:47 AM EST Plan of Treatment Upcoming Encounters Date Type Department Care Team (Late st Contact Info) Description 05/16/2025 12:45 PM EDT Clinical Support [facility] [address] [place] [address] Health Maintenance Due Date Last Done Comments [...] Routine 02/08/2025 3:00 PM EDT Prostate cancer ([facility] V24, [facility] V28) from Last 3 Months Results [...] Signed Date: 02/14/2025 11:31 ET Workstation ID: [id number] Transcribed By: Self Edit Transcribed Date: 02/14/2025 [...] not designed to produce and cannot replace jfyjt-pm-frb-art true diagnostic CT examination with specific protocols. [...] CT not designed toproduce and cannot replace fgtgj-bd-oit-art true diagnostic CT examinationwith specific protocols. Standardized [...] Signed Date: 02/14/2025 11:31 ET Workstation ID: [id number] Transcribed By: Self Edit Transcribed Date: 02/14/2025 10:[address] MD IMG NM PROCEDURES Final Resul t from Last 3 Months Insurance [address] [address] [facility] Care Teams Recruiting Associate Relationship Specialty Start Date End Date Adolfo Davila MD [address] [address] PCP - General Internal Medicine 06/09/19
--- OUTSIDE RECORDS SUMMARY | 2025-05-11 12:55 | XMS_ITS | Patient Health Record ---
Author Organization [facility] Address [address] [place] [address] Care Team Providers Care Transformer Inspector Name Role Phone Alisa Pascual MD Primary Care Provider Tito Resendiz Unavailable [phone] Allergies Allergen (clinical drug ingredient) Drug/Non Drug Allergy documented on EMR Reaction Allergy Type Onset Date Status Penicillin redness Drug Allergy Active Results Component Value Reference Range Notes HEMOGLOBIN A1C (GLYCOHEMOGLO BIN) Reviewed date:10/04/2024 04:09:32 [...] Duration) Notes Start Date End Date Status Glimepiride 4 MG 1 tablet with breakf ast or the first main meal of the day Orally Once a day; Duration: 30 days Active metFORMIN HCl 1000 MG 1 tablet with meal s Orally Twice a day Active Lisinopril 10 MG 1 tablet Orally Once a day; Duration: 30 day(s) Active Bactrim DS 800-160 MG 1 tablet Orally ev vicki 12 hrs; Duration: 10 day(s) Active Januvia 100 MG 2 tablets Orally Onc e a day; Duration: 30 day(s) Not-Crescencio ing Doxycycline Monohydrate 100 MG 1 capsule Orally Twice a day; Duration: 10 days 01/27/2025 Not-Takin g Tresiba 100 UNIT/ML as directed Subcutaneous Active Vicodin 5-300 MG 1-2 tablet as needed Orally every 6 hrs; Duration: 5 days 03/15/2013 Not-Taking Rosuvastatin Calcium 40 MG Orally Active Jardiance 25 MG Orally Once a day Not-Taking Finasteride 5 MG 1 tablet Orally Once a day; Duration: 30 day(s) Not-Crescencio ing Immunizations Vaccine Route Administration Date Status Comme [...] Problem Acquired hammer toe of right foot (18870499785302 05) Other hammer toe(s) (acquired), right foot (M20.41) Active confirmed Problem Acquired hammer toe of left foot (47698261762170 03) Other hammer toe(s) (acquired), left foot (M20.42) Active confirmed Problem Type II diabetes mellitus without complication (681001579) Type 2 diabetes mellitus without complication (E11.9) Active confirmed Problem Ulcer of toe of right foot (disorder) (81479597896422 101) Skin ulcer of toe of right foot, limited to breakdown of skin (L97.511) Active confirmed Response to treatment, Improving Problem Skin ulcer of toe of right foot with fat layer exposed (L97.512) Active confirmed Response to treatment, Recurrent Vital Signs Blood pressure diastolic 65 mm Hg 04/11/2025 Height 6ft 3in in 04/11/2025 Blood pressure systolic 128 mm Hg 04/11/2025 Weight 213 lbs 04/11/2025 BMI 26.62 kg/m2 04/11/2025 Procedures Procedure Date Ordered Date Performed Result Body Sit e 78052-KEVFMLQ NAIL, 6 OR MORE 05/31/2024 N/A 79026-OZGANHL NAIL, 6 OR MORE 10/04/2024 N/A 56715-Pizpfulb Plate 10/04/2024 N/A 08682-FOXYLKD NAIL, 6 OR MORE 01/06/2025 N/A 79779-Vfjoqnvs Plate 01/06/2025 N/A 35183-CLELKZX SKIN/TISSUE 01/27/2025 N/A 79882- Debride <25 sq cm 02/10/2025 N/A 42047- Debride <25 sq cm 02/27/2025 N/A 40812-LNCJSNI NAIL, 6 OR MORE 04/11/2025 N/A 65038-KMPBFND SKIN/TISSUE 04/11/2025 N/A Encounters [facility]counter [facility] [address] [facility] Tito Isaac Pain of toe of right foot M79.674 ; Onychomycosis B35.1 ; Pain of toe of left foot M79.675 and Type 2 diabetes mellitus without complication E11.9 [facility] [address] 10/04/2024 Tito Isaac Pain of toe of right foot M79.674 ; Onychomycosis B35.1 ; Pain of toe of left foot M79.675 ; Type 2 diabetes mellitus without complication E11.9 ; Other hammer toe(s) (acquired), right foot M20.41 ; Other hammer toe(s) (acquired), left foot M20.42 and Ingrown nail L60.[address] [address] 01/06/2025 Tito Isaac Pain of toe of right foot M79.674 ; Pain of toe of left foot M79.675 ; Onychomycosis B35.1 ; Type 2 diabetes mellitus without complication E11.9 and Ingrown nail L60.[address] [address] 01/27/2025 Tito Isaac Pain in right toe(s) M79.674 ; Contusion of lesser toe of right foot without damage to nail, initial encounter S90.121A ; Cellulitis of toe of right foot L03.031 ; Skin ulcer of toe of right foot with fat layer exposed L97.512 and Type 2 diabetes mellitus without complication E11.[address] [address] 02/10/2025 Tito Isaac Pain in right toe(s) M79.674 ; Cellulitis of toe of right foot L03.031 ; Type 2 diabetes mellitus without complication E11.9 ; Skin ulcer of toe of right foot, limited to breakdown of skin L97.511 and Contusion of lesser toe of right foot without damage to nail, subsequent encounter S90.121D [facility] [address] [address] 02/27/2025 Tito Isaac Pain in right toe(s) M79.674 ; Cellulitis of toe of right foot L03.031 ; Type 2 diabetes mellitus without complication E11.9 ; Skin ulcer of toe of right foot, limited to breakdown of skin L97.511 and Contusion of lesser toe of right foot without damage to nail, subsequent encounter S90.121D [address] [address] 04/11/2025 Tito Isaac Pain of toe of right foot M79.674 ; Pain of toe of left foot M79.675 ; Onychomycosis B35.1 ; Type 2 diabetes mellitus without complication E11.9 ; Contusion of lesser toe of right foot without damage to nail, subsequent encounter S90.121D ; Cellulitis of toe of right foot L03.031 and Skin ulcer of toe of right foot with fat layer exposed L97.[address] [address] [facility] [place] [address] [place] [address] [facility] [place] [address] [place] [address] 04/13/2025 Tito Gray Assessments Encounter Date Diagnosis (ICD [...] - L03.031) Response to treatment - Improvement 04/11/2025 Pain of toe of right foot (ICD-10 - M79.674) 04/11/2025 Onychomycosis (ICD-10 - B35.1) 04/11/2025 Pain of toe of left foot (ICD-10 - M79.675) 02/27/2025 Type 2 diabetes mellitus without complication [...] CARE INSTRUCTIONS. pdf (WOUND CARE INSTRUCTIONS. pdf) 04/11/2025 Type 2 diabetes mellitus without complication (ICD-10 - E11.9) 04/11/2025 Contusion of lesser toe of right foot without damage to nail, subsequent encounter (ICD-10 - S90.121D) 02/27/2025 Contusion of lesser toe of right [...] toe(s) (acquired), left foot (ICD-10 - M20.42) 04/11/2025 Cellulitis of toe of right foot (ICD-10 - L03.031) 04/11/2025 Skin ulcer of toe of right foot with fat layer exposed (ICD-10 - L97.512) Response to treatment, Recurrent Patient Educated with: WOUND CARE INSTRUCTIONS. pdf (WOUND CARE INSTRUCTIONS. pdf) 10/04/2024 Ingrown nail (ICD-10 - L60.0) 01/06/2025 Ingrown nail (ICD-10 - L60.0) 05/31/2024 Other 10/04/2024 Other 01/27/2025 Other 02/10/2025 Other 02/27/2025 Other Plan Of Treatment Pending Test Test Name Order Date X ray : Foot, right 3V 01/27/2025 X ray : Foot, right 3V 02/10/2025 72513-WRXFDJC NAIL, 6 OR MORE 04/11/2025 02927-NLKEFFH NAIL, 6 OR MORE 01/06/2025 95529-MIONZMW NAIL, 6 OR MORE 01/17/2020 63215-GWEXBMC NAIL, 6 OR MORE 04/24/2020 51937-SVVEPQN NAIL, 6 OR MORE 07/24/2020 54780-AJXZFIR NAIL, 6 OR MORE 12/04/2020 08163-RGHHIWI NAIL, 6 OR MORE 03/05/2021 19048-HYYRGCK NAIL, 6 OR MORE 06/04/2021 74364-JUIMJPM NAIL, 6 OR MORE 09/10/2021 47865-QCGZFXV NAIL, 6 OR MORE 12/17/2021 57591-SJYWIYU NAIL, 6 OR MORE 03/25/2022 65385-IEVYPRE NAIL, 6 OR MORE 06/24/2022 05260-CIKDOKL NAIL, 6 OR MORE 09/23/2022 96373-STDSRQY NAIL, 6 OR MORE 02/17/2023 09446-CQIMJPV NAIL, 6 OR MORE 05/26/2023 71395-EGRBKKC NAIL, 6 OR MORE 08/25/2023 02110-FGXJUQK NAIL, 6 OR MORE 11/24/2023 19579-PIAXWEH NAIL, 6 OR MORE 03/01/2024 30525-MJYKGBP NAIL, 6 OR MORE 05/31/2024 00511-WBKBLMJ NAIL, 6 OR MORE 10/04/2024 90788-LXCXHYX NAIL, 6 OR MORE 05/02/2011 87393-RYQQTGI NAIL, 6 OR MORE 07/22/2011 68431-RCGGSKB NAIL, 6 OR MORE 10/07/2011 46844-OCQXRNC NAIL, 6 OR MORE 01/09/2012 67573-GUDDWGQ NAIL, 6 OR MORE 05/25/2012 30273-SVBWABL NAIL, 6 OR MORE 08/17/2012 80827-ESQRZRX NAIL, 6 OR MORE 11/05/2012 41439-YOKVZMJ NAIL, 6 OR MORE 02/15/2013 03362-VRRFJHQ NAIL, 6 OR MORE 09/27/2013 12006-MWURMMG NAIL, 6 OR MORE 01/10/2014 00065-POVGGLM NAIL, 6 OR MORE 04/11/2014 01961-GXEUQTQ NAIL, 6 OR MORE 07/04/2014 50716-NFMBIMY NAIL, 6 OR MORE 11/03/2014 72374-ESGUJFX NAIL, 6 OR MORE 06/21/2013 05726-UBSBRGQ NAIL, 6 OR MORE 05/29/2017 57073-PINFALZ NAIL, 6 OR MORE 09/18/2017 25778-OCJJQNE NAIL, 6 OR MORE 03/12/2018 85505-MNNMDZS NAIL, 6 OR MORE 06/15/2018 42309-PCICQWW NAIL, 6 OR MORE 09/28/2018 12424-OBDYQLA NAIL, 6 OR MORE 01/04/2019 00586-FTGOKGM NAIL, 6 OR MORE 04/05/2019 69540-WSKYJLP NAIL, 6 OR MORE 12/18/2017 22681-PDKWVVJ NAIL, 6 OR MORE 07/12/2019 00293-ZNFTXMY NAIL, 6 OR MORE 10/18/2019 98413-Lvwfroim Plate 03/12/2018 93665-Exqwyogh Plate 04/05/2019 49255-Avjjjugy Plate 12/18/2017 17753-Vgjseqon Plate 09/18/2017 98790-Ujoorupg Plate 05/29/2017 58740-Hbqomdst Plate 11/03/2014 33056-Xjrzuohz Plate 07/04/2014 17773-Eeiutecl Plate 04/11/2014 35233-Jpfpsihh Plate 01/10/2014 29865-Yzdspezn Plate 09/27/2013 65471-Gatgubnv Plate 02/15/2013 30700-Otqcwqlt Plate 11/05/2012 57556-Zhllqnvn Plate 07/22/2011 54714-Lmbdocsj Plate 08/17/2012 92120-Hetozwip Plate 05/25/2012 41809-Zxlbfudj Plate 01/09/2012 72928-Fcgestmc Plate 10/07/2011 37489-Blmnzahc Plate 05/02/2011 72109-Hagsebzj Plate 10/04/2024 09558-Efycznlo Plate 03/01/2024 74272-Eqdzehvx Plate 11/24/2023 09486-Prvswwhu Plate 08/25/2023 17368-Pewtwkmi Plate 05/26/2023 17421-Qjwayecf Plate 02/17/2023 93231-Dtiqgnrk Plate 09/23/2022 70089-Xkhbgway Plate 06/24/2022 97124-Npqcmoqo Plate 03/25/2022 28212-Dqkbikrr Plate 12/17/2021 01508-Wlqjctjq Plate 09/10/2021 60827-Abvwosvy Plate 06/04/2021 26642-Vrziohao Plate 03/05/2021 61594-Ggtbqafr Plate 12/04/2020 22419-Ksmtjmpf Plate 07/24/2020 07133-Npvsphqa Plate 04/24/2020 86756-Obdkfhrh Plate 01/06/2025 22066-Ojnxkjfr Plate Each Additional 13789-Jmwpyjbr Plate Each Additional 79274-Ocvkloju Plate Each Additional 12/2011 72747-Szbyarig Plate Each Additional 80399-Dntqzoya Plate Each Additional 07/2012 44014-Txjjauov Plate Each Additional 92404-Bxazqyuw Plate Each Additional 09/2012 00474-Gxypmczl Plate Each Additional 07/2013 24958-Xgsxoptd Plate Each Additional 32949-Jgvqqbtw Plate Each Additional 02/2014 89189-Acxmxwpa Plate Each Additional 01/2014 91925-Ytapxqfl Plate Each Additional 24129-Volbgebt Plate Each Additional 94919-ELG 03/15/2013 33426- Debride <25 sq cm 03/15/2013 55957- Debride <25 sq cm 09/27/2013 80758- Debride <25 sq cm 11/03/2014 79730- Debride <25 sq cm 07/04/2014 22140- Debride <25 sq cm 04/11/2014 17355- Debride <25 sq cm 01/10/2014 69139- Debride <25 sq cm 04/15/2013 61162- Debride <25 sq cm 06/21/2013 37047- Debride <25 sq cm 02/10/2025 89288- Debride <25 sq cm 02/27/2025 26845-FRCXHJB SKIN/TISSUE 04/11/2025 67030-IBQHGNB SKIN/TISSUE 01/27/2025 01766-QDRCTZR SKIN/TISSUE 03/29/2013 57497-FKGQ SKIN LESIONS, 2 TO 4 08/17/20 12 74060-UBCB SKIN LESIONS, 2 TO 4 05/25/20 12 18468-FDMH SKIN LESIONS, 2 TO 4 01/09/20 12 24566-GZDX SKIN LESIONS, 2 TO 4 10/07/19 12 09852-LZUT SKIN LESIONS, 2 TO 4 05/02/20 11 60317-YSYC SKIN LESIONS, 2 TO 4 07/22/20 11 38548-Vmox. Subungual Hematoma 0 61943-Dhhl. Subungual Hematoma 1 55919-Lshc. Subungual Hematoma 2 10523- Removal of Foreign Body, Subcut 0 10/07/2011 00400- Removal of Foreign Body, Subcut 0 11/14/2011 13492- Removal of Foreign Body, Subcut 0 01/09/2012 Next Appt Details Provider Name:Tito Carlos Gray , 07/28/2025 01:45:00 PM, [address] [place], [address], Insurance Providers Payer Name Payer Address Payer Phone Subscriber Number Group Number Insured Name Patient Relationship to Insured Coverage Start Date Coverage End Date [employer] 65 Medicare Preferred [address] [place] [address] [id number] Austen Carrero Self - patient is the [...]
[2025-05-11 13:23] LABS: MANUAL DIFF FLAG NO
[2025-05-11 13:26] LABS: Alanine Aminotransferase 32 U/L (0-40); Albumin Level 4.4 g/dL (3.5-5.0); Alkaline Phosphatase 59 U/L (39-117); Anion Gap 14 (12-20); Aspartate Amino Transferase 31 U/L (5-37); Blood Urea Nitrogen 10 mg/dL (9-16); Calcium 9.8 mg/dL (8.4-10.2); Carbon Dioxide 28 mmol/L (22-29); Chloride 105 mmol/L (96-108); Cholesterol 143 mg/dL (<200); Estimated Glomerular Filt Rate > 60; HDL Cholesterol 55 mg/dL (>40); Potassium 4.3 mmol/L (3.3-5.1); Sodium 143 mmol/L (135-145); Total Protein 6.5 g/dL (6.5-8.0); Triglycerides 120 mg/dL (<150)
[2025-05-11 13:31] LABS: Hematocrit 36.4 % (42.0-52.0); Hemoglobin 12.6 g/dl (14.0-18.0); Imm Gran Abs Auto 0.01 X10*3/uL (0.00-0.03); Imm Gran Pct Auto 0.2 % (0.0-0.4); Lymphocytes Absolute Auto 0.8 X10*3/uL (1.2-4.9); Mean Corpuscular HGB Conc 34.6 g/dl (31.0-36.0); Mean Corpuscular Hemoglobin 32.2 pg (27.0-33.0); Mean Corpuscular Volume 93.1 fL (80.0-98.0); NRBC Abs Auto 0.000 X10*3/uL (0.0-0.012); NRBC Pct Auto 0.0 /100WBC (0.0-0.2); Platelet Count 213 X10*3/uL (160-400); Red Blood Count 3.91 X10*6/uL (4.60-5.80); White Blood Count 5.1 X10*3/uL (4.8-10.8)
[2025-05-11 13:43] LABS: Hemoglobin A1C 238.7510 umol/L; Total Hemoglobin (HGBA1C) 3253.7407 umol/L
[2025-05-11 13:46] LABS: Microalbum/Creatinine Ratio Ur 21.3 ug/mg cr (<30)
== END 2025-05-11 11:16 | disposition home or self-care (01) ==
LOC: HO.HMGCLDS 11:15
PROVIDERS: PCP Internal Medicine; Visit Provider Internal Medicine
DX: E11.9 Type 2 diabetes mellitus without complications (principal)
CPT/HCPCS: 36415; 80053; 80061; 82043; 82570; 83036; 85025

== ENCOUNTER 2025-05-15 13:38 | Outpatient (AMB) | payer MEDICARE, SELFPAY ==
--- OUTSIDE RECORDS SUMMARY | 2025-01-24 11:00 | XMS_ITS ---
Author Organization [facility] Address [address] [place] [address] Care Team Providers Care Binding Stitcher Name Role Phone Samara LUCERO, Alisa Primary Care Provider Tito Resendiz Unavailable [phone] REASON FOR VISIT r/s for apt on 01/06/25 Encounters Encounter Location Date Provider Diagnosis [address] [address] 01/24/2025 Tito Gray Plan Of Treatment Next Appt Details Provider Name:Tito Gray , 07/28/2025 01:45:00 PM, [address] [place] [address], [address], Progress Notes * Austen CARRERO JrDOB:[birth year] (69 yo M)Acc No.[id number]:01/24/2025 Progress Note Patient: Zena Austen DANIELS Jr Provider: Chepe Gray DPM :1955 A ge:69 Y S ex:Male Date:01/24/2025 Address:[address] [place] [address], [address], [place] Pcp:Alisa Pascual MD Subjective: * Chief Complaints: [...] DPM Date: 0 01/24/2025 Generated for Nataly jones/Dionicio/Chris on: 0 05/15/2025 03:51 PM EDT
[2025-05-15 13:50] VITALS: BP 124/66; PULSE 81; RESP 19; TEMP 36.6; O2SAT 98; BMI 26.9
--- NOTE | 2025-05-15 13:50 | A.OFFPC_ITS ---
Vital Signs 05/15/25 13:50 Height 6 ft 3 in Weight 215 lb BMI 26.9 BP 124/66 Blood Pressure Location Lt brachial Position Sitting Respiration 19 Pulse 81 Pulse Source Pulse Oximeter Temp 97.8 F Temp Source Oral Pulse Oximetry (%) 98 Oxygen Delivery Method Room Air Intake Visit Reasons: 3 months f/up Intake Note: Pt is here today for 3 months follow up visit. Allergies penicillin G Allergy (Unknown, Verified 05/15/25 13:50) rash all over body Medication List - Last Reconciled 05/15/25 by Alisa Pascual MD blood sugar diagnostic (Hype InnovationTouch Verio test strips) USE TO TEST BLOOD SUGAR ONCE A DAY finasteride 5 mg PO DAILY 90 days lancets (Monolet Lancets) test blood sugar once a day lancets Microlet lancets check glucose once a day lisinopril 10 mg PO DAILY metformin 1,000 mg PO BID pen needle, diabetic (Advocate Pen Needle) Use to inject insulin once a day rosuvastatin 40 mg PO DAILY Tresiba FlexTouch U-100 (insulin degludec) 30 units (0.3 mL) subcut BEDTIME NS Tobacco use date assessed: 05/15/25 Fall risk assessment: No Falls in past year Last assessed Fall Risk: 05/15/25 Dental Screening Dental Screen Date: 11/21/24 HPI 3 months f/up HPI Details Pt presents for f/u IDDM, hyperlipid. Pt has not been compliant with ADA, eating lot of processed foods pizza and drinking up to 12 cans of soda a day. Patient reports fasting blood glucose readings between 112 to over 200 in the last few weeks. He has been taking 20 units of Tresiba. [facility] Medical History Prostate cancer Dysplastic nevi Abnormal colonoscopy DM type 2 (diabetes mellitus, type 2) Inguinal hernia Hyperlipidemia HTN (hypertension) Surgical History History of surgery H/O colonoscopy H/O hernia repair Status post arthroscopic knee surgery Family History Father No problems noted. Mother No problems noted. 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 Alcohol intake: current Alcohol intake frequency: does not drink Patient Tobacco Use Status: Never used Tobacco e-Cigarette/Vaping Use: Never Used Second Hand Smoke Exposure: No service: No Current occupational status: retired Cognitive needs: No Hearing needs: No Vision needs: Yes Questionnaire Thrive Questionnaire Date Thrive assessed: 11/21/24 I am a: Patient What is your living situation today?: I have a steady place to live Within the past 12 months, did the food you bought not last and you didn't have the money to get more?: Sometimes True Within the past 12 months, did you worry whether your food would run out before you got money to buy more?: Sometimes True Do you have trouble paying for medicines?: Yes Do you have trouble getting transportation to medical appointments?: No Do you have trouble paying your heating and electricity bill?: No Do you have trouble taking care of your child, family member or friend?: No Do you have trouble with day-to-day activities such as bathing, preparing meals, shopping, managing finances, etc.?: No Are you currently unemployed and looking for a job?: Yes Are you interested in more education?: No Please select the resources that you would like help with: Paying for medicine Currently or been in a relationship where the following occur: No concerns reported THRIVE Score: 2 NORMA-7 AMB Questionnaire NORMA-7 Date NORMA - 7 assessed: 11/21/24 Source: Developed by Drs. Iraj Louis, Fatmata Bravo, Geoff Ly and colleagues, with an educational jaden from [employer]. Review of Systems Const All systems reviewed & are unremarkable except as noted in HPI and below Eyes Reports no additional complaints ENT Reports no additional complaints Card Reports no additional complaints Resp Reports no additional complaints GI Reports no additional complaints Reports no additional complaints Physical exam (Primary Care) Vital Signs: Last Vital Signs Temp 97.8 F 05/15/25 13:50 Pulse 81 05/15/25 13:50 Resp 19 05/15/25 13:50 BP 124/66 05/15/25 13:50 Pulse Ox 98 05/15/25 13:50 Oxygen Delivery Method Room Air 05/15/25 13:50 BMI result Body Mass Index 26.9 Tobacco/Smoking Status: Tobacco use Status Tobacco use date assessed 05/15/25 05/15/25 13:52 Patient Tobacco Use Status Never used Tobacco 05/15/25 13:52 e-Cigarette/Vaping Use Never Used 05/15/25 13:52 Thrive Assessment: Date of Thrive Assessment Date Thrive assessed 11/21/24 05/15/25 13:52 Currently or been in a relationship where the following occur: No concerns reported Const General: no acute distress HENMT Head: Yes normal to inspection Neck Neck: Yes supple Resp Effort & Inspection: normal respiratory effort Auscultation: clear to auscultation bilaterally Cardio Rhythm: regular rhythm Heart sounds: S1 normal heart sound present and S2 normal heart sound present GI Inspection: Yes normal to inspection Palpation (GI): Soft to palpation Percussion: Yes normal to percussion Auscultation: normal bowel sounds Coding Level of Care Code Est Pt Level 4 (65628) Diagnoses Lung nodule seen on imaging study R91.1 HTN (hypertension) I10 Hyperlipidemia E78.5 DM type 2 (diabetes mellitus, type 2) E11.9 Prostate cancer C61 Assessment & Plan Assessment & Plan (1) Lung nodule seen on imaging study: Comment: Multiple lung nodules no increase activity on PET scan 02/2025 Code(s): R91.1 - Solitary pulmonary nodule Category: Medical Plan: CT scan of the chest was ordered to be done in [address] (2) HTN (hypertension): Code(s): I10 - Essential (primary) hypertension Category: Medical Plan: Continue lisinopril (3) Hyperlipidemia: Code(s): E78.5 - Hyperlipidemia, unspecified Category: Medical Plan: Continue statin (4) DM type 2 (diabetes mellitus, type 2): Comment: 20 years, Code(s): E11.9 - Type 2 diabetes mellitus without complications Category: Medical Plan: A1c is 8.9, ADA diet increase exercise cutting down on soda intake down to 4 cans a day discussed with the patient. Tresiba will be increased to 30 units daily. Patient declined taking Humalog before meals. He will follow-up in 1 month with a record of home fasting blood glucose readings (5) Prostate cancer: Comment: 06/28 High Grade, Low Volume, RTx [facility], f/u Dr. Lane Code(s): C61 - Malignant neoplasm of prostate Category: Medical Plan: Started on finasteride by urology Medications: Changed From Tresiba FlexTouch U-100 (insulin degludec) 20 units (0.2 mL) subcut BEDTIME 15 mL 2RF NS To Tresiba FlexTouch U-100 (insulin degludec) 30 units (0.3 mL) subcut BEDTIME 15 mL 2RF NS
--- OUTSIDE RECORDS SUMMARY | 2025-05-15 15:52 | XMS_ITS | Patient Health Record ---
Author Organization [facility] Address [address] [facility] [place] [address] Care Team Providers Care Diathermy Equipment Repairer Name Role Phone Alisa Pascual MD Primary Care Provider Tito Resendiz Unavailable [phone] Allergies Allergen (clinical drug ingredient) Drug/Non Drug [...] Problem Acquired hammer toe of right foot (68711726003649 05) Other hammer toe(s) (acquired), right foot (M20.41) Active confirmed Problem Acquired hammer toe of left foot (42698273304632 03) Other hammer toe(s) (acquired), left foot (M20.42) Active confirmed Problem Type II diabetes mellitus without complication (158371552) Type 2 diabetes mellitus without complication (E11.9) Active confirmed Problem Ulcer of toe of right foot (disorder) (07647750343847 101) Skin ulcer of toe of right [...] Ordered Date Performed Result Body Sit e 37174-HRBJHAA NAIL, 6 OR MORE 05/31/2024 N/A 26534-MLXNNXY NAIL, 6 OR MORE 10/04/2024 N/A 54535-Juxvtzkr Plate 10/04/2024 N/A 05531-ZHIBDYS NAIL, 6 OR MORE 01/06/2025 N/A 84549-Mctxwnfs Plate 01/06/2025 N/A 82006-SLSXRQG SKIN/TISSUE 01/27/2025 N/A 52463- Debride <25 sq cm 02/10/2025 N/A 77331- Debride <25 sq cm 02/27/2025 N/A 98191-NZENNMV NAIL, 6 OR MORE 04/11/2025 N/A 07844-LSSTKWQ SKIN/TISSUE 04/11/2025 N/A Encounters [facility]counter [facility] Date [facility] [address] [facility] Tito Isaac Pain of toe of right foot M79.674 ; Onychomycosis B35.1 ; Pain of toe of left foot M79.675 and Type 2 diabetes mellitus without complication E11.9 [facility] [address] 10/04/2024 Tito Isaac Pain of toe of right foot M79.674 ; Onychomycosis B35.1 ; Pain of toe of left foot M79.675 ; Type 2 diabetes mellitus without complication E11.9 ; Other hammer toe(s) (acquired), right foot M20.41 ; Other hammer toe(s) (acquired), left foot M20.42 and Ingrown nail L60.[address] [address] 01/06/2025 Tito Isaac Pain of toe of right foot M79.674 ; Pain of toe of left foot M79.675 ; Onychomycosis B35.1 ; Type 2 diabetes mellitus without complication E11.9 and Ingrown nail L60.[address] [address] 01/27/2025 Tito Isaac Pain in right toe(s) M79.674 ; Contusion of lesser toe of right foot without damage to nail, initial encounter S90.121A ; Cellulitis of toe of right foot L03.031 ; Skin ulcer of toe of right foot with fat layer exposed L97.512 and Type 2 diabetes mellitus without complication E11.[address] [address] 02/10/2025 Tito Isaac Pain in right toe(s) M79.674 ; Cellulitis of toe of right foot L03.031 ; Type 2 diabetes mellitus without complication E11.9 ; Skin ulcer of toe of right foot, limited to breakdown of skin L97.511 and Contusion of lesser toe of right foot without damage to nail, subsequent encounter S90.121D [facility] [address] [address] 02/27/2025 Tito Isaac Pain in right toe(s) M79.674 ; Cellulitis of toe of right foot L03.031 ; Type 2 diabetes mellitus without complication E11.9 ; Skin ulcer of toe of right foot, limited to breakdown of skin L97.511 and Contusion of lesser toe of right foot without damage to nail, subsequent encounter S90.121D [address] [address] 04/11/2025 Tito Isaac Pain of toe of [...] right foot with fat layer exposed L97.[address] [address] [facility]/07[facility]20[facility] [place] [address] [place] [address] [facility] [place] [address] [place] [address] 04/13/2025 Tito Gray Assessments Encounter Date Diagnosis [...] X ray : Foot, right 3V 02/10/2025 15174-SJMEJFQ NAIL, 6 OR MORE 04/11/2025 18652-DDKKEFN NAIL, 6 OR MORE 01/06/2025 51809-UWNMRAA NAIL, 6 OR MORE 01/17/2020 42742-EBAXCYE NAIL, 6 OR MORE 04/24/2020 51896-FRYAKZE NAIL, 6 OR MORE 07/24/2020 63134-ZPPCKBQ NAIL, 6 OR MORE 12/04/2020 68860-TSMXITX NAIL, 6 OR MORE 03/05/2021 95108-VHWOHMS NAIL, 6 OR MORE 06/04/2021 52552-XIAFVPF NAIL, 6 OR MORE 09/10/2021 08251-XFOFZUB NAIL, 6 OR MORE 12/17/2021 54970-KPTRVPL NAIL, 6 OR MORE 03/25/2022 46714-KYFSOHX NAIL, 6 OR MORE 06/24/2022 82776-JTDTENP NAIL, 6 OR MORE 09/23/2022 89784-JSQWMNW NAIL, 6 OR MORE 02/17/2023 72074-RFIAEWN NAIL, 6 OR MORE 05/26/2023 56380-KZEOSMZ NAIL, 6 OR MORE 08/25/2023 89465-RZCQRSZ NAIL, 6 OR MORE 11/24/2023 74691-AJVEQAX NAIL, 6 OR MORE 03/01/2024 42017-NRWDWKA NAIL, 6 OR MORE 05/31/2024 10103-QTHOXTG NAIL, 6 OR MORE 10/04/2024 74564-XELLRLL NAIL, 6 OR MORE 05/02/2011 86973-MNGZPHT NAIL, 6 OR MORE 07/22/2011 26609-DIIRTEX NAIL, 6 OR MORE 10/07/2011 87130-LKTXLWR NAIL, 6 OR MORE 01/09/2012 43388-HXRJEXU NAIL, 6 OR MORE 05/25/2012 30458-DSWOLVO NAIL, 6 OR MORE 08/17/2012 71665-SLUVSGL NAIL, 6 OR MORE 11/05/2012 00534-LTISERJ NAIL, 6 OR MORE 02/15/2013 62724-SIYGJRG NAIL, 6 OR MORE 09/27/2013 89097-BFEKTIA NAIL, 6 OR MORE 01/10/2014 74909-OJYAUUW NAIL, 6 OR MORE 04/11/2014 63037-FCWLFOW NAIL, 6 OR MORE 07/04/2014 75305-KYOWMJM NAIL, 6 OR MORE 11/03/2014 07743-QKMNOWX NAIL, 6 OR MORE 06/21/2013 44537-VUAGSOZ NAIL, 6 OR MORE 05/29/2017 13123-CEUXFTV NAIL, 6 OR MORE 09/18/2017 05693-PUEGYHA NAIL, 6 OR MORE 03/12/2018 52288-NEQFAZL NAIL, 6 OR MORE 06/15/2018 25759-COPIGAK NAIL, 6 OR MORE 09/28/2018 71851-DWFJRBF NAIL, 6 OR MORE 01/04/2019 88367-GHWFHQW NAIL, 6 OR MORE 04/05/2019 79303-ZDEWOVB NAIL, 6 OR MORE 12/18/2017 45200-MUDDOMJ NAIL, 6 OR MORE 07/12/2019 76400-MXTSONU NAIL, 6 OR MORE 10/18/2019 05586-Mlwcyyks Plate 03/12/2018 49965-Jmynglxv Plate 04/05/2019 58080-Vlyqpbas Plate 12/18/2017 69455-Eibnqjyf Plate 09/18/2017 77656-Akxyidim Plate 05/29/2017 68870-Iftmzglt Plate 11/03/2014 35218-Fdixnrem Plate 07/04/2014 87527-Sxplmudd Plate 04/11/2014 10464-Rbidthug Plate 01/10/2014 37687-Fhlngzqn Plate 09/27/2013 68804-Zodzwddt Plate 02/15/2013 94408-Hscxgetn Plate 11/05/2012 94704-Dcmthmrd Plate 07/22/2011 33790-Dksrbilp Plate 08/17/2012 40880-Spqhudfq Plate 05/25/2012 28547-Ldtahhqi Plate 01/09/2012 06199-Gjvbkhth Plate 10/07/2011 12899-Kqxrubpz Plate 05/02/2011 61889-Tdmclcme Plate 10/04/2024 02522-Mnqnrrel Plate 03/01/2024 57569-Ocdvbkme Plate 11/24/2023 23172-Dyhtwkfs Plate 08/25/2023 92591-Zfpqrvse Plate 05/26/2023 01268-Bxdfaqkp Plate 02/17/2023 45336-Nviiqhdi Plate 09/23/2022 63932-Ihecxnov Plate 06/24/2022 64048-Huuxjooc Plate 03/25/2022 68804-Cfjrhdbs Plate 12/17/2021 67625-Vnzkloso Plate 09/10/2021 50737-Kygygebh Plate 06/04/2021 31884-Vnfgvkrt Plate 03/05/2021 49184-Glwizwbf Plate 12/04/2020 92189-Muqixile Plate 07/24/2020 63672-Fligmdbg Plate 04/24/2020 22426-Tsoyezjg Plate 01/06/2025 85776-Hxlkjtxf Plate Each Additional 64410-Awyrsfbk Plate Each Additional 00534-Gxvdukcx Plate Each Additional 12/2011 71401-Ojnmqhsw Plate Each Additional 36027-Wwaotdjp Plate Each Additional 07/2012 19966-Wiaiwrys Plate Each Additional 92894-Jdsunisi Plate Each Additional 09/2012 07711-Koimjtvz Plate Each Additional 07/2013 08105-Qcznhmjy Plate Each Additional 05130-Reoucths Plate Each Additional 02/2014 04896-Ptxjajof Plate Each Additional 01/2014 11875-Pxopclxs Plate Each Additional 92583-Hamifvxs Plate Each Additional 05759-FUG 03/15/2013 80096- Debride <25 sq cm 03/15/2013 19820- Debride <25 sq cm 09/27/2013 82199- Debride <25 sq cm 11/03/2014 25331- Debride <25 sq cm 07/04/2014 22267- Debride <25 sq cm 04/11/2014 29919- Debride <25 sq cm 01/10/2014 45999- Debride <25 sq cm 04/15/2013 41819- Debride <25 sq cm 06/21/2013 95612- Debride <25 sq cm 02/10/2025 63492- Debride <25 sq cm 02/27/2025 74646-DLNQFRA SKIN/TISSUE 04/11/2025 29641-QVWKTUC SKIN/TISSUE 01/27/2025 43876-ZFWYKUJ SKIN/TISSUE 03/29/2013 15992-HXIQ SKIN LESIONS, 2 TO 4 08/17/20 12 99744-MHOT SKIN LESIONS, 2 TO 4 05/25/20 12 90573-XLBS SKIN LESIONS, 2 TO 4 01/09/20 12 99366-SEGZ SKIN LESIONS, 2 TO 4 10/07/19 12 95723-MPCU SKIN LESIONS, 2 TO 4 05/02/20 11 35439-GWTZ SKIN LESIONS, 2 TO 4 07/22/20 11 55132-Xyhg. Subungual Hematoma 0 97324-Fqkw. Subungual Hematoma 1 48063-Fcxg. Subungual Hematoma 2 94973- Removal of Foreign Body, Subcut 0 10/07/2011 41997- Removal of Foreign Body, Subcut 0 11/14/2011 21190- Removal of Foreign Body, Subcut 0 01/09/2012 Next Appt Details Provider Name:Tito Carlos Gray , 07/28/2025 01:45:00 PM, [address] [place], [address], Insurance Providers Payer Name Payer Address Payer Phone Subscriber Number Group Number Insured Name Patient Relationship to Insured Coverage Start Date Coverage End Date BlueCare 65 Medicare Preferred [address] [place] [address] [phone] [id number] Austen Carrero Self - patient is the [...]
--- OUTSIDE RECORDS SUMMARY | 2025-05-15 15:52 | XMS_ITS | Clinical Summary ---
Author Organization [facility] Address [address] [place] [address] Phone Care Team Providers Care Manhole Builder Name Role Phone Adolfo Davila MD Primary Care Provider Allergies Active Allergy Reactions Criticality Noted Date [...] Date Diabetes mellitus type 2, un complicated (CMS/[facility] V24, [facility] V28) 07/29/2024 Hernia of abdominal wall 07/29/2024 Overview (07/29/2024): hernia Hypertension 07/29/2024 Inguinal hernia, recurrent 07/29/2024 Overview (07/29/2024): Right Right inguinal pain 07/29/2024 Contusion of left thigh 06/09/2019 Postoperative seroma of subc utaneous tissue after non-dermatologic procedure 03/09/2019 CAD (coronary artery disease) 02/22/2019 Diverticulosis 02/22/2019 Hyperlipidemia 02/22/2019 Osteoarthritis 02/22/2019 Overview (07/29/2024): 07/24 CT: Lumbar Spine with bulging disc L5-S1 Surgical History Surgery Date Site/Laterality Comments HERNIA REPAIR PROCEDURE: [place] REPAIR FIRST ABDOMINAL WALL HERNIA KNEE ARTHROSCOPY Bilateral PROCEDURE: [place] ARTHROSCOPY AID TX SPINE&/FX KNEE W/O FIXJ; [...] disc L5-S1 Diabetes mellitus type 2, uncomplicated (CMS/HCC V24, CMS/HCC V28) DX:Diabetes mellitus type 2, uncomplicated (HCC) Family [...] Description 05/16/2025 12:45 PM EDT Clinical Support [facility] [address] [place] [address] Health Maintenance Due Date Last [...] Vaccine (8 - Pfizer risk 2023- season) 2025 05/18/2024, 05/27/2023, 05/15/2022, Additional history exists Influenza [...] on patient's age to complete this topic Insurance [facility] Care Teams Manhole Builder Relationship Specialty Start Date End Date Adolfo Davila MD [address] [facility] [address] [place] [address] PCP - General Internal Medicine 06/09/19
== END 2025-05-15 14:26 | disposition home or self-care (01) ==
LOC: HO.HMCC 13:39
PROVIDERS: PCP Internal Medicine; Visit Provider Internal Medicine
DX: E11.69 Type 2 diabetes mellitus with other specified complication (principal); R91.1 Solitary pulmonary nodule; C61 Malignant neoplasm of prostate; E78.5 Hyperlipidemia, unspecified; I10 Essential (primary) hypertension

== ENCOUNTER → 2025-05-15 13:38 | Outpatient (BNVA) | payer MEDICARE, SELFPAY | PROVIDERS: PCP Internal Medicine; Visit Provider Internal Medicine | DX: E11.9 Type 2 diabetes mellitus without complications (principal); I10 Essential (primary) hypertension; E78.5 Hyperlipidemia, unspecified; R91.1 Solitary pulmonary nodule; C61 Malignant neoplasm of prostate; Z79.4 Long term (current) use of insulin | CPT/HCPCS: 99212 ==

== ENCOUNTER 2025-06-15 12:39 | Outpatient (AMB) | payer MEDICARE, SELFPAY ==
[2025-06-15 12:50] VITALS: BP 124/80; PULSE 73; RESP 18; TEMP 36.9; O2SAT 96; BMI 26.5
--- NOTE | 2025-06-15 12:50 | MHC.PC.OV ---
Vital Signs 06/15/25 12:50 Height 6 ft 3 in Weight 212 lb BMI 26.5 BP 124/80 Blood Pressure Location Lt brachial Position Sitting Respiration 18 Pulse 73 Pulse Source Pulse Oximeter Temp 98.4 F Temp Source Oral Pulse Oximetry (%) 96 Oxygen Delivery Method Room Air Intake Visit Reasons: 1m follow up Intake Note: Pt is rylie today for 1 month follow up visit. Allergies penicillin G Allergy (Unknown, Verified 06/15/25 12:54) rash all over body Medication List - Last Reconciled 06/15/25 by Alisa Pascual MD blood sugar diagnostic (Neopolitan NetworksTouch Verio test strips) USE TO TEST BLOOD SUGAR ONCE A DAY finasteride 5 mg PO DAILY 90 days lancets (Monolet Lancets) test blood sugar once a day lancets Microlet lancets check glucose once a day lisinopril 10 mg PO DAILY metformin 1,000 mg PO BID pen needle, diabetic (Advocate Pen Needle) Use to inject insulin once a day rosuvastatin 40 mg PO DAILY Tresiba FlexTouch U-100 (insulin degludec) 30 units (0.3 mL) subcut BEDTIME NS Tobacco use date assessed: 05/15/25 Fall risk assessment: No Falls in past year Last assessed Fall Risk: 06/15/25 Dental Screening Dental Screen Date: 11/21/24 HPI 1m follow up HPI Details Patient presents for the follow-up of type 2 diabetes. He reports improved blood glucose controlled since he increased the dose of Tresiba to 30 units a day. He has been following ADA diet. Patient is established with a bowling ball grader and Infectious Disease specialist for right toe chronic diabetic ulcer, question of osteomyelitis. He had a bone scan done today. Hypertension and hyperlipidemia are stable on current medications. [facility] Medical History (Updated 06/15/25 @ 13:30 by Alisa Pascual MD) Diabetic foot ulcer Prostate cancer Dysplastic nevi Abnormal colonoscopy DM type 2 (diabetes mellitus, type 2) Inguinal hernia Hyperlipidemia HTN (hypertension) Surgical History History of surgery H/O colonoscopy H/O hernia repair Status post arthroscopic knee surgery Family History Father No problems noted. Mother No problems noted. 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 1. Little interest or pleasure in doing things: not at all 2. Feeling down, depressed, or hopeless: not at all 3. Trouble falling or staying asleep, or sleeping too much: not at all 4. Feeling tired or having little energy: not at all 5. Poor appetite or overeating: not at all 6. Feeling bad about yourself - or that you are a failure or have let yourself or your family down: not at all 7. Trouble concentrating on things, such as reading the newspaper or watching television: not at all 8. Moving or speaking so slowly that other people could have noticed. Or the opposite - being so fidgety or restless that you have been moving around a lot more than usual: not at all 9. Thoughts that you would be better off or of hurting yourself in some way: not at all Total score: 0 Depression Screening Interpretation: Negative Depression Screening Done: Yes Source: Developed by Drs. Iraj Louis, Fatmata Bravo, Geoff Ly and colleagues, with an educational jaden from [employer]. Thrive Questionnaire Date Thrive assessed: 11/21/24 I am a: Patient What is your living situation today?: I have a steady place to live Within the past 12 months, did the food you bought not last and you didn't have the money to get more?: Sometimes True Within the past 12 months, did you worry whether your food would run out before you got money to buy more?: Sometimes True Do you have trouble paying for medicines?: Yes Do you have trouble getting transportation to medical appointments?: No Do you have trouble paying your heating and electricity bill?: No Do you have trouble taking care of your child, family member or friend?: No Do you have trouble with day-to-day activities such as bathing, preparing meals, shopping, managing finances, etc.?: No Are you currently unemployed and looking for a job?: Yes Are you interested in more education?: No Please select the resources that you would like help with: Paying for medicine Currently or been in a relationship where the following occur: No concerns reported THRIVE Score: 2 NORMA-7 AMB Questionnaire NORMA-7 Date NORMA - 7 assessed: 11/21/24 Feeling nervous, anxious, or on edge: 0 = Not at all Not being able to stop or control worryin = Not at all Worrying too much about different things: 0 = Not at all Trouble relaxin = Not at all Being so restless that it is hard to sit still: 0 = Not at all Becoming easily annoyed or irritable: 0 = Not at all Feeling afraid as if something awful might happen: 0 = Not at all Total NORMA-7 score (0-4 normal; 5-9 mild; 10-14 moderate; 15-21 severe): 0 Source: Developed by Drs. Iraj Louis, Fatmata Bravo, Geoff Ly and colleagues, with an educational jaden from [employer]. Review of Systems Const All systems reviewed & are unremarkable except as noted in HPI and below Card Reports no additional complaints Resp Reports no additional complaints GI Reports no additional complaints Reports no additional complaints Physical exam (Primary Care) Vital Signs: Last Vital Signs Temp 98.4 F 06/15/25 12:50 Pulse 73 06/15/25 12:50 Resp 18 06/15/25 12:50 BP 124/80 06/15/25 12:50 Pulse Ox 96 06/15/25 12:50 Oxygen Delivery Method Room Air 06/15/25 12:50 BMI result Body Mass Index 26.5 Tobacco/Smoking Status: Tobacco use Status Tobacco use date assessed 05/15/25 06/15/25 12:51 Patient Tobacco Use Status Never used Tobacco 06/15/25 12:51 e-Cigarette/Vaping Use Never Used 06/15/25 12:51 PHQ-9: PHQ-9 Score PHQ-9: Total score 0 06/15/25 12:57 Depression Screening Interpretation: Negative Thrive Assessment: Date of Thrive Assessment Date Thrive assessed 11/21/24 06/15/25 12:51 Currently or been in a relationship where the following occur: No concerns reported Const General: no acute distress Neck Neck: Yes supple Resp Effort & Inspection: normal respiratory effort Auscultation: clear to auscultation bilaterally Cardio Rhythm: regular rhythm Heart sounds: S1 normal heart sound present and S2 normal heart sound present GI Palpation (GI): Soft to palpation Coding Level of Care Code Est Pt Level 4 (34503) Diagnoses HTN (hypertension) I10 Hyperlipidemia E78.5 DM type 2 (diabetes mellitus, type 2) E11.9 Diabetic foot ulcer E11.621; L97.509 Assessment & Plan Assessment & Plan (1) HTN (hypertension): Code(s): I10 - Essential (primary) hypertension Category: Medical Plan: Continue lisinopril (2) Hyperlipidemia: Code(s): E78.5 - Hyperlipidemia, unspecified Category: Medical Plan: Continue statin (3) DM type 2 (diabetes mellitus, type 2): Comment: 20 years, Code(s): E11.9 - Type 2 diabetes mellitus without complications Category: Medical Plan: ADA diet regular physical activity discussed with the patient .he will continue Tresiba 30 units and was advised to eat a snack before bedtime if he has a earlier dinner around 15:00 to avoid hypoglycemia. Follow-up in 2 months with a fasting labs before (4) Diabetic foot ulcer: Comment: Right toe , established with Podiatry and Infectious Disease at [place] Code(s): E11.621 - Type 2 diabetes mellitus with foot ulcer; L97.509 - Non-pressure chronic ulcer of other part of unspecified foot with unspecified severity Category: Medical Plan: Follow-up with the infectious disease and podiatry Orders: Orders Comprehensive [place]. Panel Fast 2 Months E11.9 - Type 2 diabetes mellitus without complications, E78.5 - Hyperlipidemia, unspecified, I10 - Essential (primary) hypertension Lipid Panel 2 Months E11.9 - Type 2 diabetes mellitus without complications, E78.5 - Hyperlipidemia, unspecified, I10 - Essential (primary) hypertension Complete Blood Count Auto Diff 2 Months E11.9 - Type 2 diabetes mellitus without complications, E78.5 - Hyperlipidemia, unspecified, I10 - Essential (primary) hypertension Microalbumin, Random (w Creat) 2 Months E11.9 - Type 2 diabetes mellitus without complications, E78.5 - Hyperlipidemia, unspecified, I10 - Essential (primary) hypertension Hemoglobin A1c 2 Months E11.9 - Type 2 diabetes mellitus without complications, E78.5 - Hyperlipidemia, unspecified, I10 - Essential (primary) hypertension
== END 2025-06-15 13:32 | disposition home or self-care (01) ==
LOC: HO.HMCC 12:40
PROVIDERS: PCP Internal Medicine; Visit Provider Internal Medicine
DX: I10 Essential (primary) hypertension (principal); E11.69 Type 2 diabetes mellitus with other specified complication; E11.621 Type 2 diabetes mellitus with foot ulcer; L97.509 Non-pressure chronic ulcer of other part of unspecified foot with unspecified severity; E78.5 Hyperlipidemia, unspecified

== ENCOUNTER → 2025-06-15 12:39 | Outpatient (BNVA) | payer MEDICARE, SELFPAY | PROVIDERS: PCP Internal Medicine; Visit Provider Internal Medicine | DX: E11.621 Type 2 diabetes mellitus with foot ulcer (principal); L97.509 Non-pressure chronic ulcer of other part of unspecified foot with unspecified severity; E11.9 Type 2 diabetes mellitus without complications; I10 Essential (primary) hypertension; E78.5 Hyperlipidemia, unspecified; Z79.899 Other long term (current) drug therapy | CPT/HCPCS: 96127; 99212 ==

== ENCOUNTER 2025-07-25 10:56 | Outpatient (REF) | payer MEDICARE, SELFPAY ==
--- OUTSIDE RECORDS SUMMARY | 2024-09-02 07:15 | XMS_ITS ---
Author Organization [facility] Address [address] [place] [address] Care Team Providers Care Quantitative Developer Name Role Phone Alisa Pascual MD Primary Care Provider Unavaila Tito Abdullahi [phone] Woodard Encounters Encounter Location Date Provider Diagnosis [facility] [address] [place] [address] 09/02/2024 Tito Gray Plan Of Treatment Next Appt Details Provider Name:Tito Gray , 07/28/2025 01:45:00 PM, [address] [place], [address], Progress Notes * Austen CARRERO JrDOB:[birth year] (69 yo M)Acc No.[id number]:09/02/2024 Progress Note Patient: Zena ROTHMANFERNANDO Austen Goodman Jr Provider: Chepe Gray DPM :1955 A ge:68 Y S ex:Male Date:09/02/2024 Phone: Address:[address] [place] [address], [address], [id number] Pcp:Alisa Pascual MD Subjective: * Chief Complaints: * [address] Woodard. * Medical History: Objective: * Vitals: Assessment: Plan: * Treatment: * Images: * The named appointment provid er may or may not be the originator of this progress note, and it is not deemed complete until electronically signed by the appointment provider. Sign off status: Pending * Provider: Chepe Gray DPM Date: 11/03/2023 Generated for Nataly jones/Dionicio/Chris on: 09/25/2024 01:03 AM EST
--- OUTSIDE RECORDS SUMMARY | 2025-01-24 10:00 | XMS_ITS ---
Author Organization [facility] Address [address] [place] [address] Care Team Providers Care Salvage Supervisor Name Role Phone Alisa Pascual MD Primary Care Provider Unavaila Tito Abdullahi Unavailable [phone] REASON FOR VISIT r/s for apt on 01/06/25 Encounters Encounter Location Date Provider Diagnosis [address] [address] 01/24/2025 Tito Gray Plan Of Treatment Next Appt Details Provider Name:Tito Gray , 07/28/2025 01:45:00 PM, [address] [place], [address], Progress Notes * Austen CARRERO JrDOB:[birth year] (69 yo M)Acc No.[id number]:01/24/2025 Progress Note Patient: Zena Austen DANIELS Jr Provider: Chepe Gray DPM :1955 A ge:69 Y S ex:Male Date:01/24/2025 Phone: Address:[address] [place] [address], [facility] [address], [id number] Pcp:Alisa Pascual MD Subjective: * Chief Complaints: [...] 0 01/24/2025 Generated for Nataly Alvarenga on: 09/25/2024 01:03 AM EST
[2025-07-25 14:33] LABS: Prostate Specific Antigen 3.36 ng/mL (<0.05-4.0)
--- OUTSIDE RECORDS SUMMARY | 2025-07-26 01:02 | XMS_ITS | Patient Health Record ---
Author Organization [facility] Address [address] [place] [address] Care Team Providers Care Desolderer Name Role Phone Alisa Pascual MD Primary Care Provider Unavaila Tito Abdullahi Unavailable [phone] Allergies Allergen (clinical drug ingredient) Drug/Non Drug [...] Problem Acquired hammer toe of right foot (89988943272659 05) Other hammer toe(s) (acquired), right foot (M20.41) Active confirmed Problem Acquired hammer toe of left foot (52484104634866 03) Other hammer toe(s) (acquired), left foot (M20.42) Active confirmed Problem Type II diabetes mellitus without complication (151575974) Type 2 diabetes mellitus without complication (E11.9) Active confirmed Problem Ulcer of toe of right foot (disorder) (18544690453801 101) Skin ulcer of toe of right [...] Ordered Date Performed Result Body Sit e 17858-WOZGREE NAIL, 6 OR MORE 10/04/2024 N/A 19725-Xdrhthgd Plate 10/04/2024 N/A 55172-NSBADOA NAIL, 6 OR MORE 01/06/2025 N/A 44094-Efgfspqp Plate 01/06/2025 N/A 82686-XBTZUTE SKIN/TISSUE 01/27/2025 N/A 61863- Debride <25 sq cm 02/10/2025 N/A 12593- Debride <25 sq cm 02/27/2025 N/A 11247-FRPFJIP NAIL, 6 OR MORE 04/11/2025 N/A 01681-RYVRAVP SKIN/TISSUE 04/11/2025 N/A Encounters Encounter Location Date Provider Diagnosis [address] [address] 10/04/2024 Tito Isaac Pain of toe of right foot M79.674 ; Onychomycosis B35.1 ; Pain of toe of left foot M79.675 ; Type 2 diabetes mellitus without complication E11.9 ; Other hammer toe(s) (acquired), right foot M20.41 ; Other hammer toe(s) (acquired), left foot M20.42 and Ingrown nail L60.[address] [address] 01/06/2025 Tito Isaac Pain of toe of right foot M79.674 ; Pain of toe of left foot M79.675 ; Onychomycosis B35.1 ; Type 2 diabetes mellitus without complication E11.9 and Ingrown nail L60.[address] [address] 01/27/2025 Tito Isaac Pain in right toe(s) M79.674 ; Contusion of lesser toe of right foot without damage to nail, initial encounter S90.121A ; Cellulitis of toe of right foot L03.031 ; Skin ulcer of toe of right foot with fat layer exposed L97.512 and Type 2 diabetes mellitus without complication E11.[address] [address] 02/10/2025 Tito Isaac Pain in right toe(s) M79.674 ; Cellulitis of toe of right foot L03.031 ; Type 2 diabetes mellitus without complication E11.9 ; Skin ulcer of toe of right foot, limited to breakdown of skin L97.511 and Contusion of lesser toe of right foot without damage to nail, subsequent [facility] S90.121D [facility] [address] [address] 02/27/2025 Tito Isaac Pain in right toe(s) M79.674 ; Cellulitis of toe of right foot L03.031 ; Type 2 diabetes mellitus without complication E11.9 ; Skin ulcer of toe of right foot, limited to breakdown of skin L97.511 and Contusion of lesser toe of right foot without damage to nail, subsequent encounter S90.121D [address] [address] 04/11/2025 Tito Isaac Pain of toe of [...] right foot with fat layer exposed L97.[address] [address] 02/07/2025 Tito Isaac [facility] [address] 04/12/2025 Tito Isaac [address] [address] 04/13/2025 Tito Isaac [address] [address] 06/06/2025 Tito Gray Assessments Encounter Date Diagnosis (ICD [...] L60.0) 01/06/2025 Ingrown nail (ICD-10 - L60.0) 10/04/2024 Other 01/27/2025 Other 02/10/2025 Other 02/27/2025 Other Plan Of Treatment Pending Test Test Name Order Date X ray : Foot, right 3V 01/27/2025 X ray : Foot, right 3V 02/10/2025 26945-OUBVWZI NAIL, 6 OR MORE 04/11/2025 57293-LUTKFRU NAIL, 6 OR MORE 01/06/2025 35969-HAQMYJM NAIL, 6 OR MORE 01/17/2020 15620-TGEKOAB NAIL, 6 OR MORE 04/24/2020 01253-MXWWASE NAIL, 6 OR MORE 07/24/2020 84050-HOHXFNX NAIL, 6 OR MORE 12/04/2020 96792-KEWYQKC NAIL, 6 OR MORE 03/05/2021 22233-VWWDEAP NAIL, 6 OR MORE 06/04/2021 36365-MEGDZHN NAIL, 6 OR MORE 09/10/2021 26204-DFJGFUI NAIL, 6 OR MORE 12/17/2021 22661-GNQSFTR NAIL, 6 OR MORE 03/25/2022 25143-NIGIHFM NAIL, 6 OR MORE 06/24/2022 33303-WNFUIGX NAIL, 6 OR MORE 09/23/2022 40753-DMBFUFN NAIL, 6 OR MORE 02/17/2023 83342-TARQQUL NAIL, 6 OR MORE 05/26/2023 82904-ADVEOLB NAIL, 6 OR MORE 08/25/2023 21200-XPFJOVD NAIL, 6 OR MORE 11/24/2023 89423-SAQVKNZ NAIL, 6 OR MORE 03/01/2024 77862-KJJPRIX NAIL, 6 OR MORE 05/31/2024 33029-VPILBKQ NAIL, 6 OR MORE 10/04/2024 79285-NABQGGG NAIL, 6 OR MORE 05/02/2011 86249-CNBMLVC NAIL, 6 OR MORE 07/22/2011 58370-REEQVPK NAIL, 6 OR MORE 10/07/2011 49279-MSTQFQR NAIL, 6 OR MORE 01/09/2012 44994-EQZXYYH NAIL, 6 OR MORE 05/25/2012 24156-GIVSHNW NAIL, 6 OR MORE 08/17/2012 70337-VOOMXGR NAIL, 6 OR MORE 11/05/2012 85071-XYPIOCI NAIL, 6 OR MORE 02/15/2013 05291-ZSYHFSM NAIL, 6 OR MORE 09/27/2013 98203-ZRNVZCB NAIL, 6 OR MORE 01/10/2014 80527-WPKKFUV NAIL, 6 OR MORE 04/11/2014 17436-UPHWUJV NAIL, 6 OR MORE 07/04/2014 18150-UBLDHCM NAIL, 6 OR MORE 11/03/2014 40889-VBXTOGX NAIL, 6 OR MORE 06/21/2013 74334-EBVCTJG NAIL, 6 OR MORE 05/29/2017 64012-SHVDYIK NAIL, 6 OR MORE 09/18/2017 99141-FILATLG NAIL, 6 OR MORE 03/12/2018 10822-NLSRYJI NAIL, 6 OR MORE 06/15/2018 10991-VHLHMME NAIL, 6 OR MORE 09/28/2018 85326-IPWDFKC NAIL, 6 OR MORE 01/04/2019 74521-GOSBDUQ NAIL, 6 OR MORE 04/05/2019 65722-LECVBCR NAIL, 6 OR MORE 12/18/2017 09556-HXRIBQW NAIL, 6 OR MORE 07/12/2019 47779-HHRXTIG NAIL, 6 OR MORE 10/18/2019 85774-Sivfeuww Plate 03/12/2018 76967-Hsqmejzy Plate 04/05/2019 20590-Qxhfqjtm Plate 12/18/2017 53386-Wuocqctn Plate 09/18/2017 53618-Eubzmryx Plate 05/29/2017 11662-Owxdmhzw Plate 11/03/2014 96795-Slgtousm Plate 07/04/2014 39805-Nctrkzfl Plate 04/11/2014 84098-Dfbthkhj Plate 01/10/2014 52173-Ruzgpdja Plate 09/27/2013 53711-Ehowuwtt Plate 02/15/2013 38534-Nsirdxcr Plate 11/05/2012 75251-Zgluamhn Plate 07/22/2011 64629-Cekibyuj Plate 08/17/2012 96174-Gcezxuvt Plate 05/25/2012 15828-Snplmaah Plate 01/09/2012 43806-Rmupqqyp Plate 10/07/2011 95718-Mvfppokx Plate 05/02/2011 25999-Pytbbyyi Plate 10/04/2024 50989-Jjnnafdb Plate 03/01/2024 97071-Vwzfocyu Plate 11/24/2023 04706-Fscclebx Plate 08/25/2023 40983-Hvjyekng Plate 05/26/2023 65983-Lgrxfguk Plate 02/17/2023 97102-Rpjmteen Plate 09/23/2022 38790-Ghsqzkrx Plate 06/24/2022 04755-Cvslasrg Plate 03/25/2022 99472-Qrwpoedm Plate 12/17/2021 64460-Gmftrfhj Plate 09/10/2021 91968-Ugedivcl Plate 06/04/2021 67891-Suvbzqck Plate 03/05/2021 69323-Oxhlsxbt Plate 12/04/2020 78002-Fpfhmkns Plate 07/24/2020 60459-Uevwqeos Plate 04/24/2020 17778-Wkmfnrll Plate 01/06/2025 62164-Iaolputf Plate Each Additional 54025-Efoawjxt Plate Each Additional 96988-Fwpfynak Plate Each Additional 12/2011 74786-Cqfuimfx Plate Each Additional 82242-Ykiwlutq Plate Each Additional 07/2012 01054-Zwekphfu Plate Each Additional 83331-Wxkvbuuy Plate Each Additional 09/2012 11424-Fueclnrl Plate Each Additional 07/2013 40436-Argjooce Plate Each Additional 20072-Cvfgibab Plate Each Additional 02/2014 65744-Etsjbrdi Plate Each Additional 01/2014 12468-Tmtwkzqw Plate Each Additional 23652-Jhbzssjc Plate Each Additional 24745-PRW 03/15/2013 00948- Debride <25 sq cm 03/15/2013 46381- Debride <25 sq cm 09/27/2013 91136- Debride <25 sq cm 11/03/2014 32882- Debride <25 sq cm 07/04/2014 39490- Debride <25 sq cm 04/11/2014 17241- Debride <25 sq cm 01/10/2014 26125- Debride <25 sq cm 04/15/2013 55823- Debride <25 sq cm 06/21/2013 54205- Debride <25 sq cm 02/10/2025 02330- Debride <25 sq cm 02/27/2025 47356-LYHQABS SKIN/TISSUE 04/11/2025 27561-CEYTTCR SKIN/TISSUE 01/27/2025 16535-EWEAZYE SKIN/TISSUE 03/29/2013 07358-YLLF SKIN LESIONS, 2 TO 4 08/17/20 12 49877-QDHX SKIN LESIONS, 2 TO 4 05/25/20 12 96413-FLLH SKIN LESIONS, 2 TO 4 01/09/20 12 61913-LAVV SKIN LESIONS, 2 TO 4 10/07/19 12 94348-HJSS SKIN LESIONS, 2 TO 4 05/02/20 11 79312-JLPP SKIN LESIONS, 2 TO 4 07/22/20 11 09687-Kuzc. Subungual Hematoma 0 00897-Segr. Subungual Hematoma 1 90579-Xvqz. Subungual Hematoma 2 08070- Removal of Foreign Body, Subcut 0 10/07/2011 28336- Removal of Foreign Body, Subcut 0 11/14/2011 70366- Removal of Foreign Body, Subcut 0 01/09/2012 Next Appt Details Provider Name:Tito Gray , 07/28/2025 01:45:00 PM, [address] [place], [address], Insurance Providers Payer Name Payer Address Payer Phone Subscriber Number Group Number Insured Name Patient Relationship to Insured Coverage Start Date Coverage End Date [facility] 63 Medicare Preferred [address] [place] [address] [id number] Austen Carrero Self - patient is the [...]
--- OUTSIDE RECORDS SUMMARY | 2025-07-26 01:02 | XMS_ITS | Encounter Summary ---
Author Organization [facility] [place] [address] Care Team Providers Care Customer Marketing Manager Name Role Phone Alisa Pascual MD Primary Care Provider [phone] Encounter Details Date Type Department Care Team ([facility] Contact Info) Description 06/23/2025 Results Follow-Up Infectious Disease - [place] [address] [facility] [address] [place] [id number] Deirdre Ingram, RN Social History Tobacco Use Types Packs/Day Years [...] as of this encounter Progress Notes * Deirdre Ingram RN - 06/23/2025 2:55 PM EDT I left a message for patient. documented in this encounter Plan of Treatment Upcoming Encounters Date Type Department Care Team ([facility] Contact Info) Description 08/01/2025 1:15 PM EST [address] [facility] [address] [place] [id number] 08/01/2025 3:00 PM EST Consult Pulmonology - [place] [address] [facility] [address] [place] [id number] Natalia Matos MD [address] [place] [phone] documented as of this encounter Goals Goal Patient Goal Type Associated Problems Recent Progress Patient-Stated? Author Decrease Wound Volume by X% by date (in notes) Care Plan Impaired Tissue Improving(07/2025 1:33 PM EST) Sharon Kimbrough RN Patient and Caregiver Understand Wound Care Education Care Plan Impaired Tissue On track( 025 1:33 PM EST) Sharon Kimbrough RN Wound volume breakdown reduced by X% by week 4 Care Plan Impaired Tissue Sharon Kimbrough RN Wound volume breakdown reduced by X% by week 8 Care Plan Impaired Tissue Sharon Kimbrough RN Wound volume breakdown reduced by X% by week 12 Care Plan Impaired Tissue Sharon Kimbrough RN Quit using tobacco (cigarettes, smokeless, etc) Care Plan Education needed on impact of smoking on wound Sharon Kimbrough RN Reduce tobacco use (cigarettes, smokeless, etc) Care Plan Education needed on impact of smoking on wound Sharon Kimbrough RN Decrease Wound Volume by X% by date (in notes) Care Plan Education needed on impact of smoking on wound Sharon Kimbrough RN Patient and Caregiver Understand Wound Care Education Care Plan Education needed related to ulceration/compr omised skin integrity. No Sharon Bird RN documented as of this encounter Visit Diagnoses Not on filedocumented in this encounter Additional Health Concerns Active Problems Noted Date Diagnosed Date Impaired Tissue 05/16/2025 Education needed on impact of smoking on wound 0 05/16/2025 Education needed related to ulceration/compromised skin integrity. 05/16/2025 Assessment Noted Time PHQ-9 Depression Total Score: 1 05/16/20 1:08 PM EDT documented as of this encounter Care Teams Customer Marketing Manager Relationship Specialty Start Date End Date Alisa Pascual MD [address] [place], [place] [id number] PCP - General Internal Medicine 05/16/25 documented as of this encounter
--- OUTSIDE RECORDS SUMMARY | 2025-07-26 01:03 | XMS_ITS | Clinical Summary ---
Author Organization 175 [facility] Address [address] [place] [address] Phone Care Team Providers Care Cutter Machine Name Role Phone Alisa Pascual MD Primary Care Provider [phone] Allergies Active Allergy Reactions Criticality Noted Date Comments Penicillin Skin Problems 06/06/2025 Penicillins Rash Low 10/16/2016 Medications empagliflozin (Jardiance) 25 mg tablet Take by mouth. Active GLIMEPIRIDE ORAL Take by mouth. Active LISINOPRIL ORAL Take by mouth. Active metformin HCl (METFORMIN ORAL) Take by mouth. Active rosuvastatin (CRESTOR) 20 mg tablet Take 20 mg by mouth daily. Active insulin degludec (Tresiba U-100 Insulin) 100 unit/mL injection Inject 100 Units under the skin at bedtime. Active finasteride (PROSCAR) 5 mg tablet Take 1 tablet (5 mg total) by mouth 1 (one) time each day. Active cefpodoxime (VANTIN) 200 mg tablet Take 1 tablet (200 mg total) by mouth 2 (two) times a day for 10 days. 20 each 07/19/2025 5 Active doxycycline hyclate (VIBRA-TABS) 100 mg tablet Take 1 tablet (100 mg total) by mouth every 12 (twelve) hours for 10 days. Take with a full glass of water and do not lie down for at least 30 minutes after. 20 each 07/19/2025 5 Active Active Problems Problem Noted Date Diagnosed Date Non-pressure chronic ulcer o f other part of right foot limited to breakdown of skin (CMS/HCC V24, [facility] V28) 05/30/2025 Non-pressure chronic ulcer o f other part of right foot with fat layer exposed ([facility] V24, [facility] V28) 05/23/2025 Type 2 diabetes mellitus wit h foot ulcer (CODE) ([facility] V24, [facility] V28) 05/16/2025 Type 2 diabetes mellitus wit h polyneuropathy ([facility] V24, [facility] V28) 05/16/2025 Diabetes mellitus type 2, un complicated ([facility] V24, [facility] V28) 07/29/2024 Hernia of abdominal wall 07/29/2024 [...] Encounters Date Type Department Care Team Description 07/19/2025 2:30 PM EST Office Visit Infectious Disease - [place] [facility] [address] [place] [address] Kaycee Kelly MD Cellulitis of right lower limb (Primary Dx) 07/19/2025 Telephone Pulmonology - [place] 299 [facility] [address] [place] [phone] Sybil Nesbitt [place] 07/18/2025 1:00 PM EST Office Visit [facility] [address] [place] [phone] Carrillo Hauser PA Type 2 diabetes mellitus with foot ulcer (CODE) ([facility] V24, [facility] V28) (Primary Dx); Non-pressure chronic ulcer of other part of right foot limited to breakdown of skin (CMS/HCC V24, CMS/HCC V28); Type 2 diabetes mellitus with polyneuropathy (CMS/HCC V24, CMS/HCC V28) 07/13/2025 Telephone Thoracic Surgery - [place] 299 [facility] [address] [place] [phone] Gloria Jaeger RN 07/05/2025 5:15 PM EDT - 07/05/2025 11:59 PM EDT Hospital Encounter [facility] CT Scan [address] [place] [address] Malignant neoplasm of kidney excluding renal pelvis, unspecified laterality (CMS/HCC V24, CMS/HCC V28); Solitary pulmonary nodule Discharge Disposition: Home or Self Care 07/04/2025 12:30 PM EDT Office Visit [facility] [address] [place] [phone] Carrillo Hauser PA Type 2 diabetes mellitus with foot ulcer (CODE) (CMS/HCC V24, CMS/HCC V28) (Primary Dx); Non-pressure chronic ulcer of other part of right foot limited to breakdown of skin (CMS/HCC V24, CMS/HCC V28); Type 2 diabetes mellitus with polyneuropathy (CMS/HCC V24, CMS/HCC V28) 06/23/2025 Results Follow-Up Infectious Disease - [place] [facility] [address] [place] [phone] Deirdre Ingram RN 06/20/2025 2:15 PM EDT Office Visit [facility] [address] [place] [phone] Carrillo Hauser PA Type 2 diabetes mellitus with foot ulcer (CODE) (CMS/HCC V24, CMS/HCC V28) (Primary Dx); Non-pressure chronic ulcer of other part of right foot limited to breakdown of skin (CMS/HCC V24, CMS/HCC V28); Type 2 diabetes mellitus with polyneuropathy (CMS/HCC V24, CMS/HCC V28) 06/15/2025 2:30 PM EDT - 06/15/2025 11:59 PM EDT Hospital Encounter [facility] Nuclear Medicine [address] [place] [phone] Discharge Disposition: Home or Self Care 06/15/2025 11:17 AM EDT - 06/15/2025 11:59 PM EDT Hospital Encounter [facility] [address] [place] [phone] Diabetic ulcer of toe of right foot associated with type 2 diabetes mellitus, unspecified ulcer stage (CMS/HCC V24, CMS/HCC V28) Discharge Disposition: Home or Self Care 06/13/2025 1:45 PM EDT Office Visit [facility] [address] [place] [phone] Carrillo Hauser PA Type 2 diabetes mellitus with foot ulcer (CODE) (CMS/HCC V24, CMS/HCC V28) (Primary Dx); Non-pressure chronic ulcer of other part of right foot limited to breakdown of skin (CMS/HCC V24, CMS/HCC V28); Type 2 diabetes mellitus with polyneuropathy (CMS/HCC V24, CMS/HCC V28) 06/06/2025 4:00 PM EDT Consult Infectious Disease - [place] [facility] [address] [phone] Kaycee Kelly MD Diabetic ulcer of toe of right foot associated with type 2 diabetes mellitus, unspecified ulcer stage (CMS/HCC V24, CMS/HCC V28) (Primary Dx) 06/06/2025 12:30 PM EDT Office Visit [facility] [address] [place] [phone] Carrillo Hauser PA Type 2 diabetes mellitus with foot ulcer (CODE) (CMS/HCC V24, CMS/HCC V28) (Primary Dx); Non-pressure chronic ulcer of other part of right foot limited to breakdown of skin (CMS/HCC V24, CMS/HCC V28); Type 2 diabetes mellitus with polyneuropathy (CMS/HCC V24, CMS/HCC V28) 05/30/2025 1:45 PM EDT Office Visit [facility] [address] [place] [phone] Carrillo Hauser PA Type 2 diabetes mellitus with foot ulcer (CODE) ([facility] V24, [facility] V28) (Primary Dx); Non-pressure chronic ulcer of other part of right foot limited to breakdown of skin ([facility] V24, [facility] V28); Type 2 diabetes mellitus with polyneuropathy ([facility] V24, [facility] V28) 05/30/2025 Telephone Infectious Disease [facility] [address] [phone] Amaris RegiStrunk, [place] 05/25/2025 Telephone [facility] [address] [place] [phone] Sharon Bird RN 05/24/2025 1:45 PM EDT - 05/24/2025 11:59 PM EDT Hospital Encounter [facility] MRI [address] [place] [phone] Type 2 diabetes mellitus with foot ulcer (CODE) ([facility] V24, [facility] V28); Non-pressure chronic ulcer of other part of right foot with fat layer exposed ([facility] V24, [facility] V28); Type 2 diabetes mellitus with polyneuropathy ([facility] V24, [facility] V28) Discharge Disposition: Home or Self Care 05/23/2025 12:30 PM EDT Office Visit [facility] [address] [place] [phone] Carrillo Hauser PA Type 2 diabetes mellitus with foot ulcer (CODE) ([facility] V24, [facility] V28) (Primary Dx); Non-pressure chronic ulcer of other part of right foot limited to breakdown of skin ([facility] V24, [facility] V28); Type 2 diabetes mellitus with polyneuropathy ([facility] V24, [facility] V28) 05/16/2025 12:45 PM EDT Office Visit [facility] [address] [place] [phone] Carrillo Hauser PA Type 2 diabetes mellitus with foot ulcer (CODE) ([facility] V24, [facility] V28) (Primary Dx); Non-pressure chronic ulcer of other part of right foot with fat layer exposed ([facility] V24, [facility] V28); Type 2 diabetes mellitus with polyneuropathy ([facility] V24, [facility] V28); Other osteomyelitis of right foot ([facility] V24, [facility] V28) from Last 3 Months Surgical History Surgery Date Site/Laterality Comments HERNIA REPAIR PROCEDURE: KS REPAIR FIRST ABDOMINAL WALL HERNIA KNEE ARTHROSCOPY Bilateral PROCEDURE: KS ARTHROSCOPY AID TX SPINE&/FX KNEE W/O FIXJ; COMMENT: meniscus repair HERNIA REPAIR 10/21/2016 Bilateral PROCEDURE: LAPAROSCOPY, INGUINAL HERNIA REPAIR; COMMENT: recurrent HERNIA REPAIR 04/06/2014 Right PROCEDURE: HISTORICAL HERNIA REPAIR/ING; COMMENT: [address] Hernia Patch HERNIA REPAIR 08/17/2014 Left PROCEDURE: HISTORICAL HERNIA REPAIR/ING HERNIA REPAIR 2018 Right PROCEDURE: HISTORICAL HERNIA REPAIR/ING; COMMENT: Open - ultra pro mesh device CHOLECYSTECTOMY 09/07/2023 - 09/06/2024 CATARACT EXTRACTION 09/07/2024 - 09/06/2025 Bilateral Medical History Medical History Date Comments Hypertension [...] disc L5-S1 Diabetes mellitus type 2, uncomplicated ([facility] V24, [facility] V28) DX:Diabetes mellitus type 2, uncomplicated ([facility]) Family History Medical History Relation Name Comments [...] Sign Reading Time Taken Comments Blood Pressure 130/63 07/19/2025 2:49 PM EST Pulse 91 07/19/2025 2:49 PM EST Temperature 36.2 C (97.2 F) 07/19/2025 2:49 PM EST Respiratory Rate 17 07/18/2025 1:06 PM EST Oxygen Saturation 99% 07/19/2025 2:49 PM EST Inhaled Oxygen Concentration - - Weight 92.5 kg (204 lb) 07/19/2025 2:49 PM EST Height 190.5 cm (6' 3 ) 05/16/2025 1:11 PM EDT Body Mass Index 25.5 05/16/2025 1:11 PM EDT Plan of Treatment Upcoming Encounters Date Type Department Care Team (Late st Contact Info) Description 08/01/2025 1:15 PM EST Clinical Support [facility] [address] [place] [phone] 08/01/2025 3:00 PM EST Consult Pulmonology - [place] [address] [facility] [address] [place] [phone] Natalia Matos MD [address] [place] [phone] Health Maintenance Due Date Last Done Comments Colorectal Cancer Screening: Colonoscopy 1953 Diabetes: Annual Foot Exam 1963 Diabetes: Annual Retina Eye Exam 1963 DTaP,Tdap,and Td Vaccines (1 - Tdap) 1972 Pneumococcal Vaccine: 50+ Years (1 of 2 - PCV) 1972 Cholesterol Screening (Lipid Panel) 08/06/2022 Hepatitis C Screening 08/06/2022 Social Influencers of Health Screening 08/06/2022 Diabetes: Annual Urine Albumin-Creatinine Ratio (uACR) 08/21/2022 Diabetes: Blood Sugar Control Test (HGBA1C) 08/21/2022 Influenza Vaccine (#1) 2025 06/07/2024 COVID-19 Vaccine (9 - Pfizer risk season) 2025 05/17/2025, 05/18/2024, 05/27/2023, Additional history exists Falls Risk Assessment 05/16/2026 05/16/2025 Diabetes: Annual GFR (Glomerular Filtration Rate) 05/26/2026 05/26/2025 Hypertension/CHF/CAD Annual BMP Blood Test 05/26/2026 05/26/2025 Zoster Vaccines Completed 03/18/2022, 01/21/2022 RSV Immunization Adult Patients Completed 05/27/2023 Depression Screening Completed 05/16/2025 HIB Vaccines Aged Out No longer eligi [...] on patient's age to complete this topic Goals Goal Patient Goal Type Associated Problems [...] by week 4 Care Plan Impaired Tissue No Sharon Bird RN Wound volume breakdown reduced by X% by week 8 Care Plan Impaired Tissue No Sharon Bird RN Wound volume breakdown reduced by X% by week 12 Care Plan Impaired Tissue No Sharon Bird RN Quit using tobacco (cigarettes, smokeless, etc) Care Plan Education needed on impact of smoking on wound No Sharon Bird RN Reduce tobacco use (cigarettes, smokeless, etc) Care Plan Education needed on impact of smoking on wound No Sharon Bird RN Decrease Wound Volume by X% by date (in notes) Care Plan Education needed on impact of smoking on wound No Sharon Bird RN Patient and Caregiver Understand Wound Care Education Care Plan Education needed related to ulceration/compr omised skin integrity. No Sharon Bird RN Procedures Procedure Name Priority Date/Time Associated Diagnosis Comments DEBRIDEMENT Routine 07/18/2025 1:00 PM EST Type 2 diabetes mellitus with foot ulcer (CODE) (CMS/HCC V24, CMS/HCC V28) Non-pressure chronic ulcer of other part of right foot limited to breakdown of skin (CMS/HCC V24, CMS/HCC V28) CT CHEST WO CONTRAST Routine 07/05/2025 5:40 PM EDT Malignant neoplasm of kidney excluding renal pelvis, unspecified laterality (CMS/HCC V24, CMS/HCC V28) Solitary pulmonary nodule DEBRIDEMENT Routine 07/04/2025 12:30 PM EDT Type 2 diabetes mellitus with foot ulcer (CODE) (CMS/HCC V24, CMS/HCC V28) Non-pressure chronic ulcer of other part of right foot limited to breakdown of skin (CMS/HCC V24, CMS/HCC V28) Type 2 diabetes mellitus with polyneuropathy (CMS/HCC V24, CMS/HCC V28) DEBRIDEMENT Routine 06/20/2025 2:15 PM EDT Type 2 diabetes mellitus with foot ulcer (CODE) (CMS/HCC V24, CMS/HCC V28) Non-pressure chronic ulcer of other part of right foot limited to breakdown of skin (CMS/HCC V24, CMS/HCC V28) Type 2 diabetes mellitus with polyneuropathy (CMS/HCC V24, CMS/HCC V28) NM BONE/JOINT SCAN 3 PHASE Routine 06/15/2025 2:57 PM EDT Diabetic ulcer of toe of right foot associated with type 2 diabetes mellitus, unspecified ulcer stage (CMS/HCC V24, CMS/HCC V28) DEBRIDEMENT Routine 06/13/2025 1:45 PM EDT Type 2 diabetes mellitus with foot ulcer (CODE) (CMS/HCC V24, CMS/HCC V28) Non-pressure chronic ulcer of other part of right foot limited to breakdown of skin (CMS/HCC V24, CMS/HCC V28) Type 2 diabetes mellitus with polyneuropathy (CMS/HCC V24, CMS/HCC V28) DEBRIDEMENT Routine 06/06/2025 12:30 PM EDT Type 2 diabetes mellitus with foot ulcer (CODE) (CMS/HCC V24, CMS/HCC V28) Non-pressure chronic ulcer of other part of right foot limited to breakdown of skin (CMS/HCC V24, CMS/HCC V28) DEBRIDEMENT Routine 05/30/2025 1:45 PM EDT Type 2 diabetes mellitus with foot ulcer (CODE) (CMS/HCC V24, CMS/HCC V28) Non-pressure chronic ulcer of other part of right foot limited to breakdown of skin (CMS/HCC V24, CMS/HCC V28) CBC WITH AUTO DIFFERENTIAL Routine 05/26/2025 1:59 PM EDT Type 2 diabetes mellitus with foot ulcer (CODE) (CMS/HCC V24, CMS/HCC V28) Non-pressure chronic ulcer of other part of right foot with fat layer exposed (CMS/HCC V24, CMS/HCC V28) Type 2 diabetes mellitus with polyneuropathy (CMS/HCC V24, CMS/HCC V28) Other osteomyelitis of right foot (CMS/HCC V24, CMS/HCC V28) BASIC METABOLIC PANEL Routine 05/26/2025 1:59 PM EDT Type 2 diabetes mellitus with foot ulcer (CODE) (CMS/HCC V24, CMS/HCC V28) Non-pressure chronic ulcer of other part of right foot with fat layer exposed (CMS/HCC V24, CMS/HCC V28) Type 2 diabetes mellitus with polyneuropathy (CMS/HCC V24, CMS/HCC V28) Other osteomyelitis of right foot (CMS/HCC V24, CMS/HCC V28) C-REACTIVE PROTEIN Routine 05/26/2025 1: 59 PM EDT Type 2 diabetes mellitus with foot ulcer (CODE) (CMS/HCC V24, CMS/HCC V28) Non-pressure chronic ulcer of other part of right foot with fat layer exposed (CMS/HCC V24, CMS/HCC V28) Type 2 diabetes mellitus with polyneuropathy (CMS/HCC V24, CMS/HCC V28) Other osteomyelitis of right foot (CMS/HCC V24, CMS/HCC V28) SEDIMENTATION RATE Routine 05/26/2025 1: 59 PM EDT Type 2 diabetes mellitus with foot ulcer (CODE) (CMS/HCC V24, CMS/HCC V28) Non-pressure chronic ulcer of other part of right foot with fat layer exposed (CMS/HCC V24, CMS/HCC V28) Type 2 diabetes mellitus with polyneuropathy (CMS/HCC V24, CMS/HCC V28) Other osteomyelitis of right foot (CMS/HCC V24, CMS/HCC V28) CBC AND DIFFERENTIAL Routine 05/26/2025 1:59 PM EDT Type 2 diabetes mellitus with foot ulcer (CODE) (CMS/HCC V24, CMS/HCC V28) Non-pressure chronic ulcer of other part of right foot with fat layer exposed (CMS/HCC V24, CMS/HCC V28) Type 2 diabetes mellitus with polyneuropathy (CMS/HCC V24, CMS/HCC V28) Other osteomyelitis of right foot (CMS/HCC V24, CMS/HCC V28) MR FOOT WO AND W CONTRAST RIGHT Routine 05/24/2025 3:47 PM EDT Type 2 diabetes mellitus with foot ulcer (CODE) (CMS/HCC V24, CMS/HCC V28) Non-pressure chronic ulcer of other part of right foot with fat layer exposed (CMS/HCC V24, CMS/HCC V28) Type 2 diabetes mellitus with polyneuropathy (CMS/HCC V24, CMS/HCC V28) DEBRIDEMENT Routine 05/23/2025 12:30 PM EDT Type 2 diabetes mellitus with foot ulcer (CODE) (CMS/HCC V24, CMS/HCC V28) Non-pressure chronic ulcer of other part of right foot limited to breakdown of skin (CMS/HCC V24, CMS/HCC V28) Type 2 diabetes mellitus with polyneuropathy ([facility] V24, [facility] V28) DEBRIDEMENT Routine 05/16/2025 12:45 PM EDT Type 2 diabetes mellitus with foot ulcer (CODE) ([facility] V24, [facility] V28) Non-pressure chronic ulcer of other part of right foot with fat layer exposed ([facility] V24, [facility] V28) Type 2 diabetes mellitus with polyneuropathy ([facility] V24, [facility] V28) from Last 3 Months Results * Debridement Diabetic Ulcer Right;Plantar Toe D3, Third (07/18/2025 1:00 PM EST) Carlos Valencia MD - 07/18/2025 1:00 PM EST Carlos Jorge MD 07/19/2025 4:13 PM Debridement Diabetic Ulcer Right;Plantar Toe D3, Third Performed by: CHANDRAKANT Flores Authorized by: CHANDRAKANT Flores Associated wounds: Wound Diabetic Ulcer 05/16/25 Toe D3, Third Right;Plantar Consent: Consent obtained: Verbal Consent given by: Patient Risks discussed: Yes Time out: Immediately prior to the procedure a time out was called Debridement Details: Performed by: CHANDRAKANT Type: selective Pain control: Lidocaine 5% Severity of Tissue Pre Debridement: Limited to breakdown of skin Severity of Tissue Post Debridement: Limited to breakdown of skin Time taken: 07/18/2025 1:08 PM Length (cm): 0.4 Width (cm): 0.4 Depth (cm): 0.1 Area (cm^2): 0.13 Time taken: 07/18/2025 1:09 PM Length (cm): 0.4 Width (cm): 0.4 Depth (cm): 0.1 Percent Debrided (%): 100 Surface Area (cm^2): 0.16 Area Debrided (cm^2): 0.16 Volume (cm^3): 0.02 Tissue and other material debrided: dermis and epidermis Devitalized tissue debrided: callus Instrument: Curette Amount of bleeding: none Hemostasis obtained with: Not applicable Procedural pain: Insensate Post-procedural pain: Insensate Response to treatment: Procedure was tolerated well us Carrillo STALLINGS IN CLINIC/BEDSIDE ORDERABLE S Final Result * CT Chest wo Contrast (07/05/2025 5:40 PM EDT) Anatomical Region Laterality Modality Body Computed Tomogra phy 07/10/2025 3:39 PM EST Impressions 07/10/2025 4:15 PM EST There are multiple suspicious pulmonary nodules with an upper lung zone predominance and some of which appear to be cavitary. This would be an unusual pattern for pulmonary metastasis arising from prostate cancer. Therefore, other possibilities including metastatic disease from an additional separate primary malignancy or infectious or inflammatory causes should be considered. Recommend pulmonary consultation. Tissue diagnosis may be warranted. Please note that the previous PET/CT used the agent sensitive for prostate cancer (PMSA) -------- FINAL REPORT -------- Dictated By: Colin Renteria Dictated Date: 07/10/2025 15:39 ET Assigned Physician: Colin Renteria Reviewed and Electronically Signed By: Colin Renteria Signed Date: 07/10/2025 16:15 ET Workstation ID: [id number] Transcribed By: Self Edit Transcribed Date: 07/10/2025 15:39 ET Narrative 07/10/2025 4:15 PM EST EXAMINATION: CT CHEST WITHOUT CONTRAST CLINICAL INFORMATION: Malignant neoplasm of kidney except renal pelvis. Solitary pulmonary nodule. PET CT performed to assess prostate cancer demonstrated lung nodules. COMPARISON: Portions of PET CT 02/08/25 TECHNIQUE: Multidetector CT. Examination of the chest. Examination of the chest without IV contrast. Reformatting in the coronal and sagittal planes. DLP: 386 mGy-cm Dose optimization was performed including the use of low-dose iterative reconstruction technique with automatic exposure control based on patient size. Type of contrast: None Volume of IV contrast: None Volume of contrast discarded: 0 mL FINDINGS: LUNG: No suspicious abnormality of the trachea or mainstem bronchi. Cavitary nodule lateral left apex 07/05/25-1.0 cm (3/34) Irregular solid nodule anterior left apex 07/05/25-1.0 cm (3/45) Probably cavitary nodule anteromedial left upper lobe 07/05/25-0.6 cm Solid nodule abutting the pleural reflection in the medial right upper lobe 07/05/25-1.1 cm () Irregular solid nodule abutting the upper aspect of the right major fissure 07/05/25-0.7 cm () There are multiple additional scattered nodules which appear to be more numerous in the upper lung zones. There are scattered micronodules which are sharply circumscribed and many of which are calcified suggesting previous granulomatous disease. There are some relatively mild interstitial lung abnormalities including fine reticular opacities and some fibrotic changes adjacent to some right-sided thoracic osteophytes. MEDIASTINUM: There are no enlarged mediastinal or hilar lymph nodes. No suspicious abnormality of the esophagus CARDIAC: The heart is not enlarged. No pericardial fluid or thickening CORONARY CALCIFICATION: There are marked coronary calcifications. VASCULAR: There is no thoracic aortic aneurysm. The main pulmonary artery is normal caliber. PLEURA: There is no pleural fluid or pneumothorax AXILLA/CHEST WALL: There are no enlarged axillary lymph nodes. No chest wall mass demonstrated VISUALIZED UPPER ABDOMEN: No suspicious abnormality on limited assessment of the visualized upper abdomen. No change in a peripheral low attenuating abnormality in the lateral dome of hepatic segment 8 (/) when compared to CT with contrast 06/16/24. MUSCULOSKELETAL: No suspicious focal bony lesion. 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 Solitary pulmonarynodule. PET CT performed to assess prostate cancer demonstrated lung nodules. COMPARISON: Portions of PET CT 02/08/25 TECHNIQUE: Multidetector CT. Examination of the chest. Examination of the chest without IV contrast. Reformatting in the coronal and sagittal planes. DLP: 386 mGy-cm Dose optimization was performed including the use of low-dose iterativereconstruction technique with automatic exposure control based on patientsize. Type of contrast: None Volume of IV contrast: None Volume of contrast discarded: 0 mL FINDINGS: LUNG: No suspicious abnormality of the trachea or mainstem bronchi. Cavitary nodule lateral left apex 07/05/25-1.0 cm (3/34) Irregular solid nodule anterior left apex 07/05/25-1.0 cm (3/45) Probably cavitary nodule anteromedial left upper lobe 07/05/25-0.6 cm Solid nodule abutting the pleural reflection in the medial right upperlobe 07/05/25-1.1 cm () Irregular solid nodule abutting the upper aspect of the right majorfissure 07/05/25-0.7 cm () There are multiple additional scattered nodules which appear to be morenumerous in the upper lung zones. There are scattered micronodules which are sharply circumscribed and manyof which are calcified suggesting previous granulomatous disease. There are some relatively mild interstitial lung abnormalities includingfine reticular opacities and some fibrotic changes adjacent to someright-sided thoracic osteophytes. MEDIASTINUM: There are no enlarged mediastinal or hilar lymph nodes. Nosuspicious abnormality of the esophagus CARDIAC: The heart is not enlarged. No pericardial fluid or thickening CORONARY CALCIFICATION: There are marked coronary calcifications. VASCULAR: There is no thoracic aortic aneurysm. The main pulmonary arteryis normal caliber. PLEURA: There is no pleural fluid or pneumothorax AXILLA/CHEST WALL: There are no enlarged axillary lymph nodes. No chestwall mass demonstrated VISUALIZED UPPER ABDOMEN: No suspicious abnormality on limited assessmentof the visualized upper abdomen. No change in a peripheral lowattenuating abnormality in the lateral dome of hepatic segment 8 (4/106)when compared to CT with contrast 06/16/24. MUSCULOSKELETAL: No suspicious focal bony lesion. Trace superior endplatecompression deformities in the midthoracic spine IMPRESSION: There are multiple suspicious pulmonary nodules with an upper lung zonepredominance and some of which appear to be cavitary. This would be an unusual pattern for pulmonary metastasis arising fromprostate cancer. Therefore, other possibilities including metastatic disease from anadditional separate primary malignancy or infectious or inflammatorycauses should be considered. Recommend pulmonary consultation. Tissue diagnosis may be warranted. Please note that the previous PET/CT used the agent sensitive for prostatecancer (PMSA) -------- FINAL REPORT -------- Dictated By: Colin Renteria Dictated Date: 07/10/2025 15:39 ET Assigned Physician: Colin Renteria Reviewed and Electronically Signed By: Colin Renteria Signed Date: 07/10/2025 16:15 ET Workstation ID: [id number] Transcribed By: Self Edit Transcribed Date: 07/10/2025 15:[address] MD IMG CT PROCEDURES Final Resul t * Debridement Diabetic Ulcer Right;Plantar Toe D3, Third (07/04/2025 12:30 PM EDT) Carlos Valencia MD - 07/04/2025 12:30 PM EDT Carlos Jorge MD 07/07/2025 3:25 PM Debridement Diabetic Ulcer Right;Plantar Toe D3, Third Performed by: CHANDRAKANT Flores Authorized by: CHANDRAKANT Flores Associated wounds: Wound Diabetic Ulcer 05/16/25 Toe D3, Third Right;Plantar Consent: Consent obtained: Verbal Consent given by: Patient Risks discussed: Yes Time out: Immediately prior to the procedure a time out was called Debridement Details: Performed by: PA Type: selective Pain control: Lidocaine 5% Severity of Tissue Pre Debridement: Limited to breakdown of skin Severity of Tissue Post Debridement: Limited to breakdown of skin Time taken: 07/04/2025 12:43 PM Length (cm): 0.1 Width (cm): 0.2 Depth (cm): 0.2 Area (cm^2): 0.02 Time taken: 07/04/2025 12:44 PM Length (cm): 0.1 Width (cm): 0.2 Depth (cm): 0.2 Percent Debrided (%): 100 Surface Area (cm^2): 0.02 Area Debrided (cm^2): 0.02 Volume (cm^3): 0 Tissue and other material debrided: dermis and epidermis Devitalized tissue debrided: callus Instrument: Curette Amount of bleeding: none Hemostasis obtained with: Not applicable Procedural pain: Insensate Post-procedural pain: Insensate Response to treatment: Procedure was tolerated well us Carrillo STALLINGS IN CLINIC/BEDSIDE ORDERABLE S Final Result * Debridement Diabetic Ulcer Right;Plantar Toe D3, Third (06/20/2025 2:15 PM EDT) Carlos Valencia MD - 06/20/2025 2:15 PM EDT Carlos Jorge MD 06/23/2025 10:55 AM Debridement Diabetic Ulcer Right;Plantar Toe D3, Third Performed by: CHANDRAKANT Flores Authorized by: CHANDRAKANT Flores Associated wounds: Wound Diabetic Ulcer 05/16/25 Toe D3, Third Right;Plantar Consent: Consent obtained: Verbal Consent given by: Patient Risks discussed: Yes Time out: Immediately prior to the procedure a time out was called Debridement Details: Performed by: CHANDRAKANT Type: selective Pain control: Lidocaine 5% Severity of Tissue Pre Debridement: Limited to breakdown of skin Severity of Tissue Post Debridement: Limited to breakdown of skin Time taken: 06/20/2025 2:24 PM Length (cm): 0.3 Width (cm): 0.2 Depth (cm): 0.1 Area (cm^2): 0.05 Time taken: 06/20/2025 2:25 PM Length (cm): 0.3 Width (cm): 0.2 Depth (cm): 0.1 Percent Debrided (%): 100 Surface Area (cm^2): 0.06 Area Debrided (cm^2): 0.06 Volume (cm^3): 0.01 Tissue and other material debrided: dermis and epidermis Devitalized tissue debrided: callus Instrument: Curette Amount of bleeding: none Hemostasis obtained with: Not applicable Procedural pain: Insensate Post-procedural pain: Insensate Response to treatment: Procedure was tolerated well us Carrillo STALLINGS IN CLINIC/BEDSIDE ORDERABLE S Final Result * NM Bone/Joint Scan 3 Phase (06/15/2025 2:57 PM EDT) Anatomical Region Laterality Modality Nuclear Medicine 06/20/2025 1:45 PM EDT Impressions 06/20/2025 1:51 PM EDT No three-phase positivity within the distal aspect of the right 3rd toe to suggest acute osteomyelitis. Activity on the blood flow and blood pool phases along the region of the 3rd and 4th toe can be consistent with cellulitis. Consider correlation with conventional radiograph of the right foot/3rd toe. -------- FINAL REPORT -------- Dictated By: Taran Neumann Dictated Date: 06/20/2025 13:45 ET Assigned Physician: Taran Neumann Reviewed and Electronically Signed By: Taran Neumann Signed Date: 06/20/2025 13:51 ET Workstation ID: [id number] Transcribed By: Self Edit Transcribed Date: 06/20/2025 13:45 ET Narrative 06/20/2025 1:51 PM EDT INDICATION: Evaluate for osteomyelitis. Recent MRI is suspicious for possible osteomyelitis of the distal tuft of the distal phalanx of the right 3rd toe FINDINGS: Three-phase bone scan was obtained after the uneventful intravenous administration of 24.8 mCi of technetium-99m MDP intravenously. Prior imaging was reviewed including MRI of the foot from May 24, 2025. Blood flow imaging obtained in the plantar projection demonstrates increased blood flow to the distal right foot in the region of the 3rd and 4th toes. Blood pool imaging obtained in the plantar projection demonstrates increased activity in the region of the right 1st metatarsophalangeal joint as well as the distal right 3rd and 4th toes. Activity in the stenosis not appear as intense when compared to the blood flow images. Multifocal uptake also noted along the left 1st metatarsophalangeal joint. Static delayed phase imaging obtained in the plantar projection demonstrates further increased activity along the right and left 1st metatarsophalangeal joint suggestive of degenerative changes. No further increase activity along the 3rd and 4th toes with activity overall similar to the other toes. This finding is not suggestive of acute osteomyelitis. Mild decrease activity along the right 1st interphalangeal joint likely degenerative. Procedure Note Taran Neumann MD - 06/20/2025 INDICATION: Evaluate for osteomyelitis. Recent MRI is suspicious forpossible osteomyelitis of the distal tuft of the distal phalanx of theright 3rd toe FINDINGS: Three-phase bone scan was obtained after the uneventfulintravenous administration of 24.8 mCi of technetium-99m MDPintravenously. Prior imaging was reviewed including MRI of the foot fromMay 24, 2025. Blood flow imaging obtained in the plantar projection demonstratesincreased blood flow to the distal right foot in the region of the 3rd and4th toes. Blood pool imaging obtained in the plantar projection demonstratesincreased activity in the region of the right 1st metatarsophalangealjoint as well as the distal right 3rd and 4th toes. Activity in thestenosis not appear as intense when compared to the blood flow images. Multifocal uptake also noted along the left 1st metatarsophalangealjoint. Static delayed phase imaging obtained in the plantar projectiondemonstrates further increased activity along the right and left 1stmetatarsophalangeal joint suggestive of degenerative changes. No further increase activity along the 3rd and 4th toes with activityoverall similar to the other toes. This finding is not suggestive of acuteosteomyelitis. Mild decrease activity along the right 1st interphalangeal joint likelydegenerative. IMPRESSION: No three-phase positivity within the distal aspect of the right 3rd toe tosuggest acute osteomyelitis. Activity on the blood flow and blood poolphases along the region of the 3rd and 4th toe can be consistent withcellulitis. Consider correlation with conventional radiograph of the rightfoot/3rd toe. -------- FINAL REPORT -------- Dictated By: Taran Neumann Dictated Date: 06/20/2025 13:45 ET Assigned Physician: Taran Neumann Reviewed and Electronically Signed By: Taran Neumann Signed Date: 06/20/2025 13:51 ET Workstation ID: [id number] Transcribed By: Self Edit Transcribed Date: 06/20/2025 13:45 ET Kaycee Kelly MD IMG NM PROCEDURES Final Result * Debridement Diabetic Ulcer Right;Plantar Toe D3, Third (06/13/2025 1:45 PM EDT) Carrillo Corcoran PA - 06/13/2025 1:45 PM EDT CHANDRAKANT Flores 06/13/2025 2:18 PM Debridement Diabetic Ulcer Right;Plantar Toe D3, Third Performed by: CHANDRAKANT Flores Authorized by: CHANDRAKANT Flores Associated wounds: Wound Diabetic Ulcer 05/16/25 Toe D3, Third Right;Plantar Consent: Consent obtained: Verbal Consent given by: Patient Risks discussed: Yes Time out: Immediately prior to the procedure a time out was called Debridement Details: Performed by: CHANDRAKANT Type: selective Pain control: Lidocaine 5% Severity of Tissue Pre Debridement: Limited to breakdown of skin Severity of Tissue Post Debridement: Limited to breakdown of skin Time taken: 06/13/2025 1:51 PM Length (cm): 0.2 Width (cm): 0.2 Depth (cm): 0.1 Area (cm^2): 0.03 Time taken: 06/13/2025 1:52 PM Length (cm): 0.2 Width (cm): 0.2 Depth (cm): 0.1 Percent Debrided (%): 100 Surface Area (cm^2): 0.04 Area Debrided (cm^2): 0.04 Volume (cm^3): 0 Tissue and other material debrided: dermis and epidermis Devitalized tissue debrided: callus Instrument: Curette Amount of bleeding: none Hemostasis obtained with: Not applicable Procedural pain: Insensate Post-procedural pain: Insensate Response to treatment: Procedure was tolerated well us Carrillo STALLINGS IN CLINIC/BEDSIDE ORDERABLE S Final Result * Debridement Diabetic Ulcer Right;Plantar Toe D3, Third (06/06/2025 12:30 PM EDT) Carlos Valencia MD - 06/06/2025 12:30 PM EDT Carlos Jorge MD 06/15/2025 9:30 AM Debridement Diabetic Ulcer Right;Plantar Toe D3, Third Performed by: CHANDRAKANT Flores Authorized by: CHANDRAKANT Flores Associated wounds: Wound Diabetic Ulcer 05/16/25 Toe D3, Third Right;Plantar Consent: Consent obtained: Verbal Consent given by: Patient Risks discussed: Yes Time out: Immediately prior to the procedure a time out was called Debridement Details: Performed by: PA Type: selective Pain control: Lidocaine 5% Severity of Tissue Pre Debridement: Limited to breakdown of skin Severity of Tissue Post Debridement: Limited to breakdown of skin Time taken: 06/06/2025 12:52 PM Length (cm): 0.1 Width (cm): 0.1 Depth (cm): 0.1 Area (cm^2): 0.01 Time taken: 06/06/2025 12:53 PM Length (cm): 0.1 Width (cm): 0.1 Depth (cm): 0.1 Percent Debrided (%): 100 Surface Area (cm^2): 0.01 Area Debrided (cm^2): 0.01 Volume (cm^3): 0 Tissue and other material debrided: dermis and epidermis Devitalized tissue debrided: callus Instrument: Curette Amount of bleeding: none Hemostasis obtained with: Not applicable Procedural pain: Insensate Post-procedural pain: Insensate Response to treatment: Procedure was tolerated well us Carrillo E Hauser PA IN CLINIC/BEDSIDE ORDERABLE S Final Result * Debridement Diabetic Ulcer Right;Plantar Toe D3, Third (05/30/2025 1:45 PM EDT) Carlos Valencia MD - 05/30/2025 1:45 PM EDT CHANDRAKANT Flores 05/30/2025 2:29 PM Debridement Diabetic Ulcer Right;Plantar Toe D3, Third Performed by: CHANDRAKANT Flores Authorized by: CHANDRAKANT Flores Associated wounds: Wound Diabetic Ulcer 05/16/25 Toe D3, Third Right;Plantar Consent: Consent obtained: Verbal Consent given by: Patient Risks discussed: Yes Time out: Immediately prior to the procedure a time out was called Debridement Details: Performed by: PA Type: selective Pain control: Lidocaine 5% Severity of Tissue Pre Debridement: Limited to breakdown of skin Severity of Tissue Post Debridement: Limited to breakdown of skin Time taken: 05/30/2025 1:51 PM Length (cm): 0.1 Width (cm): 0.1 Depth (cm): 0.1 Area (cm^2): 0.01 Time taken: 05/30/2025 1:52 PM Length (cm): 0.1 Width (cm): 0.1 Depth (cm): 0.1 Percent Debrided (%): 100 Surface Area (cm^2): 0.01 Area Debrided (cm^2): 0.01 Volume (cm^3): 0 Tissue and other material debrided: dermis and epidermis Devitalized tissue debrided: callus Instrument: Curette Amount of bleeding: none Hemostasis obtained with: Not applicable Procedural pain: Insensate Post-procedural pain: Insensate Response to treatment: Procedure was tolerated well Carrillo STALLINGS IN CLINIC/BEDSIDE ORDERABLE S Final Result * (ABNORMAL) CBC auto differential (05/26/2025 1:59 PM EDT) WBC 4.7(L) 4.8 - 10.8 K/[facility] LAB HEMETOLOGY METHOD 05/26/2025 3:12 PM EDT [facility] RBC 3.60(L) 4.50 - 5.50 M/[facility] LAB HEMETOLOGY METHOD 05/26/2025 3:12 PM EDT [facility] Hemoglobin 11.5(L) 13.5 - 17.5 g/dL LAB HEMETOLOGY METHOD 05/26/2025 3:12 PM EDT [facility] Hematocrit 33.4(L) 42.0 - 54.0 % LAB HEMETOLOGY METHOD 05/26/2025 3:12 PM EDT [facility] MCV 93.3 79.0 - 98.0 FL LAB HEMETOLOGY METHOD 05/26/2025 3:12 PM EDT [facility] MCH 32.1(H) 27.0 - 32.0 pcg LAB HEMETOLOGY METHOD 05/26/2025 3:12 PM EDT [facility] MCHC 34.4 32.0 - 37.0 g/dL LAB [facility]ETOLOGY [facility] RDW 12.3 11.0 - 15.0 % LAB HEMETOLOGY METHOD 05/26/2025 3:12 PM EDT [facility] Platelets 238 130 - 400 K/mcL LAB HEMETOLOGY METHOD 05/26/2025 3:12 PM EDT [facility] MPV 9.7 7.0 - 11.0 FL LAB HEMETOLOGY METHOD [facility]/26[facility]2025 [facility] NRBC 0.0 <1.0 % LAB HEMETOLOGY METHOD 05/26/2025 3:12 PM EDT [facility] NRBC Absolute 0.00 <0.10 K/mcL LAB HEMETOLOGY METHOD 05/26/2025 3:12 PM EDT [facility] Neutrophils Relative 70.3 % LAB HEMETOLOGY METHOD 05/26/2025 3:12 PM EDT [facility] Lymphocytes Relative 19.7 % LAB HEMETOLOGY METHOD 05/26/2025 3:12 PM EDT [facility] Monocytes Relative 7.5 % LAB HEMETOLOGY METHOD 05/26/2025 3:12 PM EDT [facility] Eosinophils Relative 1.7 % LAB HEMETOLOGY METHOD 05/26/2025 3:12 PM EDT [facility] Basophils Relative 0.4 % LAB HEMETOLOGY METHOD 05/26/2025 3:12 PM EDT [facility] Immature Granulocytes Relative 0.4 % LAB HEMETOLOGY METHOD 05/26/2025 3:12 PM EDT [facility] Neutrophils Absolute 3.29 1.50 - 7.00 K/mcL LAB HEMETOLOGY METHOD 05/26/2025 3:12 PM EDT [facility] Lymphocytes Absolute 0.92(L) 1.00 - 5.00 K/mcL LAB HEMETOLOGY METHOD 05/26/2025 3:12 PM EDT [facility] Monocytes Absolute 0.35 0.20 - 1.00 K/mcL LAB HEMETOLOGY METHOD 05/26/2025 3:12 PM EDT [facility] Eosinophils Absolute 0.08 0.00 - 0.50 K/mcL LAB HEMETOLOGY METHOD 05/26/2025 3:12 PM EDT [facility] Basophils Absolute 0.02 0.00 - 0.20 K/mcL LAB HEMETOLOGY METHOD 05/26/2025 3:12 PM EDT [facility] Immature Granulocytes Absolute 0.02 0.00 - 0.03 K/mcL LAB HEMETOLOGY METHOD 05/26/2025 3:12 PM EDT [facility] Blood Venous blood specimen / Unknown Venipuncture / Unknown 05/26/2025 1:59 PM EDT 05/26/2025 3:02 PM EDT us Carrillo STALLINGS LAB BLOOD ORDERABLES Final Result [facility] [address] [place] [address], [place] [phone] * Sedimentation rate (05/26/2025 1:59 PM EDT) [facility] Sed Rate 14 0 - 20 mm/hr LAB HEMETOLOGY METHOD 05/26/2025 3:23 PM EDT [facility] Blood Venous blood specimen / Unknown Venipuncture / Unknown 05/26/2025 1:59 PM EDT 05/26/2025 3:02 PM EDT Carrillo STALLINGS LAB BLOOD ORDERABLES Final Result Performing Organization Address City/[facility]/ZIP Co de Phone Number [facility] [address] [place] [address], [place] [phone] * C-reactive protein (05/26/2025 1:59 PM EDT) [facility] C-Reactive Protein <0.29 <=0.50 mg/dL LAB CHEMISTRY METHOD 05/26/2025 3:37 PM EDT [facility] Blood Venous blood specimen / Unknown Venipuncture / Unknown 05/26/2025 1:59 PM EDT 05/26/2025 3:02 PM EDT Carrillo STALLINGS LAB BLOOD ORDERABLES Final Result [facility] [address] [place] [address], [place] [phone] * (ABNORMAL) Basic metabolic panel (05/26/2025 1:59 PM EDT) [facility] Sodium 138 133 - 145 mmol/L LAB CHEMISTRY METHOD 05/26/2025 3:37 PM EDT [facility] Potassium 4.4 3.5 - 5.5 mmol/L LAB CHEMISTRY METHOD 05/26/2025 3:37 PM EDT [facility] Chloride 105 96 - 110 mmol/L LAB CHEMISTRY METHOD 05/26/2025 3:37 PM EDT [facility] CO2 29 21 - 32 mmol/L LAB CHEMISTRY METHOD 05/26/2025 3:37 PM EDT [facility] Anion Gap 4 3 - 11 LAB CHEMISTRY METHOD 05/26/2025 3:37 PM EDT [facility] Glucose 201(H) 70 - 100 mg/dL LAB CHEMISTRY METHOD 05/26/2025 3:37 PM EDT [facility] BUN 10 5 - 25 mg/dL LAB CHEMISTRY METHOD [facility] Creatinine 0.84 0.70 - 1.30 mg/dL LAB CHEMISTRY METHOD 05/26/2025 3:37 PM EDT [facility] eGFR 93 >=60 mL/min/1. 73m2 LAB CHEMISTRY METHOD 05/26/2025 3:37 PM EDT [facility] Comment:Calculation based on the Chronic Kidney Disease Epidemiology Collaboration (CKD-EPI) equation refit without adjustment for race. BUN/Creatinine Ratio 11.9 LAB CHEMISTRY METHOD 05/26/2025 3:37 PM T [facility] Calcium 9.8 8.5 - 10.5 mg/dL LAB CHEMISTRY METHOD 05/26/2025 3:37 PM EDT [facility] Blood Venous blood specimen / Unknown Venipuncture / Unknown 05/26/2025 1:59 PM EDT 05/26/2025 3:02 PM EDT us Carrillo STALLINGS LAB BLOOD ORDERABLES Final Result [facility] [address] [place] [address], * MR Foot wo and w Contrast Right (05/24/2025 3:47 PM EDT) Anatomical Region Laterality Modality Lower Extremities, Foot Right Magnetic Resonance 05/25/2025 3:15 AM EDT Impressions 05/25/2025 3:24 AM EDT Suboptimal evaluation due to inhomogeneous fat suppression of the distal phalanges. Within those confines, findings suspicious for possible osteomyelitis of the distal tuft of the distal phalanx of the right third toe. -------- FINAL REPORT -------- Dictated By: Maria M Stallings Dictated Date: 05/25/2025 03:15 ET Assigned Physician: Maria M Stallings Reviewed and Electronically Signed By: Maria M Stallings Signed Date: 05/25/2025 03:24 ET Workstation ID: [id number] Transcribed By: Self Edit Transcribed Date: 05/25/2025 03:15 ET Narrative 05/25/2025 3:24 AM EDT INDICATION: non healing diabetic ulcer of right 3rd toe, increase in pain, r/o osteomyelitis COMPARISON: None TECHNIQUE: Multiplanar, multisequence MRI was performed of the right foot without and after the uneventful intravenous contrast administration of 20 mL Dotarem. FINDINGS: Bone: Suboptimal evaluation due to inhomogeneous fat suppression of the distal phalanges. Within those confines, T1 marrow replacement of the distal tuft of the distal phalanx of the third toe (series 4, image 11; series 5, image 7) with slightly heterogeneously hyperintense signal on STIR and equivocal enhancement. Degenerative changes of the right great toe MTP and right great toe DIP. Soft Tissues: Soft tissue ulcer overlying the right third toe distal phalanx. Subcutaneous soft tissue swelling of the right forefoot. Intraosseous edema. Procedure Note Maria M Stallings MD - 05/25/2025 INDICATION: non healing diabetic ulcer of right 3rd toe, increase inpain, r/o osteomyelitis COMPARISON: None TECHNIQUE: Multiplanar, multisequence MRI was performed of the right footwithout and after the uneventful intravenous contrast administration of 20mL Dotarem. FINDINGS: Bone: Suboptimal evaluation due to inhomogeneous fat suppression of thedistal phalanges. Within those confines, T1 marrow replacement of thedistal tuft of the distal phalanx of the third toe (series 4, image 11;series 5, image 7) with slightly heterogeneously hyperintense signal onSTIR and equivocal enhancement. Degenerative changes of the right great toe MTP and right great toe DIP. Soft Tissues: Soft tissue ulcer overlying the right third toe distalphalanx. Subcutaneous soft tissue swelling of the right forefoot.Intraosseous edema. IMPRESSION: Suboptimal evaluation due to inhomogeneous fat suppression of the distalphalanges. Within those confines, findings suspicious for possibleosteomyelitis of the distal tuft of the distal phalanx of the right thirdtoe. -------- FINAL REPORT -------- Dictated By: Maria M Stallings Dictated Date: 05/25/2025 03:15 ET Assigned Physician: Maria M Stallings Reviewed and Electronically Signed By: Maria M Stallings Signed Date: 05/25/2025 03:24 ET Workstation ID: [id number] Transcribed By: Self Edit Transcribed Date: 05/25/2025 03:15 ET us Carrillo STALLINGS IMG MRI PROCEDURES Final Re sult * Debridement Diabetic Ulcer Right;Plantar Toe D3, Third (05/23/2025 12:30 PM EDT) Carlos Valencia MD - 05/23/2025 12:30 PM EDT CHANDRAKANT Flores 05/23/2025 1:21 PM Debridement Diabetic Ulcer Right;Plantar Toe D3, Third Performed by: CHANDRAKANT Flores Authorized by: CHANDRAKANT Flores Associated wounds: Wound Diabetic Ulcer 05/16/25 Toe D3, Third Right;Plantar Consent: Consent obtained: Verbal Consent given by: Patient Risks discussed: Yes Time out: Immediately prior to the procedure a time out was called Debridement Details: Performed by: CHANDRAKANT Type: selective Pain control: Lidocaine 5% Severity of Tissue Pre Debridement: Limited to breakdown of skin Severity of Tissue Post Debridement: Limited to breakdown of skin Time taken: 05/23/2025 12:49 PM Length (cm): 0.1 Width (cm): 0.1 Depth (cm): 0.1 Area (cm^2): 0.01 Time taken: 05/23/2025 12:50 PM Length (cm): 0.2 Width (cm): 0.2 Depth (cm): 0.1 Percent Debrided (%): 100 Surface Area (cm^2): 0.04 Area Debrided (cm^2): 0.04 Volume (cm^3): 0 Tissue and other material debrided: dermis and epidermis Devitalized tissue debrided: callus Instrument: Curette Amount of bleeding: none Hemostasis obtained with: Not applicable Procedural pain: Insensate Post-procedural pain: Insensate Response to treatment: Procedure was tolerated well us Carrillo STALLINGS IN CLINIC/BEDSIDE ORDERABLE S Final Result * Debridement Diabetic Ulcer Right;Plantar Toe D3, Third (05/16/2025 12:45 PM EDT) Carlos Valencia MD - 05/16/2025 12:45 PM EDT CHANDRAKANT Flores 05/16/2025 2:18 PM Debridement Diabetic Ulcer Right;Plantar Toe D3, Third Performed by: CHANDRAKANT Flores Authorized by: CHANDRAKANT Flores Associated wounds: Wound Diabetic Ulcer 05/16/25 Toe D3, Third Right;Plantar Consent: Consent obtained: Verbal Consent given by: Patient Risks discussed: Yes Time out: Immediately prior to the procedure a time out was called Debridement Details: Performed by: CHANDRAKANT Type: surgical Level: subcutaneous tissue Pain control: Lidocaine 4% Severity of Tissue Pre Debridement: Fat layer exposed Severity of Tissue Post Debridement: Fat layer exposed Time taken: 05/16/2025 1:15 PM Length (cm): 0.5 Width (cm): 0.4 Depth (cm): 0.1 Area (cm^2): 0.2 Time taken: 05/16/2025 1:16 PM Length (cm): 0.5 Width (cm): 0.4 Depth (cm): 0.1 Percent Debrided (%): 100 Surface Area (cm^2): 0.2 Area Debrided (cm^2): 0.2 Volume (cm^3): 0.02 Tissue and other material debrided: dermis, epidermis and subcutaneous tissue Devitalized tissue debrided: biofilm, callus and slough Instrument: Blade and forceps Amount of bleeding: none Hemostasis obtained with: Not applicable Procedural pain: 0 Post-procedural pain: 0 Response to treatment: Procedure was tolerated well us [facility] IN CLINIC/BEDSIDE ORDERABLE S Final Result from Last 3 Months Additional Health Concerns Active Problems Noted Date Diagnosed Date Impaired Tissue 05/16/2025 Education needed on impact of smoking on wound 0 05/16/2025 Education needed related to ulceration/compromised skin integrity. 05/16/2025 Insurance [facility] Care Teams Cutter Machine Relationship Specialty Start Date End Date Alisa Pascual MD [facility] [place] [address] PCP - General Internal Medicine 05/16/25
--- OUTSIDE RECORDS SUMMARY | 2025-07-26 01:03 | XMS_ITS ---
Care Plan Created on: July 26, 2025 Austen Carrero Jr. 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 to breakdown of skin ([facility] V24, [facility] V28) 05/30/2025 Non-pressure chronic ulcer o f other part of right foot with fat layer exposed ([facility] V24, [facility] V28) 05/23/2025 Type 2 diabetes mellitus wit h foot ulcer (CODE) ([facility] V24, [facility] V28) 05/16/2025 Type 2 diabetes mellitus wit h polyneuropathy ([facility] V24, [facility] V28) 05/16/2025 Diabetes mellitus type 2, un complicated ([facility] V24, [facility] V28) 07/29/2024 Hernia of abdominal wall 07/29/2024 Overview (07/29/2024): hernia Hypertension 07/29/2024 Inguinal hernia, recurrent 07/29/2024 Overview (07/29/2024): Right Right inguinal pain 07/29/2024 Contusion of left thigh 06/09/2019 Postoperative seroma of subc utaneous tissue after non-dermatologic procedure 03/09/2019 CAD (coronary artery disease) 02/22/2019 Diverticulosis 02/22/2019 Hyperlipidemia 02/22/2019 Osteoarthritis 02/22/2019 Overview (07/29/2024): 07/24 CT: Lumbar Spine with bulging disc L5-S1 Additional Health Concerns Active Problems Noted Date Diagnosed Date Impaired Tissue 05/16/2025 Education needed on impact of smoking on wound 0 05/16/2025 Education needed related to ulceration/compromised skin integrity. 05/16/2025 Goals Goal Patient Goal Type Associated Problems [...] needed related to ulceration/compr omised skin integrity. Sharon Kimbrough RN Interventions Care Plan Interventions Intervention Entry Date Outcome Provide caregiver with wound care procedure information 05/16/2025 Educate caregiver on proper wound care procedures 05/16/2025 Give provider list of wound care supplies 05/16/2025 Refill wound care supplies 05/16/2025 Send Wound Care Supplies 05/16/2025 Give provider list of wound care supplies 05/16/2025 Refill wound care supplies 05/16/2025 Send Wound Care Supplies 05/16/2025 Provide caregiver with wound care procedure information 05/16/2025 Educate caregiver on proper wound care procedures 05/16/2025 Document patient eligibility for HBO 05/16/2025 Assess patient for HBO treatment 05/16/2025 Record wound depth 05/16/2025 Record total wound area 05/16/2025 Measure wound progress 05/16/2025 Create an action plan identifying patient strengths and supports 05/16/2025 Establish quit date with patient 05/16/2025 Discuss prior cessation attempts 05/16/2025 Discuss preferred method of cessation and plan 05/16/2025 Discuss barriers to smoking cessation 05/16/2025 Discuss smoking status with patient 05/16/2025 Create an action plan identifying patient strengths and supports 05/16/2025 Establish quit date with patient 05/16/2025 Discuss prior cessation attempts 05/16/2025 Discuss preferred method of cessation and plan 05/16/2025 Discuss barriers to smoking cessation 05/16/2025 Discuss smoking status with patient 05/16/2025 Provide caregiver with wound care procedure information 05/16/2025 Educate caregiver on proper wound care procedures 05/16/2025 Document patient eligibility for HBO 05/16/2025 Assess patient for HBO treatment 05/16/2025 Record wound depth 05/16/2025 Record total wound area 05/16/2025 Measure wound progress 05/16/2025 Provide caregiver with wound care procedure information 05/16/2025 Educate caregiver on proper wound care procedures 05/16/2025 Document patient eligibility for HBO 05/16/2025 Assess patient for HBO treatment 05/16/2025 Record wound depth 05/16/2025 Record total wound area 05/16/2025 Measure wound progress 05/16/2025 Provide caregiver with wound care procedure information 05/16/2025 Educate caregiver on proper wound care procedures 05/16/2025 Document patient eligibility for HBO 05/16/2025 Assess patient for HBO treatment 05/16/2025 Record wound depth 05/16/2025 Record total wound area 05/16/2025 Measure wound progress 05/16/2025 Provide caregiver with wound care procedure information 05/16/2025 Educate caregiver on proper wound care procedures 05/16/2025 Give provider list of wound care supplies 05/16/2025 Refill wound care supplies 05/16/2025 Give provider list of wound care supplies 05/16/2025 Refill wound care supplies 05/16/2025 Provide caregiver with wound care procedure information 05/16/2025 Educate caregiver on proper wound care procedures 05/16/2025 Document patient eligibility for HBO 05/16/2025 Assess patient for HBO treatment 05/16/2025 Record wound depth 05/16/2025 Record total wound area 05/16/2025 Measure wound progress 05/16/2025 Related Goals and Interventions Goal Associated Intervent ions Decrease Wound Volume by X% by date (in notes) Give provider list of wound care supplie s; Refill wound care supplies; Provide caregiver with wound care procedure information; Educate caregiver on proper wound care procedures; Document patient eligibility for HBO; Assess patient for HBO treatment; Record wound depth; Record total wound area; Measure wound progress Patient and Caregiver Unders tand Wound Care Education Provide caregiver with wound care proced ure information; Educate caregiver on proper wound care procedures; Give provider list of wound care supplies; Refill wound care supplies Wound volume breakdown reduc ed by X% by week 4 Provide caregiver with wound care proced ure information; Educate caregiver on proper wound care procedures; Document patient eligibility for HBO; Assess patient for HBO treatment; Record wound depth; Record total wound area; Measure wound progress Wound volume breakdown reduc ed by X% by week 8 Provide caregiver with wound care proced ure information; Educate caregiver on proper wound care procedures; Document patient eligibility for HBO; Assess patient for HBO treatment; Record wound depth; Record total wound area; Measure wound progress Wound volume breakdown reduc ed by X% by week 12 Provide caregiver with wound care proced ure information; Educate caregiver on proper wound care procedures; Document patient eligibility for HBO; Assess patient for HBO treatment; Record wound depth; Record total wound area; Measure wound progress Quit using tobacco (cigarett es, smokeless, etc) Create an action plan identifying patien t strengths and supports; Establish quit date with patient; Discuss prior cessation attempts; Discuss preferred method of cessation and plan; Discuss barriers to smoking cessation; Discuss smoking status with patient Reduce tobacco use (cigarett es, smokeless, etc) Create an action plan identifying patien t strengths and supports; Establish quit date with patient; Discuss prior cessation attempts; Discuss preferred method of cessation and plan; Discuss barriers to smoking cessation; Discuss smoking status with patient Decrease Wound Volume by X% by date (in notes) Give provider list of wound care supplie s; Refill wound care supplies; Send Wound Care Supplies; Provide caregiver with wound care procedure information; Educate caregiver on proper wound care procedures; Document patient eligibility for HBO; Assess patient for HBO treatment; Record wound depth; Record total wound area; Measure wound progress Patient and Caregiver Unders tand Wound Care Education Provide caregiver with wound care proced ure information; Educate caregiver on proper wound care procedures; Give provider list of wound care supplies; Refill wound care supplies; Send Wound Care Supplies
== END 2025-07-25 10:57 | disposition home or self-care (01) ==
LOC: HO.HMGCLDS 10:56
PROVIDERS: PCP Internal Medicine; Visit Provider Urology
DX: C61 Malignant neoplasm of prostate (principal); Z12.5 Encounter for screening for malignant neoplasm of prostate
CPT/HCPCS: 36415; 84153

== ENCOUNTER 2025-08-09 11:44 | Outpatient (AMB) | payer MEDICARE, SELFPAY ==
--- NOTE | 2025-08-09 11:49 | MHC.OFFVIS ---
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 They are a patient of Dr Pascual. He is seen for the following urologic conditions - lower urinary tract symptoms - prostate cancer Four-month follow-up Chest CT pleural nodules 1 cm recommend pulmonary referral - managed through [facility] lung program Has upcoming robotic bronchoscopy From prostate point of view PSA continues to remain slowly increase Three-month follow-up Threshold for recurrences 4.0 Would require repeat 18 month GnRH 03/01 PET-CT - no definitive activity then prostate or ryan 05/30 <0.1, 09/30 <0.1, 12/29 <0.1 T 6, 03/30 <0.1 T2, 07/31 0.2 T 90, 11/29 1.7 T 274, 03/31 2.6, 08/01 3.4 Prostate Cancer - 06/28 high risk, grade group 4, low volume disease - GnRH 08/28, 03/29, 09/29 EXBRT 01/27 prostate and pelvic nodes EXBRT with [facility] with hormonal manipulation for 18 months - 37 treatments completed 01/[address] Lane 06/28 PSA at diagnosis 3.7 on finasteride Urine DNA Score 40 Biopsy 06/28 Histologic type: Adenocarcinoma, acinar and intraductal types Histologic grade: Ad score: 4+4=8 (left mid lateral) 60%, 4+3=7 (left base lateral) 30%, 3+4=7 (left apex lateral, right apex lateral)30%, 5%, 3+3=6 (right mid medial) 5% Number cores positive: 5 Total number of cores: 12 % of tissue involved: 10% of all tissue examined Periprostatic fat inv.: Not identified Seminal vesicle inv.: Not identified Perineural inv.: Not identified LVI: Not identified Prostate cancer staging - Prostate MRI - 08/28 1.4 cm PI-RADS 5 left apical lesion, no evidence of extracapsular extension - Bone Scan - degenerative changes PFSH Medical History (Updated 06/15/25 @ 13:30 by Alisa Pascual MD) Diabetic foot ulcer Prostate cancer Dysplastic nevi Abnormal colonoscopy DM type 2 (diabetes mellitus, type 2) Inguinal hernia Hyperlipidemia HTN (hypertension) Surgical History History of surgery H/O colonoscopy H/O hernia repair Status post arthroscopic knee surgery Family History Father No problems noted. Mother No problems noted. 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 Alcohol intake: current Alcohol intake frequency: does not drink Patient Tobacco Use Status: Never used Tobacco e-Cigarette/Vaping Use: Never Used Second Hand Smoke Exposure: No service: No Current occupational status: retired Cognitive needs: No Hearing needs: No Vision needs: Yes Review of Systems Const Denies chills and Denies fever(s) Card Reports no additional complaints and Denies syncope Resp Denies cough GI Denies abdominal pain and Denies heartburn Reports as per HPI and Denies change in libido Neuro Denies syncope Psych Denies change in libido Endo Denies change in libido Physical Exam Const General: cooperative, healthy appearing, comfortable and no acute distress Orientation/consciousness: patient oriented x3 HEENT Face and sinus: Yes normal facial exam Mouth: moist mucous membranes Neck Neck: Yes normal visual inspection, Yes full ROM and Yes trachea midline Chest Chest palpation & inspection: normal inspection of the chest Resp Effort & Inspection: normal respiratory effort, able to speak in complete sentences and no respiratory distress GI Inspection: Yes normal to inspection Back/Spine/Pelvis Cervical Spine: normal cervical lordosis Thoracic/Lumbar Spine: thoracic and lumbar spine normal to inspection Skin General skin exam: no rashes or lesions noted Neuro General: patient oriented x3, gait normal, tone normal and moves all extremities Extrem General: Yes normal to inspection and Yes capillary refill normal Office Procedures Post Void Residual Post Residual Void Post Void Residual (PVR): 25 [id number] Void Residual by ultrasound Assessment & Plan Assessment & Plan (1) Prostate cancer: Comment: 06/28 High Grade, Low Volume, RTx [facility], f/u Dr. Lane Code(s): C61 - Malignant neoplasm of prostate Category: Medical (2) Nocturia associated with benign prostatic hyperplasia: Code(s): N40.1 - Benign prostatic hyperplasia with lower urinary tract symptoms; R35.1 - Nocturia Category: Medical Plan Continue Q three-month follow-up PSA Orders: Orders AMB Post Void Residual by ultrasound 08/09/25 N40.1 - Benign prostatic hyperplasia with lower urinary tract symptoms, R35.1 - Nocturia Prostate Specific Antigen 3 Months C61 - Malignant neoplasm of prostate Patient Instructions: This note is constructed using voice recognition software. While every effort has been made to ensure accuracy client service associate errors may have been included. Imaging studies, laboratory and physical exam results were discussed and reviewed in detail. No major barriers to patient understanding were identified. An opportunity to ask questions regarding the treatment plan was provided. All questions were answered. The patient expressed understanding and agreement with the above treatment plan. The patient is aware they should contact our office by phone for worsening of their current condition or the appearance of new urologic symptoms. Compliance is encouraged with any medications and followup testing that is ordered. It is a privilege to participate in the urologic care of your patient. If you have any questions or concerns regarding treatment for the above conditions, or other urologic issues, please do not hesitate to contact me. The office telephone contact is [phone]. Sincerely, Dr Iker Lane MD, [facility] - Urology Compassionate Specialist Care for the Genitourinary System Coding Level of Care Code Est Pt Level 3 (59639) Complex visit Add On G2211 Diagnoses Prostate cancer C61 Nocturia associated with benign prostatic hyperplasia N40.1; R35.1 CPT Codes Post Residual Void - PVR CPT Code: 03096-[id number] Void Residual by ultrasound ([id number])
--- OUTSIDE RECORDS SUMMARY | 2025-08-09 14:13 | XMS_ITS ---
Care Plan Created on: August 09, 2025 Austen Carrero Jr. 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 ([facility] V24, [facility] V28) 05/30/2025 Non-pressure chronic ulcer o f other part of right foot with fat layer exposed ([facility] V24, [facility] V28) 05/23/2025 Type 2 diabetes mellitus wit h foot ulcer (CODE) ([facility] V24, [facility] V28) 05/16/2025 Type 2 diabetes mellitus wit h polyneuropathy ([facility] V24, [facility] V28) 05/16/2025 Diabetes mellitus type 2, un complicated ([facility] V24, [facility] V28) 07/29/2024 Hernia [...] needed related to ulceration/compromised skin integrity. 05/16/2025 Autogenerated Problem 08/01/2025 Goals Goal Patient Goal Type Associated Problems Recent Progress Patient-Stated? Author Decrease Wound Volume by X% by date (in notes) Care Plan Impaired Tissue Improving( 8:43 AM EST) Sharon Kimbrough RN Patient and Caregiver Understand Wound Care Education Care Plan Impaired Tissue On track( 025 8:44 AM EST) Sharon Kimbrough RN Wound volume breakdown [...] Education Care Plan Education needed related to ulceration/comprom ised skin integrity. No Sharon Bird RN Autogenerated Goal Care Plan Autogenerated Problem No Jani Garcia MA Interventions Care Plan Interventions Intervention Entry Date [...]
--- OUTSIDE RECORDS SUMMARY | 2025-08-09 14:13 | XMS_ITS | Clinical Summary ---
Author Organization [address] [place] [address] Address [address] [place] [address] Phone Care Team Providers Care Investigator Internal Affairs Name Role Phone Alisa Pascual MD Primary Care Provider [phone] Allergies Active Allergy Reactions Criticality Noted Date [...] day for 10 days. 20 each 07/19/2025 08/01/20 25 doxycycline hyclate (VIBRA-TABS) 100 mg tablet Take 1 tablet (100 mg total) by mouth every 12 (twelve) hours for 10 days. Take with a full glass of water and do not lie down for at least 30 minutes after. 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 (CMS/HCC V24, CMS/HCC V28) 05/30/2025 Non-pressure chronic ulcer o f other part of right foot with fat layer exposed ([facility] V24, [facility] V28) 05/23/2025 Type 2 diabetes mellitus wit h foot ulcer (CODE) ([facility] V24, [facility] V28) 05/16/2025 Type 2 diabetes mellitus wit h polyneuropathy ([facility] V24, [facility] V28) 05/16/2025 Diabetes mellitus type 2, un complicated ([facility] V24, [facility] V28) 07/29/2024 [...] Encounters Date Type Department Care Team Description 08/01/2025 3:00 PM EST Consult Pulmonology [facility] [address] [facility] [address] [place] [phone] Natalia Matos MD Lung nodule (Primary Dx); History of prostate cancer 08/01/2025 1:15 PM EST Office Visit [facility] [address] [place] [phone] Carrillo Hauser PA Type 2 diabetes mellitus with foot ulcer (CODE) ([facility] V24, [facility] V28) (Primary Dx); Non-pressure chronic ulcer of other part of right foot limited to breakdown of skin ([facility] V24, [facility] V28); Type 2 diabetes mellitus with polyneuropathy ([facility] V24, [facility] V28) 07/31/2025 Telephone Pulmonology - [place] [address] [facility] [address] [place] [phone] LazSybil ramirez [place] 07/19/2025 2:30 PM EST Office Visit Infectious Disease - [place] [address] [facility] [address] [place] [phone] Kaycee Kelly MD Cellulitis of right lower limb (Primary Dx) 07/19/2025 Telephone Pulmonology [facility] [address] [facility] [address] [place] [phone] LazSybil sanchez [place] 07/18/2025 1:00 PM EST Office Visit [facility] [address] [place] [phone] Carrillo Hauser PA Type 2 diabetes mellitus with foot ulcer (CODE) ([facility] V24, [facility] V28) (Primary Dx); Non-pressure chronic ulcer of other part of right foot limited to breakdown of skin (CMS/HCC V24, CMS/HCC V28); Type 2 diabetes mellitus with polyneuropathy (CMS/HCC V24, CMS/HCC V28) 07/13/2025 Telephone Thoracic Surgery - [place] [address] [phone] Gloria Jaeger RN 07/05/2025 5:15 PM EDT - 07/05/2025 11:59 PM EDT Hospital Encounter [facility] CT Scan [address] [place] [phone] Malignant neoplasm of kidney excluding renal pelvis, unspecified laterality (CMS/HCC V24, CMS/HCC V28); Solitary pulmonary nodule Discharge Disposition: Home or Self Care 07/04/2025 12:30 PM EDT Office Visit [facility] [address] [place] [phone] Carrillo Hauser PA Type 2 diabetes mellitus with foot ulcer (CODE) (CMS/HCC V24, CMS/HCC V28) (Primary Dx); Non-pressure chronic ulcer of other part of right foot limited to breakdown of skin (CMS/HCC V24, CMS/HCC V28); Type 2 diabetes mellitus with polyneuropathy ([facility]/HCC V24, CMS/HCC V28) 06/23/2025 Results Follow-Up Infectious Disease [address] [phone] Deirdre Ingram, GERARDO 06/20/2025 2:15 PM EDT Office Visit [facility] [address] [place] [phone] Carrillo Hauser PA Type 2 diabetes mellitus with foot ulcer (CODE) ([facility]/HCC V24, CMS/HCC V28) (Primary Dx); Non-pressure chronic ulcer of other part of right foot limited to breakdown of skin (CMS/HCC V24, CMS/HCC V28); Type 2 diabetes mellitus with polyneuropathy (CMS/HCC V24, CMS/HCC V28) 06/15/2025 2:30 PM EDT - 06/15/2025 11:59 PM EDT Hospital Encounter [facility] Nuclear Medicine [address] [place] [phone] Discharge Disposition: Home or Self Care 06/15/2025 11:17 AM EDT - 06/15/2025 11:59 PM EDT Hospital Encounter [facility] Nuclear Medicine [address] [place] [phone] Diabetic ulcer of toe of right foot associated with type 2 diabetes mellitus, unspecified ulcer stage ([facility] V24, [facility] V28) Discharge Disposition: Home or Self Care 06/13/2025 1:45 PM EDT Office Visit [facility] [address] [place] [phone] Carrillo Hauser PA Type 2 diabetes mellitus with foot ulcer (CODE) ([facility]/HCC V24, CMS/HCC V28) (Primary Dx); Non-pressure chronic ulcer of other part of right foot limited to breakdown of skin (CMS/HCC V24, CMS/HCC V28); Type 2 diabetes mellitus with polyneuropathy (CMS/HCC V24, CMS/HCC V28) 06/06/2025 4:00 PM EDT Consult Infectious Disease [address] [phone] Kaycee Kelly MD Diabetic ulcer of toe of right foot associated with type 2 diabetes mellitus, unspecified ulcer stage ([facility] V24, [facility] V28) (Primary Dx) 06/06/2025 12:30 PM EDT Office Visit [facility] [address] [place] [phone] Carrillo Hauser PA Type 2 diabetes mellitus with foot ulcer (CODE) ([facility] V24, [facility] V28) (Primary Dx); Non-pressure chronic ulcer of other part of right foot limited to breakdown of skin ([facility] V24, [facility] V28); Type 2 diabetes mellitus with polyneuropathy ([facility] V24, [facility] V28) 05/30/2025 1:45 PM EDT Office Visit [facility] [address] [place] [phone] Carrillo Hauser PA Type 2 diabetes mellitus with foot ulcer (CODE) ([facility] V24, [facility] V28) (Primary Dx); Non-pressure chronic ulcer of other part of right foot limited to breakdown of skin ([facility] V24, [facility] V28); Type 2 diabetes mellitus with polyneuropathy ([facility] V24, [facility] V28) 05/30/2025 Telephone Infectious Disease [facility] [address] [phone] Regi Glez [place] 05/25/2025 Telephone [facility] [address] [place] [phone] Sharon Bird RN 05/24/2025 1:45 PM EDT - 05/24/2025 11:59 PM EDT Hospital Encounter [address] [phone] Type 2 diabetes mellitus with foot ulcer (CODE) ([facility] V24, [facility] V28); Non-pressure chronic ulcer of other part of right foot with fat layer exposed ([facility] V24, [facility] V28); Type 2 diabetes mellitus with polyneuropathy ([facility] V24, [facility] V28) Discharge Disposition: Home or Self Care 05/23/2025 12:30 PM EDT Office Visit [facility] [address] [place] [phone] Carrillo Hauser PA Type 2 diabetes mellitus with foot ulcer (CODE) ([facility] V24, [facility] V28) (Primary Dx); Non-pressure chronic ulcer of other part of right foot limited to breakdown of skin ([facility] V24, [facility] V28); Type 2 diabetes mellitus with polyneuropathy ([facility] V24, [facility] V28) 05/16/2025 12:45 PM EDT Office Visit [facility] [address] [place] [phone] Carrillo Hauser PA Type 2 diabetes mellitus with foot ulcer (CODE) ([facility] V24, [facility] V28) (Primary Dx); Non-pressure chronic ulcer of other part of right foot with fat layer exposed ([facility] V24, [facility] V28); Type 2 diabetes mellitus with polyneuropathy ([facility] V24, [facility] V28); Other osteomyelitis of right foot ([facility] V24, [facility] V28) from Last 3 Months Surgical History Surgery Date Site/Laterality Comments HERNIA REPAIR PROCEDURE: [place] REPAIR FIRST ABDOMINAL WALL HERNIA KNEE ARTHROSCOPY Bilateral PROCEDURE: [place] ARTHROSCOPY AID TX SPINE&/FX KNEE W/O FIXJ; [...] Sign Reading Time Taken Comments Blood Pressure 128/60 08/01/2025 3:24 PM EST Pulse 82 08/01/2025 3:24 PM EST Temperature 36.4 C (97.5 F) 08/01/2025 3:24 PM EST Respiratory Rate 18 08/01/2025 1:34 PM EST Oxygen Saturation 97% 08/01/2025 3:24 PM EST Inhaled Oxygen Concentration - - Weight 92.1 kg (203 lb) 08/01/2025 3:24 PM EST Height 190.5 cm (6' 3 ) 05/16/2025 1:11 PM EDT Body Mass Index 25.37 05/16/2025 1:11 PM EDT Plan of Treatment Upcoming Encounters Date Type Department Care Team (Latest Contact Info) Description 08/15/2025 1:00 PM EST Clinical Support [facility] [address] [place] [phone] 08/16/2025 2:30 PM EST Pre-Admission Testing [facility] Pre-Admission Testing [address] [place] [phone] 08/23/2025 8:15 AM EST Hospital Encounter [facility] [place] [address] [place] [phone] Natalia Matos MD [address] [place] [phone] 08/23/2025 8:15 AM EST - 08/23/2025 10:15 AM EST Surgery [facility] [place] [address] [place] [phone] Natalia Matos MD [address] [place] [phone] FLEXIBLE BRONCHOSCOPY [72297 (CPT )] 08/29/2025 1:00 PM EST Office Visit Pulmonology - [address] [place] [phone] Natalia Matos MD [address] [place] [phone] Scheduled Procedures Name Priority Associated Diagnoses Date/Ti me BRONCHOSCOPY Lung nodule 08/23/2025 8:15 AM EST BRONCHOSCOPY NODULE 1 ROBOT Lung nodule 08/23/2025 8:15 AM EST BRONCHOSCOPY NODULE 2 ROBOT Lung nodule 08/23/2025 8:15 AM EST BRONCHOSCOPY NODULE 3 ROBOT Lung nodule 08/23/2025 8:15 AM EST Health Maintenance Due Date Last Done Comments [...] Diabetes: Blood Sugar Control Test (HGBA1C) 08/21/2022 COVID-19 Vaccine (9 - Pfizer risk 2024- season) 2025 05/17/2025, 05/18/2024, 05/27/2023, Additional history exists Falls Risk Assessment 05/16/2026 05/16/2025 Diabetes: Annual GFR (Glomerular Filtration Rate) 05/26/2026 05/26/2025 Hypertension/CHF/CAD Annual BMP Blood Test 05/26/2026 05/26/2025 Zoster Vaccines Completed 03/18/2022, 01/21/2022 RSV Immunization Adult Patients Completed 05/27/2023 Depression Screening Completed 05/16/2025 Influenza Vaccine Completed 06/09/2025, 06/07/2024 HIB Vaccines Aged Out No longer eligi [...] impact of smoking on wound No Sharon Bird, RN Patient and Caregiver Understand Wound Care Education Care Plan Education needed related to ulceration/comprom ised skin integrity. No Sharon Bird, RN Autogenerated Goal Care Plan Autogenerated Problem No Jani Garcia MA Procedures Procedure Name Priority Date/Time Associated Diagnosis Comments DEBRIDEMENT Routine 08/01/2025 1:15 PM EST Type 2 diabetes mellitus with foot ulcer (CODE) (CMS/HCC V24, CMS/HCC V28) Non-pressure chronic ulcer of other part of right foot limited to breakdown of skin (CMS/HCC V24, CMS/HCC V28) Type 2 diabetes mellitus with polyneuropathy (CMS/HCC V24, CMS/HCC V28) DEBRIDEMENT Routine 07/18/2025 1:00 PM EST Type [...] V28) Type 2 diabetes mellitus with polyneuropathy ([facility] V24, [facility] V28) DEBRIDEMENT Routine 05/23/2025 12:30 PM EDT Type 2 diabetes mellitus with foot ulcer (CODE) (CMS/HCC V24, CMS/HCC V28) Non-pressure chronic ulcer of other part of right foot limited to breakdown of skin (CMS/HCC V24, CMS/HCC V28) Type 2 diabetes mellitus with polyneuropathy (CMS/HCC V24, CMS/HCC V28) DEBRIDEMENT Routine 05/16/2025 12:45 PM EDT Type 2 diabetes mellitus with foot ulcer (CODE) (CMS/HCC V24, CMS/HCC V28) Non-pressure chronic ulcer of other part of right foot with fat layer exposed (CMS/HCC V24, CMS/HCC V28) Type 2 diabetes mellitus with polyneuropathy (CMS/HCC V24, CMS/HCC V28) from Last 3 Months Results * Debridement Diabetic Ulcer Right;Plantar Toe D3, Third (08/01/2025 1:15 PM EST) Carlos Valencia MD - 08/01/2025 1:15 PM EST Carlos Jorge MD 08/02/2025 12:45 PM Debridement Diabetic Ulcer Right;Plantar Toe D3, [...] Limited to breakdown of skin Time taken: 08/01/2025 1:36 PM Length (cm): 0.3 Width (cm): 0.4 Depth (cm): 0.1 Area (cm^2): 0.09 Time taken: 08/01/2025 1:37 PM Length (cm): 0.3 Width (cm): 0.4 Depth (cm): 0.1 Percent Debrided (%): 75 Surface Area (cm^2): 0.09 Area Debrided (cm^2): 0.07 Volume (cm^3): 0.01 Tissue and other material debrided: dermis and epidermis Devitalized tissue debrided: callus Instrument: Curette Amount of bleeding: small Hemostasis obtained with: Pressure and silver nitrate Procedural pain: Insensate Post-procedural pain: Insensate Response [...] Signed Date: 07/10/2025 16:15 ET Workstation ID: [id number] Transcribed By: Self Edit Transcribed Date: 07/10/2025 [...] the medial right upper lobe 07/05/25-1.1 cm (3/82) Irregular solid nodule abutting the upper aspect [...] the lateral dome of hepatic segment 8 () when compared to CT with contrast 06/16/24. [...] Cavitary nodule lateral left apex 07/05/25-1.0 cm (334) Irregular solid nodule anterior left apex 07/05/25-1.0 cm (45) Probably cavitary nodule anteromedial left upper lobe 07/05/25-0.6 cm Solid nodule abutting the pleural reflection in the medial right upperlobe 10/29/25-1.1 cm () Irregular solid nodule abutting the [...] Signed Date: 07/10/2025 16:15 ET Workstation ID: [id number] Transcribed By: Self Edit Transcribed Date: 07/10/2025 15:[address] MD IM CT PROCEDURES Final Resul t * Debridement [...] Signed Date: 06/20/2025 13:51 ET Workstation ID: [id number] Transcribed By: Self Edit Transcribed Date: 06/20/2025 [...] Signed Date: 06/20/2025 13:51 ET Workstation ID: [id number] Transcribed By: Self Edit Transcribed Date: 06/20/2025 13:45 ET us Kaycee Kelly MD IMG [place] PROCEDURES Final [...] PM EDT) WBC 4.7(L) 4.8 - 10.8 K/[facility] LAB HEMETOLOGY METHOD 05/26/2025 3:12 PM EDT [facility] RBC 3.60(L) 4.50 - 5.50 M/mcL LAB HEMETOLOGY METHOD 05/26/2025 3:12 PM EDT [facility] Hemoglobin 11.5(L) 13.5 - 17.5 g/dL LAB HEMETOLOGY METHOD 05/26/2025 3:12 PM EDT [facility] Hematocrit 33.4(L) 42.0 - 54.0 % LAB HEMETOLOGY METHOD 05/26/2025 3:12 PM EDT [facility] MCV 93.3 79.0 - 98.0 FL LAB [facility]OLOGY [facility] MCH 32.1(H) 27.0 - 32.0 pcg LAB HEMETOLOGY METHOD 05/26/2025 3:12 PM EDT [facility] MCHC 34.4 32.0 - 37.0 g/dL LAB HEMETOLOGY METHOD 05/26/2025 3:12 PM EDT [facility] RDW 12.3 11.0 - 15.0 % LAB HEMETOLOGY METHOD 05/26/2025 3:12 PM EDT [facility] Platelets 238 130 - 400 K/mcL LAB HEMETOLOGY METHOD 05/26/2025 3:12 PM EDT [facility] MPV 9.7 7.0 - 11.0 FL LAB HEMETOLOGY METHOD 05/26/2025 3:12 PM EDT [facility] NRBC 0.0 <1.0 % LAB HEMETOLOGY METHOD [facility]/26[facility]25 [facility] NRBC Absolute 0.00 <0.10 K/mcL LAB HEMETOLOGY METHOD 05/26/2025 3:12 PM EDT [facility] Neutrophils Relative 70.3 % LAB HEMETOLOGY METHOD 05/26/2025 3:12 PM EDT [facility] Lymphocytes Relative 19.7 % LAB HEMETOLOGY [facility] Monocytes Relative 7.5 % LAB HEMETOLOGY METHOD 05/26/2025 3:12 PM EDT [facility] Eosinophils Relative 1.7 % LAB HEMETOLOGY METHOD 05/26/2025 3:12 PM EDT [facility] Basophils Relative 0.4 % LAB HEMETOLOGY METHOD 05/26/2025 3:12 PM EDT [facility] Immature Granulocytes Relative 0.4 % LAB HEMETOLOGY METHOD 05/26/2025 3:12 PM EDT [facility] Neutrophils Absolute 3.29 1.50 - 7.00 K/mcL LAB HEMETOLOGY METHOD 05/26/2025 3:12 PM EDT [facility] Lymphocytes Absolute 0.92(L) 1.00 - 5.00 K/mcL LAB HEMETOLOGY METHOD 05/26/2025 3:12 PM EDT [facility] Monocytes Absolute 0.35 0.20 - 1.00 K/mcL LAB HEMETOLOGY METHOD 05/26/2025 3:12 PM EDT [facility] Eosinophils Absolute 0.08 0.00 - 0.50 K/mcL LAB HEMETOLOGY METHOD 05/26/2025 3:12 PM EDT [facility] Basophils Absolute 0.02 0.00 - 0.20 K/mcL LAB HEMETOLOGY METHOD 05/26/2025 3:12 PM EDT [facility] Immature Granulocytes Absolute 0.02 0.00 - 0.03 K/mcL LAB HEMETOLOGY METHOD 05/26/2025 3:12 PM EDT [facility] Blood Venous blood specimen / Unknown Venipuncture / Unknown 05/26/2025 1:59 PM EDT 05/26/2025 3:02 PM EDT us Carrillo STALLINGS LAB BLOOD ORDERABLES Final Result [facility] [address] [place] [address], * Sedimentation rate (05/26/2025 1:59 PM EDT) [facility] Sed Rate 14 0 - 20 mm/hr LAB HEMETOLOGY METHOD 05/26/2025 3:23 PM EDT [facility] Blood Venous blood specimen / Unknown Venipuncture / Unknown 05/26/2025 1:59 PM EDT 05/26/2025 3:02 PM EDT Carrillo STALLINGS LAB BLOOD ORDERABLES Final Result Performing Organization Address [facility]/ZIP Co de Phone Number [facility] [address] [place] [address], [place] [phone] * C-reactive protein (05/26/2025 1:59 PM EDT) [facility] C-Reactive Protein <0.29 <=0.50 mg/dL LAB CHEMISTRY METHOD 05/26/2025 3:37 PM EDT [facility] Blood Venous blood specimen / Unknown Venipuncture / Unknown 05/26/2025 1:59 PM EDT 05/26/2025 3:02 PM EDT Carrillo STALLINGS LAB BLOOD ORDERABLES Final Result Performing Organization Address [facility]/ZIP Co de Phone Number [facility] [address] [place] [address], [place] [phone] * (ABNORMAL) Basic metabolic panel (05/26/2025 1:59 PM EDT) [facility] Sodium 138 133 - 145 mmol/L LAB CHEMISTRY METHOD 05/26/2025 3:37 PM EDT [facility] Potassium 4.4 3.5 - 5.5 mmol/L LAB CHEMISTRY METHOD 05/26/2025 3:37 PM EDT [facility] Chloride 105 96 - 110 mmol/L LAB CHEMISTRY METHOD 05/26/2025 3:37 PM EDT [facility] CO2 29 21 - 32 mmol/L LAB CHEMISTRY METHOD 05/26/2025 3:37 PM EDT [facility] Anion Gap 4 3 - 11 LAB CHEMISTRY METHOD 05/26/2025 3:37 PM EDT [facility] Glucose 201(H) 70 - 100 mg/dL LAB CHEMISTRY METHOD 05/26/2025 3:37 PM EDT [facility] BUN 10 5 - 25 mg/dL LAB CHEMISTRY METHOD 05/26/2025 3:37 PM EDT [facility] Creatinine 0.84 0.70 - 1.30 mg/dL LAB CHEMISTRY METHOD 05/26/2025 3:37 PM EDT [facility] eGFR 93 >=60 mL/min/1. 73m2 LAB CHEMISTRY METHOD 05/26/2025 3:37 PM EDT [facility] Comment:Calculation based on the Chronic Kidney Disease Epidemiology Collaboration (CKD-EPI) equation refit without adjustment for race. BUN/Creatinine Ratio 11.9 LAB CHEMISTRY METHOD 05/26/2025 3:37 PM EDT [facility] Calcium 9.8 8.5 - 10.5 mg/dL LAB CHEMISTRY METHOD 05/26/2025 3:37 PM EDT [facility] Blood Venous blood specimen / Unknown Venipuncture / Unknown 05/26/2025 1:59 PM EDT 05/26/2025 3:02 PM EDT [facility] STALL[facility] LAB BLOOD ORDERABLES Final Result [facility] [address] [place] [address], * MR Foot wo and w Contrast [...] Signed Date: 05/25/2025 03:24 ET Workstation ID: [id number] Transcribed By: Self Edit Transcribed Date: 05/25/2025 [...] Signed Date: 05/25/2025 03:24 ET Workstation ID: [id number] Transcribed By: Self Edit Transcribed Date: 05/25/2025 03:15 ET us Carrillo STALLINGS IMG MRI PROCEDURES Final Re sult * Debridement Diabetic Ulcer Right;Plantar Toe D3, Third (05/23/2025 12:30 PM EDT) Narrative Carlos Jorge MD - 05/23/2025 12:30 PM EDT [facility]DRAK[facility] [...] called Debridement Details: Performed by: PA Type: surgical Level: subcutaneous tissue Pain control: [...] ulceration/compromised skin integrity. 05/16/2025 Autogenerated Problem 08/01/2025 Insurance [facility] Care Teams Investigator Internal Affairs Relationship Specialty Start Date End Date Alisa Pascual MD [address] [place] [address] PCP - General Internal Medicine 05/16/25
--- OUTSIDE RECORDS SUMMARY | 2025-08-09 14:13 | XMS_ITS | Encounter Summary ---
Author Organization [facility] Address [address] [place] [address] Care Team Providers Care Date Puller Name Role Phone Alisa Pascual MD Primary Care Provider [phone] Encounter Details Date Type Department Care Team (Late st Contact Info) Description 06/23/2025 Results Follow-Up Infectious Disease - [place] [address] [place] [phone] Deirdre Ingram RN Social History Tobacco Use Types Packs/Day [...] Description 08/15/2025 1:00 PM EST Clinical Support [facility] [address] [place] [phone] 08/16/2025 2:30 PM EST Pre-Admission Testing [facility] Pre-Admission Testing [address] [place] [phone] 08/23/2025 8:15 AM EST Hospital Encounter [facility] OR [address] [place] [phone] Natalia Matos MD [address] [place] [phone] 08/23/2025 8:15 AM EST - 08/23/2025 10:15 AM EST Surgery [facility] Main OR [address] [place] [phone] Natalia Matos MD [address] [place], [place] FLEXIBLE BRONCHOSCOPY [[id number] (CPT )] 08/29/2025 1:00 PM EST Office Visit Pulmonology - [address] [phone] Natalia Matos MD [address], [place] Scheduled Procedures Name Priority Associated Diagnoses Date/Ti me BRONCHOSCOPY Lung nodule 08/23/2025 8:15 AM EST BRONCHOSCOPY NODULE 1 ROBOT Lung nodule 08/23/2025 8:15 AM EST BRONCHOSCOPY NODULE 2 ROBOT Lung nodule 08/23/2025 8:15 AM EST BRONCHOSCOPY NODULE 3 ROBOT Lung nodule 08/23/2025 8:15 AM EST documented as of this encounter Goals Goal Patient Goal Type Associated Problems Recent Progress Patient-Stated? Author Decrease Wound Volume by X% by date (in notes) Care Plan Impaired Tissue Improving( 8:43 AM EST) Sharon Kimbrough RN Patient and Caregiver Understand Wound Care Education Care Plan Impaired Tissue On track( 8:44 AM EST) Sharon Kimbrough RN Wound [...] documented as of this encounter Care Teams Date Puller Relationship Specialty Start Date End Date Alisa Pascual MD [address] [place] [id number] PCP - General Internal Medicine 05/16/25 documented as of this encounter
== END 2025-08-09 12:54 | disposition home or self-care (01) ==
LOC: HO.HUSH 11:44
PROVIDERS: PCP Internal Medicine; Visit Provider Urology
DX: C61 Malignant neoplasm of prostate (principal); N40.1 Benign prostatic hyperplasia with lower urinary tract symptoms; R35.1 Nocturia
CPT/HCPCS: 99213; G2211

== ENCOUNTER → 2025-08-09 11:44 | Outpatient (BNVA) | payer MEDICARE, SELFPAY | PROVIDERS: PCP Internal Medicine; Visit Provider Urology | DX: C61 Malignant neoplasm of prostate (principal); N40.1 Benign prostatic hyperplasia with lower urinary tract symptoms; R35.1 Nocturia | CPT/HCPCS: 51798; 99212 ==

== ENCOUNTER 2025-08-28 13:05 | Outpatient (REF) | payer MEDICARE, SELFPAY ==
--- OUTSIDE RECORDS SUMMARY | 2024-09-02 07:15 | XMS_ITS ---
Author Organization [facility] Address [address] [place] [address] Care Team Providers Care Community Services Officer Name Role Phone Alisa Pascual MD Primary Care Provider UnavailTito Head Unavailable [phone] Woodard Encounters Encounter Location Date Provider Diagnosis [facility] [address] [place] [address] 09/02/2024 Tito Gray Plan Of Treatment Next Appt Details Provider Name:Tito Gray , 11/07/2025 03:15:00 PM, [address] [place], [address], Progress Notes * Austen CARRERO JrDOB:[birth year] (69 yo M)Acc No.[id number]:09/02/2024 Progress Note Patient: Zena ROTHMANAusten KING Jr Provider: Chepe Gray DPM :1955 A ge:68 Y S ex:Male Date:09/02/2024 Address:[address] [facility] [address], [id number] Pcp:Alisa Pascual MD Subjective: * Chief Complaints: [...] Gray DPM Date: 11/03/2023 Generated for Nataly Alvarenga on: 10/29/2024 04:26 PM EST
--- OUTSIDE RECORDS SUMMARY | 2025-01-24 10:00 | XMS_ITS ---
Author Organization [facility] Address [address] [place] [address] Care Team Providers Care Ornamental Ironworking Supervisor Name Role Phone Alisa Pascual MD Primary Care Provider Tito Resendiz Unavailable [phone] REASON FOR VISIT r/s for apt on 01/06/25 Encounters Encounter Location Date Provider Diagnosis [address] [address] 01/24/2025 Tito Gray Plan Of Treatment Next Appt Details Provider Name:Tito Gray , 11/07/2025 03:15:00 PM, [address] [place] [address], [address], Progress Notes * Austen CARRERO JrDOB:[birth year] (69 yo M)Acc No.[id number]:01/24/2025 Progress Note Patient: Zena DANIELS Austen Goodman Jr Provider: Chepe Gray DPM :1955 A ge:69 Y S ex:Male Date:01/24/2025 Address:[address] [place] [address] [address], [id number] Pcp:Alisa Pascual MD Subjective: * Chief Complaints: * 1 . R/s for apt on 01/06/25. * Medical History: Objective: * Vitals: Assessment: Plan: * Treatment: * Images: * The named appointment provid er may or may not be the originator of this progress note, and it is not deemed complete until electronically signed by the appointment provider. Sign off status: Pending * Provider: Chepe Gray DPM Date: 0 01/24/2025 Generated for Nataly Alvarenga on: 1 10/29/2024 04:25 PM EST
--- OUTSIDE RECORDS SUMMARY | 2025-08-23 06:31 | XMS_ITS | Encounter Summary ---
Author Organization [facility] Address [address] [place] [address] Care Team Providers Care Shake Feeder Name Role Phone Alisa Pascual MD Primary Care Provider [phone] Reason for Visit * Auth/Cert (Routine) Specialty Diagnoses / Procedures Referred By Claudia eaton Referred To Contact Diagnoses Lung nodule Procedures TN BRONCHOSCOPY INCL FLUORO GUIDANCE W BRONCHIAL/ENDOBRONCHIAL BX SGL/MULT TN BRONCHOSCOPY RIGID/FLEXIBLE COMPUTER ASSISTED IMAGE GUIDED NAVIGATION TN BRONCHOSCOPY RIGID/FLEXIBLE W/TRANSBRONCHIAL LUNG BIOPSY(S) SINGLE LOBE TN BRONCHOSCOPY RIGID/FLEXIBLE W/EBUS >=3 MEDIASTINAL/HILAR LYMPH NODES FLEXIBLE BRONCHOSCOPY ROBOTIC ASSISTED BRONCHOSCOPY W. FNA, TBBX,BRUSH, BAL RADIAL EBUS LINEAR EBUS TBNA W. FLUOROSCOPY Natalia Matos MD [address] [place] [phone] [facility] OR [address] [place] [phone] Phone: tel: Referral ID Status Reason Start Date Expiration Date Visits Re quested Visits Authorized [id number] 1 1 Encounter Details Date Type Department Care Team (Latest Contact Info) Description 08/23/2025 6:31 AM EST - 08/23/2025 12:04 PM EST Hospital Encounter [facility] OR [address] [place] [phone] Natalia Matos MD [address] [place] [phone] Pain; Lung nodule Discharge Disposition: Home or Self Care Social History Tobacco Use Types Packs/Day Years Used Date Smoking Tobacco: Never Smokeless Tobacco: Never Alcohol Use Standard Drinks/Week Comments No 0 (1 standard drink = 0.6 oz pur e alcohol) Interpersonal Safety Answer Date Record ed Physical Abuse Unrecognized value 08/23/2025 Verbal Abuse Unrecognized value 08/23/2025 Sex and Gender Information Value Date Recorded Sex Assigned at Not on file Legal Sex Male 3:50 PM EST Gender Identity Not on file Sexual Orientation Not on file documented as of this encounter Last Filed Vital Signs Vital Sign Reading Time Taken Comments Blood Pressure 121/71 08/23/2025 11:22 AM EST Pulse 56 08/23/2025 11:22 AM EST Temperature 36.2 C (97.1 F) 08/23/2025 11:00 AM EST Respiratory Rate 16 08/23/2025 11:22 AM EST Oxygen Saturation 99% 08/23/2025 11:22 AM EST Inhaled Oxygen Concentration - - Weight 93 kg (205 lb) 08/18/2025 9:00 AM EST Height 190.5 cm (6' 3 ) 08/18/2025 9:00 AM EST Body Mass Index 25.62 08/18/2025 9:00 AM EST documented in this encounter Discharge Summaries * Alicja aBrcenas RN - 08/18/2025 9:38 AM EST Pre-Surgery Instructions: Medication Instructions finasteride (PROSCAR) 5 mg tablet Take morning of surgery with sip of water, no other fluids insulin degludec (Tresiba U-100 Insulin) 100 unit/mL injection Continue to take as ordered/prescribed by your pcp LISINOPRIL ORAL Continue taking until night before surgery metformin HCl (METFORMIN ORAL) Continue taking until night before surgery rosuvastatin (CRESTOR) 20 mg tablet Take morning of surgery with sip of water, no other fluids empagliflozin (Jardiance) 25 mg tablet Other (see Additional Instructions) GLIMEPIRIDE ORAL Other (see Additional Instructions) Additional Instructions: No longer taking glimipride or jardiance- 1/2 dose tresiba 08/22 Pt denies use of GLP1's/SGLT2's in the last 30 days documented in this encounter Discharge Instructions * Discharge Instructions* Mignon Nevarez RN - 08/23/2025 10:06 AM EST You will follow-up with Dr. Matos in clinic. Post Operative Discharge Instructions for Ambulatory Surgery Patients Medication or sedation received during or after your procedure may cause you to remain drowsy or dizzy. You should not drive or drink alcohol for 24 hours after your procedure or if using narcotic pain medication. It is also advisable not to make any important decisions, sign any legal documents oroperate machinery during this time. Please follow your doctor???s special instruction sheet. Diet: A light diet should be followed for the first 24 hours after surgery, or longer if persistentnausea is present. Medication: Take your medication as instructed. When taking pain medication, do not drive or drink alcohol. Pain medications may be constipating. Drink plenty of fluids. Do not take on an empty stomach. Normal side effects of Day surgery The following are normal side effects of day surgery and do not require medical attention: Surgical pain Muscle aches Drowsiness Sore Throat Other side effects of day surgery may include headache, dizziness, nausea, vomiting, and mouth or jaw pain. These are all normal side effects and are not cause for alarm. Most patients experience some of the above side effects of surgery for one to three days following surgery. Some patients experience no side effects, while others are uncomfortable for a longer period of time. Some side effects MAY require Medical Attention The following are side effects that may require medical attention. You should contact your physician immediately if you experience: Severe pain Unexplained/unusually heavy bleeding Persistent vomiting or inability to tolerate liquids for more than 24 hours Temperature of 100.4 degrees or greater Signs of infection such as swelling, heat, increased drainage or redness to surgical area Have not urinated after 12 hours post-surgery In case of an emergency, you may return to the Emergency Department at [facility]. Please speak to your physician for more specific guidelines on side effect. BRONCHOSCOPY DISCHARGE INSTRUCTIONS: You may eat/drink after 1230 pm today. Notify your physician if you experience blood in sputum, coughing up blood, chest pain, pressure orshortness of breath. You should not smoke for 24 hours. You will follow-up with Dr. Orta/Dr. Matos as an outpatient. * Attachments The following attachments cannot be sent through Care Everywhere. * Bronchoscopy: Post op (Sol[place] Islander) documented in this encounter Medications at Time of Discharge finasteride (PROSCAR) 5 mg tablet Take 1 tablet (5 mg total) by mouth 1 (one) time each day. GLIMEPIRIDE ORAL Take by mouth. insulin degludec (Tresiba U-100 Insulin) 100 unit/mL injection Inject 30 Units under the skin at bedtime. LISINOPRIL ORAL 10 mg 1 (one) time each day. Take by mouth. metformin HCl (METFORMIN ORAL) 1,000 mg 2 (two) times a day. Take by mouth. rosuvastatin (CRESTOR) 20 mg tablet 2 tablets (40 mg total) 1 (one) time each day. Take 20 mg by mouth daily. documented as of this encounter Discharge Disposition Disposition Code Departure Means Destination Comment s Home or Self Care documented in this encounter H&P Notes * LISA Barker - 08/23/2025 8:25 AM EST H&P reviewed and no updates. Plan for flexible and robotic bronchoscopy, FNA, cryo, brush, BAL, linear and radial EBUS, TBNA under fluoroscopy with Dr. Matos in OR. Cosigned by Natalia Matos MD at 08/23/2025 8:46 AM EST Source Note - Natalia Matos MD - 08/01/2025 3:00 PM EST Images from the original note were not included. [facility] Interventional Pulmonology 08/01/2025 Austen Maxine Carrero Jr. : 1955 PCP: Alisa Pascual MD Chief Complaint:: lung nodules History of Present Illness: Austen Franklinoghue is a 69 y.o. male never smoker past medical historyof localized prostate cancer s/p radiation, DM, HTN, HLD who presents with multiple bilateral lung nodules. The patient had a chest CT 07/05/25 and was noted to have multiple bilateral lung nodules up to 1.1cm predominately in upper lobes. Additionally micronodules with some calcification suggesting priorgranulomatous disease. Presented at [facility] with a recommendation to see IP. This chest CT was orderedby Dr. Lane pt's Urologist as follow up on PET scan from February 2025. No thoracic lymphadenopathy. He had undergone PET CT on 02/2025 due to rising PSA s/p prostate cancer radiation which showed multiple upper lung nodules not demonstrating significant activity. No metastatic disease was detected and no avidity in abdomen or pelvis either. Prior imaging is CT abdomen which does not capture the area where lung nodules are seen (too low). Pt is asymptomatic with no hemoptysis, cough, recent pulmonary infection, fevers, chest pain, wheezing. He has some unintended wt loss recently 10 lb. Allergies: Allergies[1] Medications: Current Outpatient Medications Medication Instructions cefpodoxime (VANTIN) 200 mg, oral, 2 times daily doxycycline hyclate (VIBRA-TABS) 100 mg, oral, Every 12 hours, Take with a full glass of water and do not lie down for at least 30 minutes after. empagliflozin (Jardiance) 25 mg tablet Take by mouth. finasteride (PROSCAR) 5 mg, Daily GLIMEPIRIDE ORAL Take by mouth. insulin degludec (TRESIBA U-100 INSULIN) 100 Units, Nightly LISINOPRIL ORAL Take by mouth. metformin HCl (METFORMIN ORAL) Take by mouth. rosuvastatin (CRESTOR) 20 mg tablet Take 20 mg by mouth daily. Medical History[2] Surgical History[3] Family History[4] Social History Socioeconomic History Marital status: Single Spouse name: Not on file Number of children: Not on file Years of education: Not on file Highest education level: Not on file Occupational History Not on file Tobacco Use Smoking status: Never Smokeless tobacco: Never Substance and Sexual Activity Alcohol use: No Drug use: No Sexual activity: Not on file Other Topics Concern Not on file Social History Narrative Lives alone Review of Systems Constitutional: Negative. HENT: Negative. Eyes: Negative. Respiratory: See HPI Cardiovascular: Negative. Gastrointestinal: Negative. Endocrine: Negative. Genitourinary: Negative. Musculoskeletal: Negative. Allergic/Immunologic: Negative. Neurological: Negative. Hematological: Negative. Psychiatric/Behavioral: Negative. Vitals: 11/25/25 1524 BP: 128/60 Pulse: 82 Temp: 36.4 ??C (97.5 ??F) SpO2: 97% Body mass index is 25.37 kg/m??. General: No acute distress HEENT: Mucous membranes moist Neck: no JVD, supple neck Chest: Clear to auscultation, no wheezing or rales, no accessory muscle use CVS: S1-S2, regular rhythm, no murmurs Abdomen: Nondistended Extremities: No edema, warm Skin: No rashes or lesions Neuro: Alert and oriented x 3 Lab Results Component Value Date BUN 10 05/26/2025 CALCIUM 9.8 05/26/2025 CL 105 05/26/2025 CO2 29 05/26/2025 CREATININE 0.84 05/26/2025 HCT 33.4 (L) 05/26/2025 HGB 11.5 (L) 05/26/2025 PLT 238 05/26/2025 K 4.4 05/26/2025 NA 138 05/26/2025 WBC 4.7 (L) 05/26/2025 Pulmonary Function Results: Imaging: I personally reviewed imaging and the data revealed: Visit Diagnoses: 1. Lung nodule Impression: Bilateral upper lung nodules History of prostate cancer s/p radiation PSMA negative February 2025 Etiology of the lung nodules is unknown. When comparing PET CT February [address] chest Jun 2025, there is mild progression in some of the nodules however they are overall stable in number and distribution. Unknown chronicity as there is no lung imaging in the past. PSMA negative without uptake in the nodules; though malignancy is possible, the differential remains broad and also includes atypical disease as well as inflammatory/autoimmune disease. He has no systemic or pulmonary symptoms. Recommendations: -Flexible and robotic bronchoscopy, biopsies, EBUS -Preop labs and EKG -Not on anticoagulation Today I have spent 61 minutes on this encounter with the following activities: Pre-visit review of chart Pre-visit review of imaging Reviewing patient provided information Personal face to face with patient (including discussion counseling) History and physical examination Medication reconciliation Discussion of laboratory results and pathology Discussion with consulting/referring physician(s) Coordination of care including with office staff and nurse navigation Documentation. Natalia Matos MD [place] [address] Office [phone], [place] [address] Office [phone] [1] Allergies Allergen Reactions Penicillin Skin Problems Penicillins Rash [2] Past Medical History: Diagnosis Date CAD (coronary artery disease) 02/22/2019 DX:CAD (coronary artery disease) Diabetes mellitus type 2, uncomplicated (CMS/HCC V24, CMS/HCC V28) DX:Diabetes mellitus type 2, uncomplicated (HCC) Diverticulosis 02/22/2019 DX:Diverticulosis Hernia of abdominal wall DX:Hernia of abdominal wall; COMMENT: hernia Hyperlipidemia 02/22/2019 DX:Hyperlipidemia Hypertension DX:Hypertension Inguinal hernia, recurrent DX:Inguinal hernia, recurrent; COMMENT: Right Osteoarthritis 02/22/2019 DX:Osteoarthritis; COMMENT: 07/24 CT: Lumbar Spine with bulging disc L5-S1 Right inguinal pain DX:Right inguinal pain [3] Past Surgical History: Procedure Laterality Date CATARACT EXTRACTION Bilateral 2024 CHOLECYSTECTOMY 2023 HERNIA REPAIR PROCEDURE: TN REPAIR FIRST ABDOMINAL WALL HERNIA HERNIA REPAIR Bilateral 10/21/2016 PROCEDURE: LAPAROSCOPY, INGUINAL HERNIA REPAIR; COMMENT: recurrent HERNIA REPAIR Right 04/06/2014 PROCEDURE: HISTORICAL HERNIA REPAIR/ING; COMMENT: [address] Hernia Patch HERNIA REPAIR Left 08/17/2014 PROCEDURE: HISTORICAL HERNIA REPAIR/ING HERNIA REPAIR Right 2018 PROCEDURE: HISTORICAL HERNIA REPAIR/ING; COMMENT: Open - ultra pro mesh device KNEE ARTHROSCOPY Bilateral PROCEDURE: TN ARTHROSCOPY AID TX SPINE&/FX KNEE W/O FIXJ; COMMENT: meniscus repair [4] Family History Problem Relation Name Age of Onset Other (Other: cancer) Father on oxygen Dementia Mother Other (Other: cancer of throat) Brother age 51 documented in this encounter Procedure Notes * Mignon Nvearez RN - 08/23/2025 11:30 AM EST Discharge Note: Austen Carrero Jr. reports feeling ready, comfortable and safe for discharge. Patient and family understand discharge plan, follow-up and instructions for post operative care and pain management. Assisted into clothing, ambulated with a steady gait to wheelchair. All belongings returned to Austen Carrero Jr.. Patient discharged via wheelchair into waiting car with discharge instructions, and prescriptions electronically sent to pharmacy. Mignon Nevarez RN * Laila Chilel RN - 08/23/2025 11:16 AM EST PACU Transfer Note: Austen Carrero Jr. has met PACU Phase 1 discharge criteria and has been signed out by anesthesia. Report provided to nurse, plan of care conveyed, no personal belongings with patient as documented. A/A&Ox4 patient transferred to Phase 2. Laila Chilel RN * Natalia Matos MD - 08/23/2025 9:02 AM EST Images from the original note were not included. FLEXIBLE BRONCHOSCOPY (B), ROBOTIC ASSISTED BRONCHOSCOPY W. FNA, TBBX,BRUSH, BAL (B), RADIAL EBUS (B), LINEAR EBUS TBNA W. FLUOROSCOPY (B) OPERATIVE NOTE Date: 08/23/2025 Location: [facility] OR Name: Austen Carrero Jr., : 1955, Diagnosis Pre-op Diagnosis * Lung nodule [R91.1] Post-op Diagnosis * Lung nodule [R91.1] Procedures FLEXIBLE BRONCHOSCOPY 66959 - TN BRONCHOSCOPY INCL FLUORO GUIDANCE W BRONCHIAL/ENDOBRONCHIAL BX SGL/MULT ROBOTIC ASSISTED BRONCHOSCOPY W. FNA, TBBX,BRUSH, BAL 60092 - TN BRONCHOSCOPY RIGID/FLEXIBLE COMPUTER ASSISTED IMAGE GUIDED NAVIGATION RADIAL EBUS 12003 - TN BRONCHOSCOPY RIGID/FLEXIBLE W/TRANSBRONCHIAL LUNG BIOPSY(S) SINGLE LOBE LINEAR EBUS TBNA W. FLUOROSCOPY 23265 - TN BRONCHOSCOPY RIGID/FLEXIBLE W/EBUS >=3 MEDIASTINAL/HILAR LYMPH NODES Additional Procedures Indications: Austen Carrero Jr. is an 69 y.o. male who is having surgery for * No pre-op diagnosisentered *. 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 ASA: III Estimated Blood Loss: Minimal Drains: * No LDAs found * Specimen: Specimens ID Source Type Tests Collected By Collected At Frozen? Priority Lab ID 1 Lung, Left Upper Lobe Tissue TISSUE EXAM Natalia Matos MD 08/23/25 0910 No Description: CRYO LEFT UPPER LOBE 2 Lung, Left Upper Lobe Fine Needle Aspirate NON-GYNECOLOGIC CYTOLOGY Natalia Matos MD 08/23/25 0910 Today Description: FNA LEFT UPPER LOBE Comment: IN CYTO 4 Lung, Left Upper Lobe Wash NON-GYNECOLOGIC CYTOLOGY Natalia Matos MD 08/23/25 0912 Today Description: WASH LEFT UPPER LOBE Comment: IN CYTO A Lung, Left Upper Lobe Wash CULTURE FUNGUS, MISCELLANEOUS SOURCE CULTURE AFB AND SMEAR CULTURE RESPIRATORY WITH GRAM STAIN Natalia Matos MD 08/23/25 0938 Today [id number], [id number], [id number] Description: wash left upper lobe for culture Comment: No concern for TB B Lung, Right Upper Lobe Wash CULTURE FUNGUS, MISCELLANEOUS SOURCE CULTURE AFB AND SMEAR CULTURE RESPIRATORY WITH GRAM STAIN Natalia Matos MD 08/23/25 0951 Today [id number], [id number], [id number] Description: WASH RIGHT UPPER LOBE FOR CULTURE Comment: NO CONCERN FOR TB Procedure Details: See below Findings: Prior to the procedure, the patient's identity was verified by full name, date of and medicalrecord number. The patient's identity was verified on all pertinent medical records. Also prior to the procedure, a History and Physical was performed, and patient medications, allergies and sensitivities were reviewed. The patient's tolerance of previous anesthesia was reviewed. The risks and benefits of the procedure and the sedation options and risks were discussed with the patient. All questions were answered and informed consent was obtained. Time-Out: Prior to the start of the procedure, the patient's identification, proposed procedure, accurate signed consent, correctly labeled images and records, and need for prophylactic antibiotics were verified by the physician, the nurse, the anesthesiologist and the hand laster in the procedure room. After obtaining informed consent, The procedure was accomplished without difficulty. The patient tolerated the procedure well. Patient preparation: Patient was placed under general anesthesia. A size 8.5 mm ET tube was placed for bronchoscopy. Patient given topical anesthesia. A thorough airway exam was performed after passage of the bronchoscope. The trachea was anatomically normal. The right sided airway was anatomically normal without endobronchial lesions. No secretions. The left sided airway was anatomically normal without endobronchial lesions. No secretions. Thereafter, the Ion robot was brought into the field and the process of registration was carried out. The guide catheter was used to navigate using the planned pathway into the left upper lobe where we were able to wedge peripherally at a distance of 0 mm from the target, we locked-in and removed the camera. We introduced the radial EBUS that showed a circumferential location relative to the lesion. We confirmed our location with fluoroscopy C-arm. We performed a [facility] Beam CT-CIOS 3D spin to confirm [id number]. We then removed the R-EBUS and introduced the biopsy tools starting with multiple peripheral needletransbronchial needle aspiration (TBNA). We continued with more biopsies in a cloud format. We used to 1.1 mm cryoprobe to perform multiple transbronchial biopsies (TBBX). Bronchoalveolar lavage was performed in the left upper lobe. 10 mL of fluid were instilled. 5 ml returned. The return was cloudy. ([id number]). The tissue was submitted for pathology, cytology, and microbiology. Bronchoalveolar lavage was performed in the right upper lobe. 40 mL of fluid were instilled. 15 ml returned. The return was cloudy. ([id number]) The bronchoscope was removed and the EBUS scope was inserted. A complete EBUS exam ([id number]) was performed: - No stations were enlarged - Stations 11R (3.5 mm), 10R (not seen), 4R (2.9 mm), 7 (3.4 mm), 4L (2.4 mm), 10L (not seen) and 11L (1.5 mm) were also scanned but none met size criteria for biopsy Following completion of all diagnostic and therapeutic procedures, hemostasis was verified. The scope was removed and procedure concluded. IMPLANTS: None Drains: None Images: Complications: None; patient tolerated the procedure well. Disposition: PACU - hemodynamically stable. Condition: stable * Natalia Matos MD - 08/23/2025 9:02 AM EST 08/23/2025 Route: ET Tube size 8.5 mm Endoscope: 2.8 mm Bronchoscope Topical: 1% Lidocaine 20 ml Findings: Flexible and robotic bronchoscopy Left upper lobe FNA, cryobiopsy, wash Right upper lobe BAL Linear EBUS Radial EBUS, CIOS, fluoroscopy Complications: None; patient tolerated the procedure well. Disposition: PACU - hemodynamically stable. Condition: stable Attending Attestation: I performed the procedure. Natalia Matos MD Phone Number: Not on file documented in this encounter Plan of Treatment Upcoming Encounters Date Type Department Care Team (Late st Contact Info) Description 08/29/2025 1:00 PM EST Office Visit Pulmonology - [place] [address] [facility] [address] [place] [phone] Natalia Matos MD [address] [place] [phone] 09/05/2025 12:45 PM EST Clinical Support [facility] [address] [place] [phone] 10/03/2025 1:15 PM EST Consult Orthopedic Surgery - [place] [address] [facility] [address] [place] [phone] Dorian Chaney, DPM [address] [phone] Pending Results Name Type Priority Associated Diagnoses Date /Time Culture fungus, miscellaneous source Microbiology Routine Lung nodule 08/23/2025 9:38 AM EST Culture AFB and smear Microbiology Routine Lung nodule 08/23/2025 9:38 AM EST Culture fungus, miscellaneous source Microbiology Routine Lung nodule 08/23/2025 9:51 AM EST Culture AFB and smear Microbiology Routine Lung nodule 08/23/2025 9:51 AM EST documented as of this encounter Goals Goal Patient Goal Type Associated Problems Recent Progress Patient-Stated? Author Decrease Wound Volume by X% by date (in notes) Care Plan Impaired Tissue Improving(05/2025 1:12 PM EST) Sharon Kimbrough RN Patient and Caregiver Understand Wound Care Education Care Plan Impaired Tissue On track( 025 1:13 PM EST) Sharon Kimbrough RN Wound volume [...] Plan Autogenerated Problem No Jani Garcia MA documented as of this encounter Procedures Procedure Name Priority Date/Time Associated Diagnosis Comments XR CHEST 1 VIEW STAT 08/23/2025 10:31 AM EST POCT GLUCOSE BLOOD Routine 08/23/2025 10 :23 AM EST OXYGEN THERAPY, ADULT Routine 08/23/2025 10:08 AM EST XR FLUORO UP TO 1 HOUR (STATISTICS)(NO REPORT) Routine 08/23/2025 9:55 AM EST Pain CULTURE RESPIRATORY WITH GRAM STAIN Routine 08/23/2025 9:51 AM EST Lung nodule CULTURE AFB AND SMEAR Routine 08/23/2025 9:51 AM EST Lung nodule CULTURE FUNGUS, MISCELLANEOUS SOURCE Routine 08/23/2025 9:51 AM EST Lung nodule CULTURE RESPIRATORY WITH GRAM STAIN Routine 08/23/2025 9:38 AM EST Lung nodule CULTURE AFB AND SMEAR Routine 08/23/2025 9:38 AM EST Lung nodule CULTURE FUNGUS, MISCELLANEOUS SOURCE Routine 08/23/2025 9:38 AM EST Lung nodule TISSUE EXAM Routine 08/23/2025 9:10 AM EST Lung nodule NON-GYNECOLOGIC CYTOLOGY Routine 08/23/2025 9:10 AM EST Lung nodule TN BRONCHOSCOPY RIGID/FLEXIBLE W/EBUS >=3 MEDIASTINAL/HILAR LYMPH NODES 08/23/2025 8:36 AM EST Lung nodule TN BRONCHOSCOPY RIGID/FLEXIBLE W/TRANSBRONCHIAL LUNG BIOPSY(S) SINGLE LOBE 08/23/2025 8:36 AM EST Lung nodule TN BRONCHOSCOPY RIGID/FLEXIBLE COMPUTER ASSISTED IMAGE GUIDED NAVIGATION 08/23/2025 8:36 AM EST Lung nodule TN BRONCHOSCOPY INCL FLUORO GUIDANCE W BRONCHIAL/ENDOBRONCHIA L BX SGL/MULT 08/23/2025 8:36 AM EST Lung nodule POCT GLUCOSE BLOOD Routine 08/23/2025 7: 32 AM EST documented in this encounter Results * XR Chest 1 View (08/23/2025 10:31 AM EST) Anatomical Region Laterality Modality Body Radiographic Misty ging 08/23/2025 10:5 6 AM EST Impressions 08/23/2025 10:59 AM EST No pneumothorax or pleural effusion. No evidence of complications from the recent bronchoscopy and biopsy procedure. -------- FINAL REPORT -------- Dictated By: Naeem Espinoza Dictated Date: 08/23/2025 10:56 ET Assigned Physician: Naeem Espinoza Reviewed and Electronically Signed By: Naeem Espinoza Signed Date: 08/23/2025 10:59 ET Workstation ID: [id number] Transcribed By: Self Edit Transcribed Date: 08/23/2025 10:56 ET Narrative 08/23/2025 10:59 AM EST XR CHEST PORTABLE CLINICAL INFORMATION: postoperative care COMPARISON: No relevant imaging exam available for comparison within our electronic picture archive. The report from a recent chest CT describes presence of multiple pulmonary nodules. TECHNIQUE: Portable chest radiograph, AP view. FINDINGS: Lungs are hypoinflated and otherwise grossly unremarkable. No pleural effusion or pneumothorax. Cardiac silhouette is in the normal size range for an anteroposterior chest radiograph. The visualized bones are intact. Procedure Note Naeem Espinoza MD - 08/23/2025 XR CHEST PORTABLE CLINICAL INFORMATION: postoperative care COMPARISON: No relevant imaging exam available for comparison within our electronicpicture archive. The report from a recent chest CT describes presence ofmultiple pulmonary nodules. TECHNIQUE: Portable chest radiograph, AP view. FINDINGS: Lungs are hypoinflated and otherwise grossly unremarkable. No pleural effusion or pneumothorax. Cardiac silhouette is in the normal size range for an anteroposteriorchest radiograph. The visualized bones are intact. IMPRESSION: No pneumothorax or pleural effusion. No evidence of complications fromthe recent bronchoscopy and biopsy procedure. -------- FINAL REPORT -------- Dictated By: Naeem Espinoza Dictated Date: 08/23/2025 10:56 ET Assigned Physician: Naeem Espinoza Reviewed and Electronically Signed By: Naeem Espinoza Signed Date: 08/23/2025 10:59 ET Workstation ID: [id number] Transcribed By: Self Edit Transcribed Date: 08/23/2025 10:56 ET Vijay KEENANP IMG XR PROCEDURES Final Res ult * POCT Glucose, blood (08/23/2025 10:23 AM EST) Glucose POCT 147 70 - 199 mg/dL 08/23/2025 10:24 AM EST [facility] Comment: Fasting Reference Range: 70-99 mg/dL Non-Fasting Reference Range: 70-199 mg/dL Blood Capillary blood specimen / Unknown 08/23/2025 10:23 AM EST 08/23/2025 10:25 AM EST Natalia Matos MD LAB POINT OF CARE TEST DOCKED DEVICE UNSOLICITED RESULTS Final Result [facility] [address] [place] [address], [place] [phone] * XR Fluoro Up To 1 Hour (Statistics)(No Report) (08/23/2025 9:55 AM EST) Narrative RIS PACS/VR - 08/23/2025 9:55 AM EST This order has been auto-finalized and does not contain a result. us Natalia Matos MD IMG FLUOROSCOPY PROCEDURES Final Result RIS PACS/VR * Culture respiratory with gram stain (08/23/2025 9:51 AM EST) Culture, Respiratory No growth at 3 days 08/26/2025 10:36 AM EST [facility] Gram Stain Result Few WBCs present 08/26/2025 10:36 AM EST [facility] Gram Stain Result No organisms seen 08/26/2025 10:36 AM EST [facility] Wash Structure of upper lobe of right lung / Unknown 08/23/2025 9:51 AM EST 08/23/2025 10:19 AM EST Comment:NO CONCERN FOR TB Natalia Matos MD LAB MICROBIOLOGY - GENERAL ORDERABLES Final Result Performing Organization Address City/[facility] Co de Phone Number [facility] [address] [place] [address], * Culture respiratory with gram stain (08/23/2025 9:38 AM EST) Culture, Respiratory No growth at 3 days 08/26/2025 10:40 AM EST [facility] Gram Stain Result Rare WBCs present 08/26/2025 10:40 AM EST [facility] Gram Stain Result No organisms seen 08/26/2025 10:40 AM EST [facility] Wash Structure of upper lobe of left lung / Unknown 08/23/2025 9:38 AM EST 08/23/2025 10:17 AM EST Comment:No concern for TB us Natalia Matos MD LAB MICROBIOLOGY - GENERAL ORDERABLES Final Result [facility] [address] [place] [address], [place] [phone] * Tissue exam (08/23/2025 9:10 AM EST) Final Diagnosis Lung, left upper lobe, cryo biopsy: Metastatic carcinoma, consistent with patient's known prostate primary (see comment). 08/25/2025 1:12 PM EST [facility] at 1312 EST Comment Patient's history of prostate cancer (per Epic) is noted. Please see concurrent cytology specimen ([id number]) for more information. Immunohistochemical stains for NKX3.1, CK7, TTF-1, Napsin-A, and p40 are performed on A1 with adequate controls. The tumor is positive for NKX3.1, and negative for CK7, TTF-1, Napsin-A, and p40. Cruz slides have been reviewed at the intradepartmental conference at [place], [place] on 08/24/2025. Preliminary findings were reported to Dr. Natalia Matos on 08/24/2025 via [employer]. Findings were reported to Dr. Natalia Matos on 08/25/2025 via [employer], which was read. 08/25/2025 1:12 PM EST [facility] Gross Description A. Lung, Left Upper Lobe, CRYO LEFT UPPER LOBE: Received in formalin labeled cryo left upper lobe , are multiple norris-red, irregular flecks of soft tissue, ranging from 0.1 to 0.3 cm in greatest dimension. Is filtered and entirely submitted in cassette A1, multiple pieces. MG, PA (ASCP)CM- 08/23/25 08/25/2025 1:[address] [facility] Disclaimer The interpretation o f this case included the use of immunohistochemistry, special stains, and/or analyte specific reagent(s). Unless otherwise specified, controls were performed and stained appropriately. These tests have not been cleared or approved by the U.S. Food and Drug Administration. The FDA has determined that such clearance or approval is not necessary. These tests are used for clinical purposes and should not be regarded as investigational or for research. This laboratory is certified to perform high complexity testing under the Clinical Laboratory Improvement Amendments of 1988. The technical components of this case were performed [address] [id number] 08/25/2025 1:12 PM EST [facility] Tissue Structure of upper lobe of left lung / Unknown 08/23/2025 9:10 AM EST 08/23/2025 11:40 AM EST us Natalia Matos MD LAB PATHOLOGY ORDERABLES F inal Result [facility] [address] [place] [id number], [place] [phone] * Non-gynecologic cytology (08/23/2025 9:10 AM EST) Final Diagnosis A. Lung, left upper lobe, fine needle aspiration (ThinPrep and cell block): Positive for malignancy (see comment). Metastatic carcinoma, consistent with patient's known prostate primary. Cell block has borderline cellularity and is suitable for ancillary immunohistochemical studies only. B. Lung, left upper lobe, washing (ThinPrep and cell block): Positive for malignancy (see comment). Metastatic carcinoma, consistent with patient's known prostate primary. Cell block is paucicellular and not suitable for ancillary studies. 08/25/2025 1:12 PM EST [facility] at 1312 EST Comment Please see concurren t surgical specimen ([id number]) for more information. 08/25/2025 1:12 PM EST [facility] Specimen A Adequacy Satisfactory for evaluation 08/25/2025 1:12 PM EST [facility] Specimen B Adequacy Satisfactory for evaluation 08/25/2025 1:12 PM EST [facility] Clinical Information IN CYTO 08/25/2025 1:12 PM EST [facility] Gross Description A. Lung, Left Upper Lobe, FNA LEFT UPPER LOBE: Received: 35c pink CytoLyt with tissue fragments for ThinPrep and Cell Block. B. Lung, Left Upper Lobe, WASH LEFT UPPER LOBE: Received: 30cc slightly pink CytoLyt with light flecks for ThinPrep and Cell Block. 08/25/2025 1:12 PM EST [facility] Disclaimer The technical components of [place] [address] CLIA # [id number] 08/25/2025 1:12 PM EST [facility] Fine Needle Aspirate Structure of upper lobe of left lung / Unknown 08/23/2025 9:10 AM EST 08/23/2025 12:17 PM EST Comment:IN CYTO Specimen obtained by lavage (specimen) Structure of upper lobe of left lung / Unknown 08/23/2025 9:12 AM EST 08/23/2025 12:17 PM EST Comment:IN CYTO Natalia Matos MD LAB CYTOLOGY ORDERABLES Fi nal Result [facility] [address] [place] [address], * POCT Glucose, blood (08/23/2025 7:32 AM EST) Glucose POCT 154 70 - 199 mg/dL 08/23/2025 7:34 AM EST [facility] Comment: Fasting Reference Range: 70-99 mg/dL Non-Fasting Reference Range: 70-199 mg/dL Blood Capillary blood specimen / Unknown 08/23/2025 7:32 AM EST 08/23/2025 7:35 AM EST us Natalia Matos MD LAB POINT OF CARE TEST DOCKED DEVICE UNSOLICITED RESULTS Final Result [facility] [address] [place] [address], [place] [phone] documented in this encounter Visit Diagnoses Diagnosis Pain Generalized pain Lung nodule Other diseases of lung, not elsewhere classified documented in this encounter Administered Medications Inactive Administered Medications - up to 3 most recent administrations Medication Order MAR Action Action Date Dose Rate Site acetaminophen (TYLENOL) tablet 650 mg 650 mg, oral, As needed, mild pain, moderate pain, headaches, hold for history of liver disease, Starting on Thu08/23/25 at 1008, For 1 dose, Recovery (only), Scheduled medication for mild pain diphenhydrAMINE (BENADRYL) injection 25 mg 25 mg, intravenous, Every 15 min PRN, itching, Starting on Thu08/23/25 at 1008, Recovery (only) HYDROmorphone (DILAUDID) injection 0.5 mg 0.5 mg, intravenous, Every 15 min PRN, severe pain or when therapies for moderate pain were not effective, Starting on Thu08/23/25 at 1008, For 4 doses, Recovery (only) lactated Ringer's infusion 100 mL/hr, intravenous, Continuous, Starting on Thu08/23/25 at 1030, Recovery (only) meperidine (PF) (DEMEROL) 25 mg/mL injection 12.5 mg 12.5 mg, intravenous, Every 15 min PRN, rigors, shivering, Starting on Thu08/23/25 at 1008, For 4 doses, Recovery (only) ondansetron (PF) (ZOFRAN) injection 4 mg 4 mg, intravenous, Every 8 hours PRN, vomiting, nausea, Starting on Thu08/23/25 at 1008, Recovery (only), -ONLY give IV if patient is unable to take orally. -If inadequate response within 30 minutes, proceed to next-line agent or contact provider if no further options ordered. ondansetron ODT (ZOFRAN-ODT) disintegrating tablet 4 mg 4 mg, oral, Every 8 hours PRN, vomiting, nausea, Starting on Thu08/23/25 at 1008, Recovery (only), -Give IV if patient is unable to take orally. -If inadequate response within 30 minutes, proceed to next-line agent or contact provider if no further options ordered. For ODT tablets: -Do not remove from blister pack until just before administering. -Patient should allow tablet to dissolve on tongue. oxyCODONE (ROXICODONE) immediate release tablet 5 mg 5 mg, oral, Every 4 hours PRN, severe pain, moderate pain, moderate pain or when therapies for mild pain were not effective, Starting on Thu08/23/25 at 1008, For 1 dose, Recovery (only) sodium chloride 0.9 % flush 10 mL 10 mL, intravenous, 2 times daily, First dose on Thu08/23/25 at 0900, Preprocedure sodium chloride 0.9 % flush 10 mL 10 mL, intravenous, As needed, line care, Starting on Thu08/23/25 at 0712, Preprocedure documented in this encounter Active and Recently Administered Medications Times are shown in EST. Scheduled Medication Order 08/21/2025 08/22/2025 08/23/2025 scopolamine (TRANSDERM-SCOP) patch 1 patch 1 patch, Topical, Administer over 72 Hours, Once, On Thu08/23/25 at 0800, For 1 dose, Apply to hairless area of skin behind the ear. 0800 (Canceled Entry - Provider: Automatic Discharge Provider - Comment: Automatically canceled at discontinue of medication order) sodium chloride 0.9 % flush 10 mL(Linked Group 1) 10 mL, intravenous, 2 times daily, First dose on Thu08/23/25 at 0900, Preprocedure 0900 (Canceled Entry - Provider: Automatic Discharge Provider - Comment: Automatically canceled at discontinue of medication order) Continuous Medication Order 08/21/2025 08/22/2025 08/23/2025 lactated Ringer's infusion 100 mL/hr, intravenous, Continuous, Starting on Thu08/23/25 at 1030, Recovery (only) 1030 (Canceled Entry - Provider: Automatic Discharge Provider - Comment: Automatically canceled at discontinue of medication order) PRN Medication Order 08/21/2025 08/22/2025 08/23/2025 acetaminophen (TYLENOL) tablet 650 mg 650 mg, oral, As needed, mild pain, moderate pain, headaches, hold for history of liver disease, Starting on Thu08/23/25 at 1008, For 1 dose, Recovery (only), Scheduled medication for mild pain diphenhydrAMINE (BENADRYL) injection 25 mg 25 mg, intravenous, Every 15 min PRN, itching, Starting on Thu08/23/25 at 1008, Recovery (only) HYDROmorphone (DILAUDID) injection 0.5 mg 0.5 mg, intravenous, Every 15 min PRN, severe pain or when therapies for moderate pain were not effective, Starting on Thu08/23/25 at 1008, For 4 doses, Recovery (only) lidocaine (XYLOCAINE) 1 % injection (CANCELED) As needed, Starting on Thu08/23/25 at 1003, Intraprocedure 1003 (Given - Provid er: Natalia Matos MD) meperidine (PF) (DEMEROL) 25 mg/mL injection 12.5 mg 12.5 mg, intravenous, Every 15 min PRN, rigors, shivering, Starting on Thu08/23/25 at 1008, For 4 doses, Recovery (only) ondansetron (PF) (ZOFRAN) injection 4 mg(Linked Group 2) 4 mg, intravenous, Every 8 hours PRN, vomiting, nausea, Starting on Thu08/23/25 at 1008, Recovery (only), -ONLY give IV if patient is unable to take orally. -If inadequate response within 30 minutes, proceed to next-line agent or contact provider if no further options ordered. ondansetron ODT (ZOFRAN-ODT) disintegrating tablet 4 mg(Linked Group 2) 4 mg, oral, Every 8 hours PRN, vomiting, nausea, Starting on Thu08/23/25 at 1008, Recovery (only), -Give IV if patient is unable to take orally. -If inadequate response within 30 minutes, proceed to next-line agent or contact provider if no further options ordered. For ODT tablets: -Do not remove from blister pack until just before administering. -Patient should allow tablet to dissolve on tongue. oxyCODONE (ROXICODONE) immediate release tablet 5 mg 5 mg, oral, Every 4 hours PRN, severe pain, moderate pain, moderate pain or when therapies for mild pain were not effective, Starting on Thu08/23/25 at 1008, For 1 dose, Recovery (only) sodium chloride 0.9 % flush 10 mL(Linked Group 1) 10 mL, intravenous, As needed, line care, Starting on Thu08/23/25 at 0712, Preprocedure tranexamic acid (CYKLOKAPRON) injection (CANCELED) As needed, Starting on Thu08/23/25 at 1003, Intraprocedure 1003 (Given - Provid er: Natalia Matos MD - Comment: MIXED WITH 20ML SALINE 10ML GIVEN) Linked Groups Order Group 1: Insert peripheral IV (CANCELED) STAT, Once, On Thu08/23/25 at 0713, For 1 occurrence, Preprocedure And Maintain IV access (CANCELED) Until discontinued, Starting on Thu08/23/25 at 0713, Until Specified, Preprocedure And Saline lock IV (CANCELED) Routine, Once, On Thu08/23/25 at 0713, For 1 occurrence, Preprocedure And sodium chloride 0.9 % flush 10 mLJump to med 10 mL, intravenous, 2 times daily, First dose on Thu08/23/25 at 0900, Preprocedure And sodium chloride 0.9 % flush 10 mLJump to med 10 mL, intravenous, As needed, line care, Starting on Thu08/23/25 at 0712, Preprocedure Group 2: ondansetron ODT (ZOFRAN-ODT) disintegrating tablet 4 mgJump to med 4 mg, oral, Every 8 hours PRN, vomiting, nausea, Starting on Thu08/23/25 at 1008, Recovery (only), -Give IV if patient is unable to take orally. -If inadequate response within 30 minutes, proceed to next-line agent or contact provider if no further options ordered. For ODT tablets: -Do not remove from blister pack until just before administering. -Patient should allow tablet to dissolve on tongue. Or ondansetron (PF) (ZOFRAN) injection 4 mgJump to med 4 mg, intravenous, Every 8 hours PRN, vomiting, nausea, Starting on Thu08/23/25 at 1008, Recovery (only), -ONLY give IV if patient is unable to take orally. -If inadequate response within 30 minutes, proceed to next-line agent or contact provider if no further options ordered. documented in this encounter Orders Medications Ordered That Braydon ht Not Have Been Administered Count Last Ordered Date First Ordered Date acetaminophen (TYLENOL) tablet 650 mg 1 diphenhydrAMINE (BENADRYL) injection 25 mg 1 08/23/2025 HYDROmorphone (DILAUDID) injection 0.5 mg 1 08/23/2025 lactated Ringer's infusion 1 08/23/2025 lidocaine (XYLOCAINE) 1 % injection 1 08/23 meperidine (PF) (DEMEROL) 25 mg/mL injection 12.5 mg 1 08/23/2025 ondansetron (PF) (ZOFRAN) injection 4 mg 1 08/23/2025 ondansetron ODT (ZOFRAN-ODT) disintegrating tablet 4 mg 1 08/23/2025 oxyCODONE (ROXICODONE) immed iate release tablet 5 mg 1 08/23/2025 scopolamine (TRANSDERM-SCOP) patch 1 patch 1 08/23/2025 sodium chloride 0.9 % flush 10 mL 2 025 tranexamic acid (CYKLOKAPRON) injection 1 1 10/24/2024 Diet Count Last Ordered Date First Orde red Date ADULT DISCHARGE DIET 1 08/23/2025 Nursing Count Last Ordered Date First Orde red Date ACTIVITY 1 08/23/2025 DISCHARGE INSTRUCTIONS 1 08/23/2025 FOLLOW UP WITH PROVIDER 1 08/23/2025 NOTIFY PROVIDER - INDICATE REASON 1 025 Respiratory Care Count Last Ordered Date First Ordered Date OXYGEN THERAPY, ADULT 1 08/23/2025 Discharge Count Last Ordered Date First Orde red Date DISCHARGE PATIENT 1 08/23/2025 documented in this encounter Additional Health Concerns Active Problems Noted Date Diagnosed Date Impaired Tissue 05/16/2025 Education needed on impact of smoking on wound 0 05/16/2025 Education needed related to ulceration/compromised skin integrity. 05/16/2025 Autogenerated Problem 08/24/2025 Infection Onset Date Last Indicated Resolved Time Tuberculosis Rule-Out 08/23/2025 08/23/2025 Assessment Noted Time PHQ-9 Depression Total Score: 1 09/09/20 25 1:08 PM EDT documented as of this encounter Care Teams Shake Feeder Relationship Specialty Start Date End Date Alisa Pascual MD [facility] [place] [address] PCP - General Internal Medicine 05/16/25 documented as of this encounter
--- OUTSIDE RECORDS SUMMARY | 2025-08-23 08:30 | XMS_ITS | Encounter Summary ---
Author Organization [facility] Address [address] [place] [address] Care Team Providers Care Community Living Specialist Name Role Phone Alisa Pascual MD Primary Care Provider [phone] Reason for Visit * Auth/Cert (Routine) Specialty Diagnoses / Procedures Referred By Claudia eaton Referred To Contact Diagnoses Lung nodule Procedures PA BRONCHOSCOPY INCL FLUORO GUIDANCE W BRONCHIAL/ENDOBRONCHIAL BX SGL/MULT PA BRONCHOSCOPY RIGID/FLEXIBLE COMPUTER ASSISTED IMAGE GUIDED NAVIGATION PA BRONCHOSCOPY RIGID/FLEXIBLE W/TRANSBRONCHIAL LUNG BIOPSY(S) SINGLE LOBE PA BRONCHOSCOPY RIGID/FLEXIBLE W/EBUS >=3 MEDIASTINAL/HILAR LYMPH NODES FLEXIBLE BRONCHOSCOPY ROBOTIC ASSISTED BRONCHOSCOPY W. FNA, TBBX,BRUSH, BAL RADIAL EBUS LINEAR EBUS TBNA W. FLUOROSCOPY Natalia Matos MD [address] [place] [phone] [facility] OR [address] [place] [phone] Phone: tel: Referral ID Status Reason Start Date Expiration Date Visits Re quested Visits Authorized [id number] 1 1 Encounter Details Date Type Department Care Team (Late st Contact Info) Description 08/23/2025 8:30 AM EST - 08/23/2025 10:45 AM EST Surgery [facility] OR [address] [place] [phone] Natalia Matos MD [address] [place] [phone] FLEXIBLE BRONCHOSCOPY [95333 (CPT )] Surgery Details Date/Time Status Location OR Service Patient Class Case Cl ass Case Type Trauma Case? 08/23/2025 8:30 AM Posted [facility] OR OR Pulmonology [facility] Outpatient Surgery F - Elective Panel 1 Procedure LRB Anes Op Region Wound Class Comments FLEXIBLE BRONCHOSCOPY Bilateral Bronchus Cla ss II/ Clean Contaminated 90 MINUTES ROBOTIC ASSISTED BRONCHOSCOPY W. FNA, TBBX,BRUSH, BAL Bilateral Bronchus Class II/ Clean Contaminated RADIAL EBUS Bilateral Bronchus Class II/ Konstantin an Contaminated LINEAR EBUS TBNA W. FLUOROSCOPY Bilateral Bronchus Class II/ Clean Contaminated Surgeon Surgeon Role Service Panel Natalia Matos MD Primary Pulmonology 1 documented in this encounter Social History Tobacco Use Types Packs/Day Years [...] Sign Reading Time Taken Comments Blood Pressure 114/71 08/23/2025 10:45 AM EST Pulse 62 08/23/2025 10:45 AM EST Temperature 36 C (96.8 F) 08/23/2025 10:20 AM EST Respiratory Rate 15 08/23/2025 10:45 AM EST Oxygen Saturation 99% 08/23/2025 10:45 AM EST Inhaled Oxygen Concentration - - Weight 93 kg (205 lb) 08/18/2025 9:00 AM EST Height 190.5 cm (6' 3 ) 08/18/2025 9:00 AM EST Body Mass Index 25.62 08/18/2025 9:00 AM EST documented in this encounter Discharge Summaries * Alicja Barcenas RN - 08/18/2025 9:38 AM EST Pre-Surgery [...] may return to the Emergency Department at [facility] [place]. Please speak to your physician for more [...] through Care Everywhere. * Bronchoscopy: Post op (Icelandic) documented in this encounter Medications at Time [...] from the original note were not included. [facility] Interventional Pulmonology 08/01/2025 Austen Carrero Jr. : 1955 PCP: Alisa Pascual MD Chief Complaint:: lung nodules History of Present Illness: Austen Carrero Jr. is a 69 y.o. male never smoker past medical historyof localized prostate cancer s/p radiation, DM, HTN, HLD who presents with multiple bilateral lung nodules. The patient had a chest CT 07/05/25 and was noted to have multiple bilateral lung nodules up to 1.1cm predominately in upper lobes. Additionally micronodules with some calcification suggesting priorgranulomatous disease. Presented at [facility] with a recommendation to see IP. This chest CT was orderedby Dr. Domingo hayward's Urologist as follow up on PET scan [...] Neurological: Negative. Hematological: Negative. Psychiatric/Behavioral: Negative. Vitals: 08/01/25 1524 BP: 128/60 Pulse: 82 Temp: 36.4 [...] navigation Documentation. Natalia Matos MD Interventional Pulmonology [address] [address] Office [phone], [place] [address] Office [phone] [1] Allergies Allergen Reactions Penicillin Skin Problems Penicillins Rash [2] Past Medical History: Diagnosis Date CAD (coronary artery disease) 02/22/2019 DX:CAD (coronary artery disease) Diabetes mellitus type 2, uncomplicated (CMS/HCC V24, CMS/HCC V28) DX:Diabetes mellitus type 2, uncomplicated ([facility]) Diverticulosis 02/22/2019 DX:Diverticulosis Hernia of abdominal wall DX:Hernia of abdominal wall; COMMENT: hernia Hyperlipidemia 02/22/2019 DX:Hyperlipidemia Hypertension DX:Hypertension Inguinal hernia, recurrent DX:Inguinal hernia, recurrent; COMMENT: Right Osteoarthritis 02/22/2019 DX:Osteoarthritis; COMMENT: 07/24 CT: Lumbar Spine with bulging disc L5-S1 Right inguinal pain DX:Right inguinal pain [3] Past Surgical History: Procedure Laterality Date CATARACT EXTRACTION Bilateral 2024 CHOLECYSTECTOMY 2023 HERNIA REPAIR PROCEDURE: PA REPAIR FIRST ABDOMINAL WALL HERNIA HERNIA REPAIR Bilateral 10/21/2016 PROCEDURE: LAPAROSCOPY, INGUINAL HERNIA REPAIR; COMMENT: recurrent HERNIA REPAIR Right 04/06/2014 PROCEDURE: HISTORICAL HERNIA REPAIR/ING; COMMENT: [address] Hernia Patch HERNIA REPAIR Left 08/17/2014 PROCEDURE: HISTORICAL HERNIA REPAIR/ING HERNIA REPAIR Right 2018 PROCEDURE: HISTORICAL HERNIA REPAIR/ING; COMMENT: Open - ultra pro mesh device KNEE ARTHROSCOPY Bilateral PROCEDURE: PA ARTHROSCOPY AID TX SPINE&/FX KNEE W/O FIXJ; COMMENT: meniscus repair [4] Family History Problem Relation Name Age of Onset Other (Other: cancer) Father on oxygen Dementia Mother Other (Other: cancer of throat) Brother age 51 documented in this encounter Procedure Notes * Mignon Nevarez RN - 08/23/2025 11:30 AM EST Discharge Note: Austen Carrero Jr. reports feeling ready, comfortable and safe for discharge. Patient and family understand discharge plan, follow-up and instructions for post operative care and pain management. Assisted into clothing, ambulated with a steady gait to wheelchair. All belongings returned to Austen Maxine Alisejuan luis Dominguez. Patient discharged via wheelchair into waiting car [...] FLUOROSCOPY (B) OPERATIVE NOTE Date: 08/23/2025 Location: [facility] OR Name: Austen Carrero Jr., : 1955, Diagnosis Pre-op Diagnosis * Lung nodule [R91.1] Post-op Diagnosis * Lung nodule [R91.1] Procedures FLEXIBLE BRONCHOSCOPY 10683 - PA BRONCHOSCOPY INCL FLUORO GUIDANCE W BRONCHIAL/ENDOBRONCHIAL BX SGL/MULT ROBOTIC ASSISTED BRONCHOSCOPY W. FNA, TBBX,[place]USH, [place] [address] - PA BRONCHOSCOPY RIGID/FLEXIBLE COMPUTER ASSISTED IMAGE GUIDED NAVIGATION RADIAL EBUS 73595 - PA BRONCHOSCOPY RIGID/FLEXIBLE W/TRANSBRONCHIAL LUNG BIOPSY(S) SINGLE LOBE LINEAR EBUS TBNA W. FLUOROSCOPY 77364 - PA BRONCHOSCOPY RIGID/FLEXIBLE W/EBUS >=3 MEDIASTINAL/HILAR LYMPH NODES Additional Procedures Indications: Austen Carrero Jr. is an 69 y.o. male who is having surgery for * No pre-op diagnosisentered *. Surgeon(s) & Mortuary Beautician(s) * Natalia Matos MD - Primary Anesthesia: [...] STAIN Natalia Matos MD 08/23/25 0938 Today [id number], [id number], [id number] Description: wash left upper lobe for culture Comment: No concern for TB B Lung, Right Upper Lobe Wash CULTURE FUNGUS, MISCELLANEOUS SOURCE CULTURE AFB AND SMEAR CULTURE RESPIRATORY WITH GRAM STAIN Natalia Matos MD 08/23/25 0951 Today [id number], [id number], [id number] Description: WASH RIGHT UPPER LOBE FOR CULTURE [...] physician, the nurse, the anesthesiologist and the habilitative interventionist in the procedure room. After obtaining informed [...] [facility]one Beam CT-CIOS 3D spin to confirm [id number]. We then removed the R-EBUS and introduced the biopsy tools starting with multiple peripheral needletransbronchial needle aspiration (TBNA). We continued with more biopsies in a cloud format. We used to 1.1 mm cryoprobe to perform multiple transbronchial biopsies (TBBX). Bronchoalveolar lavage was performed in the left upper lobe. 10 mL of fluid were instilled. 5 ml returned. The return was cloudy. (22095). The tissue was submitted for pathology, cytology, and microbiology. Bronchoalveolar lavage was performed in the right upper lobe. 40 mL of fluid were instilled. 15 ml returned. The return was cloudy. (19504) The bronchoscope was removed and the EBUS scope was inserted. A complete EBUS exam ([id number]/[id number]) was performed: - No stations were enlarged [...] 1:00 PM EST Office Visit Pulmonology - [place] [address] [facility] [address] [place] [phone] Natalia Matos MD [address] [place] [phone] 09/05/2025 12:45 PM EST Clinical Support [facility] [address] [place] [phone] 10/03/2025 1:15 PM EST Consult Orthopedic Surgery - [place] [address] [phone] Dorian Chaney, DPM [address] [phone] Pending Results Name Type Priority Associated Diagnoses [...] Plan Impaired Tissue Improving(05/2025 1:12 PM EST) No Sharon Bird RN Patient and Caregiver [...] Routine 08/23/2025 9:10 AM EST Lung nodule PA BRONCHOSCOPY RIGID/FLEXIBLE W/EBUS >=3 MEDIASTINAL/HILAR LYMPH NODES 08/23/2025 8:36 AM EST Lung nodule PA BRONCHOSCOPY RIGID/FLEXIBLE W/TRANSBRONCHIAL LUNG BIOPSY(S) SINGLE LOBE 08/23/2025 8:36 AM EST Lung nodule PA BRONCHOSCOPY RIGID/FLEXIBLE COMPUTER ASSISTED IMAGE GUIDED NAVIGATION 08/23/2025 8:36 AM EST Lung nodule PA BRONCHOSCOPY INCL FLUORO GUIDANCE W BRONCHIAL/ENDOBRONCHIA L [...] Signed Date: 08/23/2025 10:59 ET Workstation ID: [id number] Transcribed By: Self Edit Transcribed Date: 08/23/2025 [...] Signed Date: 08/23/2025 10:59 ET Workstation ID: [id number] Transcribed By: Self Edit Transcribed Date: 08/23/2025 10:56 ET us Vijay Landa EDUCATION OFFICER IMG XR PROCEDURES Final Res ult * POCT Glucose, blood (08/23/2025 10:23 AM EST) Glucose POCT 147 70 - 199 mg/dL 08/23/2025 10:24 AM EST [facility] Comment: Fasting Reference Range: 70-99 mg/dL Non-Fasting Reference Range: 70-199 mg/dL Blood Capillary blood specimen / Unknown 08/23/2025 10:23 AM EST 08/23/2025 10:25 AM EST Natalia Matos MD LAB POINT OF CARE TEST DOCKED DEVICE UNSOLICITED RESULTS Final Result [facility] [address] [place] [address], [place] [phone] * XR Fluoro Up To 1 Hour (Statistics)(No Report) (08/23/2025 9:55 AM EST) Narrative RIS PACS/VR - 08/23/2025 9:55 AM EST This order has been auto-finalized and does not contain a result. Natalia Matos MD IMG FLUOROSCOPY PROCEDURES Final Result Performing Organization Address [facility]/ZIP Co de Phone Number RIS PACS/VR * Culture respiratory with gram stain (08/23/2025 9:51 AM EST) Culture, Respiratory No growth at 3 days 08/26/2025 10:36 AM EST [facility] Gram Stain Result Few WBCs present 08/26/2025 10:36 AM EST [facility] Gram Stain Result No organisms seen 08/26/2025 10:36 AM EST [facility] Wash Structure of upper lobe of right lung / Unknown 08/23/2025 9:51 AM EST 08/23/2025 10:19 AM EST Comment:NO CONCERN FOR TB Natalia Matso MD LAB MICROBIOLOGY - GENERAL ORDERABLES Final Result Performing Organization Address City/[facility]/ZIP Co de Phone Number [facility] [address] [place] [address], [place] [phone] * Culture respiratory with gram stain (08/23/2025 9:38 AM EST) Culture, Respiratory No growth at 3 days 08/26/2025 10:40 AM EST [facility] Gram Stain Result Rare WBCs present 08/26/2025 10:40 AM EST [facility] Gram Stain Result No organisms seen 08/26/2025 10:40 AM EST [facility] Wash Structure of upper lobe of left lung / Unknown 08/23/2025 9:38 AM EST 08/23/2025 10:17 AM EST Comment:No concern for TB Natalia Matos MD LAB MICROBIOLOGY - GENERAL ORDERABLES Final Result [facility] [address] [place] [address], [place] [phone] * Tissue exam (08/23/2025 9:10 AM EST) Final Diagnosis Lung, left upper lobe, cryo biopsy: Metastatic carcinoma, consistent with patient's known prostate primary (see comment). 08/25/2025 1:12 PM EST [facility] at 1312 EST Comment Patient's history of prostate cancer (per [facility]) is noted. Please see concurrent cytology specimen ([id number]) for more information. Immunohistochemical stains for NKX3.1, CK7, TTF-1, Napsin-A, and p40 are performed on A1 with adequate controls. The tumor is positive for NKX3.1, and negative for CK7, TTF-1, Napsin-A, and p40. Cruz slides have been reviewed at the intradepartmental conference at [place], [place] on 08/24/2025. Preliminary findings were reported to Dr. Natalia Matos on 08/24/2025 via [employer]. Findings were reported to Dr. Natalia Matos on 08/25/2025 via [employer], which was read. 08/25/2025 1:12 PM EST [facility] Gross Description A. Lung, Left Upper Lobe, CRYO LEFT UPPER LOBE: Received in formalin labeled cryo left upper lobe , are multiple norris-red, irregular flecks of soft tissue, ranging from 0.1 to 0.3 cm in greatest dimension. Is filtered and entirely submitted in cassette A1, multiple pieces. CHANDRAKANT COX (ASCP)CM- 08/23/25 08/25/2025 1:12 PM EST [facility] Disclaimer The interpretation o f this [...] components of this case [address] [id number] 08/25/2025 1:12 PM EST [facility] Tissue Structure of upper lobe of left lung / Unknown 08/23/2025 9:10 AM EST 08/23/2025 11:40 AM EST Natalia Matos MD LAB PATHOLOGY ORDERABLES F inal Result [facility] [address] [place] [phone], * Non-gynecologic cytology (08/23/2025 9:10 AM EST) [...] for ancillary studies. 08/25/2025 1:12 PM EST [facility] at 1312 EST Comment Please see concurren t surgical specimen ([id number]) for more information. 08/25/2025 1:12 PM EST [facility] Specimen A Adequacy Satisfactory for evaluation 08/25/2025 1:12 PM EST [facility] Specimen B Adequacy Satisfactory for evaluation 08/25/2025 1:12 PM EST [facility] Clinical Information IN CYTO 08/25/2025 1:12 PM EST [facility] Gross Description A. Lung, Left Upper Lobe, FNA LEFT UPPER LOBE: Received: 35c pink CytoLyt with tissue fragments for ThinPrep and Cell Block. B. Lung, Left Upper Lobe, WASH LEFT UPPER LOBE: Received: 30cc slightly pink CytoLyt with light flecks for ThinPrep and Cell Block. 08/25/2025 1:12 PM EST [facility] Disclaimer The technical components of this case were performed [address] [id number] 08/25/2025 1:12 PM EST [facility] Fine Needle Aspirate Structure of upper lobe of left lung / Unknown 08/23/2025 9:10 AM EST 08/23/2025 12:17 PM EST Comment:IN CYTO Specimen obtained by lavage (specimen) Structure of upper lobe of left lung / Unknown 08/23/2025 9:12 AM EST 08/23/2025 12:17 PM EST Comment:IN CYTO us Natalia Matos MD LAB CYTOLOGY ORDERABLES Fi nal Result [facility] [address] [place] [address], [place] [phone] * POCT Glucose, blood (08/23/2025 7:32 AM EST) Glucose POCT 154 70 - 199 mg/dL 08/23/2025 7:34 AM EST [facility] Comment: Fasting Reference Range: 70-99 mg/dL Non-Fasting Reference Range: 70-199 mg/dL Blood Capillary blood specimen / Unknown 08/23/2025 7:32 AM EST 08/23/2025 7:35 AM EST Natalia Matos MD LAB POINT OF CARE TEST DOCKED DEVICE UNSOLICITED RESULTS Final Result [facility] [address] [place] [address], [place] [phone] documented in this encounter Visit Diagnoses Diagnosis Pain Generalized pain Lung nodule Other diseases of lung, not elsewhere classified Lung nodule Other diseases of lung, not [...] Starting on Thu08/23/25 at 1030, Recovery (only) lidocaine (XYLOCAINE) 1 % injection As needed, Starting on Thu08/23/25 at 1003, Intraprocedure Given 08/23/2025 10:03 AM EST 20 mL meperidine (PF) (DEMEROL) 25 mg/mL injection 12.5 [...] at 0712, Preprocedure tranexamic acid (CYKLOKAPRON) injection As needed, Starting on Thu08/23/25 at 1003, Intraprocedure Given 08/23/2025 10:03 AM EST 5 mg documented in this encounter Active and Recently [...] 1 08/23/2025 lactated Ringer's infusion 1 08/23/2025 meperidine (PF) (DEMEROL) 25 mg/mL injection 12.5 mg 1 08/23/2025 ondansetron (PF) (ZOFRAN) injection 4 mg 1 08/23/2025 ondansetron ODT (ZOFRAN-ODT) disintegrating tablet 4 mg 1 08/23/2025 oxyCODONE (ROXICODONE) immed iate release tablet 5 mg 1 08/23/2025 scopolamine (TRANSDERM-SCOP) patch 1 patch 1 08/23/2025 sodium chloride 0.9 % flush 10 mL 2 12/17/2 025 Diet Count Last Ordered Date First Orde [...] documented as of this encounter Care Teams Community Living Specialist Relationship Specialty Start Date End Date Alisa Pascual MD [address] [place] [phone] PCP - General Internal Medicine 05/16/25 documented as of this encounter
--- OUTSIDE RECORDS SUMMARY | 2025-08-23 08:52 | XMS_ITS | Encounter Summary ---
Author Organization [facility] Address [address] [place] [address] Care Team Providers Care Fire Protection Engineer Name Role Phone Alisa Pascual MD Primary Care Provider [phone] Reason for Visit * Auth/Cert (Routine) Specialty Diagnoses / Procedures Referred By Claudia eaton Referred To Contact Diagnoses Lung nodule Procedures IA BRONCHOSCOPY INCL FLUORO GUIDANCE W BRONCHIAL/ENDOBRONCHIAL BX SGL/MULT IA BRONCHOSCOPY RIGID/FLEXIBLE COMPUTER ASSISTED IMAGE GUIDED NAVIGATION IA BRONCHOSCOPY RIGID/FLEXIBLE W/TRANSBRONCHIAL LUNG BIOPSY(S) SINGLE LOBE IA BRONCHOSCOPY RIGID/FLEXIBLE W/EBUS >=3 MEDIASTINAL/HILAR LYMPH NODES FLEXIBLE BRONCHOSCOPY ROBOTIC ASSISTED BRONCHOSCOPY W. FNA, TBBX,BRUSH, BAL RADIAL EBUS LINEAR EBUS TBNA W. FLUOROSCOPY Natalia Matos MD [address] [place] [address] [address] Phone: tel: Referral ID Status Reason Start Date Expiration Date Visits Re quested Visits Authorized [id number] 1 1 Encounter Details Date Type Department Care Team (Late st Contact Info) Description 08/23/2025 8:52 AM EST Anesthesia Event [address] [address] Redd Etienne MD [address] [place] [address] Anesthesia Record Procedure Summary Procedure Name Responsible Anesthesiologist Anesthesia Start Time Anesthesia Stop Time FLEXIBLE BRONCHOSCOPY (Bilateral: Bronchus) Redd Etienne MD 08/23/25 0852 08/23/25 1017 Events Date Time Event Comment 08/23/2025 0743 0851 In Room 0852 An Start 0852 An Start Data The patient wa s reevaluated immediately before moderate or deep sedation use and before anesthesia induction. 0858 An Induction 0859 An Intubation 0900 Anesthesia Ready 0902 Proc Start 1004 Proc Fin 1014 An Extubation 1017 an stop data 1017 An Stop 1017 Handoff to RN I completed my handoff to the receiving nurse during which we: 1. Identified the patient 2. Identified the responsible provider 3. Reviewed the pertinent medical history 4. Discussed the surgical course 5. Reviewed intra-op anesthesia management and issues during anesthesia 6. Set expectations for post-procedure period 7. Allowed opportunity for questions and acknowledgement of understanding. 1025 Out of Room Meds Name Total fentaNYL (SUBLIMAZE) injection 100 mcg propofol (DIPRIVAN) injection 10 mg/mL 1 50 mg rocuronium 70 mg ondansetron 2 mg/mL 4 mg dexamethasone (DECADRON) injection 4 mg/ mL 4 mg vasopressin (VASOSTRICT) injection 4 Uni ts sugammadex (BRIDION) injection 100 mg/mL 200 mg lactated Ringer's infusion 1,000 mL * Agents No agents on file. * Blood No blood administrations on file. Lines, Drains, and Airways Type Details Placement Removal Wound Diabetic ulc; ; 1314; 12 weeks; Yes; 1; Toe D3, Third; Right, Plantar 05/16/25 1314 by Sallie Antonio RN Peripheral IV Placement Date: 08/07 03/31; Placement Time: 0730; Catheter Size: 20 G; Orientation: Right; Location: Antecubital; Site Prep: Chlorhexidine; Local Anesth: None; Inserted by: ewa; Insertion Attempts: 1; Patient Tolerance: Tolerated well; Removal Date: 08/23/25; Removal Time: 1204 08/23/25 0730 by Ewa Bravo RN 08/23/25 1204 by Mignon Nevarez RN ETT Placement Date: 08/07 03/31; Placement Time: 0859; Mask Ventilation: 1; Technique: Direct laryngoscopy; Type: ETT; Single Lumen Tube Size: 8.5 mm; Cuffed: Yes; Laryngoscope: Ria; Blade Size: 4; Location: Oral; Grade View: Grade I; Insertion Attempts: 1; Placement Verification: Auscultation, ETCO2; Removal Date: 08/23/25; Removal Time: 1014 08/23/25 0859 by Redd Etienne MD 08/23/25 1014 by Redd Etienne MD documented in this encounter Social History Tobacco [...] as of this encounter Progress Notes * Redd Etienne MD - 08/23/2025 2:15 PM EST Patient: Austen Carrero Jr. Procedure Summary Date: 08/23/25 Room / Location: [facility] / [facility] Anesthesia Start: 851 Anesthesia Stop: 1016 Procedures: FLEXIBLE BRONCHOSCOPY (Bilateral: Bronchus) ROBOTIC ASSISTED BRONCHOSCOPY W. FNA, TBBX,BRUSH, BAL (Bilateral: Bronchus) RADIAL EBUS (Bilateral: Bronchus) LINEAR EBUS TBNA W. FLUOROSCOPY (Bilateral: Bronchus) Diagnosis: Lung nodule Surgeons: Natalia Matos MD Responsible Provider: Redd Etienne MD Anesthesia Type: general ASA Status: 3 Anesthesia Plan: general Last Vitals: Vitals Value Taken Time BP 121/71 08/23/25 11:22 Temp 36.2 ??C (97.1 ??F) 08/23/25 11:00 Pulse 56 08/23/25 11:22 Resp 16 08/23/25 11:22 SpO2 99 % 08/23/25 11:22 No data recorded Anesthesia Post Evaluation Patient location during evaluation: PACU Patient participation: complete - patient participated Level of consciousness: awake Pain management: adequate Airway patency: patent Anesthetic complications: no Cardiovascular status: acceptable Respiratory status: acceptable Hydration status: acceptable Nausea: No Vomiting: No There were no known notable events for this encounter. * Redd Etienne MD - 08/23/2025 7:43 AM EST Relevant Problems Cardio (+) CAD (coronary artery disease) (+) Hypertension Other (+) Osteoarthritis Clinical information reviewed: Tobacco Allergies Meds Med Hx Surg Hx Fam Hx Soc Hx Anesthesia Plan ASA 3 Anesthesia Plan: general Anesthesia Risks Discussed dental injury, nausea, sore throat, pain, corneal abrasion, allergic reaction and serious complications Plan Factors Smoking cessation education has not been provided Induction method: intravenous Postoperative administration of opioids is intended. Anesthetic plan and risks discussed with patient. Anesthesia Evaluation Patient summary reviewed History of anesthetic complications (ponv) Airway Mallampati: II Thyromental distance: > 3 finger breadths Neck ROM: full Dental - normal exam Pulmonary - normal exam Cardiovascular - normal exam (+) hypertension, CAD Rhythm: regular Rate: normal Neuro/Psych - neuro/psych exam normal GI/Hepatic/Renal Endo/Other (+) diabetes mellitus Abdominal - normal exam PONV RISK SCORE: 2 Vitals: 08/18/25 0900 08/23/25 0705 BP: 116/80 BP Location: Right arm Patient Position: Sitting Pulse: 78 Resp: 18 Temp: 36.1 ??C (97 ??F) TempSrc: Temporal SpO2: 98% Weight: 93 kg (205 lb) Height: 1.905 m (75 ) SpO2 Readings from Last 1 Encounters: 08/23/25 98% WBC Date Value Ref Range Status 08/16/2025 4.2 (L) 4.8 - 10.8 K/mcL Final RBC Date Value Ref Range Status 08/16/2025 3.60 (L) 4.50 - 5.50 M/mcL Final Hemoglobin Date Value Ref Range Status 08/16/2025 11.7 (L) 13.5 - 17.5 g/dL Final Hematocrit Date Value Ref Range Status 08/16/2025 33.3 (L) 42.0 - 54.0 % Final Platelets Date Value Ref Range Status 08/16/2025 188 130 - 400 K/mcL Final MCV Date Value Ref Range Status 08/16/2025 93.5 79.0 - 98.0 FL Final Allergies[1] STOP BANG: No data recorded NPO Status: Time of Last Liquid: 1400 Time of Last Solid: 1999 [1] Allergies Allergen Reactions Penicillin Skin Problems Penicillins Rash documented in this encounter Plan of Treatment Upcoming Encounters Date Type Department Care Team (Late st Contact Info) Description 08/29/2025 1:00 PM EST Office Visit Pulmonology - [place] 299 [facility] [address] [place] [phone] Natalia Matos MD [address] [place] [address] 09/05/2025 12:45 PM EST Clinical Support [facility] [address] [place] [phone] 10/03/2025 1:15 PM EST Consult Orthopedic Surgery - [place] [address] [facility] [address] [place] [phone] Dorian Chaney DPM 175 [facility] [address] [place] [phone] documented as of this encounter Goals Goal Patient Goal Type Associated Problems Recent Progress Patient-Stated? Author Decrease Wound Volume by X% by date (in notes) Care Plan Impaired Tissue Improving(05/2025 1:12 PM EST) Sharon Kimbrough RN Patient and Caregiver Understand Wound Care Education Care Plan Impaired Tissue On track( 1:13 PM EST) Sharon Kimbrough RN Wound [...] Garcia MA documented as of this encounter Visit Diagnoses Not on filedocumented in this encounter Administered Medications Inactive Administered Medications - up to 3 most recent administrations Medication Order MAR Action Action Date Dose Rate Site dexAMETHasone (DECADRON) injection intravenous, As needed, Starting on Thu08/23/25 at 0903, Anesthesia Intraprocedure Given 08/23/2025 9:03 AM EST 4 mg fentaNYL (PF) (SUBLIMAZE) injection intravenous, As needed, Starting on Thu08/23/25 at 0858, Anesthesia Intraprocedure Given 08/23/2025 8:58 AM EST 100 mcg lactated Ringer's infusion intravenous, Continuous PRN, Starting on Thu08/23/25 at 0856, Anesthesia Intraprocedure New Bag 08/23/2025 8:56 AM EST ondansetron (PF) (ZOFRAN) injection intravenous, As needed, Starting on Thu08/23/25 at 0903, Anesthesia Intraprocedure Given 08/23/2025 9:03 AM EST 4 mg propofoL (DIPRIVAN) injection intravenous, As needed, Starting on Thu08/23/25 at 0858, Anesthesia Intraprocedure Given 08/23/2025 8:58 AM EST 150 mg rocuronium (ZEMURON) injection intravenous, As needed, Starting on Thu08/23/25 at 0858, Anesthesia Intraprocedure Given 08/23/2025 9:22 AM EST 20 mg Given 08/23/2025 8:58 AM EST 50 mg sugammadex (BRIDION) 100 mg/mL injection intravenous, As needed, Starting on Thu08/23/25 at 1007, Anesthesia Intraprocedure Given 08/23/2025 10:07 AM EST 200 mg vasopressin (VASOSTRICT) injection subcutaneous, As needed, Starting on Thu08/23/25 at 0926, Anesthesia Intraprocedure Given 08/23/2025 9:47 AM EST 2 Units Given 08/23/2025 9:26 AM EST 2 Units documented in this encounter Additional Health Concerns [...] documented as of this encounter Care Teams Fire Protection Engineer Relationship Specialty Start Date End Date Alisa Pascual MD [facility] [place] [address] PCP - General Internal Medicine 05/16/25 documented as of this encounter
[2025-08-28 16:03] LABS: MANUAL DIFF FLAG NO
[2025-08-28 16:09] LABS: Hematocrit 36.7 % (42.0-52.0); Hemoglobin 12.7 g/dl (14.0-18.0); Imm Gran Abs Auto 0.01 X10*3/uL (0.00-0.03); Imm Gran Pct Auto 0.2 % (0.0-0.4); Lymphocytes Absolute Auto 0.7 X10*3/uL (1.2-4.9); Mean Corpuscular HGB Conc 34.6 g/dl (31.0-36.0); Mean Corpuscular Hemoglobin 32.1 pg (27.0-33.0); Mean Corpuscular Volume 92.7 fL (80.0-98.0); NRBC Abs Auto 0.000 X10*3/uL (0.0-0.012); NRBC Pct Auto 0.0 /100WBC (0.0-0.2); Platelet Count 233 X10*3/uL (160-400); Red Blood Count 3.96 X10*6/uL (4.60-5.80); White Blood Count 4.3 X10*3/uL (4.8-10.8)
[2025-08-28 16:15] LABS: Total Hemoglobin (HGBA1C) 2242.4657 umol/L
[2025-08-28 16:25] LABS: Alanine Aminotransferase 28 U/L (0-40); Albumin Level 4.2 g/dL (3.5-5.0); Alkaline Phosphatase 73 U/L (39-117); Anion Gap 9 (12-20); Aspartate Amino Transferase 21 U/L (5-37); Blood Urea Nitrogen 12 mg/dL (9-16); Calcium 9.5 mg/dL (8.4-10.2); Carbon Dioxide 28 mmol/L (22-29); Chloride 110 mmol/L (96-108); Cholesterol 148 mg/dL (<200); Estimated Glomerular Filt Rate > 60; HDL Cholesterol 53 mg/dL (>40); Potassium 4.2 mmol/L (3.3-5.1); Sodium 143 mmol/L (135-145); Total Protein 6.4 g/dL (6.5-8.0); Triglycerides 99 mg/dL (<150)
--- OUTSIDE RECORDS SUMMARY | 2025-08-28 16:25 | XMS_ITS | Encounter Summary ---
Author Organization [facility] Address [address] [place] [address] Care Team Providers Care Web Site Manager Name Role Phone Alisa Pascual MD Primary Care Provider Encounter Details Date Type Department Care Team ([facility] Contact Info) Description 06/23/2025 Results Follow-Up Infectious Disease - [place] 175 [facility] [address] [place] [phone] Deirdre Ingram RN Social History Tobacco Use [...] Encounters Date Type Department Care Team (Late Contact Info) Description 08/29/2025 1:00 PM EST Office Visit Pulmonology - [place] 299 [facility] [address] [place] [phone] Natalia Matos MD [address] [place] [address] 09/05/2025 12:45 PM EST Clinical Support [facility] [address] [place] [phone] 10/03/2025 1:15 PM EST Consult Orthopedic Surgery - [place] [address] [address] Dorian Chaney, DPM [address] [address] documented as of this encounter Goals Goal [...] needed related to ulceration/compromised skin integrity. 05/16/2025 Infection Onset Date Last Indicated Resolved Time Tuberculosis Rule-Out 08/23/2025 08/23/2025 Assessment Noted Time PHQ-9 Depression Total Score: 1 05/16/20 25 1:08 PM EDT documented as of this encounter Care Teams Web Site Manager Relationship Specialty Start Date End Date Alisa Pascual MD [address] [place] [address] PCP - General Internal Medicine 05/16/25 documented as of this encounter
--- OUTSIDE RECORDS SUMMARY | 2025-08-28 16:25 | XMS_ITS | Patient Health Record ---
Author Organization [facility] Address [address] [facility] [place] [address] Care Team Providers Care Parking Lot Chauffeur Name Role Phone Alisa Pascual MD Primary Care Provider Tito Resendiz Unavailable [phone] Allergies Allergen (clinical drug ingredient) Drug/Non Drug Allergy documented on EMR Reaction Allergy Type Onset Date Status Penicillin redness Drug Allergy Active Results Component Value Reference Range Notes HEMOGLOBIN A1C (GLYCOHEMOGLO BIN) Reviewed date:01/06/2025 01:01:32 [...] Duration) Notes Start Date End Date Status Vicodin 5-300 MG 1-2 tablet as needed Orally every 6 hrs; Duration: 5 days 03/15/2013 Not-Taking Tresiba 100 UNIT/ML as directed Subcutaneous Active Doxycycline Monohydrate 100 MG 1 capsule Orally Twice a day; Duration: 10 days 01/27/2025 Not-Takin g Januvia 100 MG 2 tablets Orally Onc e a day; Duration: 30 day(s) Not-Crescencio ing metFORMIN HCl 1000 MG 1 tablet with meal s Orally Twice a day Active Rosuvastatin Calcium 40 MG Orally Active Glimepiride 4 MG 1 tablet with breakf ast or the first main meal of the day Orally Once a day; Duration: 30 days Active Lisinopril 10 MG 1 tablet Orally Once a day; Duration: 30 day(s) Active Bactrim DS 800-160 MG 1 tablet Orally ev vicki 12 hrs; Duration: 10 day(s) Active Finasteride 5 MG 1 tablet Orally Once a day; Duration: 30 day(s) Not-Crescencio ing Jardiance 25 MG Orally Once a day Not-Taking Immunizations Vaccine Route Administration Date Status Comme nts Influenza Unknown 05/29/2017 Refused Influenza Unknown 07/24/2020 Refused Influenza Unknown 06/07/2024 Administered Influenza Unknown 06/09/2025 Administered COVID-19 Pfizer BioNTech Vaccine Unknown 05/15/2022 [...] Problem Acquired hammer toe of right foot (45679837786169 05) Other hammer toe(s) (acquired), right foot (M20.41) Active confirmed Problem Acquired hammer toe of left foot (70467567248004 03) Other hammer toe(s) (acquired), left foot (M20.42) Active confirmed Problem Type II diabetes mellitus without complication (740282932) Type 2 diabetes mellitus without complication (E11.9) Active confirmed Problem Ulcer of toe of right foot (disorder) (20566681541820 101) Skin ulcer of toe of right foot, limited to breakdown of skin (L97.511) Active confirmed Response to treatment, Improving Problem Skin ulcer of toe of right foot with fat layer exposed (L97.512) Active confirmed Response to treatment, Unresolved Vital Signs Blood pressure diastolic 65 mm Hg 07/28/2025 Height 6ft 3in in 07/28/2025 Blood pressure systolic 130 mm Hg 07/28/2025 Weight 213 lbs 07/28/2025 BMI 26.62 kg/m2 07/28/2025 Procedures Procedure Date Ordered Date Performed Result Body Sit e 13759-BKXNRWN NAIL, 6 OR MORE 10/04/2024 N/A 03083-Ggkdszft Plate 10/04/2024 N/A 50243-UVREKWK NAIL, 6 OR MORE 01/06/2025 N/A 94757-Urfiskwf Plate 01/06/2025 N/A 64261-KIIRJXP SKIN/TISSUE 01/27/2025 N/A 56466- Debride <25 sq cm 02/10/2025 N/A 88709- Debride <25 sq cm 02/27/2025 N/A 49619-FBDVBZN NAIL, 6 OR MORE 04/11/2025 N/A 41859-IOLIGCD SKIN/TISSUE 04/11/2025 N/A 82740-MAGOQKB NAIL, 6 OR MORE 07/28/2025 N/A 93169-GKMSPGV SKIN/TISSUE 07/28/2025 N/A Encounters Encounter Location Date Provider Diagnosis [address] [address] 10/04/2024 Tito Isaac Pain of toe of right foot M79.674 ; Onychomycosis B35.1 ; Pain of toe of left foot M79.675 ; Type 2 diabetes mellitus without complication E11.9 ; Other hammer toe(s) (acquired), right foot M20.41 ; Other hammer toe(s) (acquired), left foot M20.42 and Ingrown nail L60.[address] [address] 01/06/2025 Tito Isaac Pain of toe of right foot M79.674 ; Pain of toe of left foot M79.675 ; Onychomycosis B35.1 ; Type 2 diabetes mellitus without complication E11.9 and Ingrown nail L60.[address] [address] 01/27/2025 Tito Isaac Pain in right toe(s) M79.674 ; Contusion of lesser toe of right foot without damage to nail, initial encounter S90.121A ; Cellulitis of toe of right foot L03.031 ; Skin ulcer of toe of right foot with fat layer exposed L97.512 and Type 2 diabetes mellitus without complication E11.[address] [address] 02/10/2025 Tito Isaac Pain in right toe(s) M79.674 ; Cellulitis of toe of right foot L03.031 ; Type 2 diabetes mellitus without complication E11.9 ; Skin ulcer of toe of right foot, limited to breakdown of skin L97.511 and Contusion of lesser toe of right foot without damage to nail, subsequent [facility] S90.121D [facility] [address] [address] 02/27/2025 Tito Isaac Pain in right toe(s) M79.674 ; Cellulitis of toe of right foot L03.031 ; Type 2 diabetes mellitus without complication E11.9 ; Skin ulcer of toe of right foot, limited to breakdown of skin L97.511 and Contusion of lesser toe of right foot without damage to nail, subsequent encounter S90.121D [address] [address] 04/11/2025 Tito Isaac Pain of toe of [...] right foot with fat layer exposed L97.[address] [address] 07/28/2025 Tito Isaac Pain of toe of right foot M79.674 ; Pain of toe of left foot M79.675 ; Onychomycosis B35.1 ; Type 2 diabetes mellitus without complication E11.9 and Skin ulcer of toe of right foot with fat layer exposed L97.[address] [place] [address] 02/07/2025 Titorichard Gray [facility] [address] [address] 04/12/2025 Titorichard Gray [facility] [address] [address] 04/13/2025 Titorichard Gray [facility] [address] [address] 06/06/2025 Tito Gray [facility] Encounter Date Diagnosis (ICD Code) Assessment Notes [...] toe of right foot (ICD-10 - M79.674) 07/28/2025 Pain of toe of right foot (ICD-10 - M79.674) 04/11/2025 Pain of toe of left foot (ICD-10 - M79.675) 07/28/2025 Pain of toe of left foot (ICD-10 - M79.675) 04/11/2025 Onychomycosis (ICD-10 - B35.1) 02/27/2025 Type 2 diabetes mellitus without complication (ICD-10 - E11.9) 02/10/2025 Type 2 diabetes mellitus without complication (ICD-10 - E11.9) 07/28/2025 Onychomycosis (ICD-10 - B35.1) 01/06/2025 Onychomycosis (ICD-10 - B35.1) 01/27/2025 Cellulitis [...] diabetes mellitus without complication (ICD-10 - E11.9) 07/28/2025 Type 2 diabetes mellitus without complication (ICD-10 - E11.9) 04/11/2025 Contusion of lesser toe of right foot without damage to nail, subsequent encounter (ICD-10 - S90.121D) 02/27/2025 Contusion of lesser toe of right foot without damage to nail, subsequent encounter (ICD-10 - S90.121D) 02/10/2025 Contusion of lesser toe of right foot without damage to nail, subsequent encounter (ICD-10 - S90.121D) 07/28/2025 Skin ulcer of toe of right foot with fat layer exposed (ICD-10 - L97.512) Response to treatment, Unresolved Patient Educated with: WOUND CARE INSTRUCTIONS. pdf (WOUND CARE INSTRUCTIONS. pdf) 01/27/2025 Type 2 diabetes mellitus without complication [...] X ray : Foot, right 3V 02/10/2025 43612-ZFHBLPE NAIL, 6 OR MORE 04/11/2025 13255-VKBJMHU NAIL, 6 OR MORE 01/06/2025 48031-LQGJPLI NAIL, 6 OR MORE 07/28/2025 33014-YOMQESA NAIL, 6 OR MORE 01/17/2020 35511-EFRJOKJ NAIL, 6 OR MORE 04/24/2020 98251-JRRHUSQ NAIL, 6 OR MORE 07/24/2020 90270-VOGYBFD NAIL, 6 OR MORE 12/04/2020 55726-BUHOEEI NAIL, 6 OR MORE 03/05/2021 86780-NREITZZ NAIL, 6 OR MORE 06/04/2021 45120-BGEHLZB NAIL, 6 OR MORE 09/10/2021 07291-VRKWHQO NAIL, 6 OR MORE 12/17/2021 69701-CWHZKZV NAIL, 6 OR MORE 03/25/2022 92513-UHDDTLZ NAIL, 6 OR MORE 06/24/2022 88497-BGMKUHO NAIL, 6 OR MORE 09/23/2022 42595-FFBUNVL NAIL, 6 OR MORE 02/17/2023 12500-CSVXBSB NAIL, 6 OR MORE 05/26/2023 30346-KVCMMKY NAIL, 6 OR MORE 08/25/2023 47313-TZNROYV NAIL, 6 OR MORE 11/24/2023 05918-GHCTANO NAIL, 6 OR MORE 03/01/2024 16641-SEHMRWN NAIL, 6 OR MORE 05/31/2024 89216-GAZKISB NAIL, 6 OR MORE 10/04/2024 39863-PDIVVYK NAIL, 6 OR MORE 05/02/2011 05838-BCBWBND NAIL, 6 OR MORE 07/22/2011 20903-XQHXIWC NAIL, 6 OR MORE 10/07/2011 64419-YRMAMDS NAIL, 6 OR MORE 01/09/2012 21714-VTTUMTN NAIL, 6 OR MORE 05/25/2012 30869-ASOPPUV NAIL, 6 OR MORE 08/17/2012 00041-ERABFXY NAIL, 6 OR MORE 11/05/2012 86158-HSEAXHW NAIL, 6 OR MORE 02/15/2013 00326-JXDGCWR NAIL, 6 OR MORE 09/27/2013 09338-QXEYPOS NAIL, 6 OR MORE 01/10/2014 93446-VPRSUMA NAIL, 6 OR MORE 04/11/2014 71618-FMVLWKV NAIL, 6 OR MORE 07/04/2014 16662-ZVFPPVA NAIL, 6 OR MORE 11/03/2014 04737-OQFPZNI NAIL, 6 OR MORE 06/21/2013 45491-ZYQKHPW NAIL, 6 OR MORE 05/29/2017 96738-YKKGTMC NAIL, 6 OR MORE 09/18/2017 58831-JNDWDRH NAIL, 6 OR MORE 03/12/2018 78250-PXTSHVW NAIL, 6 OR MORE 06/15/2018 05615-SVKTCNW NAIL, 6 OR MORE 09/28/2018 53570-ZSJVSPR NAIL, 6 OR MORE 01/04/2019 73789-NCJTZLN NAIL, 6 OR MORE 04/05/2019 50317-AJDBSSE NAIL, 6 OR MORE 12/18/2017 59903-SKVAYBV NAIL, 6 OR MORE 07/12/2019 53741-HJDWWSH NAIL, 6 OR MORE 10/18/2019 13199-Zwrbupej Plate 03/12/2018 44091-Eyxhrlcb Plate 04/05/2019 24994-Tvsnifuj Plate 12/18/2017 72934-Sxlwncgp Plate 09/18/2017 14098-Pqmudkqi Plate 05/29/2017 90779-Zayflagr Plate 11/03/2014 90534-Bkkwrgkg Plate 07/04/2014 50951-Awxqmrkv Plate 04/11/2014 18854-Kvbwcemb Plate 01/10/2014 70230-Gqxkivts Plate 09/27/2013 80895-Hkqtdwoh Plate 02/15/2013 30185-Gmgbbetz Plate 11/05/2012 66950-Dmvgkzdv Plate 07/22/2011 18275-Wcetiyud Plate 08/17/2012 07124-Qrnofefp Plate 05/25/2012 72130-Xhdphxqm Plate 01/09/2012 93527-Vxcepsnj Plate 10/07/2011 45673-Bkzfkbgc Plate 05/02/2011 03233-Hisxtgwr Plate 10/04/2024 11606-Rifuysmh Plate 03/01/2024 17998-Rkbxznsc Plate 11/24/2023 11282-Jhnodfhr Plate 08/25/2023 94027-Eslelbcp Plate 05/26/2023 29163-Pdbdkukz Plate 02/17/2023 20864-Ptxzkpwr Plate 09/23/2022 63427-Jjgjwxpl Plate 06/24/2022 31693-Fffdmomg Plate 03/25/2022 44846-Egovcniq Plate 12/17/2021 75395-Xozjliff Plate 09/10/2021 58505-Jmdmlery Plate 06/04/2021 01129-Jrwsnyzt Plate 03/05/2021 55072-Adxytnyr Plate 12/04/2020 82928-Qxusokpz Plate 07/24/2020 91221-Bgaczaym Plate 04/24/2020 71455-Pjxlhdkf Plate 01/06/2025 73071-Mmbqjrnb Plate Each Additional 88408-Wiecoacb Plate Each Additional 56761-Jnktlvlk Plate Each Additional 12/2011 14142-Jdtcmjhb Plate Each Additional 32592-Icyqlotw Plate Each Additional 07/2012 62815-Wguzcxnj Plate Each Additional 93204-Uxzschkr Plate Each Additional 09/2012 35541-Raechsjk Plate Each Additional 07/2013 95611-Denbuush Plate Each Additional 13591-Niwnvwni Plate Each Additional 02/2014 37081-Tarxknny Plate Each Additional 01/2014 05272-Hxctmqrb Plate Each Additional 88899-Xotappyt Plate Each Additional 51793-XTR 03/15/2013 55458- Debride <25 sq cm 03/15/2013 96690- Debride <25 sq cm 09/27/2013 96626- Debride <25 sq cm 11/03/2014 69675- Debride <25 sq cm 07/04/2014 36610- Debride <25 sq cm 04/11/2014 07605- Debride <25 sq cm 01/10/2014 70118- Debride <25 sq cm 04/15/2013 47676- Debride <25 sq cm 06/21/2013 84422- Debride <25 sq cm 02/10/2025 10803- Debride <25 sq cm 02/27/2025 44138-TEPERAR SKIN/TISSUE 04/11/2025 22647-UKUBDTG SKIN/TISSUE 01/27/2025 04018-HNDQHKZ SKIN/TISSUE 07/28/2025 29755-OJJLAXP SKIN/TISSUE 03/29/2013 30115-CJRN SKIN LESIONS, 2 TO 4 08/17/20 12 98560-BXXQ SKIN LESIONS, 2 TO 4 05/25/20 12 32320-ZLFH SKIN LESIONS, 2 TO 4 01/09/20 12 21687-JJGJ SKIN LESIONS, 2 TO 4 10/07/19 12 60137-QWRZ SKIN LESIONS, 2 TO 4 05/02/20 11 75396-WWWL SKIN LESIONS, 2 TO 4 07/22/20 11 66015-Fxoh. Subungual Hematoma 0 92359-Tfkf. Subungual Hematoma 1 33884-Mgct. Subungual Hematoma 2 17120- Removal of Foreign Body, Subcut 0 10/07/2011 54156- Removal of Foreign Body, Subcut 0 11/14/2011 26997- Removal of Foreign Body, Subcut 0 01/09/2012 Next Appt Details Provider Name:Tito Gray , 11/07/2025 03:15:00 PM, [address] [place] [address], [place], [address], Insurance Providers Payer Name Payer Address Payer Phone Subscriber Number Group Number Insured Name Patient Relationship to Insured Coverage Start Date Coverage End Date [facility] 65 Medicare Preferred [address] [place] [address] [id number] Alise Austen Self - patient is the insured Medical [...]
--- OUTSIDE RECORDS SUMMARY | 2025-08-28 16:26 | XMS_ITS ---
Care Plan Created on: August 28, 2025 Austen Carrero Jr. : 1955 Sex: Male Author Organization [address] [facility] Address [address] [place] [address] Phone Care Team Providers Care Newcomer Hostess Name Role Phone Alisa Pascual MD Primary Care Provider [phone] Active Problems Problem Noted Date Diagnosed Date Non-pressure chronic ulcer o f other part of right foot limited to breakdown of skin 05/30/2025 Non-pressure chronic ulcer o f other part of right foot with fat layer exposed 05/23/2025 Type 2 diabetes mellitus with foot ulcer (CODE) 05/16/2025 Type 2 diabetes mellitus with polyneuropathy 05/2025 Diabetes mellitus type 2, uncomplicated 07/29/20 24 [...] Problem 08/24/2025 Infection Onset Date Last Indicated Tuberculosis Rule-Out 08/23/2025 08/23/2025 Goals Goal Patient Goal Type Associated Problems [...]
--- OUTSIDE RECORDS SUMMARY | 2025-08-28 16:26 | XMS_ITS | Encounter Summary ---
Author Organization [facility] Address [address] [place] [address] Care Team Providers Care All Around Patternmaker Name Role Phone Alisa Pascual MD Primary Care Provider [phone] Reason for Visit * Reason Onset Date Comments Post-op Follow-up 08/24/2025 Bronch Follow Up Encounter Details Date Type Department Care Team ([facility] Contact Info) Description 08/24/2025 Telephone Pulmonology - [address] [address] Emma Odom, RN Social History Tobacco Use Types Packs/Day [...] as of this encounter Progress Notes * Emma Odom RN - 08/24/2025 8:49 AM EST Austen Carrero Jr. called and voicemail left for post procedure and follow up appointment reminderTuesday 08/29/2025. Asked to call the office with receipt of message. 0930 Austen Carrero Jr. Called the office back and confimed how he is feeling 1 day post procedure Flexible and robotic bronchoscopy Left upper lobe FNA, cryobiopsy, wash Right upper lobe BAL Linear EBUS Radial EBUS, CIOS, fluoroscopy Patient denies Shortness of breath Denies Chest pain and Fevers Pt reminded results are pending and will be notified as soon as we have results. Pt acknowledged follow up appointment 08/29/2025 and denies any other questions or concerns at thistime. documented in this encounter Plan of Treatment Upcoming Encounters Date Type Department Care Team (Late st Contact Info) Description 08/29/2025 1:00 PM EST Office Visit Pulmonology - [place] [address] [facility] [address] [place] [id number] Natalia Matos MD [address] [place] [address] 09/05/2025 12:45 PM EST Clinical Support [facility] [address] [place] [address] 10/03/2025 1:15 PM EST Consult Orthopedic Surgery - [place] [address] [facility] [address] [place] [phone] Dorian Chaney DPM [address] [address] documented as of this encounter Goals Goal [...] documented as of this encounter Care Teams All Around Patternmaker Relationship Specialty Start Date End Date Alisa Pascual MD [facility] [place] [address] PCP - General Internal Medicine 05/16/25 documented as of this encounter
--- OUTSIDE RECORDS SUMMARY | 2025-08-28 16:26 | XMS_ITS | Clinical Summary ---
Author Organization [address] [place] [address] Address [address] [place] [address] Phone Care Team Providers Care Tube Washer Name Role Phone Alisa Pascual MD Primary Care Provider [phone] Allergies Active Allergy Reactions Criticality Noted Date Comments Penicillin Skin Problems 06/06/2025 Penicillins Rash Low 10/16/2016 Medications GLIMEPIRIDE ORAL Take by mouth. Active LISINOPRIL ORAL 10 mg 1 (one) time each day. Take by mouth. Active metformin HCl (METFORMIN ORAL) 1,000 mg 2 (two) times a day. Take by mouth. Active rosuvastatin (CRESTOR) 20 mg tablet 2 tablets (40 mg total) 1 (one) time each day. Take 20 mg by mouth daily. Active insulin degludec (Tresiba U-100 Insulin) 100 unit/mL injection Inject 30 Units under the skin at bedtime. Active finasteride (PROSCAR) 5 mg tablet Take 1 tablet (5 mg total) by mouth 1 (one) time each day. Active empagliflozin (Jardiance) 25 mg tablet Take by mouth. 08/18/20 25 Discontinue d(Discontin ued by another clinician) cefpodoxime (VANTIN) 200 mg tablet Take 1 tablet (200 mg total) by mouth 2 (two) times a day for 10 days. 20 each 5 08/01/20 25 doxycycline hyclate (VIBRA-TABS) 100 mg tablet Take 1 tablet (100 mg total) by mouth every 12 (twelve) hours for 10 days. Take with a full glass of water and do not lie down for at least 30 minutes after. 20 each 5 08/01/20 25 Active Problems Problem Noted Date [...] Encounters Date Type Department Care Team Description 08/24/2025 Telephone Pulmonology - [address] [phone] Emma Odom RN 08/23/2025 8:52 AM EST Anesthesia Event [facility] OR [address] [place] [address] [phone] Redd Etienne MD 08/23/2025 8:30 AM EST - 08/23/2025 10:45 AM EST Surgery [facility] OR [address] [place] [phone] Natalia Matos MD FLEXIBLE BRONCHOSCOPY [89134 (CPT )] 08/23/2025 6:31 AM EST - 08/23/2025 12:04 PM EST Hospital Encounter [facility] OR [address] [place] [address] [phone] Natalia Matos MD Pain; Lung nodule Discharge Disposition: Home or Self Care 08/15/2025 1:00 PM EST Office Visit [facility] [address] [place] [phone] Carlos Jorge MD Type 2 diabetes mellitus with foot ulcer (CODE) ([facility] V24, [facility] V28) (Primary Dx); Non-pressure chronic ulcer of other part of right foot with fat layer exposed ([facility] V24, [facility] V28); Type 2 diabetes mellitus with polyneuropathy ([facility] V24, [facility] V28) 08/01/2025 3:00 PM EST Consult Pulmonology - [place] [address] [phone] Natalia Matos MD Lung nodule (Primary Dx); History of prostate cancer 08/01/2025 1:15 PM EST Office Visit [facility] [address] [place] [phone] Carrillo Hauser PA Type 2 diabetes mellitus with foot ulcer (CODE) ([facility] V24, [facility] V28) (Primary Dx); Non-pressure chronic ulcer of other part of right foot limited to breakdown of skin ([facility] V24, [facility] V28); Type 2 diabetes mellitus with polyneuropathy ([facility] V24, [facility] V28) 07/31/2025 Telephone Pulmonology - [place] 299 [facility] [address] [place] [phone] Sybil Nesbitt MA 07/19/2025 2:30 PM EST Office Visit Infectious Disease - [place] 175 [facility] [address] [place] [phone] Kaycee Kelly MD Cellulitis of right lower limb (Primary Dx) 07/19/2025 Telephone Pulmonology [facility] [address] [phone] Sybil Nesbitt [place] 07/18/2025 1:00 PM EST Office Visit [facility] [address] [place] [phone] Carrillo Hauser PA Type 2 diabetes mellitus with foot ulcer (CODE) ([facility]/HCC V24, CMS/HCC V28) (Primary Dx); Non-pressure chronic ulcer of other part of right foot limited to breakdown of skin (CMS/HCC V24, CMS/HCC V28); Type 2 diabetes mellitus with polyneuropathy (CMS/HCC V24, CMS/HCC V28) 07/13/2025 Telephone Thoracic Surgery - [place] 299 [facility] [address] [place] [phone] Gloria Jaeger, GERARDO 07/05/2025 5:15 PM EDT - 07/05/2025 11:59 PM EDT Hospital Encounter [facility] CT Scan [address] [place] [phone] Malignant neoplasm of kidney excluding renal pelvis, unspecified laterality (CMS/HCC V24, CMS/HCC V28); Solitary pulmonary nodule Discharge Disposition: Home or Self Care 07/04/2025 12:30 PM EDT Office Visit [facility] [address] [place] [phone] Carrillo Hauser PA Type 2 diabetes mellitus with foot ulcer (CODE) ([facility] V24, [facility] V28) (Primary Dx); Non-pressure chronic ulcer of other part of right foot limited to breakdown of skin ([facility]/HCC V24, CMS/HCC V28); Type 2 diabetes mellitus with polyneuropathy (CMS/HCC V24, CMS/HCC V28) 06/23/2025 Results Follow-Up Infectious Disease - [place] 175 [facility] [address] [place] [phone] Deirdre Ingram, GERARDO 06/20/2025 2:15 PM EDT Office Visit [facility] [address] [place] [phone] Carrillo Hauser PA Type 2 diabetes mellitus with foot ulcer (CODE) ([facility]/HCC V24, CMS/HCC V28) (Primary Dx); Non-pressure chronic ulcer of other part of right foot limited to breakdown of skin (CMS/HCC V24, CMS/HCC V28); Type 2 diabetes mellitus with polyneuropathy (CMS/HCC V24, CMS/HCC V28) 06/15/2025 2:30 PM EDT - 06/15/2025 11:59 PM EDT Hospital Encounter [facility] Nuclear Medicine [address] [place] [phone] Discharge Disposition: Home or Self Care 06/15/2025 11:17 AM EDT - 06/15/2025 11:59 PM EDT Hospital Encounter [facility] Medicine [address] [place] [phone] Diabetic ulcer of toe of right foot associated with type 2 diabetes mellitus, unspecified ulcer stage (CMS/HCC V24, CMS/HCC V28) Discharge Disposition: Home or Self Care 06/13/2025 1:45 PM EDT Office Visit [facility] [address] [place] [phone] Carrillo Hauser PA Type 2 diabetes mellitus with foot ulcer (CODE) (CMS/HCC V24, CMS/HCC V28) (Primary Dx); Non-pressure chronic ulcer of other part of right foot limited to breakdown of skin (CMS/HCC V24, CMS/HCC V28); Type 2 diabetes mellitus with polyneuropathy (CMS/HCC V24, CMS/HCC V28) 06/06/2025 4:00 PM EDT Consult Infectious Disease - [place] [address] [phone] Kaycee Kelly MD Diabetic ulcer of toe of right foot associated with type 2 diabetes mellitus, unspecified ulcer stage (CMS/HCC V24, CMS/HCC V28) (Primary Dx) 06/06/2025 12:30 PM EDT Office Visit [facility] [address] [place] [phone] Carrillo Hauser PA Type 2 diabetes mellitus with foot ulcer (CODE) (CMS/HCC V24, CMS/HCC V28) (Primary Dx); Non-pressure chronic ulcer of other part of right foot limited to breakdown of skin (CMS/HCC V24, CMS/HCC V28); Type 2 diabetes mellitus with polyneuropathy (CMS/HCC V24, [facility] V28) 05/30/2025 1:45 PM EDT Office Visit [facility] [address] [place] [phone] Carrillo Hauser PA Type 2 diabetes mellitus with foot ulcer (CODE) ([facility] V24, [facility] V28) (Primary Dx); Non-pressure chronic ulcer of other part of right foot limited to breakdown of skin ([facility] V24, [facility] V28); Type 2 diabetes mellitus with polyneuropathy ([facility] V24, [facility] V28) 05/30/2025 Telephone Infectious Disease - [place] 175 [facility] [address] [place] [phone] Regi Glez MA from Last 3 Months Surgical History Surgery [...] disc L5-S1 Diabetes mellitus type 2, uncomplicated ([facility] V24, [facility] V28) DX:Diabetes mellitus type 2, uncomplicated (HCC) PONV (postoperative nausea a nd vomiting) Family History Medical History Relation Name Comments [...] on file Sexual Orientation Not on file Last Filed Vital Signs Vital Sign Reading [...] Mass Index 25.62 08/18/2025 9:00 AM EST Plan of Treatment Upcoming Encounters Date Type Department Care Team (Late st Contact Info) Description 08/29/2025 1:00 PM EST Office Visit Pulmonology - [place] 299 [facility] [address] [place] [phone] Natalia Matos MD [address] [place] [phone] 09/05/2025 12:45 PM EST Clinical Support [facility] [address] [place] [phone] 10/03/2025 1:15 PM EST Consult Orthopedic Surgery - [place] 250 175 [facility] [address] [place] [phone] Dorian Chaney DPM [address] [phone] Health Maintenance Due Date Last Done Comments [...] 08/21/2022 COVID-19 Vaccine (9 - Pfizer risk season) 2025 05/17/2025, 05/18/2024, 05/27/2023, Additional history exists Diabetes: Annual GFR (Glomerular Filtration Rate) 08/16/2026 08/16/2025, 05/26/2025 Hypertension/CHF/CAD Annual BMP Blood Test 08/16/2026 08/16/2025, 05/26/2025 Falls Risk Assessment 08/23/2026 08/23/2025 Zoster Vaccines Completed 03/23/2022, 03/07, 01/21/2022 RSV Immunization Adult Patients Completed 05/27/2023 [...] Routine 08/23/2025 9:10 AM EST Lung nodule NY BRONCHOSCOPY RIGID/FLEXIBLE W/EBUS >=3 MEDIASTINAL/HILAR LYMPH NODES 08/23/2025 8:36 AM EST Lung nodule NY BRONCHOSCOPY RIGID/FLEXIBLE W/TRANSBRONCHIAL LUNG BIOPSY(S) SINGLE LOBE 08/23/2025 8:36 AM EST Lung nodule NY BRONCHOSCOPY RIGID/FLEXIBLE COMPUTER ASSISTED IMAGE GUIDED NAVIGATION 08/23/2025 8:36 AM EST Lung nodule NY BRONCHOSCOPY INCL FLUORO GUIDANCE W BRONCHIAL/ENDOBRONCHI AL BX SGL/MULT 08/23/2025 8:36 AM EST Lung nodule POCT GLUCOSE BLOOD Routine 08/23/2025 7: 32 AM EST ECG 12-LEAD Routine 08/16/2025 2:43 PM EST Lung nodule CBC WITH AUTO DIFFERENTIAL Routine 08/16/2025 2:36 PM EST Lung nodule BASIC METABOLIC PANEL Routine 08/16/2025 2:36 PM EST Lung nodule CBC AND DIFFERENTIAL Routine 08/16/2025 2:36 PM EST Lung nodule PROTHROMBIN TIME WITH INR Routine 08/16/2025 2:36 PM EST Lung nodule DEBRIDEMENT Routine 08/15/2025 1:00 PM EST Type 2 diabetes mellitus with foot ulcer (CODE) (CMS/HCC V24, CMS/HCC V28) Non-pressure chronic ulcer of other part of right foot with fat layer exposed (CMS/HCC V24, CMS/HCC V28) Type 2 diabetes mellitus with polyneuropathy (CMS/HCC V24, CMS/HCC V28) DEBRIDEMENT Routine 08/01/2025 1:15 PM EST Type [...] breakdown of skin (CMS/HCC V24, CMS/HCC V28) from Last 3 Months Results * XR Chest 1 View (08/23/2025 [...] Signed Date: 08/23/2025 10:59 ET Workstation ID: [id number] Transcribed By: Self Edit Transcribed Date: 08/23/2025 [...] Signed Date: 08/23/2025 10:59 ET Workstation ID: [id number] Transcribed By: Self Edit Transcribed Date: 08/23/2025 10:56 ET Vijay Landa BRAIDER TENDER IMG XR PROCEDURES Final Res ult * POCT Glucose, blood (08/23/2025 10:23 AM EST) Only the most recent of2 resultswithin the time period is included. Glucose POCT 147 70 - 199 mg/dL 08/23/2025 10:24 AM EST [facility] Comment: Fasting Reference Range: 70-99 mg/dL Non-Fasting Reference Range: 70-199 mg/dL Blood Capillary blood specimen / Unknown 08/23/2025 10:23 AM EST 08/23/2025 10:25 AM EST Natalia Matos MD LAB POINT OF CARE TEST DOCKED DEVICE UNSOLICITED RESULTS Final Result Performing Organization Address City/[facility]/ZIP Co de Phone Number [facility] [address] [place] [address], [place] [phone] * XR Fluoro Up To 1 Hour (Statistics)(No Report) (08/23/2025 9:55 AM EST) Narrative RIS PACS/VR - 08/23/2025 9:55 AM EST This order has been auto-finalized and does not contain a result. Natalia Matos MD IMG FLUOROSCOPY PROCEDURES Final Result Performing Organization Address [facility] Co de Phone Number RIS PACS/VR * Culture respiratory with gram stain (08/23/2025 9:51 AM EST) Only the most recent of2 resultswithin the time period is included. Culture, Respiratory No growth at 3 days 08/26/2025 10:36 AM EST [facility] Gram Stain Result Few WBCs present 08/26/2025 10:36 AM EST [facility] Gram Stain Result No organisms seen 08/26/2025 10:36 AM EST [facility] Wash Structure of upper lobe of right lung / Unknown 08/23/2025 9:51 AM EST 08/23/2025 10:19 AM EST Comment:NO CONCERN FOR TB Natalia Matos MD LAB MICROBIOLOGY - GENERAL ORDERABLES Final Result Performing Organization Address [facility] Co de Phone Number [facility] [address] [place] [address], [place] [phone] * Tissue exam (08/23/2025 9:10 AM EST) Final Diagnosis Lung, left upper lobe, cryo biopsy: Metastatic carcinoma, consistent with patient's known prostate primary (see comment). 08/25/2025 1:12 PM EST [facility] at 1312 EST Comment Patient's history of prostate cancer (per [facility]) is noted. Please see concurrent cytology specimen ([id number]) for more information. Immunohistochemical stains for NKX3.1, CK7, TTF-1, Napsin-A, and p40 are performed on A1 with adequate controls. The tumor is positive for NKX3.1, and negative for CK7, TTF-1, Napsin-A, and p40. Cruz slides have been reviewed at the intradepartmental conference at [place], [place] on 08/24/2025. Preliminary findings were reported to Dr. Natalia Matos on 08/24/2025 via [employer]. Findings were reported to Dr. Natalia Matos on 08/25/2025 via [employer], which was read. 08/25/2025 1:12 PM EST [facility] Gross Description A. Lung, Left Upper Lobe, CRYO LEFT UPPER LOBE: Received in formalin labeled cryo left upper lobe , are multiple norris-red, irregular flecks of soft tissue, ranging from 0.1 to 0.3 cm in greatest dimension. Is filtered and entirely submitted in cassette A1, multiple pieces. CHANDRAKANT COX (ASCP)CM- 08/23/25 08/25/2025 1:12 PM [facility] Disclaimer The interpretation o f this [...] components of [place] [address] CLIA # [id number] 08/25/2025 1:12 PM [facility] Tissue Structure of upper lobe of left lung / Unknown 08/23/2025 9:10 AM EST 08/23/2025 11:40 AM EST Natalia Matos MD LAB PATHOLOGY ORDERABLES F inal Result [facility] [address] [place] [address], [place] [phone] * Non-gynecologic cytology (08/23/2025 9:10 AM EST) [...] for ancillary studies. 08/25/2025 1:12 PM EST [facility] at 1312 EST Comment Please see concurren t surgical specimen ([id number]) for more information. 08/25/2025 1:12 PM [facility] Specimen A Adequacy Satisfactory for evaluation 08/25/2025 1:12 PM [facility] Specimen B Adequacy Satisfactory for evaluation 08/25/2025 1:12 PM EST [facility] Clinical Information IN CYTO 08/25/2025 1:12 PM EST [facility] Gross Description A. Lung, Left Upper Lobe, FNA LEFT UPPER LOBE: Received: 35c pink CytoLyt with tissue fragments for ThinPrep and Cell Block. B. Lung, Left Upper Lobe, WASH LEFT UPPER LOBE: Received: 30cc slightly pink CytoLyt with light flecks for ThinPrep and Cell Block. 08/25/2025 1:12 PM EST [facility] Disclaimer The technical components of this case were performed at [address] [address] CLIA # [id number] 08/25/2025 1:12 PM EST [facility] Fine Needle Aspirate Structure of upper lobe of left lung / Unknown 08/23/2025 9:10 AM EST 08/23/2025 12:17 PM EST Comment:IN CYTO Specimen obtained by lavage (specimen) Structure of upper lobe of left lung / Unknown 08/23/2025 9:12 AM EST 08/23/2025 12:17 PM EST Comment:IN CYTO Natalia Matos MD LAB CYTOLOGY ORDERABLES Fi nal Result Performing Organization Address City/[facility]/ZIP Co de Phone Number [facility] [address] [place] [address], [place] [phone] * ECG 12 lead (08/16/2025 2:43 PM EST) Ventricular Rate ECG 81 BPM GEMUSE Atrial Rate 81 BPM GEMUSE P-R Interval 184 ms GEMUSE QRS Duration 88 ms GEMUSE Q-T Interval 352 ms GEMUSE QTc 408 ms GEMUSE P Wave [place] 56 degrees GEMUSE R [place] 40 degrees GEMUSE T [place] 56 degrees GEMUSE ECG Interpretation Normal sinus rhythm When compared with ECG of 27-SEP-2018 10:16, No significant change was found Confirmed by TREY GALEAS ([id number]) on 08/17/2025 5:34:07 AM GEMUSE 08/16/2025 2:43 PM EST 08/17/2025 5:34 AM EST Natalia Matos MD ECG ORDERABLES Final Resu lt GEMUSE * (ABNORMAL) CBC auto differential (08/16/2025 2:36 PM EST) WBC 4.2(L) 4.8 - 10.8 K/mcL LAB HEMETOLOGY METHOD 08/16/2025 2:58 PM [facility] RBC 3.60(L) 4.50 - 5.50 M/mcL LAB HEMETOLOGY METHOD 08/16/2025 2:58 PM [facility] Hemoglobin 11.7(L) 13.5 - 17.5 g/dL LAB HEMETOLOGY METHOD 08/16/2025 2:58 PM [facility] Hematocrit 33.3(L) 42.0 - 54.0 % LAB HEMETOLOGY METHOD 08/16/2025 2:58 PM [facility] MCV 93.5 79.0 - 98.0 FL LAB HEMETOLOGY METHOD 08/16/2025 2:58 PM [facility] MCH 32.9(H) 27.0 - 32.0 pcg LAB HEMETOLOGY METHOD 08/16/2025 2:58 PM [facility] MCHC 35.1 32.0 - 37.0 g/dL LAB HEMETOLOGY METHOD 08/16/2025 2:58 PM [facility] RDW 12.3 11.0 - 15.0 % LAB HEMETOLOGY METHOD 08/16/2025 2:58 PM [facility] Platelets 188 130 - 400 K/mcL LAB HEMETOLOGY METHOD 08/16/2025 2:58 PM [facility] MPV 9.4 7.0 - 11.0 FL LAB HEMETOLOGY METHOD 08/16/2025 2:58 PM [facility] NRBC 0.0 <1.0 % LAB HEMETOLOGY METHOD 08/16/2025 2:58 PM [facility] NRBC Absolute 0.00 <0.10 K/mcL LAB HEMETOLOGY METHOD 08/16/2025 2:58 PM [facility] Neutrophils Relative 68.8 % LAB HEMETOLOGY METHOD 08/16/2025 2:58 PM [facility] Lymphocytes Relative 20.6 % LAB HEMETOLOGY METHOD 08/16/2025 2:58 PM [facility] Monocytes Relative 9.0 % LAB HEMETOLOGY METHOD 08/16/2025 2:58 PM [facility] Eosinophils Relative 1.2 % LAB HEMETOLOGY METHOD 08/16/2025 2:58 PM [facility] Basophils Relative 0.2 % LAB HEMETOLOGY METHOD 08/16/2025 2:58 PM [facility] Immature Granulocytes Relative 0.2 % LAB HEMETOLOGY METHOD 08/16/2025 2:58 PM [facility] Neutrophils Absolute 2.90 1.50 - 7.00 K/mcL LAB HEMETOLOGY METHOD 08/16/2025 2:58 PM [facility] Lymphocytes Absolute 0.87(L) 1.00 - 5.00 K/mcL LAB HEMETOLOGY METHOD 08/16/2025 2:58 PM [facility] Monocytes Absolute 0.38 0.20 - 1.00 K/mcL LAB HEMETOLOGY METHOD 08/16/2025 2:58 PM [facility] Eosinophils Absolute 0.05 0.00 - 0.50 K/mcL LAB HEMETOLOGY METHOD 08/16/2025 2:58 PM [facility] Basophils Absolute 0.01 0.00 - 0.20 K/mcL LAB HEMETOLOGY METHOD 08/16/2025 2:58 PM [facility] Immature Granulocytes Absolute 0.01 0.00 - 0.03 K/mcL LAB HEMETOLOGY METHOD 08/16/2025 2:58 PM [facility] Blood Venous blood specimen / Unknown Venipuncture / Unknown 08/16/2025 2:36 PM EST 08/16/2025 2:54 PM EST us Natalia Matos MD LAB BLOOD ORDERABLES Final Result [facility] [address] [place] [address], [place] [phone] * Prothrombin time with INR (08/16/2025 2:36 PM EST) Pathologist [facility] Protime 11.7 10.6 - 13.9 sec LAB COAGULATION METHOD 08/16/2025 3:03 PM EST [facility] INR 0.9 LAB COAGULATION METHOD 08/16/2025 3:03 PM [facility] Blood Venous blood specimen / Unknown Venipuncture / Unknown 08/16/2025 2:36 PM EST 08/16/2025 2:54 PM EST Natalia Matos MD LAB BLOOD ORDERABLES Final Result Performing Organization Address City/[facility]/ZIP Co de Phone Number [facility] [address] [place] [address], [place] [phone] * (ABNORMAL) Basic metabolic panel (08/16/2025 2:36 PM EST) [facility] Sodium 135 133 - 145 mmol/L 08/16/2025 4:35 PM [facility] Potassium 4.2 3.5 - 5.5 mmol/L 08/16/2025 4:35 PM [facility] Chloride 100 96 - 110 mmol/L 08/16/2025 4:35 PM [facility] CO2 26 21 - 32 mmol/L 08/16/2025 4:35 PM [facility] Anion Gap 9 3 - 11 08/16/2025 4:35 PM [facility] Glucose 371(H) 70 - 100 mg/dL 08/16/2025 4:35 PM [facility] BUN 11 5 - 25 mg/dL 08/16/2025 4:35 PM EST [facility] Creatinine 1.07 0.70 - 1.30 mg/dL 08/16/2025 4:35 PM EST [facility] eGFR 74 >=60 mL/min/1. 73m2 08/16/2025 4:35 PM EST [facility] Comment:Calculation based on the Chronic Kidney Disease Epidemiology Collaboration (CKD-EPI) equation refit without adjustment for race. BUN/Creatinine Ratio 10.3 08/16/2025 4:35 PM EST [facility] Calcium 8.9 8.5 - 10.5 mg/dL 08/16/2025 4:35 PM [facility] Blood Venous blood specimen / Unknown Venipuncture / Unknown 08/16/2025 2:36 PM EST 08/16/2025 2:54 PM EST Natalia Matos MD LAB BLOOD ORDERABLES Final Result [facility] [address] [place] [address], * Debridement Diabetic Ulcer Right;Plantar Toe D3, Third (08/15/2025 1:00 PM EST) Narrative Carlos Jorge MD - 08/15/2025 1:00 PM EST Carlos Jorge MD 08/16/2025 8:10 AM Debridement Diabetic Ulcer Right;Plantar Toe D3, Third Performed by: Carlos Jorge MD Authorized by: Carlos Jorge MD Associated wounds: Wound Diabetic Ulcer 05/16/25 Toe D3, Third Right;Plantar Consent: Consent obtained: Verbal Consent given by: Patient Risks discussed: Yes Time out: Immediately prior to the procedure a time out was called Debridement Details: Performed by: Physician Type: surgical Level: subcutaneous tissue Pain control: Lidocaine 4% Pain control administration: topical anesthesia Severity of Tissue Pre Debridement: Fat layer exposed Severity of Tissue Post Debridement: Fat layer exposed Time taken: 08/15/2025 1:04 PM Length (cm): 0.6 Width (cm): 0.6 Depth (cm): 0.1 Area (cm^2): 0.28 Time taken: 08/15/2025 1:05 PM Length (cm): 0.6 Width (cm): 0.6 Depth (cm): 0.2 Percent Debrided (%): 90 Surface Area (cm^2): 0.28 Area Debrided (cm^2): 0.25 Volume (cm^3): 0.04 Tissue and other material debrided: dermis, epidermis and subcutaneous tissue Devitalized tissue debrided: exudate, fibrin and slough Instrument: Curette Amount of bleeding: small Hemostasis obtained with: Pressure Procedural pain: 0 Post-procedural pain: 0 Response to treatment: Procedure was tolerated well us Carlos Jorge MD IN CLINIC/BEDSIDE ORDERAB LES Final Result * Debridement Diabetic Ulcer Right;Plantar [...] D3, Third (07/18/2025 1:00 PM EST) Carlos aVlencia MD - 07/18/2025 1:00 PM EST Carlos [...] Signed Date: 07/10/2025 16:15 ET Workstation ID: [id number] Transcribed By: Self Edit Transcribed Date: 07/10/2025 [...] Cavitary nodule lateral left apex 07/05/25-1.0 cm (34) Irregular solid nodule anterior left apex 07/05/25-1.0 [...] Signed Date: 07/10/2025 16:15 ET Workstation ID: [id number] Transcribed By: Self Edit Transcribed Date: 07/10/2025 15:[address] MD IM CT PROCEDURES Final Resul t * Debridement Diabetic Ulcer Right;Plantar Toe D3, Third (07/04/2025 12:30 PM EDT) Narrative Carlos Jorge MD - 07/04/2025 12:30 PM EDT Carlos [...] Signed Date: 06/20/2025 13:51 ET Workstation ID: [id number] Transcribed By: Self Edit Transcribed Date: 06/20/2025 [...] Signed Date: 06/20/2025 13:51 ET Workstation ID: [id number] Transcribed By: Self Edit Transcribed Date: 06/20/2025 13:45 ET us Kaycee Kelly [facility] Final Result * Debridement Diabetic Ulcer [...] Date Last Indicated Tuberculosis Rule-Out 08/23/2025 08/23/2025 Insurance [facility] Advance Directives * Full Code - Confirmed (Latest Code Status on File) Date Activated Date Inactivated Comments 08/23/2025 7:12 AM 08/23/2025 2:04 PM This code status was ascertained in the following way: Code status discussion: discussion with patient To update the patient's code status, place a code status order. Do not modify or discontinue any currently active code status orders. Care Teams Tube Washer Relationship Specialty Start Date End Date Alisa Pascual MD [address] [place] [id number] PCP - General Internal Medicine 05/16/25
--- OUTSIDE RECORDS SUMMARY | 2025-08-28 16:26 | XMS_ITS ---
Author Name [facility] Organization Unknown Results Test Name/Text Value Interpretation Date Range Source Glucose Bld-mCnc 147.0 mg/dL 08/23/2025 70 - 199 [facility] Service [facility] Patient's history of prostate cancer (per [facility]) is noted. Please see concurrent cytology specimen ([id number]) for more information. Immunohistochemical stains for NKX3.1, CK7, TTF-1, Napsin-A, and p40 are performed on A1 with adequate controls. The tumor is positive for NKX3.1, and negative for CK7, TTF-1, Napsin-A, and p40. Cruz slides have been reviewed at the intradepartmental conference at [place], [place] on 08/24/2025. Preliminary findings were reported to Dr. Natalia Matos on 08/24/2025 via [email or web address]. Findings were reported to Dr. Natalia Matos on 08/25/2025 via [email or web address], which was read. 08/25/2025 [facility] Service [facility] Please see concurrent surgical specimen ([id number]) for more information. 08/25/2025 [facility] Clinical info IN [facility] 08/25/2025 [facility] Glucose Bld-mCnc 154.0 mg/dL 08/23/2025 70 - 199 [facility] History of Medication Use Medication Directions Dispensed Refills Start Date End Date Stat us acetaminophen (TYLENOL) tablet 650 mg 650 mg, oral, As needed, mild pain, moderate pain, headaches, hold for history of liver disease, Starting on Thu08/23/25 at 1008, For 1 dose, Recovery (only), Scheduled medication for mild pain 08/23/2025 active diphenhydrAMINE (BENADRYL) injection 25 mg 25 mg, intravenous, Every 15 min PRN, itching, Starting on Thu08/23/25 at 1008, Recovery (only) 08/23/2025 active HYDROmorphone (DILAUDID) injection 0.5 mg 0.5 mg, intravenous, Every 15 min PRN, severe pain or when therapies for moderate pain were not effective, Starting on Thu08/23/25 at 1008, For 4 doses, Recovery (only) 08/23/2025 active lactated Ringer's infusion 100 mL/hr, intravenous, Continuous, Starting on Thu08/23/25 at 1030, Recovery (only) 08/23/2025 active meperidine (PF) (DEMEROL) 25 mg/mL injection 12.5 mg 12.5 mg, intravenous, Every 15 min PRN, rigors, shivering, Starting on Thu08/23/25 at 1008, For 4 doses, Recovery (only) 08/23/2025 active ondansetron ODT (ZOFRAN-ODT) disintegrating tablet 4 mg [Order 1 Start] Name: ondansetron ODT (ZOFRAN-ODT) disintegrating tablet 4 mg Signed Summary: 4 mg, oral, Every 8 hours PRN, vomiting, nausea, Starting on Thu08/23/25 at 1008, Recovery (only), -Give IV if patient is unable to take orally. -If inadequate response within 30 minutes, proceed to next-l 08/23/2025 active oxyCODONE (ROXICODONE) immediate release tablet 5 mg 5 mg, oral, Every 4 hours PRN, severe pain, moderate pain, moderate pain or when therapies for mild pain were not effective, Starting on Thu08/23/25 at 1008, For 1 dose, Recovery (only) 08/23/2025 active sodium chloride 0.9 % flush 10 mL [Order 1 Start] Name: Insert peripheral IV Signed Summary: STAT, Once, On Thu08/23/25 at 0713, For 1 occurrence, Preprocedure [Order 1 End] [Order 2 Start] Name: Maintain IV access Signed Summary: Until discontinued, Starting on Thu08/23/25 at 0713, Until Specified, Preprocedure [Order 2 End] [Ord 08/23/2025 active empagliflozin (Jardiance) 25 mg tablet Take by mouth. aborted finasteride (PROSCAR) 5 mg tablet Take 1 tablet (5 mg total) by mouth 1 (one) time each day. active GLIMEPIRIDE ORAL Take by mouth. active insulin degludec (Tresiba U-100 Insulin) 100 unit/mL injection Inject 30 Units under the skin at bedtime. active LISINOPRIL ORAL 10 mg 1 (one) time each day. Take by mouth. active metformin HCl (METFORMIN ORAL) 1,000 mg 2 (two) times a day. Take by mouth. active rosuvastatin (CRESTOR) 20 mg tablet 2 tablets (40 mg total) 1 (one) time each day. Take 20 mg by mouth daily. active Allergies Allergen Reaction Severity Comment Documented Date Source Statu s PENICILLIN SKIN PROBLEMS 06/06/2025 [facility] a ctive PENICILLINS RASH 10/16/2016 [facility] active Problems Problem Status Onset Date Problem Type Date of Resolution Source Hyperlipidemia active 2019-02-[address] [facility] Non-pressure chronic ulcer of other part of right foot limited to breakdown of skin active 2025-05-30 ProblemAct [facility] CAD (coronary artery disease) active 2019-02-22 ProblemAct [facility] Diverticulosis active 2019-02-[address] Problem[address] [facility] Right inguinal pain active 2024-07-29 ProblemAct [facility] Diabetes mellitus type 2, uncomplicated active 2024-07-29 ProblemAct [facility] Osteoarthritis active 2019-02-22 ProblemAct [facility] Hernia of abdominal wall active 2024-07-29 ProblemAct [facility] Postoperative seroma of subcutaneous tissue after non-dermatologic procedure active 2019-03-09 ProblemAct [facility] Type 2 diabetes mellitus with polyneuropathy active 2025-05-16 ProblemAct [facility] Hypertension active 2024-07-29 ProblemAct [facility] Contusion of left thigh active 2019-06-09 ProblemAct [facility] Inguinal hernia, recurrent active 2024-07-29 ProblemAct [facility] Type 2 diabetes mellitus with foot ulcer (CODE) active 2025-05-16 ProblemAct [facility] Non-pressure chronic ulcer of other part of right foot with fat layer exposed active 2025-05-23 ProblemAct [facility] Non-pressure chronic ulcer of other part of right foot with fat layer exposed active 2025-05-23 ProblemAct [facility] Hyperlipidemia active 2019-02-22 ProblemAct [facility] Non-pressure chronic ulcer of other part of right foot limited to breakdown of skin active 2025-05-30 ProblemAct [facility] Type 2 diabetes mellitus with foot ulcer (CODE) active 2025-05-16 ProblemAct [facility] Pain active EncounterDiagnosisAct [facility] CAD (coronary artery disease) active 2019-02-22 ProblemAct [facility] Contusion of left thigh active 2019-06-09 ProblemAct [facility] Hypertension active 2024-07-29 ProblemAct [facility] Right inguinal pain active 2024-07-29 ProblemAct [facility] Postoperative seroma of subcutaneous tissue after non-dermatologic procedure active 2019-03-09 ProblemAct [facility] Lung nodule active EncounterDiagnosisAct [facility] Diverticulosis active 2019-02-22 ProblemAct [facility] Osteoarthritis active 2019-02-22 ProblemAct [facility] Hernia of abdominal wall active 2024-07-29 ProblemAct [facility] Type 2 diabetes mellitus with polyneuropathy active 2025-05-16 ProblemAct [facility] Diabetes mellitus type 2, uncomplicated active 2024-07-29 ProblemAct [facility] Inguinal hernia, recurrent active 2024-07-29 ProblemAct [facility] Encounters Encounter Type Encounter Reason Primary Diagnosis Location Date Ambulatory Pain, unspecified Pain, unspecified [facility] 08/23/2025 Care Team Organization Name Specialty Phone Email Start Date End Da te [facility] Primary [facility] 08/18/2025 [facility] Primary Care 08/18/2025
[2025-08-28 17:07] LABS: Microalbum/Creatinine Ratio Ur 15.0 ug/mg cr (<30)
== END 2025-08-28 13:06 | disposition home or self-care (01) ==
LOC: HO.HMGCLDS 13:05
PROVIDERS: PCP Internal Medicine; Visit Provider Internal Medicine
DX: I10 Essential (primary) hypertension (principal); E78.5 Hyperlipidemia, unspecified; E11.9 Type 2 diabetes mellitus without complications
CPT/HCPCS: 36415; 80053; 80061; 82043; 82570; 83036; 85025